=== PATIENT | female | born 1950 | race Caucasian/White ===

== ENCOUNTER 2023-11-28 15:57 | Inpatient (IN) | payer MEDICARE, MEDICAID, SELFPAY ==
[2023-11-28 16:03] VITALS: BP 143/67; PULSE 76; RESP 18; TEMP 36.9; O2SAT 98; BMI 28.2
--- NOTE | 2023-11-28 16:14 | CT_ITS ---
[address] [address] Patient Name: STEF BAZAN MRN: [id number] date: 1950 Sex: F Assigned Patient Location: ER Current Patient Location: Accession/Order Number: [id number] Exam Date: 11/28/2023 16:37 Report Date: 11/28/2023 17:20 At the request of: ROSLYN JARA Procedure: CT chest wo con EXAM: CT scan of the chest without IV contrast. CT scan of the pelvis without contrast. Dose reduction technique used: Automated exposure control and/or adjustment of the mA and/or kV according to patient size and/or use of iterative reconstruction technique. REASON FOR EXAM: pain COMPARISON: CT scan dated 02/06/2018 FINDINGS: CHEST: No pneumothorax. No pleural effusion. No acute airspace opacities. T3, T4, T5, T7, T8, T9 and T12 compression fractures, some of these are chronic but most of them are age indeterminate. There is severe height loss at the T7, T8 and T12 levels. Centrilobular emphysema throughout both lungs. Groundglass nodule in the left upper lobe measuring up to 11 mm. Additional left lower lobe groundglass nodule measuring up to 17 mm. Tiny bilateral solid pulmonary nodules. Coronary atherosclerotic calcifications. Left nephrectomy. 1.4 x 1.3 cm soft tissue density nodule in the left retroperitoneum in the region of the nephrectomy postoperative change. Old left rib fractures. Small amount of scarring and/or atelectasis in the lower lungs bilaterally. PELVIS: Acute nondisplaced right subcapital femoral neck fracture. Age indeterminate L4 and L5 compression fractures with mild height loss. No subluxations or dislocations. No pelvic hematoma or free fluid. Infrarenal abdominal aortic aneurysm measuring up to 3.7 cm. Colonic diverticulosis. Right sacral nerve stimulator. Mild degenerative changes of both hips. Lumbar spine degenerative change. Osteopenia. Remainder unremarkable. CT/CT chest wo con IMPRESSION: 1. Acute right subcapital femoral neck fracture. 2. Multiple thoracic and lumbar compression fractures that are age indeterminate. 3. Otherwise, no definite acute abnormality in the chest. 4. Emphysema. 5. Multiple indeterminate pulmonary nodules. Recommend follow-up chest CT in 3-6 months. 6. Infrarenal abdominal aortic aneurysm. Electronically authenticated by: RICHARD BALDWIN Date: 11/28/2023 17:20
--- NOTE | 2023-11-28 16:14 | CT_ITS ---
[address] [address] Patient Name: STEF BAZAN MRN: [id number] date: 1950 Sex: F Assigned Patient Location: ER Current Patient Location: Accession/Order Number: [id number] Exam Date: 11/28/2023 16:37 Report Date: 11/28/2023 17:20 At the request of: ROSLYN JARA Procedure: CT pelvis wo con EXAM: CT scan of the chest without IV contrast. CT scan of the pelvis without contrast. Dose reduction technique used: Automated exposure control and/or adjustment of the mA and/or kV according to patient size and/or use of iterative reconstruction technique. REASON FOR EXAM: pain COMPARISON: CT scan dated 02/06/2018 FINDINGS: CHEST: No pneumothorax. No pleural effusion. No acute airspace opacities. T3, T4, T5, T7, T8, T9 and T12 compression fractures, some of these are chronic but most of them are age indeterminate. There is severe height loss at the T7, T8 and T12 levels. Centrilobular emphysema throughout both lungs. Groundglass nodule in the left upper lobe measuring up to 11 mm. Additional left lower lobe groundglass nodule measuring up to 17 mm. Tiny bilateral solid pulmonary nodules. Coronary atherosclerotic calcifications. Left nephrectomy. 1.4 x 1.3 cm soft tissue density nodule in the left retroperitoneum in the region of the nephrectomy postoperative change. Old left rib fractures. Small amount of scarring and/or atelectasis in the lower lungs bilaterally. PELVIS: Acute nondisplaced right subcapital femoral neck fracture. Age indeterminate L4 and L5 compression fractures with mild height loss. No subluxations or dislocations. No pelvic hematoma or free fluid. Infrarenal abdominal aortic aneurysm measuring up to 3.7 cm. Colonic diverticulosis. Right sacral nerve stimulator. Mild degenerative changes of both hips. Lumbar spine degenerative change. Osteopenia. Remainder unremarkable. CT/CT pelvis wo con IMPRESSION: 1. Acute right subcapital femoral neck fracture. 2. Multiple thoracic and lumbar compression fractures that are age indeterminate. 3. Otherwise, no definite acute abnormality in the chest. 4. Emphysema. 5. Multiple indeterminate pulmonary nodules. Recommend follow-up chest CT in 3-6 months. 6. Infrarenal abdominal aortic aneurysm. Electronically authenticated by: RICHARD BALDWIN Date: 11/28/2023 17:20
--- NOTE | 2023-11-28 16:17 | ED.GENADUL1 ---
HPI - General Adult General Chief complaint: Extremity Injury, Lower Stated complaint: fall Time Seen by Provider: 11/28/23 16:13 Source: patient Mode of arrival: ambulance Limitations: no limitations History of Present Illness HPI narrative: Patient is a 73-year-old female who is presenting to the ER today with chief complaint of right hip pain, right pelvic pain, left upper lateral rib pain. Patient stated she is walking, lost her balance and felt slightly weak, and then lowered herself to the ground. Patient uses a walker typically, patient resides at a nursing facility. Patient was given 50 mcg of fentanyl IV prior to arrival. A pelvic binder with a sheet was placed to patient's pelvis. Patient was not hypotensive, patient was having pelvic pain so EMS applied a pelvic binder with a sheet that was wrapped around her. Patient states that her hip/pelvis on the right does feel better with the sheet wrapped around her pelvic area. Patient is stating that she is having left lateral upper rib pain after a fall as well. Patient did not hit her head, no neck pain, no blood thinners that she takes. Patient lives in assisted living, uses a walker, no other acute complaints. No headache or neck pain. Patient has chronic pain from multiple back compression fractures. Patient takes morphine and tramadol daily for pain. Patient wears 3 L nasal cannula at all times as well. All systems are negative except as noted/marked. All systems reviewed and otherwise negative. Nurses note and vital signs reviewed and patient is not hypoxic. General: The patient appears mild distress secondary to right hip pain/right pelvic pain. Patient is resting uncomfortably on cart. Patient is not toxic, lethargic, or listless Skin: Warm, dry, no pallor noted. There is no rash noted. No petechiae, purpura. Head: Normocephalic, atraumatic Eye: Normal conjunctiva, no drainage, EOMI. PERRL Ears, Nose, Mouth, and Throat: oral mucosa is moist. Nares patent. Mouth without vesicles. Cardiovascular: Regular Rate and Rhythm, no murmur, gallop, rub. Patient has moderate tenderness palpation to the left upper lateral chest wall over ribs approximately 2 through 5, no ecchymosis, no crepitus, moderate tenderness to palpation. Patient has no left anterior or left posterior chest wall pain. No right-sided anterior, lateral, or posterior chest wall pain. Respiratory: Patient is in no distress, no accessory muscle use, lungs are clear to auscultation, no wheezing, rales or rhonchi Back: Patient has chronic diffuse midline and parathoracic tenderness from previous fractures, no acute pain, no acute step-offs, no cervical, no lumbar, sacrum or coccyx midline or paracervical tenderness to palpation. Otherwise non-tender, no CVA tenderness bilaterally to percussion. No CT LS midline pain GI: no tenderness to palpation, no masses appreciated. No rebound, guarding, or rigidity noted. No distention Musculoskeletal: Patient has full range of motion of all of the extremities except to her righ lower extremity. Patient has full range of motion of her right foot, ankle, knee with no difficulty. With internal/external rotation of the right hip and subtle flexion of the right hip, patient is having moderate reproducible pain in the right hip. Patient is also having moderate reproducible tenderness palpation to the pelvic brim, moderate reproducible pain over bilateral pubic rami, no ecchymosis, no swelling, t, no motor, sensory, or focal neurological deficits Neurological: A&O x4, normal speech Psychiatric: Cooperative Related Data Home Medications Medication Instructions Recorded Confirmed acetaminophen 500 mg tablet 500 mg PO Q8H PRN pain 11/28/23 11/28/23 albuterol sulfate 2.5 mg/3 mL 2.5 mg inhalation Q6H PRN 11/28/23 11/28/23 (0.083 %) solution for nebulization shortness of breath or wheezing atenolol 25 mg tablet 25 mg PO Q24H 11/28/23 11/28/23 furosemide 20 mg tablet 20 mg PO DAILY 11/28/23 11/28/23 gabapentin 600 mg tablet 800 mg PO .morning 11/28/23 11/28/23 lorazepam 0.5 mg tablet 0.5 mg PO Q8H PRN anxiety 11/28/23 11/28/23 morphine 20 mg/5 mL (4 mg/mL) oral 5 mg PO Q4H 11/28/23 11/28/23 solution tramadol 100 mg tablet 100 mg PO Q8H PRN pain 11/28/23 11/28/23 Allergies Allergy/AdvReac Type Severity Reaction Status Date / Time clindamycin AdvReac Intermediate Verified 11/28/23 16:02 levofloxacin AdvReac Intermediate Verified 11/28/23 16:02 [facility] Medical History (Updated 11/28/23 @ 18:38 by Alin Carpenter MD) Aortic aneurysm, abdominal ?I71.40 - Abdominal aortic aneurysm, without rupture, unspecified (ICD-10) Compression fracture COPD (chronic obstructive pulmonary disease) ?J44.9 - Chronic obstructive pulmonary disease, unspecified (ICD-10) Osteopenia determined by x-ray ?M85.80 - Other specified disorders of bone density and structure, unspecified site (ICD-10) Social History Smoking status: Former smoker Exam Constitutional Vital Signs, click to edit/add: Last Vital Signs Temp 98.4 F 11/28/23 16:03 Pulse 89 11/28/23 17:39 Resp 73 H 11/28/23 17:10 BP 122/77 11/28/23 17:39 Pulse Ox 97 11/28/23 17:39 O2 Del Method Nasal Cannula 11/28/23 17:10 O2 Flow Rate 3 11/28/23 17:39 Course Vital Signs Vital signs: Vital Signs Temperature 98.4 F 11/28/23 16:03 Pulse Rate 76 11/28/23 16:03 Respiratory Rate 18 11/28/23 16:03 Blood Pressure 143/67 H 11/28/23 16:03 Pulse Oximetry 98 11/28/23 16:03 Oxygen Delivery Method Nasal Cannula 11/28/23 16:03 Oxygen Delivery Flow Rate 3 11/28/23 16:03 Temperature 98.4 F 11/28/23 16:03 Pulse Rate 89 11/28/23 17:39 Respiratory Rate 73 H 11/28/23 17:10 Blood Pressure 122/77 11/28/23 17:39 Pulse Oximetry 97 11/28/23 17:39 Oxygen Delivery Method Nasal Cannula 11/28/23 17:10 Oxygen Delivery Flow Rate 3 11/28/23 17:39 Medical Decision Making MDM Narrative Medical decision making narrative: Patient was given 50 mcg IV fentanyl prior to arrival by EMS. Patient's pain is 0/10 at this time. Secondary to patient's multiple fractures, multiple vertebral fractures, and her history, patient will have a CT of her chest and pelvis. 1650 patient was returned from radiology, patient was not hooked up to oxygen properly, patient's oxygen saturation was low in the low to mid 80s for several minutes. This was noted by Hernandez ALLEN, oxygen was adjusted, patient's oxygen quickly returned to 97% after she is on 3 L appropriately. Patient is having pain. Patient was given morphine and Zofran, patient is asking for a breathing treatment as well. Patient was given incentive spirometer as well, waiting for CT of the chest and pelvis to return. No obvious acute findings noted when I reviewed the CT scans myself, we are currently waiting for the official results are returned. Patient has a subcapital right femur fracture. Patient has no obvious signs of rib fracture or lung contusion or injury. Patient has multiple chronic thoracic vertebral fractures the patient is aware of. I spoke to Dr. Coe, stating that he will be in consultation for the patient and perform surgery tomorrow if patient is medically cleared. I also spoke to admitting physician, Dr. Barrett, and he will admit patient to medicine with surgery orthopedics in consultation. Patient also started complaining of right foot pain after she was admitted, stating that the top dorsal lateral aspect of her foot across the heads of the metatarsals of 3, 4, 5 were hurting. A foot x-ray was done because she did not have any pain initially to palpation to the right foot or ankle, and there was a small nondisplaced fracture to the head of the 5th metatarsal. I then spoke to Dr. Coe again, he stated and agree with Neal wrap, postop shoe, and no other additional recommendations at this time. Patient takes chronic pain medication. Patient is given morphine several times in the Emergency Room, along with a dose and nausea medication and IV fluids. Patient will be admitted to [facility] with Orthopedic surgery in consultation. Multiple bedside visits were made, multiple phone discussions with Dr. Coe and Dr Barrett. Patient is not on any blood thinners. Patient has been pleasant to talk to, she is chronically on 3 L of nasal cannula. Critical care time 31 minutes exclusive from separate billable procedures that were performed. The following was considered in the determination of critical care but not limited to the level of medical decision making, intensive cardiac and/or respiratory monitoring, frequent vital sign monitoring, evaluation of laboratory studies, evaluation of radiographic studies, oxygen monitoring, and constant monitoring and speaking to family at bedside Lab Data Lab results reviewed: Yes I reviewed the patient's lab results Labs: Lab Results 03/06/24 Range/Units 17:35 WBC 7.4 (4.0-11.0) 10^3/uL RBC 3.68 L (4.20-5.40) 10^6/uL Hgb 10.8 L (12.0-16.0) g/dL Hct 37.4 (36.0-48.0) % MCV 101.6 H (81.0-99.0) fL MCH 29.3 (26.7-34.0) pg MCHC 28.9 L (29.9-35.2) g/dL RDW 13.6 (11.0-15.0) % Plt Count 210 (150-450) 10^3/uL MPV 10.1 (9.5-13.5) fL Neut % (Auto) 62.9 (43.0-75.0) % Lymph % (Auto) 28.4 (20.5-60.0) % Rogers % (Auto) 6.0 (1.7-12.0) % Eos % (Auto) 1.6 (0.9-7.0) % Baso % (Auto) 0.7 (0.2-2.0) % Neut # (Auto) 4.6 (1.4-6.5) 10^3/uL Lymph # (Auto) 2.1 (1.2-3.8) 10^3/uL Rogers # (Auto) 0.4 (0.3-0.8) 10^3/uL Eos # (Auto) 0.1 (0.0-0.7) 10^3/uL Baso # (Auto) 0.1 (0.0-0.1) 10^3/uL Abs Immat Gran (auto) 0.03 (0.00-0.03) 10^3/uL Imm/Tot Granulo (auto) 0.4 (0.0-0.5) % PT 10.3 (9.0-11.6) sec INR 0.97 APTT 26.3 (22.3-36.2) sec Sodium 139 (136-145) mmol/L Potassium 4.6 (3.5-5.1) mmol/L Chloride 102 (98-107) mmol/L Carbon Dioxide 41.8 H (21.0-32.0) mmol/L Anion Gap -0.2 BUN 16.0 (7.0-18.0) mg/dL Creatinine 0.83 (0.55-1.02) mg/dL Est GFR ( Amer) >60 (>=60) Est GFR (Non-Af Amer) >60 (>=60) BUN/Creatinine Ratio 19.3 Glucose 108 H (74-106) mg/dL Calcium 9.2 (8.5-10.1) mg/dL Magnesium 2.2 (1.8-2.4) mg/dL Total Bilirubin 0.4 (0.2-1.0) mg/dL AST 15 (15-37) U/L ALT 13 L (14-59) U/L Alkaline Phosphatase 78 (46-116) U/L Troponin I High Sens <4.0 L (4.0-51.3) pg/mL NT-Pro-B Natriuret Pep 261.0 (<=900.0) pg/mL Total Protein 6.9 (6.4-8.2) g/dL Albumin 3.4 (3.4-5.0) g/dL Globulin 3.5 g/dL Albumin/Globulin Ratio 1.0 Blood Type O Positive Antibody Screen Negative Preop labs were ordered for surgery. Imaging Data CT scan - chest: Radiologist's impression: ITS Impressions Chest CT 11/28/23 16:14 IMPRESSION: 1. Acute right subcapital femoral neck fracture. 2. Multiple thoracic and lumbar compression fractures that are age indeterminate. 3. Otherwise, no definite acute abnormality in the chest. 4. Emphysema. 5. Multiple indeterminate pulmonary nodules. Recommend follow-up chest CT in 3-6 months. 6. Infrarenal abdominal aortic aneurysm. Electronically authenticated by: RICHARD BALDWIN Date: 11/28/2023 17:[address] 11/28/23 16:14 IMPRESSION: 1. Acute right subcapital femoral neck fracture. 2. Multiple thoracic and lumbar compression fractures that are age indeterminate. 3. Otherwise, no definite acute abnormality in the chest. 4. Emphysema. 5. Multiple indeterminate pulmonary nodules. Recommend follow-up chest CT in 3-6 months. 6. Infrarenal abdominal aortic aneurysm. Electronically authenticated by: RICHARD BALDWIN Date: 11/28/2023 17:20 Chest X-Ray 11/28/23 17:30 IMPRESSION: No acute pulmonary disease. Electronically authenticated by: CARMEN HARDY Date: 11/28/2023 19:00 Hip X-Ray 11/28/23 17:32 IMPRESSION: Acute subcapital fracture of the proximal right femur. Electronically authenticated by: SHAYY CHIN Date: 11/28/2023 19:10 Foot X-Ray 11/28/23 18:02 IMPRESSION: No gross acute fracture or dislocation. Electronically authenticated by: CARMEN HARDY Date: 11/28/2023 19:12 ECG Data Attestation: I personally reviewed and interpreted this ECG as follows: (EKG interpretation. Normal sinus rhythm at 90 beats a minute. Normal axis deviation. No acute ST elevation, no acute ectopy. Artifact noted. QTc of 408.) Discharge Plan Discharge Chief Complaint: Extremity Injury, Lower Clinical Impression: Fracture of fifth metatarsal bone of right foot, Left-sided chest wall pain, Fall, Closed right femoral fracture Patient Disposition: Admitted As Inpatient Time of Disposition Decision: 17:30 Condition: Fair
[2023-11-28] MEDS: ONDANSETRON PF 4 MG/2 ML VIAL IV (17:06)
[2023-11-28] MEDS: MORPHINE SULFATE 4 MG/ML VIAL IV ×2 (17:06→19:04)
[2023-11-28] MEDS: IPRATROPIUM/ALBUTEROL SULFATE 3 ML AMPUL.NEB IH ×2 (17:08→22:31)
[2023-11-28 17:10] VITALS: RESP 73; O2SAT 98
--- NOTE | 2023-11-28 17:30 | ECG_ITS ---
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
--- NOTE | 2023-11-28 17:30 | XR_ITS ---
The [place] [id number] Patient Name: STEF BAZAN MRN: [id number] date: 1950 Sex: F Assigned Patient Location: ER Current Patient Location: ED.MAIN Accession/Order Number: [id number] Exam Date: 11/28/2023 17:50 Report Date: 11/28/2023 19:00 At the request of: ROSLYN JARA Procedure: XR chest 1V EXAM: XR chest 1V TECHNIQUE: Single AP view chest HISTORY: right femur fx COMPARISON: CT scan 11/28/2023 FINDINGS: The heart and mediastinum are unremarkable. The lung ortez are clear of any acute infiltrate, effusion or mass. No acute bony abnormality. XR/XR chest 1V IMPRESSION: No acute pulmonary disease. Electronically authenticated by: CARMEN HARDY Date: 11/28/2023 19:00
--- NOTE | 2023-11-28 17:32 | XR_ITS ---
The [place] [id number] Patient Name: STEF BAZAN MRN: [id number] date: 1950 Sex: F Assigned Patient Location: ER Current Patient Location: ER Accession/Order Number: [id number] Exam Date: 11/28/2023 17:50 Report Date: 11/28/2023 19:10 At the request of: ROSLYN JARA Procedure: XR hip RT min 2V XR hip RT min 2V: HISTORY: pre op pre op COMPARISON: Pelvis CT scan from the same day.. TECHNIQUE: 2 right hip views are submitted. FINDINGS: BONES/JOINT SPACES: There is an acute subcapital fracture of the proximal right femur. The femoral head is still articulated with the acetabulum. Osseous structures elsewhere are intact. SOFT TISSUES: The soft tissues are unremarkable. XR/XR hip RT min 2V IMPRESSION: Acute subcapital fracture of the proximal right femur. Electronically authenticated by: SHAYY CHIN Date: 11/28/2023 19:10
[2023-11-28 17:39] VITALS: BP 122/77; PULSE 89; O2SAT 97
[2023-11-28 17:48] LABS: Basophils Absolute Auto 0.1 10^3/uL (0.0-0.1); Basophils Percent Auto 0.7 % (0.2-2.0); Eosinophils Absolute Auto 0.1 10^3/uL (0.0-0.7); Eosinophils Percent Auto 1.6 % (0.9-7.0); Hematocrit 37.4 % (36.0-48.0); Hemoglobin 10.8 g/dL (12.0-16.0); Immature Granulocytes Abs Auto 0.03 10^3/uL (0.00-0.03); Immature Granulocytes Pct Auto 0.4 % (0.0-0.5); Lymphocytes Absolute Auto 2.1 10^3/uL (1.2-3.8); Lymphocytes Percent Auto 28.4 % (20.5-60.0); Mean Corpuscular HGB Conc 28.9 g/dL (29.9-35.2); Mean Corpuscular Hemoglobin 29.3 pg (26.7-34.0); Mean Corpuscular Volume 101.6 fL (81.0-99.0); Mean Platelet Volume 10.1 fL (9.5-13.5); Monocytes Absolute Auto 0.4 10^3/uL (0.3-0.8); Neutrophils Absolute Auto 4.6 10^3/uL (1.4-6.5); Neutrophils Percent Auto 62.9 % (43.0-75.0); Platelet Count 210 10^3/uL (150-450); Red Blood Count 3.68 10^6/uL (4.20-5.40); Red Cell Distribution Width 13.6 % (11.0-15.0); White Blood Count 7.4 10^3/uL (4.0-11.0)
--- NOTE | 2023-11-28 18:02 | XR_ITS ---
The [address] [address] Patient Name: STEF BAZAN MRN: [id number] date: 1950 Sex: F Assigned Patient Location: ER Current Patient Location: Accession/Order Number: [id number] Exam Date: 11/28/2023 17:50 Report Date: 11/28/2023 19:12 At the request of: ROSLYN JARA Procedure: XR foot RT min 3V EXAM: XR foot RT min 3V TECHNIQUE: AP, lateral and oblique views right foot HISTORY: pain COMPARISON: None. FINDINGS: No acute fracture or dislocation. Deformity of the neck of the fifth metatarsal appears chronic. Mild hallux valgus. Soft tissues are unremarkable. Mild degenerative change of the first metatarsophalangeal joint. XR/XR foot RT min 3V IMPRESSION: No gross acute fracture or dislocation. Electronically authenticated by: CARMEN HARDY Date: 11/28/2023 19:12
[2023-11-28 18:04] LABS: Alanine Aminotransferase 13 U/L (14-59); Albumin Level 3.4 g/dL (3.4-5.0); Alkaline Phosphatase 78 U/L (46-116); Anion Gap -0.2; Aspartate Amino Transferase 15 U/L (15-37); BUN Creatinine Ratio 19.3; Bilirubin Total 0.4 mg/dL (0.2-1.0); Calcium 9.2 mg/dL (8.5-10.1); Carbon Dioxide 41.8 mmol/L (21.0-32.0); Chloride 102 mmol/L (98-107); Estimated GFR (African America >60 (>=60); Estimated GFR (Non-African Ame >60 (>=60); Globulin 3.5 g/dL; Glucose 108 mg/dL (74-106); Potassium 4.6 mmol/L (3.5-5.1); Sodium 139 mmol/L (136-145); Total Protein 6.9 g/dL (6.4-8.2); Troponin I High Sensitivity <4.0 pg/mL (4.0-51.3)
[2023-11-28 18:11] LABS: INR 0.97; Partial Thromboplastin Time 26.3 sec (22.3-36.2); Prothrombin Time 10.3 sec (9.0-11.6)
[2023-11-28 19:21] LABS: Magnesium 2.2 mg/dL (1.8-2.4)
[2023-11-28 20:08] VITALS: BMI 23.9
[2023-11-28 20:45] VITALS: BP 125/84; PULSE 90; RESP 18; TEMP 36.7; O2SAT 96
[2023-11-28] MEDS: ENOXAPARIN SODIUM 40 MG/0.4 ML SYRINGE SUBQ (21:16)
[2023-11-28] MEDS: HYDROMORPHONE HCL 0.5 MG/0.5 ML SYRINGE IV (21:17)
[2023-11-28] MEDS: LACTATED RINGER'S SOLUTION 1,000 ML 50 ML IV (21:17)
[2023-11-28] MEDS: ATENOLOL 25 MG TABLET PO (21:17)
[2023-11-28 22:31] VITALS: PULSE 100; RESP 18; O2SAT 96
--- NOTE | 2023-11-28 22:49 | RESP.RT ---
decreased to 3.5L
[2023-11-29] VITALS (44 sets, daily range): BP systolic 107–139; BP diastolic 65–86; PULSE 79–113; RESP 12–30; TEMP 36.5–37.4; O2SAT 81–99
[2023-11-29] MEDS: HYDROMORPHONE HCL 0.5 MG/0.5 ML SYRINGE IV ×3 (00:45→21:05)
[2023-11-29 05:03] LABS: Basophils Absolute Auto 0.1 10^3/uL (0.0-0.1); Basophils Percent Auto 0.6 % (0.2-2.0); Eosinophils Absolute Auto 0.1 10^3/uL (0.0-0.7); Eosinophils Percent Auto 1.6 % (0.9-7.0); Hematocrit 35.4 % (36.0-48.0); Hemoglobin 10.1 g/dL (12.0-16.0); Immature Granulocytes Abs Auto 0.03 10^3/uL (0.00-0.03); Immature Granulocytes Pct Auto 0.4 % (0.0-0.5); Lymphocytes Absolute Auto 1.8 10^3/uL (1.2-3.8); Lymphocytes Percent Auto 22.3 % (20.5-60.0); Mean Corpuscular HGB Conc 28.5 g/dL (29.9-35.2); Mean Corpuscular Hemoglobin 29.4 pg (26.7-34.0); Mean Corpuscular Volume 103.2 fL (81.0-99.0); Mean Platelet Volume 9.8 fL (9.5-13.5); Monocytes Absolute Auto 0.8 10^3/uL (0.3-0.8); Monocytes Percent Auto 10.3 % (1.7-12.0); Neutrophils Absolute Auto 5.2 10^3/uL (1.4-6.5); Neutrophils Percent Auto 64.8 % (43.0-75.0); Platelet Count 193 10^3/uL (150-450); Red Blood Count 3.43 10^6/uL (4.20-5.40); Red Cell Distribution Width 13.7 % (11.0-15.0); White Blood Count 8.1 10^3/uL (4.0-11.0)
[2023-11-29] MEDS: IPRATROPIUM/ALBUTEROL SULFATE 3 ML AMPUL.NEB IH ×4 (05:08→22:51)
[2023-11-29 05:38] LABS: Alanine Aminotransferase 10 U/L (14-59); Albumin Globulin Ratio 0.9; Alkaline Phosphatase 68 U/L (46-116); Anion Gap 5.7; Aspartate Amino Transferase 19 U/L (15-37); BUN Creatinine Ratio 20.5; Bilirubin Total 0.6 mg/dL (0.2-1.0); Calcium 9.2 mg/dL (8.5-10.1); Carbon Dioxide 36.9 mmol/L (21.0-32.0); Chloride 102 mmol/L (98-107); Estimated GFR (African America >60 (>=60); Estimated GFR (Non-African Ame >60 (>=60); Globulin 3.4 g/dL; Glucose 109 mg/dL (74-106); Potassium 4.6 mmol/L (3.5-5.1); Sodium 140 mmol/L (136-145); Total Protein 6.4 g/dL (6.4-8.2)
--- NOTE | 2023-11-29 06:47 | CA_ITS ---
Patient Name: STEF BAZAN MR#: [id number] : 1950 Exam Date: 11/29/2023 Ordering Doctor: DR Morgan Barrett . ECHOCARDIOGRAM REPORT PROCEDURE: CA ECHO DOPPLER COMPLETE INDICATIONS: Dyspnea COMPARISON: None. DESCRIPTION: COMPLETE ECHOCARDIOGRAM Real-time transthoracic echocardiography with 2D, M-mode, spectral and color flow Doppler performed. QUALITY: Technical quality was good. LEFT VENTRICLE: Normal chamber size. Normal left ventricular wall thickness. LV EF: Global left ventricular systolic function is hyperdynamic. Calculated left ventricular ejection fraction is 66%. No wall motion abnormalities. DIASTOLIC: Diastolic function is indeterminate. ATRIAL SEPTUM: Inadequately seen. LEFT ATRIUM: Mild dilatation. RIGHT ATRIUM: Mild dilatation. RIGHT VENTRICLE: Normal chamber size. Normal right ventricular systolic function. TRICUSPID VALVE: Normal mobility and thickness. No stenosis with mild regurgitation. Mild pulmonary hypertension. RVSP 44mmHg MITRAL VALVE: Normal mobility and thickness. No evidence of mitral valve stenosis. Mild mitral annular calcification. Trivial mitral regurgitation. AORTIC VALVE: Grossly normal. No visible sclerosis. Normal leaflet mobility. No evidence of aortic valve stenosis. Trivial aortic regurgitation. AORTIC ROOT: Normal diameter and appearance. PULMONIC VALVE: Grossly normal. No stenosis. No regurgitation. PERICARDIUM: No evidence of pericardial effusion. IVC: Collapses with inspirations. Normal size. CONCLUSION: 1. Global left ventricular systolic function is hyperdynamic; visually estimated ejection fraction is 65 to 70% 2. Normal right ventricular size and systolic function 3. Diastolic function is indeterminate 4. Biatrial enlargement 5. Mild tricuspid regurgitation 6. Mildly elevated right ventricular systolic pressure; RVSP 44 mmHg Adult Echocardiography Procedure Report Left Ventricle LVEDD (3.7 - 5.6 cm): 4.58 cm LVESD (2.2 - 4.0 cm): 3.43 cm LVIVS thickness (0.6 - 1.2 cm): 0.76 cm LVPW thickness (0.5 - 1.0 cm): 0.78 cm e': 0.12 m/s E - e': 5.07 LVOT Max Gradient: 4.70 mm[Hg], 4.39 mm[Hg] LVOT Area (cm2): 1.07 m/s Peak Velocity (LVOT): 1.08 m/s, 1.05 m/s Mean Velocity (LVOT): 0.66 m/s LVOT Diameter 2.10 cm Left Ventricular Ejection Fraction: 65.59 % Left Atrium LA Volume Index (2D A2C): 36.11 ml/m2 Left Atrium Systolic Dimension: 3.29 cm Mitral Valve MV E to A Ratio: 0.79 Mitral Valve A-Wave Peak Velocity: 0.79 m/s Mitral Valve E-Wave Peak Velocity: 0.62 m/s Right Ventricle RV Internal Diastolic Dimension: 3.10 cm Aorta AO Root Diam: 3.36 cm Aortic Valve AoV Area (Peak Conner): 2.44 cm2, 2.48 cm2 AoV Area (VTI): 2.87 cm2, 2.75 cm2 Peak Velocity(Antegrade Flow): 1.52 m/s Peak Gradient(Antegrade Flow): 9.21 mm[Hg] Mean Velocity(Antegrade Flow): 0.94 m/s Mean Gradient(Antegrade Flow): 4.15 mm[Hg] Velocity Time Integral: 24.98 cm Tricuspid Valve Peak Velocity (Regurgitant Flow): 3.00 m/s, 2.89 m/s, 3.19 m/s Pulmonic Valve Mean Gradient: 2.51 mm[Hg], 2.34 mm[Hg], 2.24 mm[Hg], 1.88 mm[Hg] Mean Velocity: 0.76 m/s, 0.72 m/s, 0.71 m/s, 0.63 m/s Peak Velocity: 0.97 m/s Peak Gradient: 4.25 mm[Hg], 4.25 mm[Hg], 3.50 mm[Hg], 3.22 mm[Hg] Right Atrium Right Atrium Systolic Pressure: 58.31 ml, 58.31 ml Dictated by: Zane Farley M.D. on 11/29/2023 at 11:32 Approved by: Zane Farley M.D. on 11/29/2023 at 11:38
[2023-11-29] MEDS: ATENOLOL 25 MG TABLET PO (09:24)
[2023-11-29] MEDS: GABAPENTIN 400 MG CAPSULE 800 MG PO (09:24)
[2023-11-29] MEDS: HYDROMORPHONE HCL 1 MG/ML CARTRIDGE IV (09:24)
[2023-11-29] MEDS: LORAZEPAM 0.5 MG TABLET PO (09:25)
--- NOTE | 2023-11-29 09:37 | CM.NOTE ---
Rounds made with Dr. Barrett. Dr. Barrett discussed Medical history and plan for surgery later today. Ms. Brunson verbalizes understanding.
--- NOTE | 2023-11-29 09:40 | P.HP_ITS ---
<Statement entered by Morgan Barrett MD - 11/29/23 12:38> This documentation has been reviewed and approved. Patient seen and evaluated this morning. Only complaint at the time is pain. Agree with input and findings provided by nurse practitioner notes. Cardiac echo with an excellent ejection fraction. Does have end-stage COPD but no acute exacerbation. Additional diagnoses would be: chronic anemia which may be contributing to her falls. Monitor daily likely to decrease with acute blood loss with the hip fracture. Moderate protein calorie malnutrition-diet supplements Stable AAA HPI H&P: HPI History of Present Illness Chief complaint: fall RT Fracture HIP Narrative: 11/29/23 0850 This is a 73-year-old female patient with a past medical history as outlined below including advanced COPD with chronic respiratory failure on 3 L O2 16/04, hypertension, anxiety, and chronic back pain; who presented to the ED yesterday evening after suffering a fall. The patient lives in an assisted living facility and reports that she was ambulating as usual when her knees suddenly became weak and she fell back onto her right buttock/hip. She experienced immediate pain and was unable to get up. She denies any prodromal symptoms, specifically no chest pain, increased shortness of breath, dizziness, or palpitations. EMS was called and the patient was transported to the ED for further evaluation. The patient complained of right hip/pelvis pain, left upper rib pain, and later right foot pain from this fall. She denies head strike. Workup in the ED included a hip XR that revealed an acute right subcapital femoral neck fracture. This was confirmed on CT pelvis imaging. A CT of the chest revealed multiple thoracic and lumbar compression fractures of unknown age but likely old, multiple indeterminate nodules with follow-up CT recommended in 3 to 6 months, a stable 3.7 cm AAA, and no acute disease noted. A right foot XR was interpreted by the ED physician as an acute, non-displaced fracture of the 5th metatarsal head, but the official radiology interpretation states no acute fracture and only notes deformity of the 5th metatarsal neck. An EKG and chest x-ray were unremarkable. Labs were also unremarkable. The patient was admitted as an inpatient to the hospitalist service yesterday evening for an acute hip fracture with Dr. Coe, orthopedic surgeon, on consult. At the time of my exam the patient is resting comfortably in bed. She does complain of persistent right foot pain that was improved after the compression wrap was adjusted for less compression. She denies any acute chest pain, shortness of breath, N/V/D, or any other acute complaint. She reports that her pulmonary function is at her baseline. A 2D echo was obtained this morning to complete a preoperative evaluation. Surgical repair of this fracture is planned for this evening as an add-on pending echo results. ADDENDUM 1145: Nursing has found out that the pt was on hospice services with [facility] for end stage COPD. The pt is verbalizing that she wants her hip repaired and her hospice services have been revoked for now. Anesthesiology is aware of the pt's chronic lung condition and pre-op work up an d will evaluate the patient's appropriateness for surgery at this facility. 2D echo resulted with preserved LVEF of 65-70%, normal RV size and function, indeterminate diastolic function, mildly elevated RVSP. Plan is still to have ORIF of her hip fracture later today. Opioid HPI Opioid Management Most Recent Opioid Data: Last Pain Assessment 11/29/23 10:00 Last MAR Pain Assessment 11/29/23 09:24 Last ORT Total Score 0 11/28/23 20:08 Last ORT Risk Category Low Risk 11/28/23 20:08 Review of Systems ROS Status of ROS 10 or more systems reviewed and unremark able except as noted in history and below [facility] Medical History (Updated 11/29/23 @ 12:21 by Josephine Doshi NP) Multiple pulmonary nodules determined by computed tomography of lung ?R91.8 - Other nonspecific abnormal finding of lung field (ICD-10) Hospice care ?Z51.5 - Encounter for palliative care (ICD-10) HTN (hypertension) ?I10 - Essential (primary) hypertension (ICD-10) Chronic back pain ?M54.9 - Dorsalgia, unspecified (ICD-10) ?G89.29 - Other chronic pain (ICD-10) Chronic respiratory failure ?J96.10 - Chronic respiratory failure, unspecified whether with hypoxia or hypercapnia (ICD-10) Presence of suburethral sling ?Z96.0 - Presence of urogenital implants (ICD-10) Diverticulitis ?K57.92 - Diverticulitis of intestine, part unspecified, without perforation or abscess without bleeding (ICD-10) Emphysema lung ?J43.9 - Emphysema, unspecified (ICD-10) Aortic aneurysm, abdominal ?I71.40 - Abdominal aortic aneurysm, without rupture, unspecified (ICD-10) Compression fracture COPD (chronic obstructive pulmonary disease) ?J44.9 - Chronic obstructive pulmonary disease, unspecified (ICD-10) Osteopenia determined by x-ray ?M85.80 - Other specified disorders of bone density and structure, unspecified site (ICD-10) Surgical History (Updated 11/28/23 @ 20:55 by Nadine Li RN) History of lumpectomy of left breast ?Z98.890 - Other specified postprocedural states (ICD-10) Hx of tonsillectomy ?Z90.89 - Acquired absence of other organs (ICD-10) H/O left nephrectomy ?Z90.5 - Acquired absence of kidney (ICD-10) Family History (Updated 11/28/23 @ 20:31 by Nadine Li, TIFFANY) Father Family history of cancer Other Family history of diabetes mellitus Family history of hypertension Social History (Updated 11/28/23 @ 20:32 by Nadine Li, TIFFANY) Within the past year, how often did you have a drink containing alcohol: never Score interpretation: A score less than 3 is consistent with normal alcohol consumption. Smoking status: Former smoker Non-prescribed substance use: denies use Highest level of school completed/degree received: some college, no degree Meds Home Medications and Allergies Home Medications Medication Instructions Recorded Confirmed Type acetaminophen 500 mg tablet 500 mg PO Q8H PRN pain 11/28/23 11/28/23 History albuterol sulfate 2.5 mg/3 mL 2.5 mg inhalation Q6H PRN 11/28/23 11/28/23 History (0.083 %) solution for nebulization shortness of breath or wheezing atenolol 25 mg tablet 25 mg PO Q24H 11/28/23 11/28/23 History furosemide 20 mg tablet 20 mg PO DAILY 11/28/23 11/28/23 History gabapentin 600 mg tablet 800 mg PO .morning 11/28/23 11/28/23 History ipratropium 0.5 mg-albuterol 3 mg 3 ml inhalation Q6H 11/28/23 11/28/23 History (2.5 mg base)/3 mL nebulization soln lorazepam 0.5 mg tablet 0.5 mg PO Q8H PRN anxiety 11/28/23 11/28/23 History morphine 20 mg/5 mL (4 mg/mL) oral 5 mg PO Q4H 11/28/23 11/28/23 History solution tramadol 100 mg tablet 100 mg PO Q8H PRN pain 11/28/23 11/28/23 History Allergies Allergy/AdvReac Type Severity Reaction Status Date / Time clindamycin AdvReac Intermediate Verified 11/28/23 16:02 levofloxacin AdvReac Intermediate Verified 11/28/23 16:02 Exam Constitutional Vital Signs, click to edit/add: Last Vital Signs Temp 98.0 F 11/29/23 08:00 Pulse 84 11/29/23 08:00 Resp 18 11/29/23 08:00 BP 113/65 11/29/23 08:00 Pulse Ox 93 L 11/29/23 08:00 O2 Del Method Nasal Cannula 11/29/23 08:00 O2 Flow Rate 3.5 11/29/23 08:00 Common normals: no apparent distress, oriented x3, alert and well nourished General appearance: cooperative Orientation/consciousness: Yes awake HENKY Common normals: normocephalic, head/scalp atraumatic, hearing grossly normal bilaterally, external nose normal and moist oral mucous membranes Eye Common normals: PERRL, EOMs intact bilaterally, conjunctivae normal and no scleral icterus Alignment: alignment normal Eyelid: eyelids normal Chest Common normals: inspection of chest normal Chest: symmetrical chest wall rise Respiratory Common normals: normal respiratory effort and no retractions Effort & inspection: able to speak in complete sentences, uses accessory muscles (Mild abdominal) and prolonged expiratory phase; no respiratory distress, no pursed lip breathing and not labored Auscultation: rhonchi (Expiratory throughout) and wheezes (Scattered EE) Cardio Common normals: no JVD, regular rate, regular rhythm, S1 normal heart sound, S2 normal heart sound, no gallops, no clicks, no murmurs, no rub and peripheral pulses 2+ throughout Heart sounds: other (HT mostly obliterated by LS) GI Common normals: Normal to inspection, nondistended, normoactive bowel sounds present, soft to palpation, no hepatosplenomegaly, no masses and no bruits Palpation: soft and no hepatosplenomegaly Bladder/kidney exam: bladder normal to palpation Extremity Common normals: normal capillary refill and no pedal edema General: normal exam except as noted; no cyanosis Right lower extremity: hip joint Right hip: ROM (Unable to perform d/t pain) and other (External rotation) Neuro Darryl Coma Scale: GCS not evaluated Common normals: CN's II-XII intact bilaterally, moves all extremities, no focal motor deficits and no sensory deficits noted Speech: speech normal Psych Common normals: mental status grossly normal, thought process normal, affect normal and activity/motor behavior normal Results Labs Labs: Short CBC 11/28/23 11/29/23 Range/Units 17:35 04:45 WBC 7.4 8.1 (4.0-11.0) 10^3/uL Hgb 10.8 L 10.1 L (12.0-16.0) g/dL Hct 37.4 35.4 L (36.0-48.0) % Plt Count 210 193 (150-450) 10^3/uL BMP 11/28/23 11/29/23 17:35 04:45 Sodium 139 140 Potassium 4.6 4.6 Chloride 102 102 Carbon Dioxide 41.8 H 36.9 H BUN 16.0 16.0 Creatinine 0.83 0.78 Glucose 108 H 109 H Calcium 9.2 9.2 Liver Function 11/28/23 11/29/23 Range/Units 17:35 04:45 Total Bilirubin 0.4 0.6 (0.2-1.0) mg/dL AST 15 19 (15-37) U/L ALT 13 L 10 L (14-59) U/L Alkaline Phosphatase 78 68 (46-116) U/L Albumin 3.4 3.0 L (3.4-5.0) g/dL Pulse Oximetry Attestation: I have reviewed the pertinent pulse oximetry results. ECG Interpretation: Sinus rhythm Normal ECG Compared to ECG from 09/11/2017, sinus tachycardia is no longer present Imaging R Foot XR: Attestation: I have reviewed the pertinent imaging results. Radiologist's impression: FINDINGS: No acute fracture or dislocation. Deformity of the neck of the fifth metatarsal appears chronic. Mild hallux valgus. Soft tissues are unremarkable. Mild degenerative change of the first metatarsophalangeal joint. Chest x-ray: Attestation: I have reviewed the pertinent imaging results. Radiologist's impression: FINDINGS: The heart and mediastinum are unremarkable. The lung ortez are clear of any acute infiltrate, effusion or mass. No acute bony abnormality. CT scan - chest: Attestation: I have reviewed the pertinent imaging results. Radiologist's impression: IMPRESSION: 1. Acute right subcapital femoral neck fracture. 2. Multiple thoracic and lumbar compression fractures that are age indeterminate. 3. Otherwise, no definite acute abnormality in the chest. 4. Emphysema. 5. Multiple indeterminate pulmonary nodules. Recommend follow-up chest CT in 3-6 months. 6. Infrarenal abdominal aortic aneurysm. CT scan - pelvis: Attestation: I have reviewed the pertinent imaging results. Radiologist's impression: IMPRESSION: 1. Acute right subcapital femoral neck fracture. 2. Multiple thoracic and lumbar compression fractures that are age indeterminate. 3. Otherwise, no definite acute abnormality in the chest. 4. Emphysema. 5. Multiple indeterminate pulmonary nodules. Recommend follow-up chest CT in 3-6 months. 6. Infrarenal abdominal aortic aneurysm. Hip XR: Attestation: I have reviewed the pertinent imaging results. Radiologist's impression: IMPRESSION: Acute subcapital fracture of the proximal right femur. Assessment and Plan Assessment and Plan (1) Closed right femoral fracture: Assessment and Plan: Acute * Adm inpatient * Pt requires at least a 2 midnight stay to receive medically necessary hospital care * C/S Dr Coe - we appreciate his assistance with this pt's care * Pt NPO pending surgery * Pre-op evaluation - CXR unremarkable, EKG w/ NSR, 2D Echo ordered - interpretation pending * Anesthesia consult d/t chronic respiratory failure at baseline for pre-op eval * Dilaudid IVP for pain * Zofran for nausea * PT/OT consults for post op eval and treat * CBC, CMP daily Qualifiers: Encounter type: initial encounter Femur location: neck, unspecified portion Qualified Code(s): S72.001A - Fracture of unspecified part of neck of right femur, initial encounter for closed fracture (2) Fall: Assessment and Plan: Acute * Mechanical fall from BLE weakness * Denies prodromal symptoms prior to fall * Ambulate w/ SBA at all times * PT/OT eval and treat Qualifiers: Encounter type: initial encounter Qualified Code(s): W19.XXXA - Unspecified fall, initial encounter (3) Fracture of fifth metatarsal bone of right foot: Assessment and Plan: Acute * Equivocal finding on XR * Dr Coe aware - continue compression wraps and surgical boot per his recommendation * Supportive care Qualifiers: Encounter type: initial encounter Fracture alignment: nondisplaced Fracture type: closed Qualified Code(s): S92.354A - Nondisplaced fracture of fifth metatarsal bone, right foot, initial encounter for closed fracture (4) Left-sided chest wall pain: Assessment and Plan: Acute * No acute rib fracture on CXR or CT chest (5) COPD (chronic obstructive pulmonary disease): Assessment and Plan: Chronic * Continue home scheduled duonebs, plus PRN nebs for SOB or wheezing * Pt confirms respiratory status is at her baseline * No current concern for acute exacerbation but will monitor closely (6) Chronic respiratory failure: Assessment and Plan: Chronic * Continue home O2 delivery at 3L (7) Chronic back pain: Assessment and Plan: Chronic * Hold home PO Morphine and tramadol for now while receiving IVP Dilaudid for pain (8) HTN (hypertension): Assessment and Plan: Chronic * Continue home atenolol
--- NOTE | 2023-11-29 10:51 | SWNOTE1 ---
Pt is from [facility]. She is going to have surgery tonight, hip fracture. Pt will likely need to go to SNF at discharge. Billing updated us and she is [facility] medicare/medicaid. She is a precert to go SNF. They will need PT/OT notes to start precert. Therapy not able to work with pt until after surgery.
--- NOTE | 2023-11-29 11:42 | SWNOTE1 ---
SW spoke to nurse and nurse practitioner, [facility] was here and pt was signed on to Hospice for several months. Pt has no signed off of hospice, revoked services. At this time we are just waiting to see if pt is cleared from anesthia.
--- NOTE | 2023-11-29 11:43 | RESP.RT ---
Pt is confused at this time
[2023-11-29] MEDS: LACTATED RINGER'S SOLUTION 1,000 ML 85 ML IV (13:21)
--- NOTE | 2023-11-29 14:05 | SWNOTE1 ---
Pt has been medicated due to pain. She had voiced earlier that if needs SNF then it would be [facility]. SW has sent face sheet, ED note, case mngt referral report, nursing notes, and DNR order to [facility].
--- NOTE | 2023-11-29 14:08 | SWNOTE1 ---
[facility] sent H&P to Namrata at [facility].
--- NOTE | 2023-11-29 15:08 | PC.NURSE ---
While completing rounding pt was sleeping. Upon further assessment pt was hard to arouse. With sternal rub and pt name she opened her eyes but immediately went back to sleep. Asked pt about her pain level are you in any pain all pt said was no and went right back to sleep, which is a change from this morning.Student nurse assisted in getting vitals. Updated [employer] at this time. New orders were placed.
[2023-11-29 15:25] LABS: Allen Test POSITIVE (POSITIVE); Base Excess ABG 14.5 mmol/L (-2.0-2.0); HCO3 ABG 40.8 mmol/L (22.0-26.0); Liters per Minute 3; O2 Mode NC; Oxygen Saturation ABG 98.7 %; Puncture Site LR; pH ABG 7.307 (7.350-7.450)
[2023-11-29 15:28] LABS: ABG PCO2 81.8 mmHg (35.0-45.0)
[2023-11-29] MEDS: NALOXONE HCL 0.4 MG/ML VIAL 0.400000000000000022 MG IV (15:42)
--- NOTE | 2023-11-29 16:00 | XR_ITS ---
The [address] [address] Patient Name: STEF BAZAN MRN: [id number] date: 1950 Sex: F Assigned Patient Location: ICU Current Patient Location: ICU Accession/Order Number: [id number] Exam Date: 11/29/2023 16:20 Report Date: 11/29/2023 16:52 At the request of: PRUDENCE MORALES Procedure: XR chest 1V EXAM: XR chest 1V at 1551 hours HISTORY: SOB, Hypoxia COMPARISON: 11/28/2023 TECHNIQUE: AP upright portable chest x-ray FINDINGS: The heart is not enlarged and the vasculature is not distended. No acute infiltrate, effusion or pneumothorax is identified. The osseous structures are grossly intact. Equipment artifacts are present on the left. XR/XR chest 1V IMPRESSION: No apparent acute infiltrate or evidence of cardiac decompensation. The overall appearance of the chest is essentially unchanged. Electronically authenticated by: SARINA CEVALLOS Date: 11/29/2023 16:52
[2023-11-29 16:55] LABS: Basophils Absolute Auto 0.1 10^3/uL (0.0-0.1); Basophils Percent Auto 0.8 % (0.2-2.0); Eosinophils Absolute Auto 0.2 10^3/uL (0.0-0.7); Eosinophils Percent Auto 3.2 % (0.9-7.0); Hematocrit 38.1 % (36.0-48.0); Hemoglobin 10.9 g/dL (12.0-16.0); Immature Granulocytes Abs Auto 0.02 10^3/uL (0.00-0.03); Immature Granulocytes Pct Auto 0.3 % (0.0-0.5); Lymphocytes Percent Auto 27.5 % (20.5-60.0); Mean Corpuscular HGB Conc 28.6 g/dL (29.9-35.2); Mean Corpuscular Hemoglobin 29.5 pg (26.7-34.0); Mean Platelet Volume 10.1 fL (9.5-13.5); Monocytes Absolute Auto 0.7 10^3/uL (0.3-0.8); Monocytes Percent Auto 10.4 % (1.7-12.0); Neutrophils Absolute Auto 4.1 10^3/uL (1.4-6.5); Neutrophils Percent Auto 57.8 % (43.0-75.0); Platelet Count 165 10^3/uL (150-450); Red Cell Distribution Width 13.9 % (11.0-15.0); White Blood Count 7.1 10^3/uL (4.0-11.0)
--- NOTE | 2023-11-29 16:58 | PC.NURSE ---
pt transferred from [facility] to icu for resp distress and decreased loc. pt on bipap, rt at bedside. mix placed, immediate return of beckie urine. pt more responsive, recognizes sister at bedside. this nurse updated pt on plan of care. assessment completed.
[2023-11-29 17:08] LABS: Alanine Aminotransferase 13 U/L (14-59); Albumin Globulin Ratio 0.9; Albumin Level 3.2 g/dL (3.4-5.0); Alkaline Phosphatase 71 U/L (46-116); Anion Gap 6.1; Aspartate Amino Transferase 25 U/L (15-37); BUN Creatinine Ratio 17.9; Bilirubin Total 0.9 mg/dL (0.2-1.0); Calcium 9.3 mg/dL (8.5-10.1); Chloride 99 mmol/L (98-107); Estimated GFR (African America >60 (>=60); Estimated GFR (Non-African Ame >60 (>=60); Globulin 3.5 g/dL; Glucose 85 mg/dL (74-106); Potassium 4.1 mmol/L (3.5-5.1); Sodium 142 mmol/L (136-145); Total Protein 6.7 g/dL (6.4-8.2)
[2023-11-29 17:11] LABS: Lactate/Lactic Acid 1.2 mmol/L (0.4-2.0)
[2023-11-29 17:16] LABS: Troponin I High Sensitivity <4.0 pg/mL (4.0-51.3)
--- NOTE | 2023-11-29 17:24 | P.EN_ITS ---
<Statement entered by Morgan Barrett MD - 11/29/23 18:27> This documentation has been reviewed and approved. Pt seen in ICU - more comfortable with breathing on BIPAP - will let her rest overnight on that -= re-eval in am Event Note Event Note: 1530 Nursing reported the patient has been lethargic and nearly obtunded since receiving IVP Dilaudid earlier this morning. ORIF of her hip fracture was planned for later this evening, but with her level of obtundation the surgeon is unable to obtain consent and she has no POA. We obtained an ABG to assess for CO2 narcosis. The patient is chronically hypercarbic and is mostly compensated but has mild respiratory acidosis at this time. She also appeared over o xygenated on ABG and her O2 delivery was turned down slightly per RT recommendation. We gave a dose of Narcan to assess for oversedation with opioids. The patient did wake up with Narcan administration, but became increasingly dyspneic and short of breath. Her O2 sats were dropping into the 80s and her O2 delivery was returned back to her baseline 3L. The patient had difficulty clearing her secretions and felt like she was unable to breathe. She was placed on BiPAP and transferred to the ICU for closer monitoring. While the patient was more awake she did confirm that if intubation was necessary intraoperatively she was okay with that even if it meant she had to remain intubated for a while after surgery. Surgery for today has been canceled due to her respiratory distress. We will reevaluate in the morning if she is an appropriate patient for surgery at this facility.
[2023-11-29 17:36] LABS: Bilirubin Urine NEGATIVE (NEGATIVE); Blood Urine NEGATIVE (NEGATIVE); Clarity Urine CLEAR (CLEAR); Color Urine YELLOW (YELLOW); Glucose Urine UA NEGATIVE (NEGATIVE); Ketones Urine NEGATIVE (NEGATIVE); Leukocyte Esterase Urine NEGATIVE (NEGATIVE); Nitrite Urine NEGATIVE (NEGATIVE); Protein Urine NEGATIVE (NEG/TRACE); Specific Gravity Urine 1.025 (1.005-1.025); Urobilinogen Urine 0.2 EU/dL (0.2-1.0)
[2023-11-29 17:37] LABS: Allen Test POSITIVE (POSITIVE); Base Excess ABG 14.5 mmol/L (-2.0-2.0); HCO3 ABG 39.1 mmol/L (22.0-26.0); Oxygen Saturation ABG 82.6 %; pH ABG 7.409 (7.350-7.450)
[2023-11-29 17:38] LABS: Fractionated Inspired Oxygen 25 %; O2 Mode BIPAP
[2023-11-29 17:39] LABS: ABG PCO2 61.9 mmHg (35.0-45.0); PO2 ABG 43.7 mmHg (80.0-100.0)
[2023-11-29 17:42] LABS: Puncture Site LR
[2023-11-29 17:43] LABS: Bacteria Urine TRACE #/HPF (NONE SEEN); Cast Seen? NONE SEEN #/LPF (NONE SEEN); Crystals Seen? None Seen #/HPF (None Seen); Mucus Urine NONE SEEN (NONE SEEN); RBC Urine 0-2 #/HPF (0-2); Squamous Epithelial Cell Urine FEW #/LPF (NONE/RARE); WBC Urine NONE SEEN #/HPF (NONE SEEN)
[2023-11-29] MEDS: ENOXAPARIN SODIUM 40 MG/0.4 ML SYRINGE SUBQ (21:04)
[2023-11-29] MEDS: GUAIFENESIN 600 MG TAB.ER.12H PO (21:06)
[2023-11-29] MEDS: ONDANSETRON PF 4 MG/2 ML VIAL IV (21:16)
[2023-11-30] VITALS (37 sets, daily range): BP systolic 93–136; BP diastolic 54–84; PULSE 83–116; RESP 14–24; TEMP 36.5–37.5; O2SAT 82–110
[2023-11-30] MEDS: LACTATED RINGER'S SOLUTION 1,000 ML 85 ML IV ×2 (00:11→11:56)
[2023-11-30] MEDS: HYDROMORPHONE HCL 0.5 MG/0.5 ML SYRINGE IV ×4 (00:13→15:53)
--- NOTE | 2023-11-30 00:46 | PC.NURSE ---
called this nurse into room. pt asked if I trusted the woman wearing the long cape and turban on her head, that she was listening to my conversations. unable to find the person the pt was talking about I reassured her that there was no here with that description and she said you prob think Im crazy . I reassured the pt and she knew her person, place, and situation. agreed to reposition in bed and try to sleep.
[2023-11-30] MEDS: ONDANSETRON PF 4 MG/2 ML VIAL IV (04:36)
[2023-11-30 05:00] LABS: Basophils Absolute Auto 0.1 10^3/uL (0.0-0.1); Basophils Percent Auto 0.9 % (0.2-2.0); Eosinophils Absolute Auto 0.2 10^3/uL (0.0-0.7); Eosinophils Percent Auto 2.8 % (0.9-7.0); Hematocrit 33.6 % (36.0-48.0); Hemoglobin 9.8 g/dL (12.0-16.0); Immature Granulocytes Abs Auto 0.02 10^3/uL (0.00-0.03); Immature Granulocytes Pct Auto 0.3 % (0.0-0.5); Lymphocytes Absolute Auto 1.4 10^3/uL (1.2-3.8); Lymphocytes Percent Auto 20.9 % (20.5-60.0); Mean Corpuscular HGB Conc 29.2 g/dL (29.9-35.2); Mean Corpuscular Hemoglobin 29.2 pg (26.7-34.0); Mean Platelet Volume 10.3 fL (9.5-13.5); Monocytes Absolute Auto 0.6 10^3/uL (0.3-0.8); Monocytes Percent Auto 8.4 % (1.7-12.0); Neutrophils Absolute Auto 4.5 10^3/uL (1.4-6.5); Neutrophils Percent Auto 66.7 % (43.0-75.0); Platelet Count 164 10^3/uL (150-450); Red Blood Count 3.36 10^6/uL (4.20-5.40); Red Cell Distribution Width 13.6 % (11.0-15.0); White Blood Count 6.8 10^3/uL (4.0-11.0)
[2023-11-30] MEDS: IPRATROPIUM/ALBUTEROL SULFATE 3 ML AMPUL.NEB IH ×5 (05:02→22:12)
[2023-11-30 05:14] LABS: Allen Test POSITIVE (POSITIVE); Base Excess ABG 14.3 mmol/L (-2.0-2.0); HCO3 ABG 39.3 mmol/L (22.0-26.0); Oxygen Saturation ABG 94.3 %; PO2 ABG 66.2 mmHg (80.0-100.0); pH ABG 7.385 (7.350-7.450)
[2023-11-30 05:15] LABS: ABG PCO2 65.7 mmHg (35.0-45.0); Liters per Minute 4; O2 Mode NASAL CANNULA; Puncture Site LR
--- NOTE | 2023-11-30 05:20 | PC.NURSE ---
called out and requested pain med. alert and oriented to person place and situation. spoke of her relationship with family and friends. remains on 4L NC and is comfortable after repositioning her onto her left side.
[2023-11-30 05:24] LABS: Alanine Aminotransferase 8 U/L (14-59); Albumin Globulin Ratio 0.8; Albumin Level 2.5 g/dL (3.4-5.0); Alkaline Phosphatase 58 U/L (46-116); Anion Gap 4.9; Aspartate Amino Transferase 21 U/L (15-37); BUN Creatinine Ratio 16.7; Bilirubin Total 0.9 mg/dL (0.2-1.0); Calcium 8.8 mg/dL (8.5-10.1); Carbon Dioxide 36.2 mmol/L (21.0-32.0); Chloride 103 mmol/L (98-107); Estimated GFR (African America >60 (>=60); Estimated GFR (Non-African Ame >60 (>=60); Globulin 3.1 g/dL; Glucose 94 mg/dL (74-106); Potassium 4.1 mmol/L (3.5-5.1); Sodium 140 mmol/L (136-145); Total Protein 5.6 g/dL (6.4-8.2)
--- NOTE | 2023-11-30 07:55 | P.PLCN_ITS ---
History of Present Illness History of Present Illness Consult date: 11/29/23 Requesting physician: Morgan Barrett Reason for consult: other (Hypercapnic respiratory failure) Chief complaint: fall RT Fracture HIP Narrative: 73yo female presents to [facility] with a fall. Found to have an acute right subcapital femoral neck fracture. She was admitted for surgical evaluation for repair of the fracture. She has a significant history of end-stage COPD. She followed with Dr. Benitez @ [facility], but has not seen him in some time. She is enrolled in [facility] d/t her COPD. She revoked Hospice in order to proceed with surgery. Yesterday (11/29/2023), the patient became confused. ABG drawn @ 15:19 noted pH 7.307 and pCO2 81.8. She was placed on BiPAP with improvement in ABGs. Today (11/30/2023) @ 05:00, pH was 7.385 and pCO2 65.7. She does not recall any history of being told she is a CO2-retainer; has never been on a BiPAP. She is on chronic O2 @ baseline 3L/min. Due to the hypercapnia, surgery was cancelled. The patient initially stated that she does not want intubated, so surgery was on further hold. I had a lengthy discussion with her regarding the risks of pulmonary complications regarding surgery, including perioperative respiratory failure which could include BiPAP bridge or even intubation. I spoke with anesthesia this AM; they said their preferred approach would be for spinal anesthesia, but there remains the risk that general may be necessary. Regardless of anesthesia, there is always the potential for respiratory failure which could necessitate intubation and possible need for ventilator support after recovery. As the patient's acid-base status appears compensated for her, I stated that she is optimized from that standpoint for surgery. However, she would need to accept the risks for potential post-op intubation and ventilator support. She stated that she would only agree to it if she were extubated, if still intubated, at the 24-hour cheri. I replied that this demand is not acceptable for me - if in my medical opinion, she required an additional length on the ventilator, I would be obligated to manage her so, and if she is adamant dictating she will only agree with a 24-hour window, then I will not clear her for surgery from a pulmonary standpoint. She replied that I may want her to be on the ventilator longer so that I get paid more. I answered that is not the case...our goal is to keep her off the ventilator in the first place, but if she requires it, to have her on for the least amount of time before safely extubating her. I said there always remains a risk of long-term ventilator support, that I am not God and cannot guarantee the future, but as of this time, I feel that she has a higher chance of being liberated from the vent (once again if necessary) in an acceptable period of time. She voiced she accepted this, voiced understanding that she would remain on the ventilator for as long as I felt she required, and in the unfortunate circumstance that her respiratory status was unweanable, that we would discuss with her POA for terminal extubation. Review of Systems ROS Status of ROS 10 or more systems reviewed and unremark able except as noted in history and below (Right lower extremity pain. Daily morning cough. Dry mouth. ) [facility] Medical History Hypercapnic respiratory failure, chronic ?J96.12 - Chronic respiratory failure with hypercapnia (ICD-10) Anemia ?D64.9 - Anemia, unspecified (ICD-10) Multiple pulmonary nodules determined by computed tomography of lung ?R91.8 - Other nonspecific abnormal finding of lung field (ICD-10) HTN (hypertension) ?I10 - Essential (primary) hypertension (ICD-10) Chronic back pain ?M54.9 - Dorsalgia, unspecified (ICD-10) ?G89.29 - Other chronic pain (ICD-10) Chronic respiratory failure ?J96.10 - Chronic respiratory failure, unspecified whether with hypoxia or hypercapnia (ICD-10) Presence of suburethral sling ?Z96.0 - Presence of urogenital implants (ICD-10) Diverticulitis ?K57.92 - Diverticulitis of intestine, part unspecified, without perforation or abscess without bleeding (ICD-10) Emphysema lung ?J43.9 - Emphysema, unspecified (ICD-10) Aortic aneurysm, abdominal ?I71.40 - Abdominal aortic aneurysm, without rupture, unspecified (ICD-10) Compression fracture COPD (chronic obstructive pulmonary disease) ?J44.9 - Chronic obstructive pulmonary disease, unspecified (ICD-10) Osteopenia determined by x-ray ?M85.80 - Other specified disorders of bone density and structure, unspecified site (ICD-10) Surgical History History of lumpectomy of left breast ?Z98.890 - Other specified postprocedural states (ICD-10) Hx of tonsillectomy ?Z90.89 - Acquired absence of other organs (ICD-10) H/O left nephrectomy ?Z90.5 - Acquired absence of kidney (ICD-10) Family History Father Family history of cancer Other Family history of diabetes mellitus Family history of hypertension Social History Within the past year, how often did you have a drink containing alcohol: never Score interpretation: A score less than 3 is consistent with normal alcohol consumption. Smoking status: Former smoker Non-prescribed substance use: denies use Highest level of school completed/degree received: some college, no degree Meds Home Medications and Allergies Home Medications Medication Instructions Recorded Confirmed Type acetaminophen 500 mg tablet 500 mg PO Q8H PRN pain 11/28/23 11/28/23 History albuterol sulfate 2.5 mg/3 mL 2.5 mg inhalation Q6H PRN 11/28/23 11/28/23 Histor y (0.083 %) solution for nebulization shortness of breath or wheezing atenolol 25 mg tablet 25 mg PO Q24H 11/28/23 11/28/23 History furosemide 20 mg tablet 20 mg PO DAILY 11/28/23 11/28/23 History gabapentin 600 mg tablet 800 mg PO .morning 11/28/23 11/28/23 History ipratropium 0.5 mg-albuterol 3 mg 3 ml inhalation Q6H 11/28/23 11/28/23 History (2.5 mg base)/3 mL nebulization soln lorazepam 0.5 mg tablet 0.5 mg PO Q8H PRN anxiety 11/28/23 11/28/23 History morphine 20 mg/5 mL (4 mg/mL) oral 5 mg PO Q4H 11/28/23 11/28/23 History solution tramadol 100 mg tablet 100 mg PO Q8H PRN pain 11/28/23 11/28/23 History Allergies Allergy/AdvReac Type Severity Reaction Status Date / Time clindamycin AdvReac Intermediate Verified 11/28/23 16:02 levofloxacin AdvReac Intermediate Verified 11/28/23 16:02 Exam Constitutional Vital Signs, click to edit/add: Last Vital Signs Temp 97.7 F 11/30/23 04:13 Pulse 114 H 11/30/23 06:00 Resp 18 11/30/23 05:02 BP 129/74 11/30/23 04:13 Pulse Ox 95 11/30/23 06:00 O2 Del Method Nasal Cannula 11/30/23 04:13 O2 Flow Rate 4 11/30/23 04:13 FiO2 50 11/29/23 20:00 Common normals: no apparent distress Exam limitations: no altered mental status General appearance: cooperative Orientation/consciousness: Yes awake HENMT Other: Mallampati III. Mucous membranes are dry. No candidiasis. Chest Common normals: inspection of chest normal Respiratory Other: Normal respiratory effort. Scattered rhonchi. No wheezes. Cardio Other: RRR. Occasional ectopy on telemetry. GI Common normals: Normal to inspection, nondistended, normoactive bowel sounds present Bladder/kidney exam: catheter in place Catheter type (Female): urethral Extremity Other: RLE internal rotation, right foot in boot Neuro Sensorium/orientation: awake, alert, oriented to person, oriented to place and oriented to time Speech: speech normal Psych Common normals: mental status grossly normal Attitude: calm and engaged Speech: normal speech Thought process: normal thought process Thought content: normal thought content Results Laboratory Findings ABG, PT/INR, D-dimer: ABG ABG pH 7.385 (7.350-7.450) 11/30/23 05:00 ABG pCO2 65.7 mmHg (35.0-45.0) H* 11/30/23 05:00 ABG pO2 66.2 mmHg (80.0-100.0) L 11/30/23 05:00 ABG O2 Saturation 94.3 % 11/30/23 05:00 PT/INR, D-dimer PT 10.3 sec (9.0-11.6) 11/28/23 17:35 INR 0.97 11/28/23 17:35 Abnormal lab findings: Abnormal Labs 11/28/23 11/29/23 11/29/23 17:35 04:45 15:19 RBC 3.68 L 3.43 L Hgb 10.8 L 10.1 L Hct 35.4 L MCV 101.6 H 103.2 H MCHC 28.9 L 28.5 L ABG pH 7.307 L ABG pCO2 81.8 H* ABG pO2 105.0 H ABG HCO3 40.8 H ABG Base Excess 14.5 H Carbon Dioxide 41.8 H 36.9 H Glucose 108 H 109 H ALT 13 L 10 L Troponin I High Sens <4.0 L Total Protein Albumin 3.0 L Ur Squamous Epith Cells Urine Bacteria 11/29/23 11/29/23 11/29/23 16:45 17:28 17:30 RBC 3.70 L Hgb 10.9 L Hct MCV 103.0 H MCHC 28.6 L ABG pH ABG pCO2 61.9 H* ABG pO2 43.7 L* ABG HCO3 39.1 H ABG Base Excess 14.5 H Carbon Dioxide 41.0 H Glucose ALT 13 L Troponin I High Sens <4.0 L Total Protein Albumin 3.2 L Ur Squamous Epith Cells Few A Urine Bacteria Trace A 11/30/23 11/30/23 04:02 05:00 RBC 3.36 L Hgb 9.8 L Hct 33.6 L MCV 100.0 H MCHC 29.2 L ABG pH ABG pCO2 65.7 H* ABG pO2 66.2 L ABG HCO3 39.3 H ABG Base Excess 14.3 H Carbon Dioxide 36.2 H Glucose ALT 8 L Troponin I High Sens Total Protein 5.6 L Albumin 2.5 L Ur Squamous Epith Cells Urine Bacteria Diagnostic Findings Chest x-ray: report reviewed CT scan - chest: report reviewed Assessment and Plan Assessment and Plan (1) Acute on chronic respiratory failure with hypercapnia: Assessment and Plan: Secondary to COPD/emphysema. Patient has a baseline chronic hypercapnia based on BMP HCO3 >40. ABG, after BiPAP support, compensated at pH 7.385 & pCO2 65.7. Exact etiology for acute component unclear, but suspect aggravated by medications (e.g. benzodiazepines + opiates). Patient is currently coherent, non-obtunded, not lethargic, and appears to have lucid thoughts. Avoid, if possible, over-sedating medications and limiting pain medications to the lowest doses as possible to control her symptoms. Continue with BiPAP support during this hospitalization. Outpatient, she may benefit from BiPAP or NIV, but if she returns to Hospice, this would not be indicated. (2) Centrilobular emphysema: Assessment and Plan: Emphysematous changes noted on CT. End-stage COPD, O2-dependent. Was following with Dr. Benitez @ [facility], but has not seen in a long time. Enrolled in Hospice for end-stage COPD. Current goal is for pulmonary toilet to get her through surgery. Continue with bronchodilators. Add IPPV. (3) Chronic respiratory failure with hypoxia: Assessment and Plan: Secondary to COPD/emphysema. Baseline O2 is 3L/min continuous - this may be too much for her. Recommend goal SpO2 88-92% to avoid hyperoxic-induced hypercapnia. (4) Ground glass opacity present on imaging of lung: Assessment and Plan: Chest CT 11/28/2023 identified GGO @ 17mm in LLL and 11mm in NABILA. Given history of tobacco abuse, she remains at a high risk for malignancy. [address] F/U is highly recommended; however, if she resumes Hospice care, then continued F/U would be moot. (5) H/O left nephrectomy: Assessment and Plan: For having no left kidney, her renal function at this time is good, with GFR >60. Regardless, this, along with her age, can decrease elimination of medications and can increase risk of potential side effects, including benzodiazepines, opiates, and anesthesia. (6) Other secondary pulmonary hypertension: Assessment and Plan: RVSP on echocardiogram 11/29/2023 shows mild increase @ 44mmHg. Suspect group 3 (COPD/hypoxic). Mild, no additional treatment indicated at this time other than treating the underlying conditions. (7) Closed fracture of neck of right femur: Assessment and Plan: Acute right subcapital femoral neck fracture s/p fall. See HPI. Patient voiced agreement to the risks of perioperative respiratory failure with surgery, including BiPAP support and intubation with ventilator if necessary. She also voiced agreement to allow no set time for post-operative ventilator support. I feel her respiratory status is compensated at this time and is acceptable to proceed with surgery. Recommend limited anesthesia if possible, such as spinal, but if general is required, then it must be done. I will be available for post- op pulmonary/ICU management over the weekend if needed. Qualifiers: Encounter type: initial encounter Qualified Code(s): S72.001A - Fracture of unspecified part of neck of right femur, initial encounter for valente sed fracture (8) Fracture of fifth metatarsal bone of right foot: Qualifiers: Encounter type: initial encounter Fracture alignment: nondisplaced Fracture type: closed Qualified Code(s): S92.354A - Nondisplaced fracture of fifth metatarsal bone, right foot, initial encounter for closed fracture (9) History of tobacco abuse:
--- NOTE | 2023-11-30 08:01 | P.PN_ITS ---
Progress Note: Subjective Subjective Interval history: Patient looking much improved today. Awake and alert and talkative. Exam Constitutional Vital Signs, click to edit/add: Last Vital Signs Temp 97.7 F 11/30/23 04:13 Pulse 94 H 11/30/23 07:54 Resp 17 11/30/23 07:54 BP 129/74 11/30/23 04:13 Pulse Ox 93 L 11/30/23 07:54 O2 Del Method Nasal Cannula 11/30/23 07:54 O2 Flow Rate 4 11/30/23 07:54 FiO2 50 11/29/23 20:00 Common normals: no apparent distress Exam limitations: no altered mental status Chest Common normals: inspection of chest normal and palpation of chest normal Respiratory Common normals: normal respiratory effort, no retractions and no use of accessory muscles Auscultation: rhonchi, wheezes and diminished lung sounds GI Common normals: Normal to inspection, nondistended, normoactive bowel sounds present Progress Note: Objective Labs Labs: Short CBC 11/29/23 11/30/23 Range/Units 16:45 04:02 WBC 7.1 6.8 (4.0-11.0) 10^3/uL Hgb 10.9 L 9.8 L (12.0-16.0) g/dL Hct 38.1 33.6 L (36.0-48.0) % Plt Count 165 164 (150-450) 10^3/uL BMP 11/29/23 11/30/23 16:45 04:02 Sodium 142 140 Potassium 4.1 4.1 Chloride 99 103 Carbon Dioxide 41.0 H 36.2 H BUN 15.0 13.0 Creatinine 0.84 0.78 Glucose 85 94 Calcium 9.3 8.8 Liver Function 11/29/23 11/30/23 Range/Units 16:45 04:02 Total Bilirubin 0.9 0.9 (0.2-1.0) mg/dL AST 25 21 (15-37) U/L ALT 13 L 8 L (14-59) U/L Alkaline Phosphatase 71 58 (46-116) U/L Albumin 3.2 L 2.5 L (3.4-5.0) g/dL Urine 11/29/23 Range/Units 17:28 Urine Color Yellow (YELLOW) Urine Clarity Clear (CLEAR) Urine pH 6.0 (5.0-9.0) Ur Specific [place] 1.025 (1.005-1.025) Urine Protein Negative (NEG/TRACE) mg/dL Urine Glucose (UA) Negative (NEGATIVE) mg/dL Progress Note: A&P Assessment and Plan (1) Closed right femoral fracture: Assessment and Plan: Case has been discussed with pulmonology and anesthesia, everybody is in agreement for proceeding with surgery later today. Orthopedics notified Qualifiers: Encounter type: initial encounter Femur location: neck, unspecified portion Qualified Code(s): S72.001A - Fracture of unspecified part of neck of right femur, initial encounter for closed fracture (2) Fall: Qualifiers: Encounter type: initial encounter Qualified Code(s): W19.XXXA - Unspecified fall, initial encounter (3) Fracture of fifth metatarsal bone of right foot: Qualifiers: Encounter type: initial encounter Fracture alignment: nondisplaced Fracture type: closed Qualified Code(s): S92.354A - Nondisplaced fracture of fifth metatarsal bone, right foot, initial encounter for closed fracture (4) Left-sided chest wall pain: (5) COPD (chronic obstructive pulmonary disease): Assessment and Plan: Acute COPD exacerbation with severe episode yesterday leading to acute hypoxic respiratory failure requiring BiPAP ventilation overnight. That was able to be weaned off and is down to 3 to 4 L this morning. Need to keep O2 saturations in the 88 to 92% range, try IPV treatments today. (6) Chronic respiratory failure: Assessment and Plan: See above (7) Chronic back pain: (8) HTN (hypertension): Assessment and Plan: Monitor daily continue with medications Plan Iron deficiency anemia as well as anemia of acute blood loss secondary to hip fracture-monitor daily Inpatient status, surgical treatment later today. Rehab after that. Urinary Catheter Management Urinary Catheter Management Urethral: Cath placed during this visit: yes Urethral indwelling: Yes Reason for continuing: surgical procedure Insertion date: 11/29/23 Insertion time: 16:30
--- NOTE | 2023-11-30 09:25 | CM.NOTE ---
Rounds made with Dr. Barrett. Dr. Chaparro, Cold Type Composing Machine Operator, consulted. Awaiting further plan of care for surgical intervention once all consults obtained and discussed.
[2023-11-30] MEDS: GABAPENTIN 400 MG CAPSULE 800 MG PO (09:28)
[2023-11-30] MEDS: GUAIFENESIN 600 MG TAB.ER.12H PO ×2 (09:29→21:16)
[2023-11-30] MEDS: ATENOLOL 25 MG TABLET PO (09:29)
--- NOTE | 2023-11-30 09:30 | SWNOTE1 ---
SW sent updated physician note, pulmonary note, labs, vitals, and nursing notes to [facility]. Pt will have surgery today.
--- NOTE | 2023-11-30 09:34 | XR_ITS ---
The [address] [address] Patient Name: STEF BAZAN MRN: [id number] date: 1950 Sex: F Assigned Patient Location: ICU Current Patient Location: ICU Accession/Order Number: [id number] Exam Date: 11/30/2023 09:50 Report Date: 11/30/2023 12:00 At the request of: WYATT DOOLEY Procedure: XR hip RT min 2V EXAM: XR hip RT min 2V HISTORY: hip fracture. Right hip with shoot through COMPARISON: Right hip x-ray, CT pelvis 11/28/2023. TECHNIQUE: Supine AP, shoot through lateral x-ray right hip. FINDINGS: Minimal nondisplaced slightly impacted subcapital fracture right hip again noted. Alignment and position unchanged. Anatomic alignment on the shoot through lateral. Normal mineralization without focal bone lesion. Normal joint space. No trochanteric or subtrochanteric fracture. No pelvic ring fracture. Stimulator device in the pelvis. Nonspecific gas pattern without distention. XR/XR hip RT min 2V IMPRESSION: No change in alignment or position of nondisplaced subcapital fracture right hip. Electronically authenticated by: FRANKY MUÑOZ Date: 11/30/2023 12:00
--- NOTE | 2023-11-30 10:31 | SWNOTE1 ---
SW spoke with pt in regards to discharge plans. Pt is alert and oriented x3. Pt spoke with SW about her hip fracture and her plan after surgery. SW explained to her that she will likely need rehab. SW confirmed if she needs this would she like to go to [facility]? Pt voiced yes, but she stated she is going to sign back on to hospice as soon as she is extubated. SW asked pt what her goal was after surgery. Pt stated to . Pt stated this world is not good and her health is not good. She state she wants to go back to [facility] with Hospoce. SW explained to pt to go back to Assisted Living, she would have to meet certain requirements in regards to her mobility and there is a chance she may not be mobile enough right after surgery to return to [place]. SW explained she could go to residential care with hospice, pt did not want that. SW then explained she could go to [facility] for a short rehab stay to become more mobile and then return to [place]. Pt voiced she thinks she will be doing well enough after surgery to return to [place]. MAXIMUS again explained that we will have to see how she does with therapy, and determine from there. MAXIMUS confirmed with pt that she is agreeable for SW to send information to [facility] as a back up plan for rehab. She was in agreement. Pt is going to surgery at 5:30. MAXIMUS also asked pt about POA paperwork? She voiced her friend, Nicole, is her POA. SW checked chart and HCPOA is on chart. MAXIMUS has sent updates to Namrata at [facility]. MAXIMUS to let Namrata at [facility] know what pt's goals are and see what the requirements are for [place].
--- NOTE | 2023-11-30 11:20 | SWNOTE1 ---
MAXIMUS spoke with Namrata at [facility]. She spoke with Constance at [facility]. She voiced that pt will not be able to return to Assisted Living unless she is at or around her previous level of function. She also voiced there are no BAKER APPRENTICE's and no nurses a few nights of the week. She stated pt will likely need pain meds and no nurse there to administer. Namrata stated Constance or someone from [facility] will call or stop over and explain these things to pt. Namrata stated that they will still have her apartment for her once she is done with rehab. Per medicaid they have to hold it for 90 days.
[2023-11-30] MEDS: SODIUM CHLORIDE 0.9% INHALATION 3 ML NEB 6 ML IH ×2 (11:27→15:37)
--- NOTE | 2023-11-30 15:52 | RESP.RT ---
decreased to 2 LPM
--- NOTE | 2023-11-30 17:38 | PC.NURSE ---
To OR per bed.
--- NOTE | 2023-11-30 17:49 | P.ORCN_ITS ---
History of Present Illness HPI Consult date: 11/30/23 Consult reason: fracture Chief complaint: fall RT Fracture HIP Narrative: Patient is a 73-year-old with advanced COPD who presented to the hospital November 27 after losing her balance falling onto her right hip with acute onset of pain. She was seen in the emergency room where x-rays revealed a femoral neck fracture on the right as well as 1/5 metatarsal neck fracture. Patient has been admitted for operative treatment of her injury. Since admitted she had acute exacerbation of her COPD but has improved today. Review of Systems ROS Status of ROS 10 or more systems reviewed and unremark able except as noted in history and below [facility] Medical History Hypercapnic respiratory failure, chronic ?J96.12 - Chronic respiratory failure with hypercapnia (ICD-10) Anemia ?D64.9 - Anemia, unspecified (ICD-10) Multiple pulmonary nodules determined by computed tomography of lung ?R91.8 - Other nonspecific abnormal finding of lung field (ICD-10) HTN (hypertension) ?I10 - Essential (primary) hypertension (ICD-10) Chronic back pain ?M54.9 - Dorsalgia, unspecified (ICD-10) ?G89.29 - Other chronic pain (ICD-10) Chronic respiratory failure ?J96.10 - Chronic respiratory failure, unspecified whether with hypoxia or hypercapnia (ICD-10) Presence of suburethral sling ?Z96.0 - Presence of urogenital implants (ICD-10) Diverticulitis ?K57.92 - Diverticulitis of intestine, part unspecified, without perforation or abscess without bleeding (ICD-10) Emphysema lung ?J43.9 - Emphysema, unspecified (ICD-10) Aortic aneurysm, abdominal ?I71.40 - Abdominal aortic aneurysm, without rupture, unspecified (ICD-10) Compression fracture COPD (chronic obstructive pulmonary disease) ?J44.9 - Chronic obstructive pulmonary disease, unspecified (ICD-10) Osteopenia determined by x-ray ?M85.80 - Other specified disorders of bone density and structure, unspecified site (ICD-10) Surgical History History of lumpectomy of left breast ?Z98.890 - Other specified postprocedural states (ICD-10) Hx of tonsillectomy ?Z90.89 - Acquired absence of other organs (ICD-10) H/O left nephrectomy ?Z90.5 - Acquired absence of kidney (ICD-10) Family History Father Family history of cancer Other Family history of diabetes mellitus Family history of hypertension Social History Within the past year, how often did you have a drink containing alcohol: never Score interpretation: A score less than 3 is consistent with normal alcohol consumption. Smoking status: Former smoker Non-prescribed substance use: denies use Highest level of school completed/degree received: some college, no degree Meds Home Medications and Allergies Home Medications Medication Instructions Recorded Confirmed Type acetaminophen 500 mg tablet 500 mg PO Q8H PRN pain 11/28/23 11/28/23 History albuterol sulfate 2.5 mg/3 mL 2.5 mg inhalation Q6H PRN 11/28/23 11/28/23 History (0.083 %) solution for nebulization shortness of breath or wheezing atenolol 25 mg tablet 25 mg PO Q24H 11/28/23 11/28/23 History furosemide 20 mg tablet 20 mg PO DAILY 11/28/23 11/28/23 History gabapentin 600 mg tablet 800 mg PO .morning 11/28/23 11/28/23 History ipratropium 0.5 mg-albuterol 3 mg 3 ml inhalation Q6H 11/28/23 11/28/23 History (2.5 mg base)/3 mL nebulization soln lorazepam 0.5 mg tablet 0.5 mg PO Q8H PRN anxiety 11/28/23 11/28/23 History morphine 20 mg/5 mL (4 mg/mL) oral 5 mg PO Q4H 11/28/23 11/28/23 History solution tramadol 100 mg tablet 100 mg PO Q8H PRN pain 11/28/23 11/28/23 History Allergies Allergy/AdvReac Type Severity Reaction Status Date / Time clindamycin AdvReac Intermediate Verified 11/28/23 16:02 levofloxacin AdvReac Intermediate Verified 11/28/23 16:02 Exam Narrative Exam Narrative: On exam she is in no obvious distress. Right hip has pain with range of motion. Skin is intact. Tenderness along the fifth metatarsal neck of the right foot. Grossly neurovascularly intact. No bilateral upper extremity pain with range of motion and no left lower extremity pain with range of motion. Constitutional Vital Signs, click to edit/add: Last Vital Signs Temp 98.9 F 11/30/23 15:37 Pulse 94 H 11/30/23 16:00 Resp 18 11/30/23 16:00 BP 128/72 11/30/23 15:37 Pulse Ox 92 L 11/30/23 17:15 O2 Del Method Nasal Cannula 11/30/23 17:15 O2 Flow Rate 2 11/30/23 17:15 FiO2 50 11/29/23 20:00 Results Labs Labs: Abnormal lab results 11/30/23 11/30/23 Range/Units 04:02 05:00 RBC 3.36 L (4.20-5.40) 10^6/uL Hgb 9.8 L (12.0-16.0) g/dL Hct 33.6 L (36.0-48.0) % MCV 100.0 H (81.0-99.0) fL MCHC 29.2 L (29.9-35.2) g/dL ABG pCO2 65.7 H* (35.0-45.0) mmHg ABG pO2 66.2 L (80.0-100.0) mmHg ABG HCO3 39.3 H (22.0-26.0) mmol/L ABG Base Excess 14.3 H (-2.0-2.0) mmol/L Carbon Dioxide 36.2 H (21.0-32.0) mmol/L ALT 8 L (14-59) U/L Total Protein 5.6 L (6.4-8.2) g/dL Albumin 2.5 L (3.4-5.0) g/dL H & H 11/28/23 11/29/23 11/29/23 Range/Units 17:35 04:45 16:45 Hgb 10.8 L 10.1 L 10.9 L (12.0-16.0) g/dL Hct 37.4 35.4 L 38.1 (36.0-48.0) % 11/30/23 Range/Units 04:02 Hgb 9.8 L (12.0-16.0) g/dL Hct 33.6 L (36.0-48.0) % Coagulation 11/28/23 Range/Units 17:35 INR 0.97 All other labs normal. Diagnostic results Hip x-ray: image reviewed (X-rays of her right hip are reviewed and show slightly impacted in valgus femoral neck fracture.) Ankle/Foot x-ray: image reviewed (X-rays of her right foot were reviewed and these show a nondisplaced fifth metatarsal neck fracture) Assessment and Plan Assessment and Plan (1) Closed right femoral fracture: Assessment and Plan: For her right femoral neck fracture I have recommended a right hip ORIF. I discussed risks associated with the surgery including but not limited to risk of persistent postoperative pain, need for future surgery particular given her significantly osteoporotic bone and the possibility of implant failure, worsening respiratory status and loss of life. We have gone through additional risks associated with this injury and procedure and she has elected to proceed. For her right foot fracture we will treat her in the postoperative shoe and n onweightbearing. Qualifiers: Encounter type: initial encounter Femur location: neck, unspecified portion Qualified Code(s): S72.001A - Fracture of unspecified part of neck of right femur, initial encounter for closed fracture (2) Fall: Qualifiers: Encounter type: initial encounter Qualified Code(s): W19.XXXA - Unspecified fall, initial encounter (3) Fracture of fifth metatarsal bone of right foot: Qualifiers: Encounter type: initial encounter Fracture alignment: nondisplaced Fracture type: closed Qualified Code(s): S92.354A - Nondisplaced fracture of fifth metatarsal bone, right foot, initial encounter for closed fracture (4) Left-sided chest wall pain: (5) COPD (chronic obstructive pulmonary disease): (6) Chronic respiratory failure: (7) Chronic back pain: (8) HTN (hypertension):
--- NOTE | 2023-11-30 17:57 | PM.ORPRC ---
Procedure Note Date of procedure: 11/30/23 Pre-op diagnosis: Right femoral neck fracture Post-op diagnosis: same as pre-op Procedure: After informed consent was obtained the patient was brought to the operating room where spinal anesthetic was administered. Patient was placed on the fracture table and the right hip was prepped and draped in the usual sterile fashion. A 5 cm incision was made just distal to the greater trochanter in line with the femur hemostasis achieved with Bovie. Fascia was incised in line with the incision. Vastus lateralis was elevated off the femur. The guide was placed and the guidepin for the Synthes FNS was placed in the appropriate position of the femoral head. This was measured overreamed and then a FNS with a 2 hole plate was placed and impacted into position. The 2 locking screws were placed in the plate in the standard fashion and then the antirotation locking screw was placed through the femoral head. Final x-rays in multiple planes revealed a reduced hip fracture with appropriate implant placement and lengths. Wound was irrigated. Fascia was closed with a suture tape. Skin was closed in standard fashion. Sterile dressing was placed. Patient was brought to the recovery room in stable condition. There were no intraoperative or immediate postoperative complications. Anesthesia: spinal Surgeon: Cooper Coe Estimated blood loss (mL): 25 Pathology: none sent Condition: stable Disposition: PACU
--- NOTE | 2023-11-30 19:15 | FL_ITS ---
[facility] [place] [id number] Patient Name: STEF BAZAN MRN: [id number] date: 1950 Sex: F Assigned Patient Location: ICU Current Patient Location: [place] Accession/Order Number: [id number] Exam Date: 11/30/2023 17:45 Report Date: 12/04/2023 08:12 At the request of: SUSHIL BERG Procedure: FL fluoroscopy <1hr NON-READ EXAM: FL fluoroscopy <1hr NON-READ HISTORY: TECHNIQUE: FINDINGS: Please see Operative Report. Electronically authenticated by: RADIOLOGIST NO Date: 12/04/2023 08:12
--- NOTE | 2023-11-30 19:24 | PM.ORPRC ---
Procedure Note Date of procedure: 11/30/23 Pre-op diagnosis: Right femoral fracture Post-op diagnosis: same as pre-op Procedure: Operation performed: Right hip ORIF Procedure: After informed consent was obtained the patient was brought to the operating room where a spinal anesthetic was administered. Patient was placed on the fracture table. X-rays in the AP and lateral planes revealed a reduced femoral neck fracture. The right hip was prepped and draped in usual sterile fashion. A 5 cm incision was made in line with the incision for lateral approach. Fascia was incised in line with the incision. VMO was incised and then released off of the lateral femur. The guide for the Synthes FNS was placed and advanced in the appropriate position and confirmed on AP and lateral fluoroscopy views. This was measured overreamed and then a 2 hole 80 mm FNS was placed. The distal 2 locking screws were placed in the standard fashion followed by the 85 mm antirotation screw. Final x-rays in AP and lateral planes revealed a reduced hip fracture with appropriate implant placement and lengths. The fascia was closed with #2 FiberWire suture. Skin was closed in standard fashion in layers. Sterile dressing was placed. Patient was brought to the recovery room in stable condition. There were no intraoperative or immediate postoperative complications. Surgeon: Cooper Coe Estimated blood loss (mL): 50 Pathology: none sent Condition: stable Disposition: PACU
--- NOTE | 2023-11-30 19:34 | PC.NURSE ---
Spinal level is at waist level at this time.
[2023-11-30] MEDS: ENOXAPARIN SODIUM 40 MG/0.4 ML SYRINGE SUBQ (21:16)
[2023-11-30] MEDS: ACETAMINOPHEN 500 MG TABLET 1000 MG PO (21:37)
[2023-12-01] VITALS (15 sets, daily range): BP systolic 103–148; BP diastolic 54–76; PULSE 94–118; RESP 18–24; TEMP 36.7–37.5; O2SAT 88–96
[2023-12-01] MEDS: LACTATED RINGER'S SOLUTION 1,000 ML 85 ML IV (00:13)
[2023-12-01] MEDS: CEFAZOLIN SODIUM/DEXTROSE,ISO 2 GM/50 ML PIGGYBACK IV ×3 (00:44→17:29)
[2023-12-01] MEDS: IPRATROPIUM/ALBUTEROL SULFATE 3 ML AMPUL.NEB IH ×6 (02:53→23:22)
[2023-12-01 05:04] LABS: PCO2 VBG 53.3 mmHg (40.0-52.0); pH VBG 7.446 (7.330-7.430)
[2023-12-01 05:12] LABS: Basophils Percent Auto 0.6 % (0.2-2.0); Eosinophils Absolute Auto 0.3 10^3/uL (0.0-0.7); Eosinophils Percent Auto 4.8 % (0.9-7.0); Hematocrit 29.8 % (36.0-48.0); Hemoglobin 8.9 g/dL (12.0-16.0); Immature Granulocytes Abs Auto 0.02 10^3/uL (0.00-0.03); Immature Granulocytes Pct Auto 0.4 % (0.0-0.5); Lymphocytes Absolute Auto 0.6 10^3/uL (1.2-3.8); Lymphocytes Percent Auto 10.7 % (20.5-60.0); Mean Corpuscular HGB Conc 29.9 g/dL (29.9-35.2); Mean Corpuscular Hemoglobin 29.4 pg (26.7-34.0); Mean Corpuscular Volume 98.3 fL (81.0-99.0); Mean Platelet Volume 10.1 fL (9.5-13.5); Monocytes Absolute Auto 0.4 10^3/uL (0.3-0.8); Monocytes Percent Auto 7.8 % (1.7-12.0); Neutrophils Percent Auto 75.7 % (43.0-75.0); Platelet Count 136 10^3/uL (150-450); Red Blood Count 3.03 10^6/uL (4.20-5.40); Red Cell Distribution Width 13.8 % (11.0-15.0); White Blood Count 5.3 10^3/uL (4.0-11.0)
[2023-12-01 05:32] LABS: Alanine Aminotransferase 9 U/L (14-59); Albumin Globulin Ratio 0.8; Albumin Level 2.3 g/dL (3.4-5.0); Alkaline Phosphatase 47 U/L (46-116); Aspartate Amino Transferase 22 U/L (15-37); BUN Creatinine Ratio 12.7; Bilirubin Total 0.5 mg/dL (0.2-1.0); Calcium 8.6 mg/dL (8.5-10.1); Carbon Dioxide 35.7 mmol/L (21.0-32.0); Chloride 103 mmol/L (98-107); Estimated GFR (African America >60 (>=60); Estimated GFR (Non-African Ame >60 (>=60); Glucose 107 mg/dL (74-106); Potassium 3.7 mmol/L (3.5-5.1); Sodium 141 mmol/L (136-145); Total Protein 5.3 g/dL (6.4-8.2)
--- NOTE | 2023-12-01 06:40 | RESP.RT ---
Patient refused IPV
[2023-12-01] MEDS: OXYCODONE HCL 5 MG TABLET PO ×2 (09:08→15:36)
[2023-12-01] MEDS: GUAIFENESIN 600 MG TAB.ER.12H PO ×2 (09:08→20:18)
[2023-12-01] MEDS: ATENOLOL 25 MG TABLET PO (09:09)
[2023-12-01] MEDS: GABAPENTIN 300 MG CAPSULE 600 MG PO (09:10)
[2023-12-01] MEDS: 0.9 % SODIUM CHLORIDE 250 ML 10 ML IV (09:29)
--- NOTE | 2023-12-01 10:47 | RESP.RT ---
decreased to 2 LPM
[2023-12-01] MEDS: HYDROMORPHONE HCL 0.5 MG/0.5 ML SYRINGE IV ×2 (11:40→20:18)
--- NOTE | 2023-12-01 12:20 | PM.IMPN1 ---
Progress Note: A&P Assessment and Plan (1) Closed right femoral fracture: Assessment and Plan: s/p ORIF. PT/OT eval. Pain is poorly controlled. Added PO oxycodone. Qualifiers: Encounter type: initial encounter Femur location: neck, unspecified portion Qualified Code(s): S72.001A - Fracture of unspecified part of neck of right femur, initial encounter for closed fracture (2) Fall: Assessment and Plan: Resulted in right femoral fx, s/p right ORIF Qualifiers: Encounter type: initial encounter Qualified Code(s): W19.XXXA - Unspecified fall, initial encounter (3) Fracture of fifth metatarsal bone of right foot: Assessment and Plan: Conservactive care. Qualifiers: Encounter type: initial encounter Fracture alignment: nondisplaced Fracture type: closed Qualified Code(s): S92.354A - Nondisplaced fracture of fifth metatarsal bone, right foot, initial encounter for closed fracture (4) Acute on chronic respiratory failure with hypercapnia: Assessment and Plan: Required BIPAP treatment. Improved now. At baseline (5) Left-sided chest wall pain: Assessment and Plan: Resolved (6) COPD (chronic obstructive pulmonary disease): Assessment and Plan: End stage COPD, on 3 L, at baseline currently Qualifiers: COPD type: unspecified COPD Qualified Code(s): J44.9 - Chronic obstructive pulmonary disease, unspecified (7) Chronic respiratory failure: Assessment and Plan: At baseline, on chronic home O2. Qualifiers: Respiratory failure complication: hypoxia Qualified Code(s): J96.11 - Chronic respiratory failure with hypoxia (8) Chronic back pain: Assessment and Plan: PT/OT. C/w oxycodone and IV dilaudid for pain Qualifiers: Back pain laterality: unspecified Back pain location: low back pain Sciatica presence: unspecified whether sciatica present Qualified Code(s): M54.50 - Low back pain, unspecified; G89.29 - Other chronic pain (9) HTN (hypertension): Assessment and Plan: C/w home meds Qualifiers: Hypertension type: primary hypertension Qualified Code(s): I10 - Essential (primary) hypertension Internal Medicine - PN: Subj Subjective Interval history: Patient seen and examined today. No overnight events. He reports poorly controlled pain postoperatively. Exam Constitutional Vital Signs, click to edit/add: Last Vital Signs Temp 99.5 F 12/01/23 09:27 Pulse 105 H 12/01/23 10:46 Resp 18 12/01/23 09:27 BP 131/72 12/01/23 09:27 Pulse Ox 96 12/01/23 10:46 O2 Del Method Nasal Cannula 12/01/23 10:46 O2 Flow Rate 3 12/01/23 10:46 FiO2 50 11/29/23 20:00 Common normals: no apparent distress, average body habitus and oriented x3 HENMT Common normals: normocephalic and head/scalp atraumatic Respiratory Common normals: normal respiratory effort, no use of accessory muscles and clear to auscultation bilaterally Cardio Common normals: no JVD, regular rate, regular rhythm, S1 normal heart sound and S2 normal heart sound Neuro Common normals: oriented x3, CN's II-XII intact bilaterally, moves all extremities and no focal motor deficits Internal Medicine - PN: Obj Da Labs Labs: Laboratory Results - last 24 hr 12/01/23 04:44 WBC 5.3 RBC 3.03 L Hgb 8.9 L Hct 29.8 L MCV 98.3 MCH 29.4 MCHC 29.9 RDW 13.8 Plt Count 136 L MPV 10.1 Neut % (Auto) 75.7 H Lymph % (Auto) 10.7 L [place] % (Auto) 7.8 Eos % (Auto) 4.8 Baso % (Auto) 0.6 Neut # (Auto) 4.0 Lymph # (Auto) 0.6 L [place] # (Auto) 0.4 Eos # (Auto) 0.3 Baso # (Auto) 0.0 Abs Immat Gran (auto) 0.02 Imm/Tot Granulo (auto) 0.4 VBG pH 7.446 H VBG pCO2 53.3 H Sodium 141 Potassium 3.7 Chloride 103 Carbon Dioxide 35.7 H Anion Gap 6.0 BUN 9.0 Creatinine 0.71 Est GFR ( Amer) >60 Est GFR (Non-Af Amer) >60 BUN/Creatinine Ratio 12.7 Glucose 107 H Calcium 8.6 Total Bilirubin 0.5 AST 22 ALT 9 L Alkaline Phosphatase 47 Total Protein 5.3 L Albumin 2.3 L Globulin 3.0 Albumin/Globulin Ratio 0.8 Urinary Catheter Management Urinary Catheter Management Urethral: Cath placed during this visit: yes Urethral indwelling: Yes Reason for continuing: not indwelling catheter Insertion date: 11/29/23 Insertion time: 16:30
--- NOTE | 2023-12-01 12:32 | PM.ORPN ---
Progress Note: A&P Assessment and Plan (1) Closed right femoral fracture: Assessment and Plan: POD#1 from right hip ORIF Hgb stable DVT prophylaxis TTWB RLE Qualifiers: Encounter type: initial encounter Femur location: neck, unspecified portion Qualified Code(s): S72.001A - Fracture of unspecified part of neck of right femur, initial encounter for closed fracture (2) Fall: Qualifiers: Encounter type: initial encounter Qualified Code(s): W19.XXXA - Unspecified fall, initial encounter (3) Fracture of fifth metatarsal bone of right foot: Qualifiers: Encounter type: initial encounter Fracture alignment: nondisplaced Fracture type: closed Qualified Code(s): S92.354A - Nondisplaced fracture of fifth metatarsal bone, right foot, initial encounter for closed fracture (4) Acute on chronic respiratory failure with hypercapnia: (5) Left-sided chest wall pain: (6) COPD (chronic obstructive pulmonary disease): Qualifiers: COPD type: unspecified COPD Qualified Code(s): J44.9 - Chronic obstructive pulmonary disease, unspecified (7) Chronic respiratory failure: Qualifiers: Respiratory failure complication: hypoxia Qualified Code(s): J96.11 - Chronic respiratory failure with hypoxia (8) Chronic back pain: Qualifiers: Back pain location: low back pain Back pain laterality: unspecified Sciatica presence: unspecified whether sciatica present Qualified Code(s): M54.50 - Low back pain, unspecified; G89.29 - Other chronic pain (9) HTN (hypertension): Qualifiers: Hypertension type: primary hypertension Qualified Code(s): I10 - Essential (primary) hypertension Subjective Subjective Interval history: Complains of right hip pain Exam Narrative Exam Narrative: RLE:Dressing C/D/I D.NV stable Constitutional Vital Signs, click to edit/add: Last Vital Signs Temp 99.5 F 12/01/23 09:27 Pulse 105 H 12/01/23 10:46 Resp 18 12/01/23 09:27 BP 131/72 12/01/23 09:27 Pulse Ox 96 12/01/23 10:46 O2 Del Method Nasal Cannula 12/01/23 10:46 O2 Flow Rate 3 12/01/23 10:46 FiO2 50 11/29/23 20:00 Urinary Catheter Management Urinary Catheter Management Urethral: Cath placed during this visit: yes Urethral indwelling: Yes Reason for continuing: surgical procedure Insertion date: 11/29/23 Insertion time: 16:30
[2023-12-02] VITALS (14 sets, daily range): BP systolic 98–124; BP diastolic 64–76; PULSE 81–117; RESP 16–22; TEMP 37.1–37.3; O2SAT 90–95
[2023-12-02] MEDS: IPRATROPIUM/ALBUTEROL SULFATE 3 ML AMPUL.NEB IH ×6 (03:39→23:20)
[2023-12-02] MEDS: BENZONATATE 100 MG CAPSULE 200 MG PO (04:14)
[2023-12-02] MEDS: HYDROMORPHONE HCL 0.5 MG/0.5 ML SYRINGE IV (04:14)
[2023-12-02 05:12] LABS: PCO2 VBG 29.4 mmHg (40.0-52.0); pH VBG 7.651 (7.330-7.430)
[2023-12-02 05:20] LABS: Basophils Percent Auto 0.7 % (0.2-2.0); Eosinophils Absolute Auto 0.3 10^3/uL (0.0-0.7); Eosinophils Percent Auto 5.3 % (0.9-7.0); Hematocrit 29.4 % (36.0-48.0); Hemoglobin 8.8 g/dL (12.0-16.0); Immature Granulocytes Abs Auto 0.02 10^3/uL (0.00-0.03); Immature Granulocytes Pct Auto 0.3 % (0.0-0.5); Lymphocytes Absolute Auto 0.8 10^3/uL (1.2-3.8); Lymphocytes Percent Auto 13.2 % (20.5-60.0); Mean Corpuscular HGB Conc 29.9 g/dL (29.9-35.2); Mean Corpuscular Hemoglobin 28.9 pg (26.7-34.0); Mean Corpuscular Volume 96.4 fL (81.0-99.0); Mean Platelet Volume 10.9 fL (9.5-13.5); Monocytes Absolute Auto 0.5 10^3/uL (0.3-0.8); Monocytes Percent Auto 8.9 % (1.7-12.0); Neutrophils Absolute Auto 4.3 10^3/uL (1.4-6.5); Neutrophils Percent Auto 71.6 % (43.0-75.0); Platelet Count 112 10^3/uL (150-450); Red Blood Count 3.05 10^6/uL (4.20-5.40); Red Cell Distribution Width 13.9 % (11.0-15.0); White Blood Count 6.1 10^3/uL (4.0-11.0)
[2023-12-02 05:34] LABS: Alanine Aminotransferase <6 U/L (14-59); Albumin Globulin Ratio 0.7; Albumin Level 2.1 g/dL (3.4-5.0); Alkaline Phosphatase 41 U/L (46-116); Aspartate Amino Transferase 18 U/L (15-37); BUN Creatinine Ratio 12.5; Bilirubin Total 0.5 mg/dL (0.2-1.0); Calcium 8.3 mg/dL (8.5-10.1); Carbon Dioxide 30.4 mmol/L (21.0-32.0); Chloride 102 mmol/L (98-107); Estimated GFR (African America >60 (>=60); Estimated GFR (Non-African Ame >60 (>=60); Globulin 3.2 g/dL; Glucose 107 mg/dL (74-106); Potassium 3.4 mmol/L (3.5-5.1); Sodium 138 mmol/L (136-145); Total Protein 5.3 g/dL (6.4-8.2)
[2023-12-02] MEDS: ATENOLOL 25 MG TABLET PO (09:07)
[2023-12-02] MEDS: OXYCODONE HCL 5 MG TABLET PO ×3 (09:07→19:45)
[2023-12-02] MEDS: GUAIFENESIN 600 MG TAB.ER.12H PO ×2 (09:07→20:29)
[2023-12-02] MEDS: GABAPENTIN 300 MG CAPSULE 600 MG PO (09:07)
--- NOTE | 2023-12-02 10:26 | P.IMPN_ITS ---
Progress Note: A&P Assessment and Plan (1) Closed right femoral fracture: Assessment and Plan: s/p ORIF. PT/OT eval. Pain is poorly controlled. Increase oxycodone to q4 prn. Qualifiers: Encounter type: initial encounter Femur location: neck, unspecified portion Qualified Code(s): S72.001A - Fracture of unspecified part of neck of right femur, initial encounter for closed fracture (2) Fall: Assessment and Plan: Resulted in right femoral fx, s/p right ORIF Qualifiers: Encounter type: initial encounter Qualified Code(s): W19.XXXA - Unspecified fall, initial encounter (3) Fracture of fifth metatarsal bone of right foot: Assessment and Plan: Conservactive care. Qualifiers: Encounter type: initial encounter Fracture alignment: nondisplaced Fracture type: closed Qualified Code(s): S92.354A - Nondisplaced fracture of fifth metatarsal bone, right foot, initial encounter for closed fracture (4) Acute on chronic respiratory failure with hypercapnia: Assessment and Plan: Required BIPAP treatment. Improved now. At baseline (5) Left-sided chest wall pain: Assessment and Plan: Added lidocaine patch. No rib fx on XR on admission (6) COPD (chronic obstructive pulmonary disease): Assessment and Plan: End stage COPD, on 3 L, at baseline currently Qualifiers: COPD type: unspecified COPD Qualified Code(s): J44.9 - Chronic obstructive pulmonary disease, unspecified (7) Chronic respiratory failure: Assessment and Plan: At baseline, on chronic home O2. Qualifiers: Respiratory failure complication: hypoxia Qualified Code(s): J96.11 - Chronic respiratory failure with hypoxia (8) Chronic back pain: Assessment and Plan: PT/OT. C/w oxycodone and IV dilaudid for pain Qualifiers: Back pain location: low back pain Back pain laterality: unspecified Sciatica presence: unspecified whether sciatica present Qualified Code(s): M54.50 - Low back pain, unspecified; G89.29 - Other chronic pain (9) HTN (hypertension): Assessment and Plan: C/w home meds Qualifiers: Hypertension type: primary hypertension Qualified Code(s): I10 - Essential (primary) hypertension Plan Patient will need rehab placement after hip surgery. She was in assisted living facility. She has not ambulated since surgery due to pain. Pain regimen adjusted - added lidocaine, increased frequency of oxycodone to q4 Internal Medicine - PN: Subj Subjective Interval history: Patient seen and examined today. No overnight events. Patient reports her pain is poorly controlled. She reports her left chest wall hurts more than anything Exam Constitutional Vital Signs, click to edit/add: Last Vital Signs Temp 99.1 F 12/02/23 07:54 Pulse 99 H 12/02/23 07:54 Resp 18 12/02/23 07:54 BP 124/75 12/02/23 07:54 Pulse Ox 94 L 12/02/23 07:54 O2 Del Method Nasal Cannula 12/02/23 07:54 O2 Flow Rate 2 12/02/23 07:54 FiO2 50 11/29/23 20:00 Common normals: no apparent distress, average body habitus and oriented x3 Respiratory Common normals: normal respiratory effort, no use of accessory muscles and clear to auscultation bilaterally Cardio Common normals: no JVD, regular rate, regular rhythm, S1 normal heart sound and S2 normal heart sound Neuro Common normals: oriented x3, CN's II-XII intact bilaterally, moves all extremities and no focal motor deficits Internal Medicine - PN: Obj Da Labs Labs: Laboratory Results - last 24 hr 12/02/23 05:05 WBC 6.1 RBC 3.05 L Hgb 8.8 L Hct 29.4 L MCV 96.4 MCH 28.9 MCHC 29.9 RDW 13.9 Plt Count 112 L MPV 10.9 Neut % (Auto) 71.6 Lymph % (Auto) 13.2 L [place] % (Auto) 8.9 Eos % (Auto) 5.3 Baso % (Auto) 0.7 Neut # (Auto) 4.3 Lymph # (Auto) 0.8 L [place] # (Auto) 0.5 Eos # (Auto) 0.3 Baso # (Auto) 0.0 Abs Immat Gran (auto) 0.02 Imm/Tot Granulo (auto) 0.3 VBG pH 7.651 H VBG pCO2 29.4 L Sodium 138 Potassium 3.4 L Chloride 102 Carbon Dioxide 30.4 Anion Gap 9.0 BUN 8.0 Creatinine 0.64 Est GFR ( Amer) >60 Est GFR (Non-Af Amer) >60 BUN/Creatinine Ratio 12.5 Glucose 107 H Calcium 8.3 L Total Bilirubin 0.5 AST 18 ALT <6 L Alkaline Phosphatase 41 L Total Protein 5.3 L Albumin 2.1 L Globulin 3.2 Albumin/Globulin Ratio 0.7 Urinary Catheter Management Urinary Catheter Management Urethral: Cath placed during this visit: yes Urethral indwelling: Yes Reason for continuing: other continuation reason Insertion date: 11/29/23 Insertion time: 16:30
[2023-12-02] MEDS: LIDOCAINE 5% PATCH 1 PATCH TOPICAL (11:21)
[2023-12-03] VITALS (13 sets, daily range): BP systolic 103–143; BP diastolic 49–113; PULSE 74–119; RESP 16–20; TEMP 36.4–36.9; O2SAT 87–98
[2023-12-03] MEDS: OXYCODONE HCL 5 MG TABLET PO ×3 (00:08→15:53)
[2023-12-03] MEDS: IPRATROPIUM/ALBUTEROL SULFATE 3 ML AMPUL.NEB IH ×4 (03:53→15:31)
--- NOTE | 2023-12-03 08:42 | PT.DAILY ---
Physical Therapy Daily Note PT Daily Note/Assess Start: 12/03/23 08:36 Freq: Status: Active Protocol: Document 12/03/23 08:20 BELLA (Rec: 12/03/23 08:42 ESCARLOS MANUEL [id number]) Physical Therapy Daily Note/Assessment Time In/Time Out Time In 08:17 Time Out 08:35 Subjective Subjective Pain is high, doesn't rate, having a hard time getting comfortable. Agrees to PT Therapeutic Exercise Treatment Therapeutic Exercise Treatment Supine AP, and heel-slides. Patient reports feels good to move legs prior to getting up. Denies increased in pain with exercise. Therapeutic Activity Time Therapeutic Activity Minutes (minutes) 15 Therapeutic Activity Units 1 Therapeutic Activity Treatment Bed Mobility Ability Minimum Assist Chair Transfer Ability Minimum Assist Therapeutic Activity Comments Supine to sit min assist x1, patient able to get LEs off bed, then requires assistance at trunk with coming up. Uses good log rolling technique to assist with pain control. SPO2 93 percent. Sit to stand at RW with min assist x2 and TTWB of R LE. Pivots to chair with min assist x2 and TTWB and use of RW . Patient able to maintain TTWB 80 percent of time, 2 insistence with initial standing and right before sitting required verbal cue for WB status but able to correct. Total Physical Therapy Time Total Therapy Minutes 15 Total Physical Therapy Units 1 Summary Daily Note Summary Improved ability with bed mobility and transfers. SOB with RX but SPO2 at 93 percent on 3 LO2. Will require skilled rehab at [place] to improve strength and enforce transfers and gait with WB status. Patient works hard with RX today.
[2023-12-03] MEDS: GUAIFENESIN 600 MG TAB.ER.12H PO (09:29)
[2023-12-03] MEDS: LIDOCAINE 5% PATCH 1 PATCH TOPICAL (09:29)
[2023-12-03] MEDS: ATENOLOL 25 MG TABLET PO (09:29)
[2023-12-03] MEDS: GABAPENTIN 300 MG CAPSULE 600 MG PO (09:29)
--- NOTE | 2023-12-03 09:29 | SWNOTE1 ---
[facility] sent updates to Shannan at [facility] for precert to be started.
--- NOTE | 2023-12-03 10:54 | CM.NOTE ---
Rounds made with Dr. Kwan, pt will go skilled to [facility] when medically stable for discharge. Pt having increased pain to L ribs, x-ray ordered.
--- NOTE | 2023-12-03 11:42 | SWNOTE1 ---
MAXIMUS spoke to pt and she has voiced she wants hospice here and she wants to pass away. She voiced she is done with the pain and if she has one more fall she could be paralyzed. SW did explain to her that she is not able to return to [facility] with hospice at this time as she is not functioning like she was. She voiced understanding and voiced she is alright going to [facility] with hospice. Pt voiced again she wants hospice. SW to speak with doctor and [facility]. SW sent doctor a message. MAXIMUS spoke to nurse practitioner as well. MAXIMUS called [facility] and they will be able to accommodate, but would like Constance from [facility] to come speak with pt. MAXIMUS advised pt that Constance from [facility] would like to speak with her. Pt is in agreement.
--- NOTE | 2023-12-03 12:23 | P.DS_ITS ---
<Statement entered by Shaikh Aquiles MD - 12/03/23 16:33> This documentation has been reviewed and approved. Seen and examined. Agree with clinical documentation and decision making. Case discussed with Josephine Patient was complaining of poorly controlled leftsided chest wall pain. No evidence of rib fx, likely has soft tissue inj. No events overnight Participated in PT/OT today Exam Sitting on recliner, complaining of chest wall pain Breathing fast, exp wheezing. No resp distress. Normal HR, no murmur Assessment/plan Femur fracture Chronic resp failure with hypoxia End stage COPD Left chest wall pain S/p ORIF. Patient discharged today with hospice as per request. Follow up with PCP and orthopedic DS: Providers Provider Date of admission: 11/28/23 19:56 Primary care physician: EMILY CARBONE Consults: 11/28/23 18:52 Consult to Orthopedic Surgery Routine Consulting Provider: Cooper Coe Reason For Exam: Reason for consultation: hip and foot fx Has provider been notified: Yes 11/28/23 18:55 Occupational Therapy Eval and Treat Routine Reason for consultation: Only if needed for Rehab Has provider been notified: No Physical Therapy Eval and Treat Routine Reason for consultation: Eval and Treat Has provider been notified: No 11/29/23 10:00 Consult to Anesthesiology Routine Consulting Provider: Juanpablo Dukes II Reason for consultation: Pre-op evaluation Has provider been notified: No 11/29/23 16:06 Consult to Pharmacy Routine Consulting Provider: Judi Gómez Reason for consultation: hydromorphone doses for Brunson? Has provider been notified: No 11/29/23 16:45 Consult to Pulmonology Routine Consulting Provider: John Chaparro Reason for consultation: acute hypoxic resp failure Has provider been notified: No 11/30/23 19:34 Physical Therapy Eval and Treat Routine Reason for consultation: right hip and foot fracture. TTWB RLE Has provider been notified: No 12/01/23 12:29 Occupational Therapy Eval and Treat Routine Reason for consultation: s/p right ORIF Physical Therapy Eval and Treat Routine Reason for consultation: s/p right ORIF Discharging clinician: Josephine Doshi DS: Diagnosis Discharge Diagnosis (1) Closed right femoral fracture: Qualifiers: Encounter type: initial encounter Femur location: neck, unspecified portion Qualified Code(s): S72.001A - Fracture of unspecified part of neck of right femur, initial encounter for closed fracture (2) Fall: Qualifiers: Encounter type: initial encounter Qualified Code(s): W19.XXXA - Unspecified fall, initial encounter (3) Fracture of fifth metatarsal bone of right foot: Qualifiers: Encounter type: initial encounter Fracture alignment: nondisplaced Fracture type: closed Qualified Code(s): S92.354A - Nondisplaced fracture of fifth metatarsal bone, right foot, initial encounter for closed fracture (4) Acute on chronic respiratory failure with hypercapnia: (5) Left-sided chest wall pain: (6) COPD (chronic obstructive pulmonary disease): Qualifiers: COPD type: unspecified COPD Qualified Code(s): J44.9 - Chronic obstructive pulmonary disease, unspecified (7) Chronic respiratory failure: Qualifiers: Respiratory failure complication: hypoxia Qualified Code(s): J96.11 - Chronic respiratory failure with hypoxia (8) Chronic back pain: Qualifiers: Back pain laterality: unspecified Back pain location: low back pain Sciatica presence: unspecified whether sciatica present Qualified Code(s): M54.50 - Low back pain, unspecified; G89.29 - Other chronic pain (9) HTN (hypertension): Qualifiers: Hypertension type: primary hypertension Qualified Code(s): I10 - Essential (primary) hypertension DS: Summary Hospital Course Hospital Course: The patient was admitted after a fall with an acute right subcapital femoral neck fracture. She was seen in consult by Dr. Coe, orthopedic surgeon, and ORIF was planned. Unfortunately the patient experienced an episode of respir atory distress, was found to be hypercapnic, and she was transferred to the ICU on BiPAP. Her respiratory acidosis resolved on BiPAP and she was cleared by pulmonology for surgery. She had an ORIF of the right hip per Dr. Coe on 11/30/2023, please see the orthopedic operative note. The patient's postoperative course was unremarkable and she remained stable on her home O2 delivery of 3 L. The patient complained of left rib pain throughout her stay. X-ray and CT imaging did not reveal any acute fractures, but she likely has some contusion there from her fall. She was initiated on lidocaine patch with some improvement in her symptoms. The patient was on hospice care for end-stage COPD prior to her admission and she has decided to return to hospice after discharge. Her hospice was revoked to allow for surgery during this admission. She will be discharged to a local SNF on hospice services. Time Spent with Patient Time attestation: Total time spent providing and/or coordinating discharge services: Time spent: greater than 30 minutes Specific discharge activities: Physical exam, discussion of discharge plan, questions answered. Exam Constitutional Vital Signs, click to edit/add: Last Vital Signs Temp 98.4 F 12/03/23 08:00 Pulse 74 12/03/23 11:43 Resp 16 12/03/23 11:43 BP 108/49 12/03/23 08:00 Pulse Ox 98 12/03/23 11:51 O2 Del Method Nasal Cannula 12/03/23 11:43 O2 Flow Rate 2 12/03/23 11:43 FiO2 50 11/29/23 20:00 Common normals: no apparent distress, oriented x3 and alert General appearance: cooperative Orientation/consciousness: Yes awake HENMT Common normals: normocephalic and head/scalp atraumatic Eye Common normals: PERRL, EOMs intact bilaterally, conjunctivae normal and no scleral icterus Neck & C-Spine Common normals: no JVD Chest Breast/axilla palpation: other (Tender L chest wall axillary line) Respiratory Common normals: normal respiratory effort and no use of accessory muscles Effort & inspection: able to speak in complete sentences and symmetric chest movement Auscultation: rhonchi upper bilaterally (partially clears with cough) and diminished lung sounds bilateral in the lower lung ortez Cardio Common normals: no JVD, regular rate, regular rhythm, S1 normal heart sound, S2 normal heart sound, no murmurs and peripheral pulses 2+ throughout GI Common normals: Normal to inspection, nondistended, normoactive bowel sounds present, soft to palpation and non-tender Bladder/kidney exam: bladder normal to palpation Extremity Common normals: normal to inspection, full ROM, normal capillary refill and no pedal edema General: no cyanosis Right lower extremity: hip joint Right hip: palpation (tender) Neuro Common normals: moves all extremities, no focal motor deficits and no sensory deficits noted Speech: speech normal Psych Common normals: mental status grossly normal and activity/motor behavior normal DS: Data Imaging Chest x-ray: Radiologist's impression: 11/28/23 FINDINGS: The heart and mediastinum are unremarkable. The lung ortez are clear of any acute infiltrate, effusion or mass. No acute bony abnormality. 11/29/23 IMPRESSION: No apparent acute infiltrate or evidence of cardiac decompensation. The overall appearance of the chest is essentially unchanged. Hip X-ray: Radiologist's impression: 11/28/23 IMPRESSION: Acute subcapital fracture of the proximal right femur. 11/30/23 IMPRESSION: No change in alignment or position of nondisplaced subcapital fracture right hip. CT scan - pelvis: Radiologist's impression: IMPRESSION: 1. Acute right subcapital femoral neck fracture. 2. Multiple thoracic and lumbar compression fractures that are age indeterminate. 3. Otherwise, no definite acute abnormality in the chest. 4. Emphysema. 5. Multiple indeterminate pulmonary nodules. Recommend follow-up chest CT in 3-6 months. 6. Infrarenal abdominal aortic aneurysm. CT scan - chest: Radiologist's impression: IMPRESSION: 1. Acute right subcapital femoral neck fracture. 2. Multiple thoracic and lumbar compression fractures that are age indeterminate. 3. Otherwise, no definite acute abnormality in the chest. 4. Emphysema. 5. Multiple indeterminate pulmonary nodules. Recommend follow-up chest CT in 3-6 months. 6. Infrarenal abdominal aortic aneurysm. R Foot XR: Radiologist's impression: FINDINGS: No acute fracture or dislocation. Deformity of the neck of the fifth metatarsal appears chronic. Mild hallux valgus. Soft tissues are unremarkable. Mild degenerative change of the first metatarsophalangeal joint. 2D Echo: Radiologist's impression: CONCLUSION: 1. Global left ventricular systolic function is hyperdynamic; visually estimated ejection fraction is 65 to 70% 2. Normal right ventricular size and systolic function 3. Diastolic function is indeterminate 4. Biatrial enlargement 5. Mild tricuspid regurgitation 6. Mildly elevated right ventricular systolic pressure; RVSP 44 mmHg Discharge Plan Discharge Disposition: Hospice - Home Condition: Fair Discharge Medications: New acetaminophen 500 mg Tablet 1,000 mg PO Q6H PRN (Reason: Pain Scale 4-6) Qty: 60 0RF guaifenesin [Mucus Relief ER] 600 mg Tablet Extended Release 12hr 600 mg PO Q12H Qty: 60 0RF lidocaine 5 % Adhesive Patch,Medicated 1 patch topical DAILY Qty: 15 0RF Rx Instructions: Left chest wall oxycodone 5 mg Tablet 5 mg PO Q4H PRN (Reason: pain (scale score 7-10)) Qty: 20 0RF Continued albuterol sulfate 2.5 mg /3 mL (0.083 %) solution for nebulization 2.5 mg inhalation Q6H PRN (Reason: shortness of breath or wheezing) atenolol 25 mg tablet 25 mg PO Q24H gabapentin 600 mg tablet 800 mg PO .morning lorazepam 0.5 mg tablet 0.5 mg PO Q8H PRN (Reason: anxiety) ipratropium-albuterol 0.5 mg-3 mg(2.5 mg base)/3 mL solution for nebulization 3 ml inhalation Q6H Held morphine 20 mg/5 mL (4 mg/mL) solution 5 mg PO Q4H Hold Instructions: Until hospice care is resumed tramadol 100 mg tablet 100 mg PO Q8H PRN (Reason: pain) Hold Instructions: Until no longer taking post op hydrocodone Discontinued acetaminophen 500 mg tablet 500 mg PO Q8H PRN (Reason: pain) furosemide 20 mg tablet 20 mg PO DAILY Activity Restrictions/Additional Instructions: - Recommend follow up CT chest in 3-6 months - Multiple indeterminate pulmonary nodules - Obtain Daily weights x 2 weeks - consider resuming lasix 20mg daily if gains more than 3#/day or 5#/week 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
--- NOTE | 2023-12-03 13:24 | SWNOTE1 ---
SW called over and left voicemail for CAROLE Abreu, making sure they have a bed available at [facility]. Pt is voicing even after speaking to Vangie Clemens, she would like to go to [facility] skilled nursing with [facility].
--- NOTE | 2023-12-03 14:38 | SWNOTE1 ---
Final decision from patient is to go to [facility] group home with [facility]. SW has spoke to [facility] and sent them information, they will be out to see pt this evening at [facility] to have her sign on. SW has spoke to [facility] and they will have a bed ready for pt and she stated the sooner the better. MAXIMUS faxed over dc orders to [facility] and sent dc orders to [facility] as well. MAXIMUS set up [facility] for 3:30pm. [facility], [facility], nursing, and pt aware of dc time.
--- NOTE | 2023-12-14 09:53 | SWNOTE1 ---
MAXIMUS received message from Namrata at [facility]. Pt has voiced she left a silver cross necklace in X-ray when she was here around November 30. SW called diagnostic imaging and they were not aware of any jewelry. They voiced if there was anything it would have been turned in to security. MAXIMUS called Security. They did check, but they do not have anything. MAXIMUS provided security with pt's name and phone number for [facility] in case it does show up. MAXIMUS notified Namrata at [facility].
== END 2023-12-03 16:21 | DRG 480 ==
LOC: ER 18:38 → MS 20:00 → ICU 11-29 16:33 → MS 11-30 20:03
PROVIDERS: Nurse Practitioner; Nurse Practitioner Acute Care; Orthopaedic Surgery; Admitting Provider Family Medicine; Emergency Provider Emergency Medicine; PCP Family Medicine; Visit Provider Internal Medicine
PROC: 0QS634Z Reposition Right Upper Femur with Internal Fixation Device, Percutaneous Approach (ICD-10-PCS; principal; 2023-11-30 17:30)
DX: S72.011A Unspecified intracapsular fracture of right femur, initial encounter for closed fracture (principal); J96.21 Acute and chronic respiratory failure with hypoxia; J96.22 Acute and chronic respiratory failure with hypercapnia; E44.0 Moderate protein-calorie malnutrition; J44.1 Chronic obstructive pulmonary disease with (acute) exacerbation; D62 Acute posthemorrhagic anemia; M48.54XA Collapsed vertebra, not elsewhere classified, thoracic region, initial encounter for fracture; S20.219A Contusion of unspecified front wall of thorax, initial encounter; S92.354A Nondisplaced fracture of fifth metatarsal bone, right foot, initial encounter for closed fracture; Z66 Do not resuscitate; W19.XXXA Unspecified fall, initial encounter; Y92.099 Unspecified place in other non-institutional residence as the place of occurrence of the external cause; I10 Essential (primary) hypertension; J43.2 Centrilobular emphysema; I27.20 Pulmonary hypertension, unspecified; R91.8 Other nonspecific abnormal finding of lung field; I71.40 Abdominal aortic aneurysm, without rupture, unspecified; F41.9 Anxiety disorder, unspecified; G89.29 Other chronic pain; M54.50 Low back pain, unspecified; Z99.81 Dependence on supplemental oxygen; Z79.899 Other long term (current) drug therapy; Z87.891 Personal history of nicotine dependence; Z90.5 Acquired absence of kidney; Z68.23 Body mass index [BMI] 23.0-23.9, adult; Z79.891 Long term (current) use of opiate analgesic; Z88.1 Allergy status to other antibiotic agents; Z83.3 Family history of diabetes mellitus; Z82.49 Family history of ischemic heart disease and other diseases of the circulatory system
CPT/HCPCS: 36415; 36600; 51702; 51798; 71045; 71250; 72192; 73502; 73630; 76000; 80053; 81001; 82800; 82805; 83605; 83735; 83880; 84484; 85025; 85610; 85730; 86850; 86900; 86901; 87086; 93005; 93306; 94640; 94660; 94667; 94668; 94761; 96365; 96366; 96372; 96375; 96376; 97161; 97165; 97530; 99285; C1713; J1170

== ENCOUNTER 2023-12-24 07:41 | Outpatient (OUT) | payer MEDICARE, MEDICAID, SELFPAY ==
--- NOTE | 2023-12-24 | XR_ITS ---
The [address] [address] Patient Name: STEF BAZAN MRN: [id number] date: 1950 Sex: F Assigned Patient Location: Current Patient Location: Accession/Order Number: [id number] Exam Date: 12/24/2023 07:41 Report Date: 12/24/2023 14:04 At the request of: WYATT DOOLEY Procedure: XR hip RT 2V w/ pelvis PROCEDURE: XR hip RT 2V w/ pelvis HISTORY: RIGHT HIP AND PELVIS PAIN COMPARISON: XR hip right 11/30/2023 FINDINGS: BONES:Interval repair of right femoral neck fracture via a compression screw. Stable right sacral neurostimulator electrode. SOFT TISSUES:No visible soft tissue swelling. EFFUSION:None visible. OTHER: Negative. XR/XR hip RT 2V w/ pelvis IMPRESSION: 1. Right femoral neck repair since 11/30/2023 study. 2. No acute abnormality. Electronically authenticated by: WYATT VÁZQUEZ Date: 12/24/2023 14:04
--- OUTSIDE RECORDS SUMMARY | 2023-12-24 07:44 | XMS_ITS | CCD ---
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 Name Role Phone Unavailable Unavailable Unavailable PHYSICIAN, DEFAULT Unavailable Unavailable PHYSICIAN, DEFAULT Unavailable Unavailable SYSTEM, PROVIDER NOT IN Unavailable Unavaila ble SYSTEM, PROVIDER NOT IN Unavailable Unavaila ble Nan Estevez Primary Care Physician Unavailable Primary Care Provider UnavailBettie Ochoa Primary Care Provider [phone] PROVIDER, UNKNOWN Attending Unavailable PROVIDER, UNKNOWN Admitting Unavailable PROVIDER, UNKNOWN Attending Unavailable PROVIDER, UNKNOWN Admitting Unavailable DR ARPIT SHARPE Primary Care Unavailable SHANTA GARCIA Attending Unavailable JOSE SHANTA Admitting Unavailable VICENTE REDDY Primary Care Physician RICK DELANEY Primary Care Physician Danni Cha Attending Unavailable RICK DELANEY Primary Care Unavailable RICK DELANEY Attending Unavailable RICK DELANEY Referring Unavailable RICK DELANEY Admitting Unavailable RICK DELANEY Attending Unavailable RICK DELANEY Admitting Unavailable ALAHMAD, Alaa Attending Unavailable RICK DELANEY Primary Care Unavailable Giovana Woody Admitting Unavailable RICK DELANEY Primary Care Unavailable Jostin Ardon Attending Unavailable RICK DELANEY Primary Care Unavailable DO Nica Barnes Attending Unavailable Benitez, Basem GCamron Admitting Unavailable Benitez, Basem G. Attending Unavailable RICK DELANEY Primary Care Unavailable NONE, XXXX Referring Unavailable Benitez, Basem G. Admitting Unavailable Benitez, Basem G. Attending Unavailable Catina Benitez Referring Unavailable Smith Boo Attending Unavailable Smith Boo Admitting Unavailable Agustin (Clinic)Vicente Primary Care Unavailabl e Allergies Allergy Classification Reported Allergen(s) Allergy Type Date of Onset Reaction(s) Facility (16 sources) Clindamycin; Translations: [clindamycin] Drug Allergy Eruption of skin (disorder) [facility] (16 sources) levoFLOXacin; Translations: [levofloxacin] Drug Allergy Dyspnea (finding) [facility] (4 sources) EPINEPHrine Drug Allergy 7 Intolerance [facility] Work Phone: (1 source) levoFLOXacin Drug Allergy [facility] Repository (1 source) levoFLOXacin Drug Allergy 0 [facility] Repository (1 source) epoxy resin Drug allergy (disorder) 0 [facility] Repository Medications Current Medications Medication Drug Class(es) Dates Sig (Normalized) Sig (Original) acetaminophen 500 mg oral tablet (4 sources) Start: 05-01-2022 End: 05-11-2022 take 2 tablets by mouth every eight hours as needed for pain acetaminophen 500 mg Tab 1,000 mg = 2 tab(s), Oral, q8hr, PRN pain, X 10 day(s), # 60 tab(s), Refills(s) 0, Pharmacy: [facility], 169, cm, 05/01/22 13:51:00 EDT, Height/Length Dosing, 69.8, kg, 05/01/22 13:51:00 EDT, Weight Dosing Start Date: 05/01/22 Stop Date: 05/11/22 Status: Ordered acetaminophen 325 mg / HYDROcodone bitartrate 5 mg oral tablet (1 source) Opioid Agonist Start: 07-26-2023 End: 07-28-2023 take 1 tablet by mouth every six hours for pain Monette 325 mg-5 mg oral tablet 1 tab(s), Oral, q6hr for pain for 2 day(s), 5 tab(s), Refill(s) 0, [facility], 169, cm, 07/25/23 21:52:00 EDT, Height/Length Dosing, 71.1, kg, 07/25/23 21:52:00 EDT, Weight Dosing Start Date: 07/26/23 Stop Date: 07/28/23 Status: Ordered acetaminophen 325 mg / oxyCODONE hydrochloride 5 mg oral tablet (7 sources) Opioid Agonist Start: 01-23-2022 Percocet 325 mg-5 mg Tab 1 tab(s), Oral, q4hr Pain, 12 tab(s), Refill(s) 0 Start Date: 01/23/22 Status: Ordered albuterol 0.83 mg/ml inhalation solution (15 sources) beta2-Adrenergic Agonist Start: 08-17-2017 take 2.5 mg by inhalation every six hours albuterol 0.083% Inh Veronica 3 mL 2.5 mg, 3 mL, NEB, q6hr, Refill(s) 0 Start Date: 08/17/17 Status: Ordered Start: 08-17-2017 take 2.5 mg by inhal ation every six hours albuterol 0.083% Inh Veronica 3 mL 2.5 mg, 3 mL, NEB, q6hr, Refill(s) 0 Start Date: 08/17/17 Status: Ordered Albuterol (Eqv-ProAir HFA) 90 mcg/inh inhalation aerosol (3 sources) Start: 12-13-2022 End: 06-11-2023 take 2 puff(s) by inhalation every six hours Albuterol (Eqv-ProAir HFA) 90 mcg/inh inhalation aerosol 2 puff(s), Inhalation, q6hr Shortness of breath or wheezing for 30 day(s), 1 EA, Refill(s) 5, [facility], 169, cm, 12/13/22 11:38:00 EDT, Height/Length Dosing, 72.2, kg, 12/13/22 11:38:00 EDT, Weight Dosing Start Date: 12/13/22 Stop Date: 06/11/23 Status: Ordered albuterol 0.833 mg/ml / ipratropium bromide 0.167 mg/ml inhalation solution (7 sources) Anticholinergi c, beta2-Adrenerg ic Agonist Start: 07-06-2023 take 3 mL by inhalation four times daily albuterol-ipratropi um Inh Veronica 3 mL UD 3 mL, Inhalation, QID, 60 EA, Refill(s) 0, [facility], 169, cm, 07/06/23 13:16:00 EDT, Height/Length Dosing, 71.1, kg, 07/06/23 13:16:00 EDT, Weight Dosing Start Date: 07/06/23 Status: Ordered Start: 12-13-2022 End: 06-11-2023 take 3 mL by inhalation four times daily albuterol-ipratropium Inh Veronica 3 mL UD 3 mL, Inhalation, QID for 30 day(s), 360 mL, Refill(s) 5, [facility], 169, cm, 12/13/22 11:38:00 EDT, Height/Length Dosing, 72.2, kg, 12/13/22 11:38:00 EDT, Weight Dosing Start Date: 12/13/22 Stop Date: 06/11/23 Status: Ordered Start: 06-05-2022 End: 12-02-2022 take 3 mL by inhalation four times daily DuoNeb 2.5 mg-0.5 mg/3 mL Soln-Inh 3 mL, Inhalation, QID for 30 day(s), 360 mL, Refill(s) 5, [facility], 169, cm, 06/05/22 14:02:00 EDT, Height/Length Dosing, 74.1, kg, 06/05/22 14:02:00 EDT, Weight Dosing Start Date: 06/05/22 Stop Date: 12/02/22 Status: Ordered amoxicillin 875 mg / clavulanate 125 mg oral tablet (1 source) Penicillin-class Antibacterial Start: 07-06-2023 End: 07-11-2023 take 1 tablet by mouth every twelve hours Augmentin 875 mg oral tablet = 1 tab(s), Oral, q12hr, X 5 day(s), # 10 tab(s), Refills(s) 0, Pharmacy: [facility], 169, cm, 07/06/23 13:16:00 EDT, Height/Length Dosing, 71.1, kg, 07/06/23 13:16:00 EDT, Weight Dosing Start Date: 07/06/23 Stop Date: 07/11/23 Status: Ordered azithromycin 250 mg oral tablet (6 sources) Macrolide Antimicrobial Start: 07-26-2023 azithromycin 250 mg Tab 250 mg, Oral, As Directed, # 6 tab(s), Refills(s) 0, Pharmacy: [facility], 169, cm, 07/25/23 21:52:00 EDT, Height/Length Dosing, 71.1, kg, 07/25/23 21:52:00 EDT, Weight Dosing Start Date: 07/26/23 Status: Ordered Start: 01-24-2022 End: 01-25-2022 take 2 tablets by mouth once daily azithromycin 250 mg Tab 500 mg = 2 tab(s), Oral, Daily, X 1 day(s), # 2 tab(s), Refills(s) 0, Pharmacy: [facility], 170, cm, 01/19/22 21:36:00 EDT, Height/Length Dosing, 76.4, kg, 01/20/22 7:49:00 EDT, Weight Dosing Start Date: 01/24/22 Stop Date: 01/25/22 Status: Ordered Start: 12-14-2006 ZITHROMAX 250 MG TAB .daily 0 12/14/2006 Active Comment on above: .daily azithromycin 250 mg Tab 5-day Dose Pack (Z-Xavi) (1 source) Start: End: azithromycin 250 mg Tab 5-day Dose Pack (Z-Xavi) = 1 packet(s), Oral, As Directed, as directed on package labeling, X 5 day(s), # 6 tab(s), Refills(s) 0, Pharmacy: [facility], 170, cm, 01/19/22 11:24:00 EDT, Height/Length Dosing, 150, kg, 01/19/22 11:24:00 EDT, Weight Dosing Start Date: 01/19/22 Stop Date: 01/24/22 Status: Ordered brompheniramine maleate 0.4 mg/ml / dextromethorphan hydrobromide 2 mg/ml / pseudoephedrine hydrochloride 6 mg/ml oral solution (2 sources) alpha-Adrenergic Agonist, Uncompetitive R-xukpos-Q-aspartate Receptor Antagonist, Sigma-1 Agonist Start: 023 take 5 mL by mouth four times daily Bromfed DM oral syrup 5 mL, Oral, QID for cold symptoms, 200 mL, Refill(s) 0, [facility], 169, cm, 07/06/23 13:16:00 EDT, Height/Length Dosing, 71.1, kg, 07/06/23 13:16:00 EDT, Weight Dosing Start Date: 07/06/23 Status: Ordered cephalexin 500 mg oral capsule (3 sources) Cephalosporin Antibacterial Start: End: take 1 capsule by mouth every twelve hours cephalexin 500 mg Cap 500 mg = 1 cap(s), Oral, q12hr, X 10 day(s), # 20 cap(s), Refills(s) 0, Pharmacy: [facility], 170, cm, 10/26/22 17:53:00 EST, Height/Length Dosing, 70, kg, 10/26/22 17:53:00 EST, Weight Dosing Start Date: 10/26/22 Stop Date: 11/05/22 Status: Ordered Start: 05-01-2022 End: 05-08-2022 take 1 capsule by mouth every eight hours Keflex 500 mg Cap 500 mg = 1 cap(s), Oral, q8hr, X 7 day(s), # 21 cap(s), Refills(s) 0, Pharmacy: [facility], 169, cm, 05/01/22 13:51:00 EDT, Height/Length Dosing, 69.8, kg, 05/01/22 13:51:00 EDT, Weight Dosing Start Date: 05/01/22 Stop Date: 05/08/22 Status: Ordered doxycycline hyclate 100 mg oral capsule (2 sources) Tetracycline-class Drug Start: 07-06-2023 End: 07-11-2023 take 1 capsule by mouth every twelve hours doxycycline hyclate 100 mg Cap 100 mg = 1 cap(s), Oral, q12hr, X 5 day(s), # 10 cap(s), Refills(s) 0, Pharmacy: [facility], 169, cm, 07/06/23 13:16:00 EDT, Height/Length Dosing, 71.1, kg, 07/06/23 13:16:00 EDT, Weight Dosing Start Date: 07/06/23 Stop Date: 07/11/23 Status: Ordered Start: 11-30-2021 take 1 capsule by [facility] twice daily doxycycline hyclate 100 mg Cap 100 mg = 1 cap(s), Oral, BID, # 20 cap(s), Refills(s) 0, Pharmacy: [facility], 170, cm, 11/30/21 9:13:00 EST, Height/Length Dosing, 150, kg, 11/30/21 9:13:00 EST, Weight Dosing Start Date: 11/30/21 Status: Ordered fluconazole 150 mg oral tablet (9 sources) Azole Antifungal Start: 11-06-2022 take 1 tablet by mouth once Diflucan 150 mg Tab 150 mg = 1 tab(s), Oral, Once, # 1 tab(s), Refills(s) 0, Pharmacy: [facility], 170, cm, 10/26/22 17:53:00 EST, Height/Length Dosing, 70, kg, 10/26/22 17:53:00 EST, Weight Dosing Start Date: 11/06/22 Status: Ordered Start: 05-01-2022 take 1 tablet by mouth once Di flucan 150 mg Tab 150 mg = 1 tab(s), Oral, Once, # 1 tab(s), Refills(s) 0, Pharmacy: [facility], 169, cm, 05/01/22 13:51:00 EDT, Height/Length Dosing, 69.8, kg, 05/01/22 13:51:00 EDT, Weight Dosing Start Date: 05/01/22 Status: Ordered fluticasone (1 source) Corticosteroid Start: 09-03-2020 Flonase Daily, Refill(s) 0 Start Date: 09/03/20 Status: Ordered fluticasone / salmeterol (13 sources) Corticosteroid, beta2-Adrenergic Agonist Start: 01-23-2022 take 1 puff(s) by inhalation twice daily Advair 500 mcg-50 mcg Powder 1 puff(s), Inhalation, BID, 60 blister(s), Refill(s) 0, [facility], 170, cm, 01/19/22 21:36:00 EDT, Height/Length Dosing, 76.4, kg, 01/20/22 7:49:00 EDT, Weight Dosing Start Date: 01/23/22 Status: Ordered gabapentin 800 mg oral tablet (20 sources) Anti-epileptic Agent Start: 05-11-2022 take 1 tablet by mouth once daily gabapentin 800 mg Tab 800 mg = 1 tab(s), Oral, Daily, # 270 tab(s), Refills(s) 0, Pharmacy: [facility], 169, cm, 05/08/22 14:54:00 EDT, Height/Length Dosing, 68.7, kg, 05/08/22 14:54:00 EDT, Weight Dosing Start Date: 05/11/22 Status: Ordered Start: 05-11-2022 take 1 tablet by tessie three times daily gabapentin 800 mg Tab 800 mg = 1 tab(s), Oral, TID, # 270 tab(s), Refills(s) 0, Pharmacy: [facility], 169, cm, 05/08/22 14:54:00 EDT, Height/Length Dosing, 68.7, kg, 05/08/22 14:54:00 EDT, Weight Dosing Start Date: 05/11/22 Status: Ordered Start: 07-21-2021 take 2 capsules by m out three times daily gabapentin 300 mg Cap 600 mg = 2 cap(s), Oral, TID, Refills(s) 0 Start Date: 07/21/21 Status: Ordered Start: 07-21-2021 gabapentin 300 mg Cap See Instructions, Refills(s) 0 Start Date: 07/21/21 Status: Ordered 12 hr guaiFENesin 600 mg extended release oral tablet (2 sources) Start: 08-10-2023 take 2 tablets by mouth twice daily guaiFENesin 600 mg ER Tab 1,200 mg = 2 tab(s), Oral, BID, # 20 tab(s), Refills(s) 0 Start Date: 08/10/23 Status: Ordered Start: 07-06-2023 End: 07-13-2023 take 1 tablet by mouth every twelve hours Mucinex 600 mg Tab-ER 600 mg = 1 tab(s), Oral, q12hr, X 7 day(s), # 14 tab(s), Refills(s) 0, Pharmacy: [facility], 169, cm, 07/06/23 13:16:00 EDT, Height/Length Dosing, 71.1, kg, 07/06/23 13:16:00 EDT, Weight Dosing Start Date: 07/06/23 Stop Date: 07/13/23 Status: Ordered 200 actuat ipratropium bromide 0.017 mg/actuat metered dose inhaler (13 sources) Anticholinergic Start: 01-20-2022 take 2 puff(s) by inhalation four times daily Atrovent HFA 17 mcg/inh inhalation aerosol = 2 puff(s), Inhalation, QID, # 12.9 gram, Refills(s) 0 Start Date: 01/20/22 Status: Ordered 120 actuat mometasone furoate 0.2 mg/actuat metered dose inhaler (3 sources) Corticosteroid Start: 12-13-2022 End: 06-11-2023 take 2 puff(s) by inhalation twice daily Asmanex HFA 200 mcg/inh inhalation aerosol = 2 puff(s), Inhalation, BID, X 30 day(s), # 1 EA, Refills(s) 5, Pharmacy: [facility], 169, cm, 12/13/22 11:38:00 EDT, Height/Length Dosing, 72.2, kg, 12/13/22 11:38:00 EDT, Weight Dosing Start Date: 12/13/22 Stop Date: 06/11/23 Status: Ordered nystatin 482902 unt/ml oral suspension (4 sources) Polyene Antifungal Start: 05-01-2022 End: 05-11-2022 take [id number] [IU] by mouth four times daily nystatin 100,000 units/mL oral suspension 500,000 unit(s) = 5 mL, Oral, QID, retain in mouth as long as possible before swallowing, X 10 day(s), # 200 mL, Refills(s) 0, Pharmacy: [facility], 169, cm, 05/01/22 13:51:00 EDT, Height/Length Dosing, 69.8, kg, 05/01/22 13:51:00 EDT, Donna. Start Date: 05/01/22 Stop Date: 05/11/22 Status: Ordered 60 actuat olodaterol 0.0025 mg/actuat / tiotropium 0.0025 mg/actuat inhalation spray (1 source) Anticholinergic, beta2-Adrenergic Agonist Start: 06-05-2022 End: 12-02-2022 Stiolto Respimat 2.5 mcg-2.5 mcg inhalation aerosol = 2 puff(s), Inhalation, q24hr, X 30 day(s), # 4 gram, Refills(s) 5, Pharmacy: [facility], 169, cm, 06/05/22 14:02:00 EDT, Height/Length Dosing, 74.1, kg, 06/05/22 14:02:00 EDT, Weight Dosing Start Date: 06/05/22 Stop Date: 12/02/22 Status: Ordered phenazopyridine hydrochloride 200 mg oral tablet (2 sources) Start: 05-01-2022 End: 05-04-2022 take 1 tablet by mouth three times daily as needed Pyridium 200 mg Tab 200 mg = 1 tab(s), Oral, TID, PRN urinary symptoms, X 3 day(s), # 9 tab(s), Refills(s) 0, Pharmacy: [facility], 169, cm, 05/01/22 13:51:00 EDT, Height/Length Dosing, 69.8, kg, 05/01/22 13:51:00 EDT, Weight Dosing Start Date: 05/01/22 Stop Date: 05/04/22 Status: Ordered predniSONE 50 mg oral tablet (4 sources) Start: 07-26-2023 End: 07-31-2023 take 1 tablet by mouth once daily predniSONE 50 mg Tab 50 mg = 1 tab(s), Oral, Daily, X 5 day(s), # 5 tab(s), Refills(s) 0, Pharmacy: [facility], 169, cm, 07/25/23 21:52:00 EDT, Height/Length Dosing, 71.1, kg, 07/25/23 21:52:00 EDT, Weight Dosing Start Date: 07/26/23 Stop Date: 07/31/23 Status: Ordered Start: 07-06-2023 End: 07-11-2023 take 3 tablets by mouth once daily predniSONE 20 mg Tab 60 mg = 3 tab(s), Oral, Daily, X 5 day(s), # 15 tab(s), Refills(s) 0, Pharmacy: [facility], 169, cm, 07/06/23 13:16:00 EDT, Height/Length Dosing, 71.1, kg, 07/06/23 13:16:00 EDT, Weight Dosing Start Date: 07/06/23 Stop Date: 07/11/23 Status: Ordered Start: 01-23-2022 End: 01-31-2022 take 1 tablet by mouth once daily, then take 4 tablets by mouth once daily predniSONE 10 mg Tab 10 mg, Oral, As Directed, 4 QDx2 days; 3 QDx2 d; 2 QDx2 d; 1 QDx2 dys; d/c, X 8 day(s), # 20 tab(s), Refills(s) 0, Pharmacy: [facility], 170, cm, 01/19/22 21:36:00 EDT, Height/Length Dosing, 76.4, kg, 01/20/22 7:49:00 EDT, Weight Dosing Start Date: 01/23/22 Stop Date: 01/31/22 Status: Ordered Start: 01-19-2022 End: 01-26-2022 take 3 tablets by mouth once daily predniSONE 20 mg Tab 60 mg = 3 tab(s), Oral, Daily, X 7 day(s), # 21 tab(s), Refills(s) 0, Pharmacy: [facility], 170, cm, 01/19/22 11:24:00 EDT, Height/Length Dosing, 150, kg, 01/19/22 11:24:00 EDT, Weight Dosing Start Date: 01/19/22 Stop Date: 01/26/22 Status: Ordered pregabalin 50 mg oral capsule (6 sources) Start: 04-13-2022 End: 07-12-2022 take 1 capsule by mouth three times daily pregabalin 50 mg Cap 50 mg = 1 cap(s), Oral, TID, X 90 day(s), # 270 cap(s), Refills(s) 0, Pharmacy: [facility], 170.2, cm, 04/13/22 10:29:00 EDT, Height/Length Dosing, 76.4, kg, 01/20/22 7:49:00 EDT, Weight Dosing Start Date: 04/13/22 Stop Date: 07/12/22 Status: Ordered Spiriva Respimat 60 ACT 2.5 mcg/inh inhalation aerosol (1 source) Start: 01-20-2022 take 2 puff(s) by inhalation once daily, then take 2 puff(s) by inhalation once daily Spiriva Respimat 60 ACT 2.5 mcg/inh inhalation aerosol = 2 puff(s), Inhalation, Daily, INHALE 2 PUFFS BY MOUTH ONCE DAILY Start Date: 01/20/22 Status: Ordered 60 actuat tiotropium 0.0025 mg/actuat inhalation spray (15 sources) Anticholinergic Start: 01-20-2022 End: 06-11-2023 take 2 puff(s) by inhalation once daily, then take 2 puff(s) by inhalation once daily Spiriva Respimat 60 ACT 2.5 mcg/inh inhalation aerosol = 2 puff(s), Inhalation, Daily, INHALE 2 PUFFS BY MOUTH ONCE DAILY Start Date: 01/20/22 Status: Ordered traMADol hydrochloride 50 mg oral tablet (7 sources) Opioid Agonist Start: 08-10-2023 take 2 tablets by mouth every eight hours as needed for pain traMADOL 50 mg Tab 100 mg = 2 tab(s), Oral, q8hr, PRN for pain, # 20 tab(s), Refills(s) 0 Start Date: 08/10/23 Status: Ordered Start: 08-17-2017 take [address] [facility] three times daily as needed for pain tramadol 50 mg oral tablet 100 mg = 2 tab(s), Oral, TID, PRN for pain, # 60 tab(s), Refills(s) 0 Start Date: 08/17/17 Status: Ordered Start: 10-23-2006 TRAMADOL 50 MG TAB as necessary 0 10/23/2006 Active Comment on above: as necessary Completed/Discontinued Medications Medication Drug Class(es) Dates Sig (Normalized) Sig (Original) albuterol HFA 90 mcg/inh MDI (1 source) Start: 09-03-2020 End: 10-03-2020 take 2 puff(s) by inhalation every four hours albuterol HFA 90 mcg/inh MDI 2 puff(s), Inhalation, q4hr Shortness of breath or wheezing, 1 EA, Refill(s) 0, qid and prn sob/wheezing, [facility], 168, cm, 09/03/20 11:57:00 EST, Height/Length Dosing, 68.5, kg, 09/03/20 11:57:00 EST, Weight Dosing Start Date: 09/03/20 Stop Date: 10/03/20 Status: Ordered atenolol 25 mg oral tablet (16 sources) beta-Adrenergic Barbara Start: 01-22-2022 End: 01-22-2022 atenolol 25 mg Tab 12.5 mg = 0.5 tab(s), Tab, Oral, Start date 01/22/22 9:00:00 EDT, 01/20/22 8:29:00 EDT Start Date: 01/22/22 Stop Date: 01/22/22 Status: Completed Start: 08-17-2017 take 1 tablet by tessie once daily atenolol 25 mg Tab 25 mg = 1 tab(s), Oral, Daily, Refills(s) 0 Start Date: 08/17/17 Status: Ordered Start: 08-17-2017 take 0.5 tablet by [facility] once daily atenolol 25 mg Tab 0.5 tablet, Oral, Daily, Refills(s) 0 Start Date: 08/17/17 Status: Ordered mirtazapine 15 mg oral tablet (4 sources) Start: 10-23-2006 MIRTAZAPINE 15 MG TAB one at 0 10/23/2006 Active Comment on above: one at NEBULIZER & COMPRESSOR FOR NEB (4 sources) Start: 12-14-2006 NEBULIZER & COMPRESSOR FOR NEB with albuterol and ? other meds 0 12/14/2006 Active Comment on above: with albuterol and ? other meds risperiDONE 1 mg oral tablet (4 sources) Atypical Antipsychotic Start: 10-23-2006 RISPERI DONE 1 MG TAB one at 0 10/23/2006 Active Comment on above: one at Problems Active Problems Problem Classification Problem Date Documented Date Episodic/Chronic Acute bronchitis (1 source) Acute bronchitis; Translations: [Acute bronchitis, unspecified] Onset: 07-26-2023 Episodic Chronic obstructive pulmonary disease and bronchiectasis (20 sources) Acute exacerbation of chronic obstructive airways disease; Translations: [Chronic obstructive pulmonary disease with (acute) exacerbation] Onset: 01-19-2022 Chronic Essential hypertension (16 sources) Essential hypertension; Translations: [Essential (primary) hypertension] Onset: 01-21-2022 Chronic Genitourinary symptoms and ill-defined conditions (4 sources) Incontinence; Translations: [Mixed incontinence] Onset: 10-23-2006 10-23-2006 Chronic Genitourinary symptoms and ill-defined conditions (2 sources) Dysuria; Translations: [Dysuria] Onset: 05-01-2022 Episodic Mycoses (1 source) Candidiasis of mouth; Translations: [Candidal stomatitis] Onset: 05-01-2022 Episodic Other hematologic conditions (1 source) Abnormal finding on evaluation procedure; Translations: [Other specified abnormalities of plasma proteins] Onset: 07-06-2023 Episodic Other lower respiratory disease (16 sources) Dyspnea; Translations: [Shortness of breath] 07-21-2021 Episodic Other lower respiratory disease (1 source) History of chronic obstructive airway disease; Translations: [Personal history of other diseases of the respiratory system] Episodic Other lower respiratory disease (1 source) Hypoxemia; Translations: [Hypoxemia] Onset: 07-06-2023 Episodic Other nervous system disorders (2 sources) Chronic pain; Translations: [Other chronic pain] Onset: 01-21-2022 Chronic Other nutritional; endocrine; and metabolic disorders (15 sources) Overweight in adulthood with body mass index of 25 or more but less than 30 07-21-2021 Episodic Pneumonia (except that caused by tuberculosis or sexually transmitted disease) (1 source) Pneumonia; Translations: [Pneumonia, unspecified organism] Onset: 07-06-2023 Episodic Residual codes; unclassified (1 source) Patient encounter status; Translations: [Other specified health status] Onset: 01-21-2022 Episodic Residual codes; unclassified (1 source) Disorientated; Translations: [Disorientation, unspecified] Onset: 01-21-2022 Episodic Residual codes; unclassified (14 sources) Chronic back pain 01-21-2022 Episodic Respiratory failure; insufficiency; arrest (adult) (2 sources) Chronic hypoxemic respiratory failure; Translations: [Chronic respiratory failure with hypoxia] Onset: 01-21-2022 Chronic Screening and history of mental health and substance abuse codes (3 sources) H/O: anxiety state; Translations: [Personal history of other mental and behavioral disorders] Onset: 05-08-2022 Episodic Spondylosis; intervertebral disc disorders; other back problems (3 sources) Backache; Translations: [Dorsalgia, unspecified] Onset: 01-21-2022 Episodic Substance-related disorders (16 sources) Smoker; Translations: [Nicotine dependence] Onset: 05-01-2022 08-17-2017 Chronic Comment on above: Added secondary to d ocumentation in Social History. Superficial injury; contusion (1 source) Contusion of right knee; Translations: [Contusion of right knee, initial encounter] Onset: 08-07-2023 Episodic Unclassified (15 sources) Clinical finding absent 07-21-2021 Unclassified (13 sources) Long-term current use of opiate analgesic drug Onset: 04-13-2022 04-13-2022 Comment on above: Added secondary to c urrent Opioid Treatment Agreement Unclassified (1 source) S22.000A - Wedge compression fracture of unspecified thoracic vertebra, initial encounter for closed fracture; Translations: [S22.000A - Wedge compression fracture of unspecified thoracic vertebra, initial encounter for closed fracture] Onset: 05-12-2020 Urinary tract infections (2 sources) Urinary tract infectious disease; Translations: [Urinary tract infection, site not specified] Onset: 05-01-2022 Episodic Past or Other Problems Problem Classification Problem Date Documented Da te Episodic/Chronic Other fractures (1 source) Wedge compression fracture of unspecified lumbar vertebra, initial encounter for closed fracture; Translations: [S32.000A - Wedge compression fracture of unspecified lumbar vertebra, initial encounter for closed fracture] Onset: 05-12-2020 Episodic Results Test Name Value Interpretation Reference Range Facility Discharge Documentationon Discharge Documentation [id number]#1.00TIFF [facility] Discharge Instructionson Discharge Instructions [id number]#1.00TIFF [facility] Discharge Instructions [id number]#1.00TIFF [facility] Transfer Documentson 023 Transfer Documents [id number]#1.00TIFF [facility] Transfer Documents [id number] 328#1.00TIFF [facility] Vaccinationson 08-12-2023 Vaccinations [id number]#1.00TIFF [facility] Interdisciplinary Note - Amaury singon 08-11-2023 Interdisciplinary Note - Nursing Nicole Alexander security project manager for patient called looking for where patient discharged too. She is not listed on patients chart as someone information can be released to. Called Nicole back at [phone] to inform her of this and she is understanding. Normal [facility] Discharge Note-Nursingon Discharge Note-Nursing STEF BAZAN :1950 Visit Date:08/06/2023 Inpatient Discharge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 personality profile. MAXIMUS was able to send this back to [facility] who accepts the dog. Nicole stated that she will transport Diane to the [facility] for the patient per the patient's request. Nicole stated that she will change the patient's locks, so that moving forward anyone that needs in the apartment will come to her to retrieve any items needed. SW will remain available as needed. Normal [facility] Message from Medicareon 07-25 Message from Medicare [id number]#[id number] Normal [facility] Monitor Recordon 08-08-2023 Monitor Record [id number]#1.00TIFF [facility] Progress Note-Physicianon Progress Note-Physician Basic Informatio n 72-year-old female with known COPD, who wears 3 L of oxygen chronically at home, presented with bilateral knee pain after a fall. She reports a 2-day history of respiratory symptoms. Has been having increasing cough and shortness of breath at home. Today while getting up out of her recliner she felt her left knee go out from underneath her and she went down onto the floor. Fell onto her hands and knees. Came into the ER for evaluation for continues bilateral knee pain (R>L) after the fall. Work-up in the ER revealed negative knee x-rays. Chest x-ray is negative for any acute process. She was found to have acute exacerbation of her COPD. Was given bronchodilator therapy as well as oral prednisone and Zithromax in the ER. They did get her up to ambulate her, and she was able to ambulate, but continued to desat into the upper 80s despite being on her normal 3 L of oxygen. Therefore she was admitted primarily for her breathing issues IMP 1. COPD exacerbation (J44.1: Chronic obstructive pulmonary disease with (acute) exacerbation) Seen and examined Clinically still not feeling well Still has SOB and wheezing On NC at 4 liter per min Saturation is 91% Increase breathing treatment to every 4 hours Continue with Solu-Medrol every 8 hours Magnesium 2 g IV one-time Mucinex 600 twice daily Covid PCR Respiratory panel 2. Contusion of knee, right (S80.01XA: Contusion of right knee, initial encounter) XRay negative PT/OT 3. Chronic hypoxic respiratory failure (J96.11: Chronic respiratory failure with hypoxia) Wears 3LPM chronically of O2 at home, currently at baseline with rest. Desats with minimal ambulation 4. Hypertension (I10: Essential (primary) hypertension) Normotensive Home meds: Atenolol 5. Chronic back pain (M54.9: Dorsalgia, unspecified) Home meds: Gabapentin Subjective Not feeling well Still has SOB and wheezing Still has cough No fever Review of Systems Constitutional: no fever, no chills, no sweats, no weakness Respiratory: mild shortness of breath, mild cough, no orthopnea, moderate wheezing Cardiovascular: no chest pain, no palpitations, no edema Additional ROS info: Except as noted in the above Review of Systems and in the History of Present Illness all other systems have been reviewed and are negative or noncontributory. Objective Vitals & Measurements T: 36.5 ?C(Axillary) TMIN: 36.5 ?C(Axillary) TMAX: 36.8 ?C(Oral) HR: 97(Monitored) RR: 18 BP: 120/68 SpO2: 91% WT: 68 kg Intake & Output This visit (24 hour periods starting at 07:00 EST) 08/08/23 * 08/07/23 08/06/23 Total Summary Intake mL 1 895 2 Output mL -- -- -- Fluid Balance 1 895 2 Intake (5) Oral Intake mL -- 890 -- furosemide mL -- 2 -- ketorolac mL -- -- 1 methylPREDNISolone mL 1 3 -- morphine mL -- -- 1 Total 1 895 2 Output (0) Counts (1) Urine Count -- 4 -- * This column has not completed the indicated time period. Physical Exam General: alert, moderate distress Skin: warm, dry Head: no trauma, normocephalic Neck: Trachea midline, no adenopathy, no tenderness Eye: normal conjunctiva, sclera clear ENMT: TM's clear, oral mucosa moist, no pharyngeal erythema or exudate Cardiovascular: regular rate and rhythm, normal peripheral perfusion Respiratory: Lungs expiratory wheezes, respirations non labored Chest wall: no deformity. Gastrointestinal: soft, non distended, no tenderness, no guarding. Back: No tenderness, Normal ROM, Normal alignment. Extremities: no deformity, no trauma Neurological: oriented x 4, LOC appropriate for age, CN II-XII intact, motor strength equal & normal bilaterally, sensation equal & normal bilaterally, speech normal Psychiatric: cooperative, affect appropriate for age, normal judgement, normal psychiatric thoughts. Lab Results No qualifying data available. Problem List/Past Medical History Ongoing Chronic back pain COPD exacerbation Hypertension Long-term current use of opiate analgesic drug Overweight with body mass index (BMI) of 25 to 25.9 in adult Patient had no falls in past year Shortness of breath Smoker Historical No qualifying data Medications Inpatient acetaminophen 325 mg Tab, 650 mg= 2 tab(s), Oral, q4hr, PRN albuterol 0.083% Inh Veronica 3 mL, 2.5 mg= 3 mL, Inhalation, q2hr, PRN atenolol 25 mg Tab, 25 mg= 1 tab(s), Oral, Daily azithromycin 250 mg Tab, 500 mg= 2 tab(s), Oral, Daily DuoNeb 2.5 mg-0.5 mg/3 mL Soln-Inh, 3 mL, Inhalation, QID enoxaparin 40 mg/0.4 mL SC Veronica, 40 mg= 0.4 mL, SubCutaneous, Daily gabapentin 800 mg Tab, 800 mg= 1 tab(s), Oral, Daily influenza virus vaccine, inactivated HIGH-DOSE preservative-free intramuscular suspension FT Rule H, 0.7 mL, IntraMuscular, Once, PRN methylPREDNISolone 40 mg preservative-free injection (SOLU-MEDROL), 40 mg= 1 mL, IV Push, q8hrFT Mucinex 600 mg Tab-ER, 1200 mg= 2 tab(s), Oral, B (more content not included)... Normal [facility] Comment on above: Result Comment: Elec tronically Signed By: CAMILA COY, Alexandr\.br\Date and Time Signed: 08/08/23 10:47 EST Respiratory Panel by PCRon 10-08-2022 Adenovirus DNA FATEMEH+non-probe Ql (Nph) Not detected Normal [facility] Comment on above: Result Comment: Test ing was performed using nucleic acid amplification including Influenza A, Influenza A H1, Influenza A H3, Influenza B, RSV A, RSV B, Adenovirus, Human Metapneumovirus, Parainfluenza 1,2,3, and 4, Rhinovirus, Bordetella parapertussis/bronchiseptica, Bordetella holmesii, and Bordetella pertussis. Performed By: #### 1 [id number] ####[facility] [address] [facility] [place] [address] B. parapertussis DNA FATEMEH+probe Ql (Upper resp) Not detected Normal Not Detected [facility] Comment on above: Performed By: #### 1 [id number] ####[facility] [address] [facility] [place] [address] B. pertussis DNA FATEMEH+probe Ql (Upper resp) Not detected Normal Not Detected [facility] Comment on above: Performed By: #### 1 [id number] ####[facility] [address] [facility] [place] [address] FLUAV H1 RNA FATEMEH+non-probe Ql (Nph) Not detected Normal [facility] Comment on above: Performed By: #### 1 [id number] ####[facility] [address] [facility] [place] [address] FLUAV H3 RNA FATEMEH+non-probe Ql (Nph) Not detected Normal [facility] Comment on above: Performed By: #### 1 [id number] ####[facility] [address] [facility] [place] [place] [address] FLUAV RNA FATEMEH+non-probe Ql (Nph) Not detected Normal [facility] Comment on above: Performed By: #### 1 [id number] ####[facility] [address] [facility] [place] [place] [address] FLUBV RNA FATEMEH+non-probe Ql (Nph) Not detected Normal [facility] Comment on above: Performed By: #### 1 [id number] ####[place] [address] [facility] [place] [address] Human Metapneumovirus Not detected Normal [facility] Comment on above: Result Comment: This test result should be correlated with clinical presentations and medical history by a healthcare provider to determine its clinical significance. Performed By: #### 1 [id number] ####[address] [address] Parainfluenza virus 1 RNA FATEMEH+non-probe Ql (Nph) Not detected Normal [facility] Comment on above: Performed By: #### 1 [id number] ####[address] [address] Parainfluenza virus 2 RNA FATEMEH+non-probe Ql (Nph) Not detected Normal [facility] Comment on above: Performed By: #### 1 [id number] ####[address] [place] [address] Parainfluenza virus 3 RNA FATEMEH+non-probe Ql (Nph) Not detected Normal [facility] Comment on above: Performed By: #### 1 [id number] ####[address] [address] Parainfluenza virus 4 RNA FATEMEH+non-probe Ql (Nph) Not detected Normal [facility] Comment on above: Performed By: #### 1 [id number] ####[address] [place] [address] Resp Panel Intrl QC Pass Normal [facility] Comment on above: Performed By: #### 1 [id number] ####[address] [address] Rhinovirus+Enterovirus RNA FATEMEH+non-probe Ql (Nph) Not detected Normal [facility] Comment on above: Performed By: #### 1 [id number] ####[facility] [address] [place] [address] RSV RNA FATEMEH+non-probe Ql (Nph) Not detected Normal [facility] Comment on above: Performed By: #### 1 [id number] ####[address] [place] [address] Auto Diffon 08-07-2023 Basophils/100 WBC (Bld) 1.0 % Normal 0.0-2.0 [facility] Comment on above: Order Comment: Order Added by Discern Expert. Performed By: #### 2 334669, 14933573, 9599421, 6155354, 6388066, 60136303, 6756298, 8279172, 5364245 ####[address] [address] Basophils/Leukocytes Auto (Bld) [Pure # fraction] 0.1 E9/L Normal 0.0-0.2 [facility] Comment on above: Order Comment: Order Added by Discern Expert. Performed By: #### 2 385979, 59054638, 5745744, 1198960, 2610840, 24250525, 1099041, 6186445, 7397044 ####[address] [place] [address] Eosinophils/100 WBC (Bld) 2.1 % Normal 0.0-8.0 [facility] Comment on above: Order Comment: Order Added by Discern Expert. Performed By: #### 2 128214, 46878831, 8339950, 3596611, 1540069, 47935234, 2787175, 4474142, 4207194 ####[address] [place] [address] Eosinophils/Leukocytes Auto (Bld) [Pure # fraction] 0.2 E9/L Normal 0.0-0.5 [facility] Comment on above: Order Comment: Order Added by Discern Expert. Performed By: #### 2 024775, 35571266, 6174685, 3646072, 5376564, 69911332, 9231235, 2601962, 6443551 ####[address] [place] [address] Lymphocytes/100 WBC (Bld) 16.4 % Normal 14.0-50.0 [facility] Comment on above: Order Comment: Order Added by Discern Expert. Performed By: #### 2 034323, 75865934, 3141133, 7146188, 7104475, 99863517, 4322687, 2426639, 7993339 ####[address] [place] [address] Lymphocytes/Leukocytes Auto (Bld) [Pure # fraction] 1.4 E9/L Normal 1.0-4.0 [facility] Comment on above: Order Comment: Order Added by Discern Expert. Performed By: #### 2 007811, 31026217, 1162521, 0778406, 0238326, 92354363, 1753832, 6847690, 7030404 ####[address] [place] [address] Monocytes/100 WBC (Bld) 9.8 % Normal 4.0-14.0 [facility] Comment on above: Order Comment: Order Added by Discern Expert. Performed By: #### 2 381073, 38753292, 1305098, 9601256, 2379480, 37307292, 4547203, 5143453, 2705167 ####[address] [place] [address] Monocytes/Leukocytes Auto (Bld) [Pure # fraction] 0.8 E9/L Normal 0.2-1.0 [facility] Comment on above: Order Comment: Order Added by Discern Expert. Performed By: #### 2 780639, 76973215, 0475207, 8417074, 3850500, 00375675, 6415335, 1890126, 5610050 ####[address] [place] [address] Neutrophils/100 WBC (Bld) 70.7 % Normal 36.0-75.0 [facility] Comment on above: Order Comment: Order Added by Discern Expert. Performed By: #### 2 703379, 70749263, 4765937, 4391632, 5131567, 23598215, 3287327, 3906242, 2397482 ####[facility] [address] [place] [address] Neutrophils/Leukocytes Auto (Bld) [Pure # fraction] 5.8 E9/L Normal 2.0-7.5 [facility] Comment on above: Order Comment: Order Added by Discern Expert. Performed By: #### 2 440980, 18527986, 2314594, 0325956, 2797347, 57373171, 4085335, 9196744, 5108557 ####[facility] [address] [place] [address] BMPon 08-07-2023 Creatinine [Mass/Vol] 0.8 mg/dL Normal 0.5-1.3 [facility] Comment on above: Performed By: #### 2 514090, 63881054, 0192480, 1009058, 0315963, 10632711, 1420430, 3411783, 6741775 ####[facility] [address] [place] [address] Urea nitrogen [Mass/Vol] 17 mg/dL Normal 5-21 [facility] Comment on above: Performed By: #### 2 928950, 74127718, 3470275, 5724650, 7803777, 15183262, 4141462, 3273257, 7229530 ####[facility] [address] [place] [address] Urea nitrogen/Creatinine [Mass ratio] 21 No Units High 10-20 [facility] Comment on above: Performed By: #### 2 701852, 05330188, 1821845, 4881120, 4018075, 18326053, 6996074, 6684410, 8846282 ####[facility] [address] [place] [address] Anion gap [Moles/Vol] 10 mmol/L Normal 6-16 [facility] Comment on above: Performed By: #### 2 695731, 85302249, 2412253, 6692656, 2639980, 86917315, 6639094, 2190817, 2244825 ####[facility] [address] [place] [address] Calcium [Mass/Vol] 9.1 mg/dL Normal 8.9-11.1 [facility] Comment on above: Performed By: #### 2 545963, 81728076, 9101360, 7892504, 1844055, 30618375, 7071605, 2884877, 2738099 ####[facility] [address] [place] [address] Chloride [Moles/Vol] 93 mmol/L Low 101-111 [facility] Comment on above: Performed By: #### 2 576803, 51383742, 1702763, 8967963, 6026254, 51544397, 2261397, 9715217, 1935567 ####[facility] [address] [place] [address] CO2 [Moles/Vol] 40 mmol/L High 21-31 [facility] Comment on above: Performed By: #### 2 191199, 67886782, 3298205, 8290730, 8448636, 93966817, 5159162, 9004758, 9302839 ####[facility] [address] [place] [address] Glucose [Mass/Vol] 117 mg/dL Normal 55-199 [facility] Comment on above: Result Comment: If t his glucose result represents a fasting glucose, interpretation should refer to the following reference range: 55-99 mg/dL Performed By: #### 2 557419, 40087853, 2697408, 7930855, 1027193, 69854474, 5946206, 1795393, 1783101 ####[facility] [address] [place] [address] Potassium [Moles/Vol] 5.0 mmol/L Normal 3.5-5.3 [facility] Comment on above: Performed By: #### 2 075483, 73233482, 9415417, 6896300, 7427545, 47455485, 1823454, 9421697, 0702390 ####[facility] [address] [place] [address] Sodium [Moles/Vol] 138 mmol/L Normal 135-145 [facility] Comment on above: Performed By: #### 2 628617, 70327511, 9114314, 9323084, 1168806, 23983684, 7572495, 1024150, 8357878 ####[facility] [address] [place] [address] CBC w/ Auto Diffon Erythrocyte distribution width (RBC) [Ratio] 13.9 % Normal 10.9-14.2 [facility] Comment on above: Performed By: #### 2 781577, 94185734, 0225213, 4099017, 2627688, 29225876, 1182986, 9269246, 9418626 ####[facility] [address] [place] [address] Hematocrit (Bld) [Volume fraction] 33.7 % Low 34.0-46.0 [facility] Comment on above: Performed By: #### 2 163102, 44812153, 9069906, 3350779, 1112027, 55404621, 5697033, 6824608, 3145191 ####[facility] [address] [place] [address] Hemoglobin (Bld) [Mass/Vol] 10.8 g/dL Low 12.0-16.0 [facility] Comment on above: Performed By: #### 2 685797, 03605237, 2495676, 2801952, 7848948, 18287073, 7373959, 4436999, 4377408 ####[facility] [address] [place] [address] MCH (RBC) [Entitic mass] 29.8 pg Normal 27.0-34.0 [facility] Comment on above: Performed By: #### 2 416671, 14759920, 0999203, 5747350, 4374252, 71052406, 0097769, 7774825, 3452176 ####[facility] [address] [place] [address] MCHC (RBC) [Mass/Vol] 31.9 g/dL Normal 31.4-36.0 [facility] Comment on above: Performed By: #### 2 781139, 21485668, 3639612, 2694094, 6088289, 67318504, 5037193, 2661701, 9015309 ####[address] [address] MCV (RBC) [Entitic vol] 93.2 fL Normal 80.0-100.0 [facility] Comment on above: Performed By: #### 2 722771, 84395314, 5895199, 4892030, 0052736, 11900357, 2723093, 1953711, 3070851 ####[facility] [address] [place] [address] Platelet mean volume (Bld) [Entitic vol] 7.0 fL Normal 6.4-10.8 [facility] Comment on above: Performed By: #### 2 502367, 45778450, 0595379, 1790383, 9569618, 73011786, 3550754, 0632196, 4179369 ####[facility] [address] [place] [address] Platelets (Bld) [#/Vol] 301.0 E9/L Normal 150.0-500.0 [facility] Comment on above: Performed By: #### 2 143665, 40143829, 6935333, 9806645, 3016897, 27803352, 9410174, 1261186, 4008984 ####[address] [address] RBC (Bld) [#/Vol] 3.6 E12/L Low 4.3-5.9 [facility] Comment on above: Performed By: #### 2 605481, 36342987, 3451541, 4118840, 2070286, 23509800, 4839605, 4408512, 0304163 ####[facility] [address] [place] [address] WBC corrected for nucl RBC Auto (Bld) [#/Vol] 8.2 E9/L Normal 4.0-11.0 [facility] Comment on above: Performed By: #### 2 759426, 94253657, 9752527, 3055276, 2104898, 42366426, 9590794, 0892774, 8406692 ####[facility] [address] [place] [address] Consent for Treatmenton 07-25 Consent for Treatment [id number] Normal [facility] ED Clinical Summaryon 2022 ED Clinical Summary [address] [address] ED Clinical Summary Person Information Name: STEF BAZAN [facility] Age: 72 Years : 1950 Sex: Female Language: Uzbek PCP: RICK DELANEY CNP Marital Status: Visit Id: Visit Reason: Knee pain-swelling; Fall; FALL Speciality: Acuity: 2 Enc Type: Observation Med Service: Emergency Arrival: 08/06/2023 23:11:15 Discharge: LOS: 000 05:40 Checkin: 08/06/2023 23:11:15 Checkout: 08/07/2023 04:51:18 Dispo Type: Admitted as IP to this [facility] EVENTS: Event Name Event Status Request Date/Time Start Date/Time Complete Date/Time Arrive Complete 08/06/2023 23:11:15 08/06/2023 23:11:15 08/06/2023 23:11:15 Document Home Meds Request 08/06/2023 23:11:15 Triage Complete 08/06/2023 23:11:15 08/06/2023 23:18:24 08/06/2023 23:18:24 Dr Exam Complete 08/06/2023 23:12:35 08/06/2023 23:12:35 08/06/2023 23:12:35 Registration Complete 08/06/2023 23:12:35 08/06/2023 23:12:55 08/06/2023 23:32:16 Bed Assign Complete 08/06/2023 23:12:55 08/06/2023 23:12:55 08/06/2023 23:12:55 RN Exam Complete 08/06/2023 23:12:55 08/06/2023 23:31:22 08/06/2023 23:31:22 EKG Complete 08/06/2023 23:15:40 08/06/2023 23:53:59 Pending Labs Complete 08/06/2023 23:15:40 08/06/2023 23:56:01 Lab Complete 08/06/2023 23:15:40 08/06/2023 23:56:01 RT Cancel 08/06/2023 23:15:40 08/07/2023 03:12:17 Patient Care Complete 08/06/2023 23:15:40 08/07/2023 03:12:17 X-Ray Complete 08/06/2023 23:15:40 08/06/2023 23:16:24 08/06/2023 23:37:09 Meds Admin Complete 08/06/2023 23:15:40 08/06/2023 23:33:11 RT Tx/ABG Complete 08/06/2023 23:15:41 08/06/2023 23:44:59 08/06/2023 23:44:59 RT Tx/ABG Complete 08/06/2023 23:15:41 08/06/2023 23:44:45 08/06/2023 23:44:45 RT Tx/ABG Complete 08/06/2023 23:15:41 08/06/2023 23:44:41 08/06/2023 23:44:41 RT Tx/ABG Complete 08/06/2023 23:15:41 08/06/2023 23:44:53 08/06/2023 23:44:53 Pending Labs Complete 08/06/2023 23:27:27 08/06/2023 23:27:27 08/06/2023 23:49:43 Lab Complete 08/06/2023 23:27:27 08/06/2023 23:27:27 08/06/2023 23:49:43 Fall Risk Request 08/06/2023 23:31:23 Reg Complete Request 08/06/2023 23:32:16 Reg Bed Request Complete 08/06/2023 23:32:16 08/06/2023 23:32:16 08/06/2023 23:32:16 Pending Labs Complete 08/06/2023 23:34:46 08/06/2023 23:34:46 08/06/2023 23:34:53 Lab Complete 08/06/2023 23:34:46 08/06/2023 23:34:46 08/06/2023 23:34:53 Wet Read Request 08/06/2023 23:37:09 Trauma II Request 08/06/2023 23:37:26 Pending Labs Complete 08/07/2023 00:00:51 08/07/2023 00:37:52 Lab Complete 08/07/2023 00:00:51 08/07/2023 00:37:52 Swab Complete 08/07/2023 00:00:51 08/07/2023 00:37:52 Meds Admin Complete 08/07/2023 00:00:51 08/07/2023 00:14:03 Meds Admin Complete 08/07/2023 00:01:33 08/07/2023 00:14:03 Pending Labs Complete 08/07/2023 00:09:21 08/07/2023 00:09:21 08/07/2023 00:09:21 Trauma II Request 08/07/2023 00:22:27 Meds Admin Request 08/07/2023 00:34:58 Meds Admin Complete 08/07/2023 01:02:58 08/07/2023 01:46:09 Bed Request Request 08/07/2023 03:09:23 Reg Bed Request Complete 08/07/2023 03:09:23 08/07/2023 03:11:01 08/07/2023 03:11:01 Admit Request 08/07/2023 03:09:23 Patient Care Request 08/07/2023 03:11:02 Patient Care Request 08/07/2023 03:11:02 Patient Care Request 08/07/2023 03:11:03 Patient Care Request 08/07/2023 03:11:03 Patient Care Request 08/07/2023 03:15:57 Meds Admin Request 08/07/2023 03:15:57 RT Request 08/07/2023 03:15:57 RT Tx/ABG Request 08/07/2023 03:15:58 RT Tx/ABG Request 08/07/2023 03:15:58 RT Tx/ABG Request 08/07/2023 03:15:58 RT Tx/ABG Request 08/07/2023 03:15:58 ADDRESS: [address] [place] [id number] PHYS DOC NOTES: MEDICAL INFORMATION: Prescriptions Given: Medications to Continue with No Changes Other Medications albuterol (albuterol 0.083% Inh Veronica 3 mL) 3 Milliliter Nebulized inhalation (aerosol) every 6 hours. albuterol-ipratropi um (albuterol-ipratrop ium Inh Veronica 3 mL UD) 3 Milliliter Inhalation 4 times a day. Refills: 0. atenolol (atenolol 25 mg Tab) 0.5 tablet By Mouth every day. azithromycin (azithromycin 250 mg Tab) 250 Milligram By Mouth As Directed. Refills: 0. brompheniramine/dex tromethorphan/PSE (Bromfed DM oral syrup) 5 Milliliter By Mouth 4 times a day as needed for cold symptoms. Refills: 0. fluconazole (Diflucan 150 mg Tab) 1 Tablets By Mouth Once. Refills: 0. fluticasone-salmete rol (Advair 500 mcg-50 mcg Powder) 1 Puffs Inhalation 2 times a day. Refills: 0. gabapentin (gabapentin 300 mg Cap) 2 Capsules By Mouth 3 times a day. gabapentin (gabapentin 800 mg Tab) 1 Tablets By Mouth 3 times a day. Refills: 0. ipratropium (Atrovent HFA 17 mcg/inh inhalation aerosol) 2 Puffs Inhalation 4 times a day. tiotropium (Spiriva Respimat 60 ACT 2.5 mcg/inh inhalation aerosol) 2 Puffs Inhalation every day. INHALE 2 PUFFS BY MOUTH ONCE DAILY. (more content not included)... Normal [facility] ED Note-Physicianon 08-07-20 ED Note-Physician Basic Information Time Seen: Hunter Reis DOCamron 08/06/2023 23:12 History of Present Illness HPI: Patient is a 72-year-old female with past medical history of COPD, hypertension, chronic low back pain who presents the ED via EMS for fall and bilateral knee pain. Patient states that this evening at approximately 1730 she had been walking at home when she felt like her left knee started to give out on her and she fell to her hands and knees. She did not hit her head or lose consciousness. She is not on blood thinners. She states that she has severe pain in her right knee and some increased pain in the left knee since the fall. She was able to get up to a seated position. She states that for the past few days she has had increased cough and shortness of breath and feels like she might have bronchitis. She denies any fever or chills. She denies any nausea vomiting or diarrhea. ROS: Pertinent review of systems conducted and is negative except as noted above. Physical exam: General: nontoxic appearing and in no distress HEENT: Mucous membranes moist, No campos sign, hemotympanum, or raccoon eyes. Neuro: awake and alert. GCS is 15. CN II - XII grossly intact, motor and sensation to the four extremities are grossly intact Neck: supple, trachea midline. No midline tenderness of the cervical spine. Card: Heart regular rate and rhythm no murmur Resp: Lung sounds diminished in all lung ortez with expiratory wheezing. No flail chest or crepitus. Abd: Soft and nondistended. No tenderness with no rebound or guarding. Spine: No midline tenderness of the thoracic or lumbar spine. No palpable bony deformity. Pelvis: Stable to palpation. Ext: No gross deformity of the extremities. Trace effusion of the right knee compared to the left. She has diffuse tenderness of the right patella and proximal tibia on the right. Reduced range of motion of the right knee secondary to pain. No tenderness of the ankle or foot. Medical Decision Making MEDICAL DECISION MAKING Number and Complexity of Problems Differential Diagnosis: [] [facility] Data External documents reviewed: N/A My EKG interpretation: Noted in chart if applicable My CT interpretation: N/A My X-ray interpretation: Noted in chart if applicable My Ultrasound interpretation: N/A Decision rules/scores evaluated: N/A Discussed with: N/A Treatment and Disposition ED Course: Patient is nontoxic-appearing and in no distress. She did not hit her head or lose consciousness. Her only pain is in her bilateral knees with the right being much worse than the left. We will obtain lab work as well as chest x-ray as she does sound very diminished with a history of COPD and reports having worsening cough and shortness of breath over the last few days. This x-ray shows no acute pneumonia. X-rays of the knees are negative for acute fracture or dislocation. Patient remains tachycardic so she was given some IV fluid hydration. We will also give her a dose of prednisone and azithromycin for her COPD exacerbation. We are able to get the patient up and she did ambulate some in the ED however when she was walking her pulse ox dropped below 88%. I believe the patient would benefit from admission for further treatment of her COPD exacerbation. Case discussed the hospitalist on-call who agreed admit patient for further medical management. Shared decision making: As above Code status: N/A Assessment/Plan Contusion of knee, right (S80.01XA: Contusion of right knee, initial encounter) COPD exacerbation (J44.1: Chronic obstructive pulmonary disease with (acute) exacerbation) Orders: albuterol, 2.5 mg, 3 mL, Soln-Inh, NEB, Once, Stop date 08/06/23 23:15:00 EST, STAT, Start date 08/06/23 23:15:00 EST albuterol-ipratropi um, 3 mL, Soln-Inh, NEB, Once, Stop date 08/06/23 23:15:00 EST, STAT, Start date 08/06/23 23:15:00 EST azithromycin, 500 mg = 2 tab(s), Tab, Oral, Once, Stop date 08/07/23 0:00:00 EST, STAT, Start date 08/07/23 0:00:00 EST, 08/07/23 0:00:00 EST ketorolac, 15 mg = 1 mL, Injection, IV Push, Once, Stop date 08/07/23 0:01:00 EST, STAT, Start date 08/07/23 0:01:00 EST, 08/07/23 0:01:00 EST lidocaine topical, 1 patch(es), Patch, TransDermal, Once, Stop date 08/07/23 1:02:00 EST, STAT, Start date 08/07/23 1:02:00 EST morphine, 2 mg = 1 mL, Injection, IV Push, Once, Stop date 08/06/23 23:15:00 EST, STAT, Start date 08/06/23 23:15:00 EST, 08/06/23 23:15:00 EST predniSONE, 40 mg = 2 tab(s), Tab, Oral, Once, Stop date 08/07/23 0:00:00 EST, STAT, Start date 08/07/23 0:00:00 EST, 08/07/23 0:00:00 EST Sodium Chloride 0.9% intravenous solution 1,000 mL, 1,000 mL, IV, bolus, STAT, Start date 08/07/23 0:34:00 EST, Total volume (mL): 1,000, Bolus Dose: 1,000 mL, 69.8 kg, 1.82, m2 Automated Diff Basic Metabolic Panel CBC w/ Auto Diff ECG 12 Lead Adult ED Cardiac Monitoring eGFR Extra SST Tube Hepatic Function Panel Influenza A&B Ag Lactic Acid Lipase Level Oxygen Therapy PT & PTT Pulse Oxime (more content not included)... Normal [facility] Comment on above: Result Comment: Elec tronically Signed By: Hunter Reis DO\.br\Date and Time Signed: 08/07/23 03:09 EST ED Patient Education Noteon 08-07-2023 ED Patient Education Note Normal [facility] ED Patient Summaryon 023 ED Patient Summary [place] [id number] Patient Discharge Instructions Person Information Name: STEF BAZAN Age: 72 Years Arrival Date: 08/06/2023 23:11:15 Discharge Diagnosis: 1:COPD exacerbation; 2:Contusion of knee, right; 3:Chronic hypoxic respiratory failure; 4:Hypertension; 5:Chronic back pain; Other chronic pain Primary Care Physician: RICK DELANEY CNP Provider Information Primary Provider: Hunter Reis DO [employer] Agent:None The exam and treatment you received in the Emergency Department were for an urgent problem and are not intended as complete care. It is important that you follow up with a doctor, nurse practitioner, or physician?s orthodontic assistant for ongoing care. If your symptoms become worse or you do not improve as expected and you are unable to reach your usual health care provider, you should return to the Emergency Department. We are available 24 hours a day. STEF BAZAN has been given the following list of patient education materials, prescriptions and follow-up instructions: Follow-up Instructions: In the event that this physician does not participate in your insurance network, please consult with your insurance company to find a nearby participating provider. Patient Education Materials: A MESSAGE TO ALL PATIENTS REGARDING OPIOIDS PRESCRIPTION OPIOIDS: WHAT YOU NEED TO KNOW Prescription opioids can be used to help relieve bzgbfbrb-qx-fhizbg pain and are often prescribed following a surgery or injury, or for certain health conditions. These medications can be an important part of the treatment but also come with serious risks. It is important to work with your healthcare provider to make sure you are getting the safest, most effective care. WHAT ARE THE RISKS AND SIDE EFFECTS OF OPIOID USE? Prescription opioids carry serious risks of addiction and overdose, especially with prolonged use. An opioid overdose, often marked by slowed breathing, can cause sudden . The use of prescription opioids can have a number of side effects as well, even when taken as directed: ? Tolerance?meaning you might need to take more of the medication for the same pain relief ? Physical dependence?meaning you have symptoms of withdrawal when a medication is stopped ? Increased sensitivity to pain ? Constipation ? Nausea, vomiting, and dry mouth ? Sleepiness and dizziness ? Confusion ? Depression ? Low levels of testosterone that can result in lower sex drive, energy, and strength ? Itching and sweating RISKS ARE GREATER WITH: ? History of drug misuse, substance use disorder, or overdose ? Mental health conditions (such as depression or anxiety) ? Sleep apnea ? Older age (65 years and older) ? Avoid alcohol while taking prescription opioids. Also, unless specifically advised by your health care provider, medications to avoid include: ? Benzodiazepines (such as Xanax or Valium) ? Muscle relaxants (such as Soma or Flexeril) ? Hypnotics (such as Ambien or Lunesta) ? Other prescription opioids KNOW YOUR OPTIONS Talk to your health care provider about ways to manage your pain that don?t involve prescription opioids. Some of these options may actually work better and have fewer risks and side effects. Options may include: ? Pain relievers such as acetaminophen, ibuprofen, and naproxen ? Some medication that are also used for depression or seizures ? Physical therapy and exercise ? Cognitive behavioral therapy, a psychological, goal-directed approach, in which patients learn how to modify physical, behavioral, and emotional triggers of pain and stress. IF YOU ARE PRESCRIBED OPIOIDS FOR PAIN: ? Never take opioids in greater amounts or more often than prescribed. ? Follow up with your primary health care provider. o Work together to create a plan on how to manage your pain. o Talk about ways to help manage your pain that don?t involve prescription opioids. o Talk about any and all concerns and side effects. ? Help prevent misuse and abuse o Never sell or share prescription opioids. o Never use another person?s prescription opioids. ? Store prescription opioids in a secure place and out of reach of others (this may include visitors, children, friends, and family). ? Safely dispose of unused prescription opioids: Find your community drug take-back program or your pharmacy mail-back program, or flush them down the toilet, following guidance from the Food and Drug Administration (www.fda.gov/Drugs/ ResourcesForYou). ? Visit www.cdc.gov/drugove rdose to learn about the risks of opioids abuse and overdose. ? If you believe you may be struggling with addiction, tell your health customer care professional and ask for guidance or call [employer]A?S National Helpline at 3-209-235-QIMT. c Source: [place] Department of Health and Human Services/C (more content not included)... [facility] ED Traumaon 08-07-2023 ED Trauma [id number] 10#1.00TIFF [facility] Hep Func Panelon 08-07-2023 Albumin [Mass/Vol] 3.4 g/dL Normal 3.3-5.0 [facility] Comment on above: Performed By: #### 2 150668, [id number], 6152903, 1841816, 2975264, 41727990, 6069829, 8845590, 4880580 ####[facility] [address] [place] [address] Albumin/Globulin (S) [Mass conc ratio] 1.1 Normal 1.1-2.2 [facility] Comment on above: Performed By: #### 2 641483, 68069368, 0059940, 7888276, 9175679, 99513257, 8049664, 8102563, 4533504 ####[place] [address] [place] [address] ALP [Catalytic activity/Vol] 94 Int._Unit/L Normal 21-98 [facility] Comment on above: Performed By: #### 2 873724, 41205568, 7138013, 2908419, 9017169, 69354196, 9008642, 1241493, 7895863 ####[facility] [address] [place] [address] ALT No additional P-5'-P [Catalytic activity/Vol] 14 Int._Unit/L Normal 6-46 [facility] Comment on above: Performed By: #### 2 408631, 07572802, 4307671, 5494917, 0108407, 81881447, 9738164, 0628694, 9631309 ####[place] [address] [place] [address] AST [Catalytic activity/Vol] 15 Int._Unit/L Normal 5-43 [facility] Comment on above: Performed By: #### 2 124929, 42985845, 5873466, 1166359, 6201318, 84034604, 4533683, 5589568, 1958105 ####[facility] [address] [place] [address] Bilirubin [Mass/Vol] 0.7 mg/dL Normal 0.0-1.1 [facility] Comment on above: Performed By: #### 2 706568, 25208911, 9346693, 1211466, 9646286, 59792760, 2417991, 2608471, 4165441 ####[facility] [address] [place] [address] Bilirubin.direct [Mass/Vol] 0.1 mg/dL Normal 0.1-0.4 [facility] Comment on above: Performed By: #### 2 053867, 19408593, 2674679, 1726650, 4119757, 93098987, 1724033, 5010674, 5175387 ####[facility] [address] [place] [address] Bilirubin.indirect [Mass or moles/Vol] 0.6 mg/dL Normal 0.1-0.9 [facility] Comment on above: Performed By: #### 2 760292, 25902589, 7393790, 5988821, 4451373, 93086079, 4825158, 9601909, 9417042 ####[facility] [address] [place] [address] Globulin (S) [Mass/Vol] 3.2 g/dL Normal 1.4-4.0 [facility] Comment on above: Performed By: #### 2 149435, 78836363, 1053041, 0391842, 2768492, 59574751, 9614619, 2036402, 8422121 ####[facility] [address] [place] [address] Protein [Mass/Vol] 6.6 g/dL Normal 6.0-7.8 [facility] Comment on above: Performed By: #### 2 759131, 73273869, 3756946, 8539271, 3544337, 96426175, 5739444, 9330559, 6179975 ####[facility] [address] [place] [address] Influenza A&B Agon 3 Influenzae A Ag Negative Normal Negative [facility] Comment on above: Performed By: #### 2 724571, 5293721, 73372285, 6982755, 0407813, 17267500 #### [facility] [address] [place] [address] Influenzae B Ag Negative Normal Negative [facility] Comment on above: Result Comment: Test sensitivity and specificity vary for age group, specimen type, antigen types, and prevalence of disease. Test results must be evaluated in conjunction with other clinical data available to the physician. Individuals who received nasally administered Influenza A vaccine may have positive test results up to 3 days after vaccination. Performed By: #### 2 754541, 7345401, 65413004, 5063437, 7692118, 74501529 #### [facility] [address] [place] [address] Inpatient Clinical Summaryon 08-07-2023 Inpatient Clinical Summary [address] [id number] Clinical Summary Person Information: Name: STEF BAZAN Age: 72 Years : 1950 Sex: Female PCP: RICK DELANEY CNP Marital Status: Race: White Ethnicity: Non- or Language: Uzbek Visit Id: Visit Reason: Knee pain-swelling; Fall; FALL Speciality: Acuity: Enc Type: Observation Med Service: Medical Arrival: 08/06/2023 23:11:15 Discharge: Dispo Type: Admitted as IP to this Hosp Address: [address] [place] [id number] Provider Notes: Diagnosis: 1:COPD exacerbation; 2:Contusion of knee, right; 3:Chronic hypoxic respiratory failure; 4:Hypertension; 5:Chronic back pain; Other chronic pain Problems Active Long-term current use of opiate analgesic drug (04/13/2022) Chronic back pain Hypertension Shortness of breath Patient had no falls in past year Overweight with body mass index (BMI) of 25 to 25.9 in adult COPD exacerbation Smoker Smoking Status: Former Smoker Functional Status: Sensory Deficits: History of Falls: Mobility Assistance Prior to Admission: ADLs: Current Level of Assistance for Self-Care/Mobility: Cognitive Status: Oriented x 3 Allergies clindamycin (Rash) levoFLOXacin (SOB - Shortness of breath) Measurements: Height: 170.18 cm Weight: 62.6 kg Blood Pressure: 135 mmHg / 79 mmHg BMI: 21.62 kg/m2 Procedures No Procedures Documented Immunizations No Immunizations Documented This Visit Final Med List: albuterol (albuterol 0.083% Inh Veronica 3 mL) 3 Milliliter Nebulized inhalation (aerosol) every 6 hours. albuterol-ipratropi um (albuterol-ipratrop ium Inh Veronica 3 mL UD) 3 Milliliter Inhalation 4 times a day. Refills: 0. atenolol (atenolol 25 mg Tab) 1 Tablets By Mouth every day. azithromycin (azithromycin 250 mg Tab) 250 Milligram By Mouth As Directed. Refills: 0. brompheniramine/dex tromethorphan/PSE (Bromfed DM oral syrup) 5 Milliliter By Mouth 4 times a day as needed for cold symptoms. Refills: 0. fluconazole (Diflucan 150 mg Tab) 1 Tablets By Mouth Once. Refills: 0. fluticasone-salmete rol (Advair 500 mcg-50 mcg Powder) 1 Puffs Inhalation 2 times a day. Refills: 0. gabapentin (gabapentin 300 mg Cap) 2 Capsules By Mouth 3 times a day. gabapentin (gabapentin 800 mg Tab) 1 Tablets By Mouth every day. Refills: 0. ipratropium (Atrovent HFA 17 mcg/inh inhalation aerosol) 2 Puffs Inhalation 4 times a day. tiotropium (Spiriva Respimat 60 ACT 2.5 mcg/inh inhalation aerosol) 2 Puffs Inhalation every day. INHALE 2 PUFFS BY MOUTH ONCE DAILY. tramadol (traMADOL 50 mg Tab) 2 Tablets By Mouth every 8 hours as needed for pain. Care Team Members: Attending Physician: Giovana Woody MD Consulting Physician: Referring Physician: Follow up: Patient Education Information: Normal [facility] Inpatient Patient Summaryon 08-07-2023 Inpatient Patient Summary [place] [id number] Patient Discharge Instructions PERSON INFORMATION Name: STEF BAZAN Date of : 1950 Current Date: 08/07/2023 10:22:55 PHYSICIANS Admitting Physician: Giovana Woody MD Primary Care Physician: RICK DELANEY CNP PCP Comment: Discharge Diagnosis: 1:COPD exacerbation; 2:Contusion of knee, right; 3:Chronic hypoxic respiratory failure; 4:Hypertension; 5:Chronic back pain; Other chronic pain Condition at Discharge: STEF BAZAN has been given the following list of follow-up instructions, prescriptions, and patient education materials: PATIENT FOLLOW-UP INFORMATION Diet: Discharge Activity: Discharge Restrictions: Wound Care Instructions: Remove Your Dressing In Days Call Your Doctor For: IF UNABLE TO CONTACT YOUR PHYSICIAN AND YOU FEEL IT IS AN EMERGENCY, GO TO THE NEAREST EMERGENCY ROOM OR CALL 911 Home Treatment: Devices/Equipment: Walker Special Services: Additional Instructions: Primary Care Physician to provide the following pending test results: Follow up: In the event that this physician does not participate in your insurance network, please consult with your insurance company to find a nearby participating provider. Comment: I STEF BAZAN, have received the attached patient education materials/instructi ons and have verbalized understanding: Patient Signature Date Clinican/Nurse Signature Date HERE ARE THE MEDICATION CHANGES THAT OCCURRED DURING YOUR HOSPITAL STAY Medications to Continue with No Changes Other Medications albuterol (albuterol 0.083% Inh Veronica 3 mL) 3 Milliliter Nebulized inhalation (aerosol) every 6 hours. Last Dose: Next Dose: albuterol-ipratropi um (albuterol-ipratrop ium Inh Veronica 3 mL UD) 3 Milliliter Inhalation 4 times a day. Refills: 0. Last Dose: Next Dose: atenolol (atenolol 25 mg Tab) 1 Tablets By Mouth every day. Last Dose: Next Dose: azithromycin (azithromycin 250 mg Tab) 250 Milligram By Mouth As Directed. Refills: 0. Last Dose: Next Dose: brompheniramine/dex tromethorphan/PSE (Bromfed DM oral syrup) 5 Milliliter By Mouth 4 times a day as needed for cold symptoms. Refills: 0. Last Dose: Next Dose: fluconazole (Diflucan 150 mg Tab) 1 Tablets By Mouth Once. Refills: 0. Last Dose: Next Dose: fluticasone-salmete rol (Advair 500 mcg-50 mcg Powder) 1 Puffs Inhalation 2 times a day. Refills: 0. Last Dose: Next Dose: gabapentin (gabapentin 300 mg Cap) 2 Capsules By Mouth 3 times a day., take 2 tablets 3 times daily Last Dose: Next Dose: gabapentin (gabapentin 800 mg Tab) 1 Tablets By Mouth every day. Refills: 0. Last Dose: Next Dose: ipratropium (Atrovent HFA 17 mcg/inh inhalation aerosol) 2 Puffs Inhalation 4 times a day. Last Dose: Next Dose: tiotropium (Spiriva Respimat 60 ACT 2.5 mcg/inh inhalation aerosol) 2 Puffs Inhalation every day. INHALE 2 PUFFS BY MOUTH ONCE DAILY. Last Dose: Next Dose: tramadol (traMADOL 50 mg Tab) 2 Tablets By Mouth every 8 hours as needed for pain. Last Dose: Next Dose: Comment: MEDICATION LIST PROVIDED FOR YOU IS A LIST OF YOUR CURRENT MEDICATIONS. PLEASE CARRY THIS WITH YOU AT ALL TIMES. albuterol (albuterol 0.083% Inh Veronica 3 mL) 3 Milliliter Nebulized inhalation (aerosol) every 6 hours. albuterol-ipratropi um (albuterol-ipratrop ium Inh Veronica 3 mL UD) 3 Milliliter Inhalation 4 times a day. Refills: 0. atenolol (atenolol 25 mg Tab) 1 Tablets By Mouth every day. azithromycin (azithromycin 250 mg Tab) 250 Milligram By Mouth As Directed. Refills: 0. brompheniramine/dex tromethorphan/PSE (Bromfed DM oral syrup) 5 Milliliter By Mouth 4 times a day as needed for cold symptoms. Refills: 0. fluconazole (Diflucan 150 mg Tab) 1 Tablets By Mouth Once. Refills: 0. fluticasone-salmete rol (Advair 500 mcg-50 mcg Powder) 1 Puffs Inhalation 2 times a day. Refills: 0. gabapentin (gabapentin 300 mg Cap) 2 Capsules By Mouth 3 times a day. gabapentin (gabapentin 800 mg Tab) 1 Tablets By Mouth every day. Refills: 0. ipratropium (Atrovent HFA 17 mcg/inh inhalation aerosol) 2 Puffs Inhalation 4 times a day. tiotropium (Spiriva Respimat 60 ACT 2.5 mcg/inh inhalation aerosol) 2 Puffs Inhalation every day. INHALE 2 PUFFS BY MOUTH ONCE DAILY. tramadol (traMADOL 50 mg Tab) 2 Tablets By Mo (more content not included)... Normal [facility] Interdisciplinary Note - PTo n 08-07-2023 Interdisciplinary Note - PT Initial PT eval completed. 6 Clicks AM-PAC . Pt ambulated safely with rollator managing O2 tubing. SPO2 remained stable on 4L O2. No continued PT needs as pt close to baseline functional status. Pt does not have enough assist at home for home management and bathing. Pt's sister has been providing some assistance but sister feels it is too much on her now. Pt open to LTC but would like to DC home first. Rec HH aide. Normal [facility] Lactic Acidon 08-07-2023 Lactate [Mass/Vol] 0.7 mmol/L Normal 0.5-2.2 [facility] Comment on above: Performed By: #### 2 804120, [id number], 8772066, 5508259, 9917057, 75993548, 6192112, 9368387, 8413926 ####[facility] [address] [place] [address] Lipase Levelon 08-07-2023 Lipase [Catalytic activity/Vol] 31 U/L Normal 13-58 [facility] Comment on above: Performed By: #### 2 412590, 90413625, 9720616, 5574040, 4214124, 00317530, 5330346, 2725261, 0469206 ####[facility] [address] [place] [address] MICRO OTHER TESTSOrdered By: Ruben Greenberg on 08-07-2023 Influenzae A Ag Negative (08/07/23 12:14 AM) Normal Negative [facility] Influenzae B Ag Negative 1 (08/07/23 12:14 AM) Normal Negative [facility] Comment on above: Interpretive Data: T est sensitivity and specificity vary for age group, specimen type, antigen types, and prevalence of disease. Test results must be evaluated in conjunction with other clinical data available to the physician. Individuals who received nasally administered Influenza A vaccine may have positive test results up to 3 days after vaccination. Rapid COV Int NEG Ctl Pass (08/07/23 12:14 AM) Normal [facility]ero Rapid COV Int POS Ctl Pass (08/07/23 12:14 AM) Normal [facility] SARS-CoV+SARS-CoV-2 (COVID-19) Ag IA.rapid Ql (Resp) Not Detected 10 (08/07/23 12:14 AM) Normal Not Detected [facility] Comment on above: Interpretive Data: T he [employer] Veritor System for Rapid Detection of SARS-CoV-2 is a chromatographic digital immunoassay intended for the direct and qualitative detection of SARS-CoV-2 nucleocapsid antigens in nasal swabs from individuals who are suspected of COVID-19 by their healthcare provider within the first five days of the onset of symptoms. Negative results should be treated as presumptive, do not rule out SARS-CoV-2 infection and should not be used as the sole basis for treatment or patient management decisions, including infection control decisions. Negative results should be considered in the context of a patient s recent exposures, history and the presence of clinical signs and symptoms consistent with COVID-19, and confirmed with a molecular assay, if necessary, for patient management. For in vitro diagnostic use. In the [place], only for use under an Emergency Use Authorization. In the [place], this test has not been FDA cleared or approved; this test has been authorized by FDA under an EUA for use by authorized laboratories; use by laboratories certified under the CLIA, 42 U.S.C. 263a, that meet requirements to perform moderate, high, or waived complexity tests and at the Point of Care (POC), i.e., in patient care settings operating under a CLIA Certificate of Waiver, Certificate of Compliance, or Certificate of Accreditation. This test has been authorized only for the detection of proteins from SARS-CoV-2, not for any other viruses or pathogens; and, in the [place], this test is only authorized for the duration of the declaration that circumstances exist justifying the authorization of emergency use of in vitro diagnostics for detection and/or diagnosis of the virus that causes COVID-19 under Section 564(b)(1) of the Act, 21 U.S.C. 360bbb-3(b)(1), unless the authorization is terminated or revoked sooner. Message from Medicareon 07-25 Message from Medicare [id number] Normal [facility] Monitor Recordon 08-07-2023 Monitor Record [id number] Normal [facility] PT & PTTon 08-07-2023 aPTT Coag (PPP) [Time] 29.4 second(s) Normal 25.1-36.5 [facility] Comment on above: Result Comment: Para meter 15 days - 4 weeks 1 - 5 months 6 - 11 months 1 - 5 years 6 - 10 years 11 - 17 years PTT Mean: 35.4 (27.6-45.6) Mean: 33.5 (24.8-40.7) Mean: 32.4 (25.1-40.7) Mean: 31.6 (24.0-39.2) Mean: 31.6 (26.9-38.7) Mean: 31.0 (24.6-38.4) Pediatric Reference ranges were obtained from a study by Jaison Mojica et al. prepared from 1437 samples obtained at 7 different centers using the same coagulation reagent and instrumentation as [facility]. Currently there are no coagulation studies available worldwide for children to 14 days, and no normal ranges. Heparin therapeutic range (represented by Anti-Factor Xa activity of 0.2 - 0.4 U/mL) corresponds to PTT of 56.6 - 109.0 sec. Performed By: #### 2 601507, [id number], 5897741, 0254118, 6244145, 38508676, 5455003, 0249707, 4322902 ####[facility] [address] [place] [address] INR Coag (PPP) [Relative time] 1.0 {INR} Invalid Interpretation Code [facility] Comment on above: Result Comment: INR results are specifically intended to assess patients stabilized on long-term Anticoagulation therapy suggested INR?s ?Less Intensive Anticoagulation? 2.0 ? 3.0 Conventional Range 3.0 ? 4.5 Performed By: #### 2 995746, 23606733, 9489398, 1068871, 9038157, 41053298, 8924071, 0310393, 3726370 ####[facility] [address] [place] [address] PT Coag (PPP) [Time] 11.2 second(s) Normal 9.4-12.5 [facility] Comment on above: Result Comment: 15 d ays - 4 weeks 1 - 5 months 6 -11 months 1-5 years 6-10 years 11 -17 years Mean: 11.2 (9.5-12.6) Mean: 11.0 (9.7-12.8) Mean: 11.0 (9.8-13.0) Mean: 11.3 (9.9-13.4) Mean: 11.7 (10.0-14.6) Mean: 11.8 (10.0 - 14.1) Pediatric Reference ranges were obtained from a study by Jaison Mojica et al. prepared from 1437 samples obtained at 7 different centers using the same coagulation reagent and instrumentation as [facility]. Currently there are no coagulation studies available worldwide for children to 14 days, and no normal ranges. Performed By: #### 2 097586, 25213008, 8172197, 8450258, 1618754, 49981066, 9349129, 0484444, 5335781 ####[facility] [address] [place] [address] Pre-Arrival Noteon 3 Pre-Arrival Note Pre-Arrival Summary Name: , Current Date: 08/06/2023 23:13:09 EST Gender: Female Date of : Age: 73 Pre-Arrival Type: EMS ETA: 08/06/2023 23:34:00 EST Primary Care Physician: Presenting Problem: fall Pre-Arrival User: Juan Luis Causey RN Referring Source: Location: 01 Completion Date/Time: 08/06/2023 23:04:00 [facility] Emergency Department Pre-Hospital Report Form ___ Vital Signs: 184/92, hr 123 Pre-Hospital Report: Treatment in Route: Response to Treatment: Misc. Issues: Normal [facility] Rapid COVID Antigen ([facility])on 08-07-2023 Rapid COV Int NEG Ctl Pass Normal [facility] Comment on above: Performed By: #### 2 389726, 4465961, 16543259, 2192755, 0581859, 29627771 #### [facility] [address] [place] [address] Rapid COV Int POS Ctl Pass Normal [facility] Comment on above: Performed By: #### 2 634941, 0807123, 40782260, 1662665, 4002205, 89728756 #### [facility] [address] [place] [address] SARS-CoV+SARS-CoV-2 (COVID-19) Ag IA.rapid Ql (Resp) Not detected Normal Not Detected [facility] Comment on above: Result Comment: The [employer]? System for Rapid Detection of SARS-CoV-2 is a chromatographic digital immunoassay intended for the direct and qualitative detection of SARS-CoV-2 nucleocapsid antigens in nasal swabs from individuals who are suspected of COVID-19 by their healthcare provider within the first five days of the onset of symptoms. Negative results should be treated as presumptive, do not rule out SARS-CoV-2 infection and should not be used as the sole basis for treatment or patient management decisions, including infection control decisions. Negative results should be considered in the context of a patient?s recent exposures, history and the presence of clinical signs and symptoms consistent with COVID-19, and confirmed with a molecular assay, if necessary, for patient management. For in vitro diagnostic use. In the [facility], only for use under an Emergency Use Authorization. In the [place], this test has not been FDA cleared or approved; this test has been authorized by FDA under an EUA for use by authorized laboratories; use by laboratories certified under the CLIA, 42 U.S.C. ?263a, that meet requirements to perform moderate, high, or waived complexity tests and at the Point of Care (POC), i.e., in patient care settings operating under a CLIA Certificate of Waiver, Certificate of Compliance, or Certificate of Accreditation. This test has been authorized only for the detection of proteins from SARS-CoV-2, not for any other viruses or pathogens; and, in the [place], this test is only authorized for the duration of the declaration that circumstances exist justifying the authorization of emergency use of in vitro diagnostics for detection and/or diagnosis of the virus that causes COVID-19 under Section 564(b)(1) of the Act, 21 U.S.C. ? 360bbb-3(b)(1), unless the authorization is terminated or revoked sooner. Performed By: #### 2 805680, 2820988, 60974445, 1777774, 6871340, 00028531 #### [facility] [address] [place] [address] Troponinon 08-07-2023 Troponin I.cardiac [Mass/Vol] 11.00 pg/mL Normal 10.10-27.10 [facility] Comment on above: Result Comment: The 95% CI (Confidence Interval) PPV (Positive Predictive Value) for myocardial infarction in females is 38 pg/mL, in males 51 pg/mL. The results should be used in conjunction with clinical conditions of myocardial infarction. (Access High Sensitivity Troponin I Instructions For Use, Tong Lolita, April 2018) Performed By: #### 2 534862, [id number], 3747352, 7596633, 0516329, 40360422, 7654378, 3215502, 0751504 ####[facility] [address] [place] [address] XR Chest Single Viewon 08-07 XR Chest Single View Exam Date/Time: 08/06/2023 23:37 EST Reason for Exam: Trauma;Other (please specify) Report IMPRESSION: NO EVIDENCE OF ACTIVE CARDIOPULMONARY DISEASE, BY PORTABLE CHEST RADIOGRAPHY. EXAM: XR Chest Single View DATE: 08/06/2023 11:16 PM CLINICAL HISTORY: Trauma. COMPARISON: Portable chest 07/25/2023 and chest CTA 07/26/2023. TECHNIQUE: A portable upright AP radiograph of the chest was obtained. FINDINGS: There is no significant pulmonary infiltrate, cardiomegaly, vascular congestion, sizable pleural effusion, pneumothorax, or displaced fractures identified. Mild probable scarring and/or atelectasis and calcified granulomas of the right lung base are again noted. Ordering Provider: Hunter Reis FINAL REPORT Dictated: 08/07/2023 5:34 am Elmo Mcdaniel MD Signed (Electronic Signature): 08/07/2023 5:34 am Signed by: Elmo Mcdaniel MD Transcribed by: MAURO Technologist: ZEE Technical Comments Radiation Dose: Ka,r in mGy = na DAP = na Normal [facility] XR Knee Complete 4+ Views Le fton 08-07-2023 XR Knee Complete 4+ Views Left Exam Date/Time: 08/06/2023 23:37 EST Reason for Exam: Pain, Traumatic Report IMPRESSION: NO DISPLACED FRACTURE OR SIGNIFICANT POSTTRAUMATIC COMPLICATION IDENTIFIED. EXAM: XR Knee Complete 4+ Views Left DATE: 08/06/2023 11:16 PM CLINICAL HISTORY: Pain, Traumatic. COMPARISON: None available. TECHNIQUE: AP, lateral, internal and external oblique radiographs of the left knee were obtained. FINDINGS: There is no fracture, significant joint effusion, degenerative changes, dislocation, radiodense foreign bodies, or other posttraumatic complication identified. Ordering Provider: Hunter Reis FINAL REPORT Dictated: 08/07/2023 5:35 am Elmo Mcdaniel MD Signed (Electronic Signature): 08/07/2023 5:35 am Signed by: Elmo Mcdaniel MD Transcribed by: MAURO Technologist: ZEE Technical Comments Radiation Dose: Ka,r in mGy = na DAP = na Normal [facility] XR Knee Complete 4+ Views Ri eunice 08-07-2023 XR Knee Complete 4+ Views Right Exam Date/Time: 08/06/2023 23:37 EST Reason for Exam: Pain, Traumatic Report IMPRESSION: NO DISPLACED FRACTURE OR SIGNIFICANT POSTTRAUMATIC COMPLICATION IDENTIFIED. EXAM: XR Knee Complete 4+ Views Right DATE: 08/06/2023 11:16 PM CLINICAL HISTORY: Pain, Traumatic. COMPARISON: None available. TECHNIQUE: AP, lateral, internal and external oblique radiographs of the right knee were obtained. FINDINGS: There is no fracture, significant joint effusion, degenerative changes, dislocation, worrisome bone destruction, radiodense foreign bodies, or other posttraumatic complication identified elsewhere. Ordering Provider: Hunter Reis FINAL REPORT Dictated: 08/07/2023 5:36 am Elmo Mcdaniel MD Signed (Electronic Signature): 08/07/2023 5:36 am Signed by: Elmo Mcdaniel MD Transcribed by: MAURO Technologist: ZEE Technical Comments Radiation Dose: Ka,r in mGy = na DAP = na Normal [facility] eGFRon 08-07-2023 GFR/1.73 sq M.predicted among non-blacks MDRD (S/P/Bld) [Vol rate/Area] 78 mL/min/1.73 m2 Normal >=59 [facility] Comment on above: Order Comment: Order added by Discern Expert. 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 Kidney failure is indicated at less than 15 mL/min/1.73m2. Performed By: #### 2 [id number], 97836757, 5043710, 9880011, 8888250, 47503935, 5394936, 8667309, 9690549 ####[facility] [address] [place] [address] CHEMISTRYOrdered By: SYSTEM SYSTEM on 08-06-2023 Albumin [Mass/Vol] 3.4 g/dL Normal 3.3 - 5.0 gm/dL [facility] Remisol Albumin/Globulin [Mass ratio] 1.1 {ratio} Normal 1.1 - 2.2 [facility] ALP [Catalytic activity/Vol] 94 [iU]/d Normal 21 - 98 Int._Unit/L [facility] ALT No additional P-5'-P [Catalytic activity/Vol] 14 [iU]/d Normal 6 - 46 Int._Unit/L [facility] Anion gap [Moles/Vol] 10 mmol/L Normal 6 - 16 mEq/L [facility] AST [Catalytic activity/Vol] 15 [iU]/d Normal 5 - 43 Int._Unit/L [facility] Bilirubin [Mass/Vol] 0.7 mg/dL Normal 0.0 - 1 .1 mg/dL [facility] Bilirubin.direct [Mass/Vol] 0.1 mg/dL Normal 0.1 - 0.4 mg/dL [facility] Bilirubin.indirect [Mass or moles/Vol] 0.6 mg/dL Normal 0.1 - 0.9 mg/dL [facility] Calcium [Mass/Vol] 9.1 mg/dL Normal 8.9 - 11. 1 mg/dL [facility] Chloride [Moles/Vol] 93 mmol/L Low 101 - 1 11 mmol/L [facility] CO2 [Moles/Vol] 40 mmol/L High 21 - 31 mmol/L [facility] Creatinine [Mass/Vol] 0.8 mg/dL Normal 0.5 - 1.3 mg/dL [facility] GFR/1.73 sq M.predicted among non-blacks MDRD (S/P/Bld) [Vol rate/Area] 78 mL/min/1.73 m2 Normal >=59mL/min/1 .73 m2 [facility] Chem S Comment on above: Interpretive Data: C hronic kidney disease could be indicated at eGFR's of less than 60 mL/min/1.73m2. Kidney failure is indicated at less than 15 mL/min/1.73m2. Globulin (S) [Mass/Vol] 3.2 g/dL Normal 1.4 - 4.0 gm/dL [facility] Glucose [Mass/Vol] 117 mg/dL Normal 55 - 199 mg/dL [facility] Comment on above: Interpretive Data: I f this glucose result represents a fasting glucose, interpretation should refer to the following reference range: 55-99 mg/dL Lactate [Mass/Vol] 0.7 mmol/L Normal 0.5 - 2.2 mmol/L [facility] Lipase [Catalytic activity/Vol] 31 U/L Normal 13 - 58 unit/L [facility] Potassium [Moles/Vol] 5.0 mmol/L Normal 3.5 - 5.3 mmol/L [facility] Protein [Mass/Vol] 6.6 g/dL Normal 6.0 - 7.8 gm/dL [facility] Sodium [Moles/Vol] 138 mmol/L Normal 135 - 145 mmol/L [facility] Troponin I.cardiac [Mass/Vol] 11.00 pg/mL Normal 10.10 - 27.10 pg/mL [facility] Comment on above: Interpretive Data: T he 95% CI (Confidence Interval) PPV (Positive Predictive Value) for myocardial infarction in females is 38 pg/mL, in males 51 pg/mL. The results should be used in conjunction with clinical conditions of myocardial infarction. (Access High Sensitivity Troponin I Instructions For Use, Tong Reji, April 2018) Urea nitrogen [Mass/Vol] 17 mg/dL Normal 5 - 21 mg/dL [facility] Remisol Urea nitrogen/Creatinine [Mass ratio] 21 mg/mg High 10 - 20 [facility] Remisol COAGULATIONOrdered By: Ruben Greenberg on 08-06-2023 aPTT Coag (PPP) [Time] 29.4 s Normal 25.1 - 36.5 second(s) [facility] Auto Coag Comment on above: Interpretive Data: aLn partida 15 days - 4 weeks 1 - 5 months 6 - 11 months 1 - 5 years 6 - 10 years 11 - 17 years PTT Mean: 35.4 (27.6-45.6) Mean: 33.5 (24.8-40.7) Mean: 32.4 (25.1-40.7) Mean: 31.6 (24.0-39.2) Mean: 31.6 (26.9-38.7) Mean: 31.0 (24.6-38.4) Pediatric Reference ranges were obtained from a study by Jaison Mojica et al. prepared from 1437 samples obtained at 7 different centers using the same coagulation reagent and instrumentation as [facility]. Currently there are no coagulation studies available worldwide for children to 14 days, and no normal ranges. Heparin therapeutic range (represented by Anti-Factor Xa activity of 0.2 - 0.4 U/mL) corresponds to PTT of 56.6 - 109.0 sec. INR Coag (PPP) [Relative time] 1.0 {INR} Invalid Interpretation Code [facility] Auto Coag Comment on above: Interpretive Data: I NR results are specifically intended to assess patients stabilized on long-term Anticoagulation therapy suggested INR s Less Intensive Anticoagulation 2.0 3.0 Conventional Range 3.0 4.5 PT Coag (PPP) [Time] 11.2 s Normal 9.4 - 1 2.5 second(s) [facility] Auto Coag Comment on above: Interpretive Data: 1 5 days - 4 weeks 1 - 5 months 6 -11 months 1-5 years 6-10 years 11 -17 years Mean: 11.2 (9.5-12.6) Mean: 11.0 (9.7-12.8) Mean: 11.0 (9.8-13.0) Mean: 11.3 (9.9-13.4) Mean: 11.7 (10.0-14.6) Mean: 11.8 (10.0 - 14.1) Pediatric Reference ranges were obtained from a study by Jaison Mojica et al. prepared from 1437 samples obtained at 7 different centers using the same coagulation reagent and instrumentation as [facility]. Currently there are no coagulation studies available worldwide for children to 14 days, and no normal ranges. HEMATOLOGYOrdered By: SYSTEM SYSTEM on 08-06-2023 Basophils/100 WBC (Bld) 1.0 % Normal 0.0 - 2.0 % [facility] HemeAutoSS Basophils/Leukocytes Auto (Bld) [Pure # fraction] 0.1 E9/L Normal 0.0 - 0.2 E9/L [facility] HemeAutoSS Eosinophils/100 WBC (Bld) 2.1 % Normal 0.0 - 8.0 % [facility] HemeAutoSS Eosinophils/Leukocytes Auto (Bld) [Pure # fraction] 0.2 E9/L Normal 0.0 - 0.5 E9/L [facility] HemeAutoSS Lymphocytes/100 WBC (Bld) 16.4 % Normal 14.0 - 50.0 % [facility] HemeAutoSS Lymphocytes/Leukocytes Auto (Bld) [Pure # fraction] 1.4 E9/L Normal 1.0 - 4.0 E9/L [facility] HemeAutoSS Monocytes/100 WBC (Bld) 9.8 % Normal 4.0 - 14.0 % [facility] HemeAutoSS Monocytes/Leukocytes Auto (Bld) [Pure # fraction] 0.8 E9/L Normal 0.2 - 1.0 E9/L [facility] HemeAutoSS Neutrophils/100 WBC (Bld) 70.7 % Normal 36.0 - 75.0 % [facility] HemeAutoSS Neutrophils/Leukocytes Auto (Bld) [Pure # fraction] 5.8 E9/L Normal 2.0 - 7.5 E9/L [facility] HemeAutoSS HEMATOLOGYOrdered By: Ruben Greenberg on 08-06-2023 Erythrocyte distribution width (RBC) [Ratio] 13.9 % Normal 10.9 - 14.2 % [facility] HemeAutoSS Hematocrit (Bld) [Volume fraction] 33.7 % Low 34.0 - 46.0 % [facility] HemeAutoSS Hemoglobin (Bld) [Mass/Vol] 10.8 g/dL Low 12.0 - 16.0 gm/dL [facility] HemeAutoSS MCH (RBC) [Entitic mass] 29.8 pg Normal 27.0 - 34.0 pg [facility] HemeAutoSS MCHC (RBC) [Mass/Vol] 31.9 g/dL Normal 31.4 - 36.0 gm/dL [facility] HemeAutoSS MCV (RBC) [Entitic vol] 93.2 fL Normal 80.0 - 100.0 fL [facility] HemeAutoSS Platelet mean volume (Bld) [Entitic vol] 7.0 fL Normal 6.4 - 10.8 fL [facility] HemeAutoSS Platelets (Bld) [#/Vol] 301.0 E9/L Normal 150. 0 - 500.0 E9/L [facility] HemeAutoSS RBC (Bld) [#/Vol] 3.6 E12/L Low 4.3 - 5.9 E12/L [facility] HemeAutoSS WBC corrected for nucl RBC Auto (Bld) [#/Vol] 8.2 E9/L Normal 4.0 - 11.0 E9/L [facility] HemeAutoSS Auto Diffon 07-26-2023 Basophils/100 WBC (Bld) 1.2 % Normal 0.0-2.0 [facility] Comment on above: Order Comment: Order Added by Discern Expert. Performed By: #### 2 282331, 3512222, 02585080, 3908862, 2941548, 62644392 #### [facility] [address] [place] [address] Basophils/Leukocytes Auto (Bld) [Pure # fraction] 0.1 E9/L Normal 0.0-0.2 [facility] Comment on above: Order Comment: Order Added by Discern Expert. Performed By: #### 2 436999, 0312898, 75119070, 6183078, 1982409, 63279571 #### [facility] [address] [place] [address] Eosinophils/100 WBC (Bld) 2.6 % Normal 0.0-8.0 [facility] Comment on above: Order Comment: Order Added by Discern Expert. Performed By: #### 2 730181, 3781425, 15335829, 6765117, 5467909, 92549474 #### [facility] [address] [place] [address] Eosinophils/Leukocytes Auto (Bld) [Pure # fraction] 0.2 E9/L Normal 0.0-0.5 [facility] Comment on above: Order Comment: Order Added by Discern Expert. Performed By: #### 2 722370, 9484249, 74359372, 4858766, 9540837, 00451697 #### [facility] [address] [place] [address] Lymphocytes/100 WBC (Bld) 28.6 % Normal 14.0-50.0 [facility] Comment on above: Order Comment: Order Added by Discern Expert. Performed By: #### 2 495052, 6586581, 09743787, 3289931, 5408684, 71911757 #### [facility] [address] [place] [address] Lymphocytes/Leukocytes Auto (Bld) [Pure # fraction] 1.8 E9/L Normal 1.0-4.0 [facility] Comment on above: Order Comment: Order Added by Discern Expert. Performed By: #### 2 393554, 3418040, 75020832, 3232330, 2381621, 36938675 #### [facility] [address] [place] [address] Monocytes/100 WBC (Bld) 9.6 % Normal 4.0-14.0 [facility] Comment on above: Order Comment: Order Added by Discern Expert. Performed By: #### 2 474240, 1178055, 16705831, 8134332, 2242095, 06891033 #### [facility] [address] [place] [address] Monocytes/Leukocytes Auto (Bld) [Pure # fraction] 0.6 E9/L Normal 0.2-1.0 [facility] Comment on above: Order Comment: Order Added by Discern Expert. Performed By: #### 2 283861, 1996767, 55496898, 2892348, 3475854, 94703483 #### [facility] [address] [place] [address] Neutrophils/100 WBC (Bld) 58.0 % Normal 36.0-75.0 [facility] Comment on above: Order Comment: Order Added by Discern Expert. Performed By: #### 2 126913, 5321066, 07941632, 9297858, 0165326, 33222844 #### [facility] [address] [place] [address] Neutrophils/Leukocytes Auto (Bld) [Pure # fraction] 3.7 E9/L Normal 2.0-7.5 [facility] Comment on above: Order Comment: Order Added by Discern Expert. Performed By: #### 2 353672, 2798933, 61572347, 1749258, 6747517, 79134380 #### [facility] [address] [place] [address] CBC w/ Auto Diffon 3 Erythrocyte distribution width (RBC) [Ratio] 14.1 % Normal 10.9-14.2 [facility] Comment on above: Performed By: #### 2 927393, 2486442, 75335699, 7160850, 2332264, 75743760 #### [facility] [address] [place] [address] Hematocrit (Bld) [Volume fraction] 34.8 % Normal 34.0-46.0 [facility] Comment on above: Performed By: #### 2 417414, 8301287, 99197092, 1411266, 0914192, 82721974 #### [facility] [address] [place] [address] Hemoglobin (Bld) [Mass/Vol] 11.2 g/dL Low 12.0-16.0 [facility] Comment on above: Performed By: #### 2 975901, 3708198, 39598677, 9169806, 5875552, 87046812 #### [facility] [address] [place] [address] MCH (RBC) [Entitic mass] 29.4 pg Normal 27.0-34.0 [facility] Comment on above: Performed By: #### 2 948233, 4608445, 89809531, 2212537, 3279487, 93566737 #### [facility] [address] [place] [address] MCHC (RBC) [Mass/Vol] 32.2 g/dL Normal 31.4-36.0 [facility] Comment on above: Performed By: #### 2 064577, 0014067, 51794095, 0965756, 5594053, 64323420 #### [facility] [address] [place] [address] MCV (RBC) [Entitic vol] 91.3 fL Normal 80.0-100.0 [facility] Comment on above: Performed By: #### 2 214131, 9407944, 58825276, 8003653, 4573820, 17903616 #### [facility] [address] [place] [address] Platelet mean volume (Bld) [Entitic vol] 7.4 fL Normal 6.4-10.8 [facility] Comment on above: Performed By: #### 2 007812, 0466106, 55209228, 1173383, 3674839, 21811303 #### [facility] [address] [place] [address] Platelets (Bld) [#/Vol] 235.0 E9/L Normal 150.0-500.0 [facility] Comment on above: Performed By: #### 2 134666, 0654150, 35658300, 9566639, 4227859, 93476613 #### [facility] [address] [place] [address] RBC (Bld) [#/Vol] 3.8 E12/L Low 4.3-5.9 [facility] Comment on above: Performed By: #### 2 309191, 2669258, 26707318, 8403853, 3381989, 61070558 #### [facility] [address] [place] [address] WBC corrected for nucl RBC Auto (Bld) [#/Vol] 6.3 E9/L Normal 4.0-11.0 [facility] Comment on above: Performed By: #### 2 587161, 1446871, 66524297, 1706941, 0354402, 66993439 #### [facility] [address] [place] [address] CMPon 07-26-2023 Albumin [Mass/Vol] 3.2 g/dL Low 3.3-5.0 [facility] Comment on above: Performed By: #### 2 424438, 1423366, 71152884, 9325234, 1528075, 14278051 #### [facility] [address] [place] [address] Albumin/Globulin (S) [Mass conc ratio] 1.0 Low 1.1-2.2 [facility] Comment on above: Performed By: #### 2 302352, 9957158, 68419264, 7088021, 3930131, 78018034 #### [facility] [address] [place] [address] ALP [Catalytic activity/Vol] 91 Int._Unit/L Normal 21-98 [facility] Comment on above: Performed By: #### 2 451548, 8702898, 73962754, 9929733, 0832189, 35845772 #### [facility] [address] [place] [address] ALT No additional P-5'-P [Catalytic activity/Vol] 10 Int._Unit/L Normal 6-46 [facility] Comment on above: Performed By: #### 2 429853, 6416314, 29478684, 8249829, 0941224, [id number] #### [facility] [address] [place] [address] AST [Catalytic activity/Vol] 16 Int._Unit/L Normal 5-43 [facility] Comment on above: Performed By: #### 2 [id number], [id number], [id number], 6742704, 4018394, [id number] #### [facility] [address] [place] [address] Bilirubin [Mass/Vol] 0.3 mg/dL Normal 0.0-1.1 [facility] Comment on above: Performed By: #### 2 710244, 9944021, [id number], 2364217, 1318009, [id number] #### [facility] [address] [place] [address] Creatinine [Mass/Vol] 1.0 mg/dL Normal 0.5-1.3 [facility] Comment on above: Performed By: #### 2 754888, 3287504, 07452945, 2109358, 6089833, [id number] #### [facility] [address] [place] [address] Globulin (S) [Mass/Vol] 3.1 g/dL Normal 1.4-4.0 [facility] Comment on above: Performed By: #### 2 781062, 3980761, 35716141, 0319348, 2011893, 22503490 #### [facility] [address] [place] [address] Protein [Mass/Vol] 6.3 g/dL Normal 6.0-7.8 [facility] Comment on above: Performed By: #### 2 167366, 9449361, 03651147, 1447017, 5111564, 51121421 #### [facility] [address] [place] [address] Urea nitrogen [Mass/Vol] 18 mg/dL Normal 5-21 [facility] Comment on above: Performed By: #### 2 186271, 0518920, 66769678, 1174794, 2494429, 99260181 #### [facility] [address] [place] [address] Urea nitrogen/Creatinine [Mass ratio] 18 No Units Normal 10-20 [facility] Comment on above: Performed By: #### 2 803215, 0299131, 50110650, 7544652, 8981434, 17963177 #### [facility] [address] [place] [address] Anion gap [Moles/Vol] 9 mmol/L Normal 6-16 [facility] Comment on above: Performed By: #### 2 774510, 5736852, 02175692, 2181118, 1053949, 80079022 #### [facility] [address] [place] [address] Calcium [Mass/Vol] 9.0 mg/dL Normal 8.9-11.1 [facility] Comment on above: Performed By: #### 2 009948, 8243949, 07556286, 6456263, 0035536, 58544837 #### [facility] [address] [place] [address] Chloride [Moles/Vol] 101 mmol/L Normal 101-111 [facility] Comment on above: Performed By: #### 2 113884, 9494401, 20031401, 8892973, 2719791, 69870296 #### [facility] [address] [place] [address] CO2 [Moles/Vol] 36 mmol/L High 21-31 [facility] Comment on above: Performed By: #### 2 189191, 3628407, 29959985, 6059944, 2133777, 93589138 #### [facility] [address] [place] [address] Glucose [Mass/Vol] 113 mg/dL Normal 55-199 [facility] Comment on above: Result Comment: If t his glucose result represents a fasting glucose, interpretation should refer to the following reference range: 55-99 mg/dL Performed By: #### 2 634063, 3987441, 84363438, 7651288, 5557286, 94230685 #### [facility] [address] [place] [address] Potassium [Moles/Vol] 4.0 mmol/L Normal 3.5-5.3 [facility] Comment on above: Performed By: #### 2 347994, 4595125, 52589165, 9237780, 0736173, 60273258 #### [facility] [address] [place] [address] Sodium [Moles/Vol] 142 mmol/L Normal 135-145 [facility] Comment on above: Performed By: #### 2 960122, 1606422, 70799421, 1437654, 3189953, 39324609 #### [facility] [address] [place] [address] CT Spine Lumbar w/o Contrast on 07-26-2023 CT Spine Lumbar w/o Contrast Exam Date/Time: 07/25/2023 23:37 EDT Reason for Exam: Compression fracture, lumbar;Other (please specify) Report IMPRESSION: MILD COMPRESSION DEFORMITY OF THE L4 VERTEBRAL BODY POSTERIORLY, THIS HAS DEVELOPED SINCE THE PRIOR CT SCAN. THE OTHER DESCRIBED FINDINGS APPEAR UNCHANGED FROM THE PRIOR EXAM. CLINICAL HISTORY: Compression fracture, lumbar. Back pain. COMPARISON: 05/31/2023. COMMENT: Unenhanced images were obtained. There is patient motion, with degradation of image quality. The bones are osteopenic. There is mild levoscoliosis of the lumbar spine. There is mild anterior wedge deformity of the T1 vertebral body. There is severe biconcave compression deformity of the T12 vertebral body. There is 0.5 cm retropulsion of the posterior superior T12 vertebral body into the spinal canal. The L1 and L2 vertebral bodies are maintained in height. There is moderately compression deformity of the L3 vertebral body, with increased concavity of the superior endplate. There is mild compression deformity of the L4 vertebral body posteriorly, with increased concavity of the superior endplate, and this has developed since the prior CT scan. There is 0.1 cm of retropulsion of the posterior superior L4 L4 vertebral body into the spinal canal. There is moderate anterior compression deformity of the L5 vertebral body, with increased concavity of the superior endplate. The sacral vertebra appear maintained. Except for the described compression deformity at the L4 vertebral body, the other compression deformities are old. No subluxation is noted. There are hypertrophic arthritic changes of facet joints at T1-T2, L2-L3, L3-L4, L4-L5, and L5-S1. There is relatively moderate focal spinal canal stenosis at T11-T12, due to the posterior retropulsion of T12 and hypertrophic facet arthritic changes. There is mild neural foraminal encroachment at this level. The T12-L1 and L1-L2-L3 vertebral discs are unremarkable. There is minimal disc bulging at L2-L3. This in conjunction with hypertrophic facet arthritic changes result in mild to moderate focal spinal canal stenosis. Report There is disc bulging at L3-L4. This in conjunction with hypertrophic facet arthritic changes result in moderate focal spinal canal stenosis. There is disc bulging at L4-L5. This in conjunction with hypertrophic facet arthritic changes result in severe focal spinal canal stenosis. There is bilateral neural foraminal stenosis at this level. There is narrowing at the L5-S1 interspace posteriorly and the degenerative vacuum phenomenon is present within this interspace. A combination of posterior disc protrusion, posterior marginal hypertrophic spurring of vertebral bodies and hypertrophic facet arthritic changes result in severe focal spinal canal stenosis and bilateral neural foraminal stenosis. There are extensive arterial calcifications. There is aneurysmal dilatation of the distal abdominal aorta, with AP diameter of 3.3 cm and transverse diameter of 3.5 cm. The aneurysm ends at the aortic bifurcation and is unchanged from the prior exam. All CT scans at this facility use dose modulation, iterative reconstruction, and/or weight based dosing when appropriate to reduce radiation dose to as low as reasonably achievable. Ordering Provider: Nica Barnes FINAL REPORT Dictated: 07/26/2023 10:36 am Orlin Magana M.D. Signed (Electronic Signature): 07/26/2023 10:36 am Signed by: Orlin Magana M.D. Transcribed by: MAURO Technologist: ZEE Barber [facility] CTA Cheston 07-26-2023 CTA Chest Exam Date/Time: 07/26/2023 00:26 EDT Reason for Exam: Pulmonary embolism (PE) suspected, high prob;Other (please specify) Report IMPRESSION: NO CT EVIDENCE OF PULMONARY EMBOLISM. CHRONIC FINDINGS. NO ACUTE CHEST ABNORMALITY IS EVIDENT. CLINICAL HISTORY: Pulmonary embolism (PE) suspected, high prob. Pain. COMPARISON: 01/17/2023. COMMENT: Axial images were obtained after the rapid injection of IV contrast with narrow collimation and reconstructed at a narrow interval. Coronal and sagittal reconstructions were performed. On the PACS, images were reviewed in cine display and using MIP postprocessing. There is patient motion with blurring of chest structures and degradation of image quality. The pulmonary arteries are contrast opacified and no intraluminal filling defects are noted. There are scattered calcifications of the thoracic aorta and great vessels arising off the aortic arch. There is tortuosity of the thoracic aorta. The thoracic aorta is within normal limits in diameter, without evidence of aneurysm or dissection. The heart is normal in size. There are coronary artery calcifications. No pericardial effusion is noted. There is no mediastinal nor hilar lymphadenopathy. There are right hilar and right lung calcified granulomas. There are areas of hyperlucency in both lungs, consistent with centrilobular emphysema. There is a 4 mm noncalcified nodule in the posterolateral periphery of the left lower lobe, that is stable in appearance when compared to the prior exam. There is some bronchial wall thickening, suggesting bronchitis. No bronchiectasis is evident. There are streaky densities in posterior medial basilar aspects of both lower lobes and in the basilar lingula, with atelectasis suspected. No consolidated airspace opacification, no pneumothorax, nor pleural effusion is evident. There are metallic surgical clips in the upper left retroperitoneum, and the patient has had prior left nephrectomy. There is granulomatous calcification in the spleen. The bones are osteopenic. There is increased thoracic kyphosis. There are anterior compression deformities of T3, T4, T5, T6, T7, T8, T9, and T12 vertebral bodies, most severe at T7, T8, and T12. These compression deformities are old and appear unchanged from the 05/31/[address] exam. No acute/recent thoracic spine fracture is noted. With the patient motion, there is blurring of margins, limiting assessment for subtle or nondisplaced fracture, but no displaced rib fracture is evident. All CT scans at this facility use dose modulation, iterative reconstruction, and/or weight based dosing when appropriate to reduce radiation dose to as low as reasonably achievable. Report Low dose cancer screening should be considered if not already enrolled in such a program. This patient was discussed with Dr. Rm of the Emergency Department at 11:15 AM on 07/26/2023, regarding the L4 vertebral body finding on the CT lumbar study. Ordering Provider: Nica Barnes FINAL REPORT Dictated: 07/26/2023 11:24 am Orlin Magana M.D. Signed (Electronic Signature): 07/26/2023 11:24 am Signed by: Orlin Magana M.D. Transcribed by: MAURO Technologist: ZEE Technical Comments GFR (mL/min/1/73m2) 60 Contrast: Isovue 370 Contrast amount in ml's: 76 Normal [facility] Discharge Instructionson Discharge Instructions [id number] Normal [facility] ED Clinical Summaryon 2022 ED Clinical Summary [place] [id number] ED Clinical Summary Person Information Name: STEF BAZAN [place] Age: 72 Years : 1950 Sex: Female Language: Uzbek PCP: RICK DELANEY CNP Marital Status: Visit Id: Visit Reason: Back pain; Medical problem - minor; GEN ILLNESS Speciality: Acuity: 3 Enc Type: Emergency Med Service: Emergency Arrival: 07/25/2023 21:42:32 Discharge: 07/26/2023 02:44:37 LOS: 000 05:02 Checkin: 07/25/2023 21:42:32 Checkout: 07/26/2023 02:44:37 Dispo Type: Home (Routine DC) EVENTS: Event Name Event Status Request Date/Time Start Date/Time Complete Date/Time Arrive Complete 07/25/2023 21:42:32 07/25/2023 21:42:32 07/25/2023 21:42:32 Document Home Meds Request 07/25/2023 21:42:32 Triage Complete 07/25/2023 21:42:32 07/25/2023 21:52:35 07/25/2023 21:52:35 Bed Assign Complete 07/25/2023 21:43:20 07/25/2023 21:43:20 07/25/2023 21:43:20 Dr Exam Complete 07/25/2023 21:43:20 07/25/2023 21:44:45 07/25/2023 21:44:45 RN Exam Complete 07/25/2023 21:43:20 07/25/2023 21:54:46 07/25/2023 21:54:46 Registration Complete 07/25/2023 21:44:45 07/25/2023 22:00:49 07/25/2023 22:00:49 Reg Complete Request 07/25/2023 22:00:49 Reg Bed Request Complete 07/25/2023 22:00:49 07/25/2023 22:00:49 07/25/2023 22:00:49 EKG Complete 07/25/2023 22:24:57 07/25/2023 22:31:39 Meds Admin Complete 07/25/2023 22:24:57 07/25/2023 22:41:06 Pending Labs Request 07/25/2023 22:24:57 Lab Request 07/25/2023 22:24:57 Urine Collect Request 07/25/2023 22:24:57 X-Ray Complete 07/25/2023 22:24:57 07/25/2023 22:35:15 07/25/2023 23:46:41 RT Request 07/25/2023 22:24:57 CT Complete 07/25/2023 22:24:57 07/25/2023 23:19:13 07/25/2023 23:37:56 Meds Admin Complete 07/25/2023 22:27:36 07/25/2023 22:45:44 Pending Labs Complete 07/25/2023 22:27:36 07/25/2023 23:32:12 Lab Complete 07/25/2023 22:27:36 07/25/2023 23:32:12 RT Tx/ABG Complete 07/25/2023 22:27:36 07/25/2023 22:53:47 07/25/2023 22:53:47 RT Tx/ABG Complete 07/25/2023 22:27:37 07/25/2023 22:54:01 07/25/2023 22:54:01 Pending Labs Complete 07/25/2023 22:51:09 07/25/2023 22:51:09 07/25/2023 23:12:11 Lab Complete 07/25/2023 22:51:09 07/25/2023 22:51:09 07/25/2023 23:12:11 Pending Labs Complete 07/25/2023 22:53:51 07/25/2023 22:53:51 07/25/2023 22:53:51 Pending Labs Complete 07/25/2023 22:58:26 07/25/2023 22:58:26 07/25/2023 22:58:33 Lab Complete 07/25/2023 22:58:26 07/25/2023 22:58:26 07/25/2023 22:58:33 Wet Read Request 07/25/2023 23:46:41 CT Complete 07/26/2023 00:04:07 07/26/2023 00:06:29 07/26/2023 00:26:16 Meds Admin Complete 07/26/2023 01:33:54 07/26/2023 01:41:28 Discharge Complete 07/26/2023 01:36:36 07/26/2023 02:44:43 07/26/2023 02:44:43 Meds Admin Complete 07/26/2023 02:11:44 07/26/2023 02:30:46 Transfer Complete 07/26/2023 02:44:43 07/26/2023 02:44:43 07/26/2023 02:44:43 ADDRESS: [address] [place] [address] [address] [place] [id number] PHYS DOC NOTES: MEDICAL INFORMATION: Prescriptions Given: New Medications [facility], [address] [facility] [place], [place] [id number], [phone] acetaminophen-hydro codone (Monette 325 mg-5 mg oral tablet) 1 Tablets By Mouth every 6 hours as needed for pain for 2 Days. Refills: 0. azithromycin (azithromycin 250 mg Tab) 250 Milligram By Mouth As Directed. Refills: 0. predniSONE (predniSONE 50 mg Tab) 1 Tablets By Mouth every day for 5 Days. Refills: 0. Medications to Continue with No Changes Other Medications albuterol (albuterol 0.083% Inh Veronica 3 mL) 3 Milliliter Nebulized inhalation (aerosol) every 6 hours. albuterol-ipratropi um (albuterol-ipratrop ium Inh Veronica 3 mL UD) 3 Milliliter Inhalation 4 times a day. Refills: 0. atenolol (atenolol 25 mg Tab) 0.5 tablet By Mouth every day. brompheniramine/dex tromethorphan/PSE (Bromfed DM oral syrup) 5 Milliliter By Mouth 4 times a day as needed for cold symptoms. Refills: 0. fluconazole (Diflucan 150 mg Tab) 1 Tablets By Mouth Once. Refills: 0. fluticasone-salmete rol (Advair 500 mcg-50 mcg Powder) 1 Puffs Inhalation 2 times a day. Refills: 0. gabapentin (gabapentin 300 mg Cap) 2 Capsules By Mouth 3 times a day. gabapentin (gabapentin 800 mg Tab) 1 Tablets By Mouth 3 times a day. Refills: 0. ipratropium (Atrovent HFA 17 mcg/inh inhalation aerosol) 2 Puffs Inhalation 4 times a day. tiotropium (Spiriva Respimat 60 ACT 2.5 mcg/inh inhalation aerosol) 2 Puffs Inhalation every day. INHALE 2 PUFFS BY MOUTH ONCE DAILY. PATIENT EDUCATION INFORMATION: Instructions: Chronic Back Pain, Rrcj-[id number]-Lgnt; Acute Bronchitis, Adult, Aasj-os-Finn Follow up: With: Address: [place] [address] Business (1) In 3 days 07/29/2023 Comments: Take the antibiotics as prescribed till you have completed the course. You can use the pain medication every 6 hours as needed for pain. Take the steroids once daily until you have completed the course. Please foll (more content not included)... Normal [facility] ED Note-Physicianon 07-26-20 23 ED Note-Physician Basic Information Time Seen: Nica Barnes DO 07/25/2023 21:44 Chief Complaint Pt states hasn't felt well in awhile. States ran out of meds recently and can't get a refill on tramadols. Having back pain. Also feels like she has pneumonia again- was recently on abx, but is out. Denies cough, SOB. Wears 3L AAT History of Present Illness Patient is a 72-year-old female with past medical history of COPD on baseline 3 L of oxygen, chronic back pain on tramadol over is out of her pain medications and cannot get a refill presenting to the ED for evaluation of shortness of breath, cough. Patient states she was diagnosed with pneumonia on July 06, she states she signed out AMA however was prescribed antibiotics which she completed without any improvement of her symptoms. Patient states over the last 3 weeks she has had increasing back pain. Denies any falls or trauma, bowel or bladder incontinence. Denies any fevers, chills, dizziness or lightheadedness. Review of Systems A 10 point review of systems is negative except as noted above. Medical and Surgical History: Reviewed and noted Social history: Lives at home Tobacco: Denies Physical Exam Vitals & Measurements T: 37.1 ?C(Oral) HR: 98(Monitored) RR: 16 BP: 129/97 SpO2: 100% HT: 169 cm WT: 71.1 kg BMI: 24.89 General: Well developed, non toxic appearing, no acute distress HEENT: Head atraumatic, Mucosa moist, hearing grossly normal Neck: No JVD, tracheal deviation Cardiac: Regular rate, rhythm, no murmurs, or gallops, 2+ radial pulses Respiratory: Rhonchi noted on auscultation bilaterally normal respiratory effort Abdomen: Soft non tender, no rebound or guarding, no peritoneal signs : Midline spinal tenderness in the L4 to L thigh region Extremities: No edema noted in the LE B/L, no tenderness to palpation Neurologic: Alert and oriented, speech clear Skin: No rashes or lesions Psych: Appropriate mood and behavior Medical Decision Making MEDICAL DECISION MAKING Number and Complexity of Problems Differential Diagnosis: [] [facility] Data External documents reviewed: [] My EKG interpretation: [] My CT interpretation: [] My X-ray interpretation: [] My Ultrasound interpretation: [] Decision rules/scores evaluated: [] Discussed with: [] Treatment and Disposition ED Course: Is a 72-year-old female presenting to the ED for evaluation of shortness of breath, cough, back pain. Patient is nontoxic and on arrival, no acute distress. Does have diffuse rhonchi noted on auscultation bilaterally. Laboratory evaluation is obtained, chest x-ray is ordered. Due to patient's increasing back pain outside her previous CT of the lumbar spine is obtained. Patient is given morphine in the ED for pain in addition to a DuoNeb and IV fluids. Patient's laboratory evaluations unremarkable, chest x-ray without focal infiltrates, improvement of the pneumonia. Due to patient's persistent symptoms CTA of the chest is obtained in addition to CT of the lumbar spine. CT of the chest shows evidence of bronchitis but no evidence of pneumonia, PE, there are chronic appearing compression fractures. CT of the lumbar spine shows chronic appearing compression fractures which is unchanged from previous CAT scan of May. On reevaluation patient is feeling improved. She is discharged home with short course of pain medication in addition to azithromycin and steroids. She is to follow-up with her primary care doctor for further evaluation management. She is to return to the ED for any new or worsening symptoms. Shared decision making: [] Code status: [] Assessment/Plan Acute bronchitis (J20.9: Acute bronchitis, unspecified) Acute low back pain (M54.50: Low back pain, unspecified) Orders: albuterol-ipratropi um, 3 mL, Soln-Inh, Inhalation, Once, Stop date 07/25/23 22:27:00 EDT, STAT, Start date 07/25/23 22:27:00 EDT azithromycin, 250 mg, Oral, As Directed, # 6 tab(s), Refills(s) 0, Pharmacy: [facility], 169, cm, 07/25/23 21:52:00 EDT, Height/Length Dosing, 71.1, kg, 07/25/23 21:52:00 EDT, Weight Dosing morphine, 2 mg = 1 mL, Injection, IV Push, Once, Stop date 07/25/23 22:24:00 EDT, STAT, Start date 07/25/23 22:24:00 EDT, 07/25/23 22:24:00 EDT predniSONE, 60 mg = 3 tab(s), Tab, Oral, Once, Stop date 07/26/23 1:33:00 EDT, STAT, Start date 07/26/23 1:33:00 EDT, 07/26/23 1:33:00 EDT predniSONE, 50 mg = 1 tab(s), Oral, Daily, X 5 day(s), # 5 tab(s), Refills(s) 0, Pharmacy: [facility], 169, cm, 07/25/23 21:52:00 EDT, Height/Length Dosing, 71.1, kg, 07/25/23 21:52:00 EDT, Weight Dosing Sodium Chloride 0.9% intravenous solution, 1,000 mL, Soln-IV, IV, Once, Stop date 07/25/23 22:24:00 EDT, STAT, Start date 07/25/23 22:24:00 EDT, Infuse over 61, minute(s) Automated Diff Blood Culture Charcoal Blood Culture Charcoal CBC w/ Auto Diff Comprehensive Metabolic Panel Continuous Pulse Oximetry CT Spine Lumbar w/o Contrast CTA Chest ECG 12 Lead A (more content not included)... Normal [facility] Comment on above: Result Comment: Elec tronically Signed By: Nica Barnes DO\.br\Date and Time Signed: 07/26/23 01:55 EDT ED Patient Education Noteon 07-26-2023 ED Patient Education Note Orthopedics Chronic Back Pain When back pain lasts longer than 3 months, it is called chronic back pain. Pain may get worse at certain times (flare-ups). There are things you can do at home to manage your pain. Follow these instructions at home: Pay attention to any changes in your symptoms. Take these actions to help with your pain: Managing pain and stiffness ? If told, put ice on the painful area. Your doctor may tell you to use ice for 24?48 hours after the flare-up starts. To do this: ? Put ice in a plastic bag. ? Place a towel between your skin and the bag. ? Leave the ice on for 20 minutes, 2?3 times a day. ? If told, put heat on the painful area. Do this as often as told by your doctor. Use the heat source that your doctor recommends, such as a moist heat pack or a heating pad. ? Place a towel between your skin and the heat source. ? Leave the heat on for 20?30 minutes. ? Take off the heat if your skin turns bright red. This is especially important if you are unable to feel pain, heat, or cold. You may have a greater risk of getting burned. ? Soak in a warm bath. This can help relieve pain. Activity ? Avoid bending and other activities that make pain worse. ? When standing: ? Keep your upper back and neck straight. ? Keep your shoulders pulled back. ? Avoid slouching. ? When sitting: ? Keep your back straight. ? Relax your shoulders. Do not round your shoulders or pull them backward. ? Do not sit or compliance intern one place for long periods of time. ? Take short rest breaks during the day. Lying down or standing is usually better than sitting. Resting can help relieve pain. ? When sitting or lying down for a long time, do some mild activity or stretching. This will help to prevent stiffness and pain. ? Get regular exercise. Ask your doctor what activities are safe for you. ? Do not lift anything that is heavier than 10 lb (4.5 kg) or the limit that you are told, until your doctor says that it is safe. ? To prevent injury when you lift things: ? Bend your knees. ? Keep the weight close to your body. ? Avoid twisting. ? Sleep on a firm mattress. Try lying on your side with your knees slightly bent. If you lie on your back, put a pillow under your knees. Medicines ? Treatment may include medicines for pain and swelling taken by mouth or put on the skin, prescription pain medicine, or muscle relaxants. ? Take pmeh-ohr-pbqffsz and prescription medicines only as told by your doctor. ? Ask your doctor if the medicine prescribed to you: ? Requires you to avoid driving or using machinery. ? Can cause trouble pooping (constipation). You may need to take these actions to prevent or treat trouble pooping: ? Drink enough fluid to keep your pee (urine) pale yellow. ? Take dsos-yck-oczqzpw or prescription medicines. ? Eat foods that are high in fiber. These include beans, whole grains, and fresh fruits and vegetables. ? Limit foods that are high in fat and sugars. These include fried or sweet foods. General instructions ? Do not use any products that contain nicotine or tobacco, such as cigarettes, e-cigarettes, and chewing tobacco. If you need help quitting, ask your doctor. ? Keep all follow-up visits as told by your doctor. This is important. Contact a doctor if: ? Your pain does not get better with rest or medicine. ? Your pain gets worse, or you have new pain. ? You have a high fever. ? You lose weight very quickly. ? You have trouble doing your normal activities. Get help right away if: ? One or both of your legs or feet feel weak. ? One or both of your legs or feet lose feeling (have numbness). ? You have trouble controlling when you poop (have a bowel movement) or pee (urinate). ? You have bad back pain and: ? You feel like you may vomit (nauseous), or you vomit. ? You have pain in your belly (abdomen). ? You have shortness of breath. ? You faint. Summary ? When back pain lasts longer than 3 months, it is called chronic back pain. ? Pain may get worse at certain times (flare-ups). ? Use ice and heat as told by your doctor. Your doctor may tell you to use ice after flare-ups. This information is not intended to replace advice given to you by your health care provider. Make sure you discuss any questions you have with your health care provider. Document Revised: 10/20/2020 Document Reviewed: 10/20/2020 [employer] Patient Education ? 2022 [employer]. Pulmonary Medicine Acute Bronchitis, Adult Acute bronchitis is when air tubes in the lungs (bronchi) suddenly get swollen. The condition can make it hard for you to breathe. In adults, acute bronchitis usually goes away within 2 weeks. A cough caused by bronchitis may last up to 3 weeks. Smoking, allergies, and asthma can make the condition worse. What are the causes? ? Germs th (more content not included)... Normal [facility] ED Patient Summaryon 023 ED Patient Summary [address] [address] Patient Discharge Instructions Person Information Name: STEF BAZAN Age: 72 Years Arrival Date: 07/25/2023 21:42:32 Discharge Diagnosis: Acute bronchitis; Acute low back pain Primary Care Physician: RICK DELANEY CNP Provider Information Primary Provider: Nica Barnes DO [employer] Le[employer] Agent:None The exam and treatment you received in the Emergency Department were for an urgent problem and are not intended as complete care. It is important that you follow up with a doctor, nurse practitioner, or physician?s orthodontic assistant for ongoing care. If your symptoms become worse or you do not improve as expected and you are unable to reach your usual health care provider, you should return to the Emergency Department. We are available 24 hours a day. STEF BAZAN has been given the following list of patient education materials, prescriptions and follow-up instructions: Follow-up Instructions: With: Address: When: RICK DELANEY [address] [place] [address] [place] [address] Business (1) In 3 days 07/29/2023 Comments: Take the antibiotics as prescribed till you have completed the course. You can use the pain medication every 6 hours as needed for pain. Take the steroids once daily until you have completed the course. Please follow-up with your primary care doctor next 2 to 3 days. Please return to the ED for any new or worsening symptoms. In the event that this physician does not participate in your insurance network, please consult with your insurance company to find a nearby participating provider. Patient Education Materials: Chronic Back Pain, Uzdk-vh-Aovw; Acute Bronchitis, Adult, Qbyg-ym-Pdhy A MESSAGE TO ALL PATIENTS REGARDING OPIOIDS PRESCRIPTION OPIOIDS: WHAT YOU NEED TO KNOW Prescription opioids can be used to help relieve qrrzjora-mx-xuyosv pain and are often prescribed following a surgery or injury, or for certain health conditions. These medications can be an important part of the treatment but also come with serious risks. It is important to work with your healthcare provider to make sure you are getting the safest, most effective care. WHAT ARE THE RISKS AND SIDE EFFECTS OF OPIOID USE? Prescription opioids carry serious risks of addiction and overdose, especially with prolonged use. An opioid overdose, often marked by slowed breathing, can cause sudden . The use of prescription opioids can have a number of side effects as well, even when taken as directed: ? Tolerance?meaning you might need to take more of the medication for the same pain relief ? Physical dependence?meaning you have symptoms of withdrawal when a medication is stopped ? Increased sensitivity to pain ? Constipation ? Nausea, vomiting, and dry mouth ? Sleepiness and dizziness ? Confusion ? Depression ? Low levels of testosterone that can result in lower sex drive, energy, and strength ? Itching and sweating RISKS ARE GREATER WITH: ? History of drug misuse, substance use disorder, or overdose ? Mental health conditions (such as depression or anxiety) ? Sleep apnea ? Older age (65 years and older) ? Avoid alcohol while taking prescription opioids. Also, unless specifically advised by your health care provider, medications to avoid include: ? Benzodiazepines (such as Xanax or Valium) ? Muscle relaxants (such as Soma or Flexeril) ? Hypnotics (such as Ambien or Lunesta) ? Other prescription opioids KNOW YOUR OPTIONS Talk to your health care provider about ways to manage your pain that don?t involve prescription opioids. Some of these options may actually work better and have fewer risks and side effects. Options may include: ? Pain relievers such as acetaminophen, ibuprofen, and naproxen ? Some medication that are also used for depression or seizures ? Physical therapy and exercise ? Cognitive behavioral therapy, a psychological, goal-directed approach, in which patients learn how to modify physical, behavioral, and emotional triggers of pain and stress. IF YOU ARE PRESCRIBED OPIOIDS FOR PAIN: ? Never take opioids in greater amounts or more often than prescribed. ? Follow up with your primary health care provider. o Work together to create a plan on how to manage your pain. o Talk about ways to help manage your pain that don?t involve prescription opioids. o Talk about any and all concerns and side effects. ? Help prevent misuse and abuse o Never sell or share prescription opioids. o Never use another person?s prescription opioids. ? Store prescription opioids in a secure place and out of reach of others (this may include visitors, children, friends, and family). ? Safely dispose of unused prescription opioids: Find your community drug take-back program or your pharmacy mail-back program, o (more content not included)... Normal [facility] Lactic Acidon 07-26-2023 Lactate [Mass/Vol] 0.9 mmol/L Normal 0.5-2.2 [facility] Comment on above: Performed By: #### 2 [id number], [id number], [id number], [id number], [id number] #### [facility] [address] [place] [address] Monitor Recordon 07-26-2023 Monitor Record [id number] Normal [facility] Monitor Record [id number]#[id number] Normal [facility] Outside Recordson 07-26-2023 Outside Records [id number] Normal [facility] PT & PTTon 07-26-2023 aPTT Coag (PPP) [Time] 33.9 second(s) Normal 25.1-36.5 [facility] Comment on above: Result Comment: Para meter 15 days - 4 weeks 1 - 5 months 6 - 11 months 1 - 5 years 6 - 10 years 11 - 17 years PTT Mean: 35.4 (27.6-45.6) Mean: 33.5 (24.8-40.7) Mean: 32.4 (25.1-40.7) Mean: 31.6 (24.0-39.2) Mean: 31.6 (26.9-38.7) Mean: 31.0 (24.6-38.4) Pediatric Reference ranges were obtained from a study by carlene Woodruff al. prepared from 1437 samples obtained at 7 different centers using the same coagulation reagent and instrumentation as [facility]. Currently there are no coagulation studies available worldwide for children to 14 days, and no normal ranges. Heparin therapeutic range (represented by Anti-Factor Xa activity of 0.2 - 0.4 U/mL) corresponds to PTT of 56.6 - 109.0 sec. Performed By: #### 2 [id number], [id number], [id number], [id number], [id number], [id number] #### [facility] [address] [place] [address] INR Coag (PPP) [Relative time] 1.0 {INR} Invalid Interpretation Code [facility] Comment on above: Result Comment: INR results are specifically intended to assess patients stabilized on long-term Anticoagulation therapy suggested INR?s ?Less Intensive Anticoagulation? 2.0 ? 3.0 Conventional Range 3.0 ? 4.5 Performed By: #### 2 [id number], [id number], [id number], [id number] #### [facility] [address] [place] [address] PT Coag (PPP) [Time] 11.3 second(s) Normal 9.4-12.5 [facility] Comment on above: Result Comment: 15 d ays - 4 weeks 1 - 5 months 6 -11 months 1-5 years 6-10 years 11 -17 years Mean: 11.2 (9.5-12.6) Mean: 11.0 (9.7-12.8) Mean: 11.0 (9.8-13.0) Mean: 11.3 (9.9-13.4) Mean: 11.7 (10.0-14.6) Mean: 11.8 (10.0 - 14.1) Pediatric Reference ranges were obtained from a study by carlene Woodruff al. prepared from 1437 samples obtained at 7 different centers using the same coagulation reagent and instrumentation as [facility]. Currently there are no coagulation studies available worldwide for children to 14 days, and no normal ranges. Performed By: #### 2 [id number], [id number], [id number], [id number], [id number], [id number] #### [facility] [address] [place] [address] RAD - Preliminary Cat Scan R eporton 07-26-2023 RAD - Preliminary Cat Scan Report [id number]#[id number] Normal [facility] Rapid COVID Antigen ([facility])on 07-26-2023 Rapid COV Int NEG Ctl Pass Normal Fis [facility] Comment on above: Performed By: #### 2 [id number] #### [facility] [address] [place] [address] Rapid COV Int POS Ctl Pass Normal Fis [facility] Comment on above: Performed By: #### 2 [id number] #### [facility] [address] [place] [address] SARS-CoV+SARS-CoV-2 (COVID-19) Ag IA.rapid Ql (Resp) Not detected Normal Not Detected [facility] Comment on above: Result Comment: The Revizeritor? System for Rapid Detection of SARS-CoV-2 is a chromatographic digital immunoassay intended for the direct and qualitative detection of SARS-CoV-2 nucleocapsid antigens in nasal swabs from individuals who are suspected of COVID-19 by their healthcare provider within the first five days of the onset of symptoms. Negative results should be treated as presumptive, do not rule out SARS-CoV-2 infection and should not be used as the sole basis for treatment or patient management decisions, including infection control decisions. Negative results should be considered in the context of a patient?s recent exposures, history and the presence of clinical signs and symptoms consistent with COVID-19, and confirmed with a molecular assay, if necessary, for patient management. For in vitro diagnostic use. In the [place], only for use under an Emergency Use Authorization. In the [place], this test has not been FDA cleared or approved; this test has been authorized by FDA under an EUA for use by authorized laboratories; use by laboratories certified under the CLIA, 42 U.S.C. ?263a, that meet requirements to perform moderate, high, or waived complexity tests and at the Point of Care (POC), i.e., in patient care settings operating under a CLIA Certificate of Waiver, Certificate of Compliance, or Certificate of Accreditation. This test has been authorized only for the detection of proteins from SARS-CoV-2, not for any other viruses or pathogens; and, in the [place], this test is only authorized for the duration of the declaration that circumstances exist justifying the authorization of emergency use of in vitro diagnostics for detection and/or diagnosis of the virus that causes COVID-19 under Section 564(b)(1) of the Act, 21 U.S.C. ? 360bbb-3(b)(1), unless the authorization is terminated or revoked sooner. Performed By: #### 2 [id number] #### [facility] [address] [place] [address] Troponinon 07-26-2023 Troponin I.cardiac [Mass/Vol] 5.10 pg/mL Low 10.10-27.10 [facility] Comment on above: Result Comment: The 95% CI (Confidence Interval) PPV (Positive Predictive Value) for myocardial infarction in females is 38 pg/mL, in males 51 pg/mL. The results should be used in conjunction with clinical conditions of myocardial infarction. (Access High Sensitivity Troponin I Instructions For Use, [employer], April 2018) Performed By: #### 2 [id number], [id number], [id number], [id number], [id number], [id number] #### [facility] [address] [place] [address] XR Chest Single Viewon 07-26 XR Chest Single View Exam Date/Time: 07/25/2023 23:46 EDT Reason for Exam: Shortness of breath (SOB) Report IMPRESSION: NO EVIDENCE OF ACUTE CHEST DISEASE. CLINICAL HISTORY: Shortness of breath (SOB). COMPARISON: 07/06/2023. COMMENT: AP portable. The heart is normal in size. There is mild tortuosity of the thoracic aorta. The mediastinum is unremarkable. The lungs appear inflated. There are right hilar and right lung calcified granulomas. No infiltration nor pleural effusion is evident. The left basilar opacity noted on the prior study appears to have resolved.. Ordering Provider: Nica Barnes FINAL REPORT Dictated: 07/26/2023 8:09 am Orlin Magana M.D. Signed (Electronic Signature): 07/26/2023 8:09 am Signed by: Orlin Magana M.D. Transcribed by: MAURO Technologist: ANA Technical Comments Radiation Dose: Ka,r in mGy = n/a DAP = n/a Normal [facility] eGFRon 07-26-2023 GFR/1.73 sq M.predicted among non-blacks MDRD (S/P/Bld) [Vol rate/Area] 60 mL/min/1.73 m2 Normal >=59 [facility] Comment on above: Order Comment: Order added by Discern Expert. 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 Kidney failure is indicated at less than 15 mL/min/1.73m2. Performed By: #### 2 [id number], [id number], [id number], [id number], [id number] #### [facility] [address] [place] [address] CHEMISTRYOrdered By: SYSTEM SYSTEM on 07-25-2023 Albumin [Mass/Vol] 3.2 g/dL Low 3.3 - 5.0 gm/dL [facility] Remisol Albumin/Globulin [Mass ratio] 1.0 {ratio} Low 1.1 - 2.2 [facility] Remisol ALP [Catalytic activity/Vol] 91 [iU]/d Normal 21 - 98 Int._Unit/L [facility] Remisol ALT No additional P-5'-P [Catalytic activity/Vol] 10 [iU]/d Normal 6 - 46 Int._Unit/L [facility] Remisol Anion gap [Moles/Vol] 9 mmol/L Normal 6 - 16 mEq/L [facility] Remisol AST [Catalytic activity/Vol] 16 [iU]/d Normal 5 - 43 Int._Unit/L [facility] Remisol Bilirubin [Mass/Vol] 0.3 mg/dL Normal 0.0 - 1 .1 mg/dL [facility] Remisol Calcium [Mass/Vol] 9.0 mg/dL Normal 8.9 - 11. 1 mg/dL [facility] Remisol Chloride [Moles/Vol] 101 mmol/L Normal 101 - 1 11 mmol/L [facility] Remisol CO2 [Moles/Vol] 36 mmol/L High 21 - 31 mmol/L [facility] Remisol Creatinine [Mass/Vol] 1.0 mg/dL Normal 0.5 - 1.3 mg/dL [facility] Remisol GFR/1.73 sq M.predicted among non-blacks MDRD (S/P/Bld) [Vol rate/Area] 60 mL/min/1.73 m2 Normal >=59mL/min/1 .73 m2 [facility] Comment on above: Interpretive Data: C hronic kidney disease could be indicated at eGFR's of less than 60 mL/min/1.73m2. Kidney failure is indicated at less than 15 mL/min/1.73m2. Globulin (S) [Mass/Vol] 3.1 g/dL Normal 1.4 - 4.0 gm/dL [facility] Remisol Glucose [Mass/Vol] 113 mg/dL Normal 55 - 199 mg/dL [facility] Remisol Comment on above: Interpretive Data: I f this glucose result represents a fasting glucose, interpretation should refer to the following reference range: 55-99 mg/dL Lactate [Mass/Vol] 0.9 mmol/L Normal 0.5 - 2.2 mmol/L [facility] Remisol Potassium [Moles/Vol] 4.0 mmol/L Normal 3.5 - 5.3 mmol/L [facility] Remisol Protein [Mass/Vol] 6.3 g/dL Normal 6.0 - 7.8 gm/dL [facility] Remisol Sodium [Moles/Vol] 142 mmol/L Normal 135 - 145 mmol/L [facility] Remisol Troponin I.cardiac [Mass/Vol] 5.10 pg/mL Low 10.10 - 27.10 pg/mL [facility] Remisol Comment on above: Interpretive Data: T he 95% CI (Confidence Interval) PPV (Positive Predictive Value) for myocardial infarction in females is 38 pg/mL, in males 51 pg/mL. The results should be used in conjunction with clinical conditions of myocardial infarction. (Access High Sensitivity Troponin I Instructions For Use, Tong Lolita, April 2018) Urea nitrogen [Mass/Vol] 18 mg/dL Normal 5 - 21 mg/dL [facility] Remisol Urea nitrogen/Creatinine [Mass ratio] 18 mg/mg Normal 10 - 20 [facility] Remisol COAGULATIONOrdered By: Xenia Nicholas on 07-25-2023 aPTT Coag (PPP) [Time] 33.9 s Normal 25.1 - 36.5 second(s) [facility] Auto Coag Comment on above: Interpretive Data: P yamilexer 15 days - 4 weeks 1 - 5 months 6 - 11 months 1 - 5 years 6 - 10 years 11 - 17 years PTT Mean: 35.4 (27.6-45.6) Mean: 33.5 (24.8-40.7) Mean: 32.4 (25.1-40.7) Mean: 31.6 (24.0-39.2) Mean: 31.6 (26.9-38.7) Mean: 31.0 (24.6-38.4) Pediatric Reference ranges were obtained from a study by Jaison Mojica et al. prepared from 1437 samples obtained at 7 different centers using the same coagulation reagent and instrumentation as [facility]. Currently there are no coagulation studies available worldwide for children to 14 days, and no normal ranges. Heparin therapeutic range (represented by Anti-Factor Xa activity of 0.2 - 0.4 U/mL) corresponds to PTT of 56.6 - 109.0 sec. INR Coag (PPP) [Relative time] 1.0 {INR} Invalid Interpretation Code [facility] Auto Coag Comment on above: Interpretive Data: I NR results are specifically intended to assess patients stabilized on long-term Anticoagulation therapy suggested INR s Less Intensive Anticoagulation 2.0 3.0 Conventional Range 3.0 4.5 PT Coag (PPP) [Time] 11.3 s Normal 9.4 - 1 2.5 second(s) [facility] Auto Coag Comment on above: Interpretive Data: 1 5 days - 4 weeks 1 - 5 months 6 -11 months 1-5 years 6-10 years 11 -17 years Mean: 11.2 (9.5-12.6) Mean: 11.0 (9.7-12.8) Mean: 11.0 (9.8-13.0) Mean: 11.3 (9.9-13.4) Mean: 11.7 (10.0-14.6) Mean: 11.8 (10.0 - 14.1) Pediatric Reference ranges were obtained from a study by Jaison Mojica et al. prepared from 1437 samples obtained at 7 different centers using the same coagulation reagent and instrumentation as [facility]. Currently there are no coagulation studies available worldwide for children to 14 days, and no normal ranges. Consent for Treatmenton Consent for Treatment [id number] Normal [facility] HEMATOLOGYOrdered By: SYSTEM SYSTEM on 07-25-2023 Basophils/100 WBC (Bld) 1.2 % Normal 0.0 - 2.0 % [facility] HemeAutoSS Basophils/Leukocytes Auto (Bld) [Pure # fraction] 0.1 E9/L Normal 0.0 - 0.2 E9/L [facility] HemeAutoSS Eosinophils/100 WBC (Bld) 2.6 % Normal 0.0 - 8.0 % [facility] HemeAutoSS Eosinophils/Leukocytes Auto (Bld) [Pure # fraction] 0.2 E9/L Normal 0.0 - 0.5 E9/L [facility] HemeAutoSS Lymphocytes/100 WBC (Bld) 28.6 % Normal 14.0 - 50.0 % [facility] HemeAutoSS Lymphocytes/Leukocytes Auto (Bld) [Pure # fraction] 1.8 E9/L Normal 1.0 - 4.0 E9/L [facility] HemeAutoSS Monocytes/100 WBC (Bld) 9.6 % Normal 4.0 - 14.0 % [facility] HemeAutoSS Monocytes/Leukocytes Auto (Bld) [Pure # fraction] 0.6 E9/L Normal 0.2 - 1.0 E9/L [facility] HemeAutoSS Neutrophils/100 WBC (Bld) 58.0 % Normal 36.0 - 75.0 % [facility] HemeAutoSS Neutrophils/Leukocytes Auto (Bld) [Pure # fraction] 3.7 E9/L Normal 2.0 - 7.5 E9/L [facility] HemeAutoSS HEMATOLOGYOrdered By: Xenia Nicholas on 07-25-2023 Erythrocyte distribution width (RBC) [Ratio] 14.1 % Normal 10.9 - 14.2 % [facility] HemeAutoSS Hematocrit (Bld) [Volume fraction] 34.8 % Normal 34.0 - 46.0 % [facility] HemeAutoSS Hemoglobin (Bld) [Mass/Vol] 11.2 g/dL Low 12.0 - 16.0 gm/dL [facility] HemeAutoSS MCH (RBC) [Entitic mass] 29.4 pg Normal 27.0 - 34.0 pg [facility] HemeAutoSS MCHC (RBC) [Mass/Vol] 32.2 g/dL Normal 31.4 - 36.0 gm/dL [facility] HemeAutoSS MCV (RBC) [Entitic vol] 91.3 fL Normal 80.0 - 100.0 fL [facility] HemeAutoSS Platelet mean volume (Bld) [Entitic vol] 7.4 fL Normal 6.4 - 10.8 fL [facility] HemeAutoSS Platelets (Bld) [#/Vol] 235.0 E9/L Normal 150. 0 - 500.0 E9/L [facility] HemeAutoSS RBC (Bld) [#/Vol] 3.8 E12/L Low 4.3 - 5.9 E12/L [facility] HemeAutoSS WBC corrected for nucl RBC Auto (Bld) [#/Vol] 6.3 E9/L Normal 4.0 - 11.0 E9/L [facility] HemeAutoSS MICRO OTHER TESTSOrdered By: Xenia Nicholas on 07-25-2023 Rapid COV Int NEG Ctl Pass (07/25/23 11:10 PM) Normal [facility] Man Sero Rapid COV Int POS Ctl Pass (07/25/23 11:10 PM) Normal [facility] Sero SARS-CoV+SARS-CoV-2 (COVID-19) Ag IA.rapid Ql (Resp) Not Detected 7 (07/25/23 11:10 PM) Normal Not Detected [facility] Sero Comment on above: Interpretive Data: Perfecto jolley RazorGator Veritor System for Rapid Detection of SARS-CoV-2 is a chromatographic digital immunoassay intended for the direct and qualitative detection of SARS-CoV-2 nucleocapsid antigens in nasal swabs from individuals who are suspected of COVID-19 by their healthcare provider within the first five days of the onset of symptoms. Negative results should be treated as presumptive, do not rule out SARS-CoV-2 infection and should not be used as the sole basis for treatment or patient management decisions, including infection control decisions. Negative results should be considered in the context of a patient s recent exposures, history and the presence of clinical signs and symptoms consistent with COVID-19, and confirmed with a molecular assay, if necessary, for patient management. For in vitro diagnostic use. In the [place], only for use under an Emergency Use Authorization. In the [place], this test has not been FDA cleared or approved; this test has been authorized by FDA under an EUA for use by authorized laboratories; use by laboratories certified under the CLIA, 42 U.S.C. 263a, that meet requirements to perform moderate, high, or waived complexity tests and at the Point of Care (POC), i.e., in patient care settings operating under a CLIA Certificate of Waiver, Certificate of Compliance, or Certificate of Accreditation. This test has been authorized only for the detection of proteins from SARS-CoV-2, not for any other viruses or pathogens; and, in the [place], this test is only authorized for the duration of the declaration that circumstances exist justifying the authorization of emergency use of in vitro diagnostics for detection and/or diagnosis of the virus that causes COVID-19 under Section 564(b)(1) of the Act, 21 U.S.C. 360bbb-3(b)(1), unless the authorization is terminated or revoked sooner. Pre-Arrival Noteon 3 Pre-Arrival Note Pre-Arrival Summary Name: , [facility] Current Date: 07/25/2023 21:43:28 EDT Gender: Female Date of : Age: 73 Pre-Arrival Type: EMS ETA: 07/25/2023 22:06:00 EDT Primary Care Physician: Presenting Problem: gen illness Pre-Arrival User: Frannie Fernandez RN Referring Source: Location: Completion Date/Time: 07/25/2023 21:37:00 [facility] Emergency Department Pre-Hospital Report Form ___ Vital Signs: 120/63 113 18 94% Pre-Hospital Report: gen illness, back pain x weeks. Recently had pneumonia, was on abx. Treatment in Route: Response to Treatment: Misc. Issues: Normal [facility] ED Note-Physicianon -14-20 23 ED Note-Physician Basic Information Time Seen: Raza JONES, Vishal Marcell 07/06/2023 13:12 Chief Complaint SOB today, hx of COPD, EMS called and administered. History of Present Illness 72-year-old female presents ED with complaints of shortness of breath, cough over the last week. Patient with a history of COPD. Patient states her current symptoms feel similar to previous COPD exacerbations. Patient reports increasingly frequent use of her nebulizer treatments over the last week. Patient is also complaining of a cough which has been productive of clear sputum. Patient has felt short of breath, like the nebulizer treatments are not helping. Patient is on a baseline of 3 L of O2 at home. Patient is denying any chest pain. Patient denies any fevers or chills. Patient does report that her home health aide who she sees 3 times a week recently contacted her stated that she has been diagnosed with COVID-19 earlier in the week. Patient is also complaining of low back pain on presentation to ED, patient does report that she has a history of known compression fractures of the lumbar spine. Patient reports that she is on every 8 hour tramadol 100 mg for this, has not taken this today. Review of Systems Full 10 system ROS performed. Pt denies symptoms except as noted above in the HPI. Physical Exam Vitals & Measurements T: 36.7 ?C(Oral) HR: 119(Peripheral) RR: 28 BP: 138/119 SpO2: 92% HT: 169 cm WT: 71.1 kg BMI: 24.89 VITALS: I have reviewed the triage vital signs. GENERAL: Frail older female, in NAD NEURO: Alert and oriented. Moves all extremities. Face is symmetric and expressive. EYES: PERRL. No scleral icterus or conjunctival injection. No discharge. HENT: Normocephalic, atraumatic. Hearing is grossly intact. Nares grossly patent and without discharge. Mucous membranes moist. NECK: No JVD. Patient moves neck without restriction. CARDIO: Tachycardic. Normal rate. No murmur, rub, or gallop. Pulses equal bilaterally in the upper and lower extremity. No lower extremity edema. PULM: Tachypneic, diffuse Rales. No conversational dyspnea. No splinting, stridor, or accessory muscle use. GI/: Abdomen is soft and non-tender. Normoactive bowel sounds. EXTREMITIES: Symmetric muscle bulk. No joint swelling. No clubbing, cyanosis, or deformity. SKIN: Warm and dry. Normal turgor. No rash or lesions appreciated. PSYCH: Mood, affect, and interaction is appropriate to the setting. Medical Decision Making MEDICAL DECISION MAKING Number and Complexity of Problems Differential Diagnosis: [] MDM Data External documents reviewed: [] My EKG interpretation: [] My CT interpretation: [] My X-ray interpretation: [] My Ultrasound interpretation: [] Decision rules/scores evaluated: [] Discussed with: [] Treatment and Disposition ED Course: Patient with a history of COPD presents ED complaining of a likely COPD exacerbation, cough, shortness of breath. Patient is oxygenating well on her baseline O2 on presentation to ED. Patient is tachypneic with diffuse rales on my exam. Ordered breathing treatment, ABGs, labs, steroid. Patient states she is having chronic back pain at this time 2, I did look up patient meds to confirm her every 8 hour tramadol, did give patient a dose of this as well. Plan to reassess after steroids, breathing treatment, work-up. Patient stated that she was feeling much better after being given breathing treatment and steroids. Patient remained tachycardic, was hypoxic on ABG, oxygen sats did improve after being given the breathing treatment and steroid. Patient was able to ambulate with her walker without significant worsening of her saturations, though she did states she was out of breath. Initial troponin was negative however the 3-hour troponin did show some elevation. Patient does have evidence of pneumonia on chest x-ray. Due to the fact that patient was hypoxemic on her initial ABG, remained tachycardic, had elevated troponin, patient had evidence of pneumonia on chest x-ray, I did recommend admission. Patient was adamant that she wanted to return home. I discussed that I did not believe this was appropriate, patient assisted on leaving AMA. I did prescribe patient steroid as well as medications for COPD exacerbation, refilled her DuoNeb prescription as requested. The patient wishes to sign out AGAINST MEDICAL ADVICE. The nursing staff and physicians begged and pleaded with the patient to stay for further investigations and evaluation. The patient understands and appreciates the admission diagnosis and its prognosis and the likelihood of risks and benefits of leaving the hospital. The patient signed documentation that they would like to leave at their own insistence and against the advice of the physicians. The patient was advised of the possible dangers to their life and health from this departure, and the patient assumes the risks and consequences involved and releases the staff and the Medical Center from any liability in conn (more content not included)... Normal [facility] Comment on above: Result Comment: Elec tronically Signed By: Vishal Person PA-C\.br\Date and Time Signed: 07/06/23 17:13 EDT\.br\Electronically Co-Signed By: Jostin Ardon DO\.br\Date and Time Co-Signed: 07/07/23 07:44 EDT Auto Diffon 07-06-2023 Basophils/100 WBC (Bld) 0.9 % Normal 0.0-2.0 [facility] Comment on above: Order Comment: Order added by Discern Expert. Performed By: #### 2 319252, 6689125, 13568571, 6966316, 9799543, 96593319 #### [facility] [address] [place] [address] Basophils/Leukocytes Auto (Bld) [Pure # fraction] 0.1 E9/L Normal 0.0-0.2 [facility] Comment on above: Order Comment: Order added by Discern Expert. Performed By: #### 2 873581, 8615534, 84484910, 5530713, 2810729, 93436624 #### [facility] [address] [place] [address] Eosinophils/100 WBC (Bld) 5.0 % Normal 0.0-8.0 [facility] Comment on above: Order Comment: Order added by Discern Expert. Performed By: #### 2 495098, 7382553, 57474110, 2775407, 8511580, 65102147 #### [facility] [address] [place] [address] Eosinophils/Leukocytes Auto (Bld) [Pure # fraction] 0.4 E9/L Normal 0.0-0.5 [facility] Comment on above: Order Comment: Order added by Discern Expert. Performed By: #### 2 225744, 9362640, 66301699, 6333298, 0438375, 13047782 #### [facility] [address] [place] [address] Lymphocytes/100 WBC (Bld) 24.0 % Normal 14.0-50.0 [facility] Comment on above: Order Comment: Order added by Discern Expert. Performed By: #### 2 127022, 6727580, 25087924, 5032245, 9310053, 19291557 #### [facility] [address] [place] [address] Lymphocytes/Leukocytes Auto (Bld) [Pure # fraction] 1.8 E9/L Normal 1.0-4.0 [facility] Comment on above: Order Comment: Order added by Discern Expert. Performed By: #### 2 954913, 2599303, 90867417, 0233221, 9377586, 93412927 #### [facility] [address] [place] [address] Monocytes/100 WBC (Bld) 4.5 % Normal 4.0-14.0 [facility] Comment on above: Order Comment: Order added by Discern Expert. Performed By: #### 2 122460, 8863263, 67083399, 9638057, 6437346, 63863819 #### [facility] [address] [place] [address] Monocytes/Leukocytes Auto (Bld) [Pure # fraction] 0.3 E9/L Normal 0.2-1.0 [facility] Comment on above: Order Comment: Order added by Discern Expert. Performed By: #### 2 096850, 2329210, 08308710, 2913633, 7811079, 23370014 #### [facility] [address] [place] [address] Neutrophils/100 WBC (Bld) 65.6 % Normal 36.0-75.0 [facility] Comment on above: Order Comment: Order added by Discern Expert. Performed By: #### 2 130359, 2113476, 91163478, 4072045, 0396929, 50662616 #### [facility] [address] [place] [address] Neutrophils/Leukocytes Auto (Bld) [Pure # fraction] 5.0 E9/L Normal 2.0-7.5 [facility] Comment on above: Order Comment: Order added by Discern Expert. Performed By: #### 2 952241, 6782047, 18843634, 5873315, 2520885, 97249426 #### [facility] [address] [place] [address] BMPon 07-06-2023 Creatinine [Mass/Vol] 0.8 mg/dL Normal 0.5-1.3 [facility] Comment on above: Performed By: #### 2 419177, 6910284, 37822025, 8623640, 9205693, 56732581 #### [facility] [address] [place] [address] Urea nitrogen [Mass/Vol] 16 mg/dL Normal 5-21 [facility] Comment on above: Performed By: #### 2 010995, 4330985, 51186067, 6430176, 4749956, 47281406 #### [facility] [address] [place] [address] Urea nitrogen/Creatinine [Mass ratio] 20 No Units Normal 10-20 [facility] Comment on above: Performed By: #### 2 618433, 8328925, 13683609, 6019277, 4874950, 40838205 #### [facility] [address] [place] [address] Anion gap [Moles/Vol] 7 mmol/L Normal 6-16 [facility] Comment on above: Performed By: #### 2 819587, 5690321, 22435933, 8787519, 2050539, 81846666 #### [facility] [address] [place] [address] Calcium [Mass/Vol] 9.2 mg/dL Normal 8.9-11.1 [facility] Comment on above: Performed By: #### 2 884020, 9584168, 33893303, 1819754, 9480981, 91722614 #### [facility] [address] [place] [address] Chloride [Moles/Vol] 105 mmol/L Normal 101-111 [facility] Comment on above: Performed By: #### 2 999361, 6074083, 97116915, 2071965, 5633475, 05286435 #### [facility] [address] [place] [address] CO2 [Moles/Vol] 35 mmol/L High 21-31 [facility] Comment on above: Performed By: #### 2 729571, 0876078, 02707298, 6496120, 5335252, 87769302 #### [facility] [address] [place] [address] Glucose [Mass/Vol] 118 mg/dL Normal 55-199 [facility] Comment on above: Result Comment: If t his glucose result represents a fasting glucose, interpretation should refer to the following reference range: 55-99 mg/dL Performed By: #### 2 087367, 6520142, 65531474, 2003612, 2568675, 74499704 #### [facility] [address] [place] [address] Potassium [Moles/Vol] 3.5 mmol/L Normal 3.5-5.3 [facility] Comment on above: Performed By: #### 2 196341, 1684834, 07033443, 0156992, 9258172, 30039146 #### [facility] [address] [place] [address] Sodium [Moles/Vol] 143 mmol/L Normal 135-145 [facility] Comment on above: Performed By: #### 2 939654, 5057084, 51084766, 8648379, 9971541, 72782761 #### [facility] [address] [place] [address] BNPon 07-06-2023 Natriuretic peptide B (Bld) [Mass/Vol] 73 pg/mL Normal 5-80 [facility] Comment on above: Performed By: #### 2 531586, 1912511, 11950266, 7001591, 3600280, 60595002 #### [facility] [address] [place] [address] Blood Gas Art, with Lytes, G nain, [place] 07-06-2023 a/A Ratio Art 42.10 % Normal >=0.80 [facility] Comment on above: Performed By: #### 4 [id number] #### [facility] [address] [place] [address] AaDO2 Art 92.2 mmHg High 5.0-15.0 [facility] Comment on above: Performed By: #### 4 [id number] #### [facility] [address] [place] [address] Allens Test Positive Normal [facility] Comment on above: Performed By: #### 4 [id number] #### [facility] [address] [place] [address] Base Excess Arterial 7.5 mmol/L Normal >=2.8 [facility] Comment on above: Performed By: #### 4 10072641 #### [facility] [address] [place] [address] cCa2+ Art 4.85 mg/dL Normal 4.40-5.30 [facility] Comment on above: Performed By: #### 4 91083484 #### [facility] [address] [place] [address] cCl- Art 101.0 mmol/L Normal 101.0-111.0 [facility] Comment on above: Performed By: #### 4 77172775 #### [facility] [address] [place] [address] cGlu Art 117 mg/dL High 55-99 [facility] Comment on above: Performed By: #### 4 08891598 #### [facility] [address] [place] [address] cK+ Art 3.5 mmol/L Normal 3.5-5.3 [facility] Comment on above: Performed By: #### 4 16169780 #### [facility] [address] [place] [address] cLac Art .7 mmol/L Normal .5-2.2 [facility] Comment on above: Performed By: #### 4 15605431 #### [facility] [address] [place] [address] pediatric rn+ Art 141.0 mmol/L Normal 135.0-145.0 [facility] Comment on above: Performed By: #### 4 [id number] #### [facility] [address] [place] [address] Drawn by TSB Invalid Interpretation Code [facility] Comment on above: Performed By: #### 4 [id number] #### [facility] [address] [place] [address] FCOHb Art 1.1 % Low 1.5-4.9 [facility] Comment on above: Result Comment: Refe rence range Nonsmoker <1.5% Smoker <5.0% Heavy Smoker <9.0% Performed By: #### 4 [id number] #### [facility] [address] [place] [address] FIO2 BG 32 Invalid Interpretation Code [facility] Comment on above: Performed By: #### 4 [id number] #### [facility] [address] [place] [address] Flow 3 Invalid Interpretation Code [facility] Comment on above: Performed By: #### 4 61272655 #### [facility] [address] [place] [address] FMetHb Art 0.4 % Normal 0.0-1.9 [facility] Comment on above: Performed By: #### 4 39112308 #### [facility] [address] [place] [address] FO2Hb Art 94.1 % Normal 92.0-100.0 [facility] Comment on above: Performed By: #### 4 24022676 #### [facility] [address] [place] [address] HCO3 (Bld) [Moles/Vol] 31.2 mmol/L High 22.0-26.0 [facility] Comment on above: Performed By: #### 4 08605916 #### [facility] [address] [place] [address] Hemoglobin (Bld) [Mass/Vol] 11.1 g/dL Low 12.0-16.0 [facility] Comment on above: Performed By: #### 4 [id number] #### [facility] [address] [place] [address] Oxygen saturation in Blood 95.6 % Normal 95.0-100.0 [facility] Comment on above: Performed By: #### 4 [id number] #### [facility] [address] [place] [address] P CO2 Arterial 55.8 mmHg High 35.0-45.0 [facility] Comment on above: Performed By: #### 4 [id number] #### [facility] [address] [place] [address] P O2 Arterial 67.2 mmHg Low 80.0-100.0 [facility] Comment on above: Performed By: #### 4 55363698 #### [facility] [address] [place] [address] pH Arterial 7.391 Normal 7.350-7.450 [facility] Comment on above: Performed By: #### 4 57118150 #### [facility] [address] [place] [address] Sample Site R Brachial Normal [facility] Comment on above: Performed By: #### 4 [id number] #### [facility] [address] [place] [address] Sample Type Arterial Draw Normal [facility] Comment on above: Performed By: #### 4 [id number] #### [facility] [address] [place], [place] [address] CBC w/ Auto Diffon Erythrocyte distribution width (RBC) [Ratio] 14.2 % Normal 10.9-14.2 [facility] Comment on above: Performed By: #### 2 332868, 5351734, 31403245, 8824879, 6589676, 35356667 #### [facility] [address] [place] [address] Hematocrit (Bld) [Volume fraction] 34.2 % Normal 34.0-46.0 [facility] Comment on above: Performed By: #### 2 494086, 3632785, 98131245, 1946802, 6169523, 25603793 #### [facility] [address] [place], [place] [address] Hemoglobin (Bld) [Mass/Vol] 11.0 g/dL Low 12.0-16.0 [facility] Comment on above: Performed By: #### 2 339776, 1439969, 53525109, 3888865, 7827369, 72944206 #### [facility] [address] [place] [address] MCH (RBC) [Entitic mass] 29.3 pg Normal 27.0-34.0 [facility] Comment on above: Performed By: #### 2 320428, 8070675, 28225174, 1595674, 7388293, 78590826 #### [facility] [address] [place] [address] MCHC (RBC) [Mass/Vol] 32.2 g/dL Normal 31.4-36.0 [facility] Comment on above: Performed By: #### 2 684435, 6400845, 81620622, 6259743, 6319871, 50735481 #### [facility] [address] [place] [address] MCV (RBC) [Entitic vol] 91.1 fL Normal 80.0-100.0 [facility] Comment on above: Performed By: #### 2 497443, 2519093, 22927054, 8378288, 8504553, 07672757 #### [facility] [address] [place] [id number] Platelet mean volume (Bld) [Entitic vol] 7.5 fL Normal 6.4-10.8 [facility] Comment on above: Performed By: #### 2 339106, 4501912, 45058677, 6636925, 5992295, 66059575 #### [facility] [address] [place], [place] [address] Platelets (Bld) [#/Vol] 190.0 E9/L Normal 150.0-500.0 [facility] Comment on above: Performed By: #### 2 870107, 8408731, 97419497, 0250897, 6059399, 06882941 #### [facility] [address] [place] [address] RBC (Bld) [#/Vol] 3.8 E12/L Low 4.3-5.9 [facility] Comment on above: Performed By: #### 2 202774, 7125134, 98686361, 9000077, 6096672, 47784946 #### [facility] [address] [place], [place] [address] WBC corrected for nucl RBC Auto (Bld) [#/Vol] 7.6 E9/L Normal 4.0-11.0 [facility] Comment on above: Performed By: #### 2 452315, 9604457, 56290537, 4994481, 2609451, 68572941 #### [facility] [address] [place], [place] [address] CHEMISTRYOrdered By: SYSTEM SYSTEM on 07-06-2023 Troponin I.cardiac [Mass/Vol] 27.30 pg/mL High 10.10 - 27.10 pg/mL [facility] Comment on above: Interpretive Data: T he 95% CI (Confidence Interval) PPV (Positive Predictive Value) for myocardial infarction in females is 38 pg/mL, in males 51 pg/mL. The results should be used in conjunction with clinical conditions of myocardial infarction. (Access High Sensitivity Troponin I Instructions For Use, Tong Lolita, April 2018) Anion gap [Moles/Vol] 7 mmol/L Normal 6 - 16 mEq/L [facility] Calcium [Mass/Vol] 9.2 mg/dL Normal 8.9 - 11. 1 mg/dL [facility] Chloride [Moles/Vol] 105 mmol/L Normal 101 - 1 11 mmol/L [facility] CO2 [Moles/Vol] 35 mmol/L High 21 - 31 mmol/L [facility] Creatinine [Mass/Vol] 0.8 mg/dL Normal 0.5 - 1.3 mg/dL [facility] GFR/1.73 sq M.predicted among non-blacks MDRD (S/P/Bld) [Vol rate/Area] 78 mL/min/1.73 m2 Normal >=59mL/min/1 .73 m2 [facility] Chem S Comment on above: Interpretive Data: C hronic kidney disease could be indicated at eGFR's of less than 60 mL/min/1.73m2. Kidney failure is indicated at less than 15 mL/min/1.73m2. Glucose [Mass/Vol] 118 mg/dL Normal 55 - 199 mg/dL [facility] Comment on above: Interpretive Data: I f this glucose result represents a fasting glucose, interpretation should refer to the following reference range: 55-99 mg/dL Potassium [Moles/Vol] 3.5 mmol/L Normal 3.5 - 5.3 mmol/L [facility] Sodium [Moles/Vol] 143 mmol/L Normal 135 - 145 mmol/L [facility] Troponin I.cardiac [Mass/Vol] 6.40 pg/mL Low 10.10 - 27.10 pg/mL [facility] Comment on above: Interpretive Data: T he 95% CI (Confidence Interval) PPV (Positive Predictive Value) for myocardial infarction in females is 38 pg/mL, in males 51 pg/mL. The results should be used in conjunction with clinical conditions of myocardial infarction. (Access High Sensitivity Troponin I Instructions For Use, Tong Reji, April 2018) Urea nitrogen [Mass/Vol] 16 mg/dL Normal 5 - 21 mg/dL [facility] Remisol Urea nitrogen/Creatinine [Mass ratio] 20 mg/mg Normal 10 - 20 [facility]isol CHEMISTRYOrdered By: Ana Hathaway on 07-06-2023 Natriuretic peptide B (Bld) [Mass/Vol] 73 pg/mL Normal 5 - 80 pg/mL [facility] HemeManSS COAGULATIONOrdered By: Claudia Dupont on 07-06-2023 aPTT Coag (PPP) [Time] 29.9 s Normal 25.1 - 36.5 second(s) [facility] Auto Coag Comment on above: Interpretive Data: Lan partida 15 days - 4 weeks 1 - 5 months 6 - 11 months 1 - 5 years 6 - 10 years 11 - 17 years PTT Mean: 35.4 (27.6-45.6) Mean: 33.5 (24.8-40.7) Mean: 32.4 (25.1-40.7) Mean: 31.6 (24.0-39.2) Mean: 31.6 (26.9-38.7) Mean: 31.0 (24.6-38.4) Pediatric Reference ranges were obtained from a study by Jaison Mojica et al. prepared from 1437 samples obtained at 7 different centers using the same coagulation reagent and instrumentation as [facility]. Currently there are no coagulation studies available worldwide for children to 14 days, and no normal ranges. Heparin therapeutic range (represented by Anti-Factor Xa activity of 0.2 - 0.4 U/mL) corresponds to PTT of 56.6 - 109.0 sec. INR Coag (PPP) [Relative time] 1.0 {INR} Invalid Interpretation Code [facility] Auto Coag Comment on above: Interpretive Data: I NR results are specifically intended to assess patients stabilized on long-term Anticoagulation therapy suggested INR s Less Intensive Anticoagulation 2.0 3.0 Conventional Range 3.0 4.5 PT Coag (PPP) [Time] 11.1 s Normal 9.4 - 1 2.5 second(s) [facility] Auto Coag Comment on above: Interpretive Data: 1 5 days - 4 weeks 1 - 5 months 6 -11 months 1 5 years 6 10 years 11 -17 years Mean: 11.2 (9.5 12.6) Mean: 11.0 (9.7 12.8) Mean: 11.0 (9.8 13.0) Mean: 11.3 (9.9 13.4) Mean: 11.7 (10.0 14.6) Mean: 11.8 (10.0 - 14.1) Pediatric Reference ranges were obtained from a study by Jaison Mojica et al. prepared from 1437 samples obtained at 7 different centers using the same coagulation reagent and instrumentation as [facility]. Currently there are no coagulation studies available worldwide for children to 14 days, and no normal ranges. Consent To Leave AMAon 07-06 Consent To Leave AMA [id number] 193#1.00TIFF Normal [facility] Consent for Treatmenton 06-24 Consent for Treatment [id number]#1.00TIFF Normal [facility] Discharge Instructionson Discharge Instructions [id number]#1.00TIFF Normal [facility] ED Clinical Summaryon 2022 ED Clinical Summary [address] [address] ED Clinical Summary Person Information Name: STEF BAZAN [facility] Age: 72 Years : 1950 Sex: Female Language: Uzbek PCP: RICK DELANEY CNP Marital Status: Visit Id: Visit Reason: Cough; Sinus Pain/Congestion; Shortness of breath; SOB Speciality: Acuity: 2 Enc Type: Emergency Med Service: Emergency Arrival: 07/06/2023 13:07:53 Discharge: 07/06/2023 17:32:51 LOS: 000 04:25 Checkin: 07/06/2023 13:07:53 Checkout: 07/06/2023 17:32:51 Dispo Type: Home (Routine DC) EVENTS: Event Name Event Status Request Date/Time Start Date/Time Complete Date/Time Arrive Complete 07/06/2023 13:07:53 07/06/2023 13:07:53 07/06/2023 13:07:53 Document Home Meds Request 07/06/2023 13:07:53 Triage Complete 07/06/2023 13:07:53 07/06/2023 13:16:37 07/06/2023 13:16:37 Bed Assign Complete 07/06/2023 13:11:00 07/06/2023 13:11:00 07/06/2023 13:11:00 Dr Exam Complete 07/06/2023 13:11:00 07/06/2023 13:12:47 07/06/2023 13:12:47 RN Exam Complete 07/06/2023 13:11:00 07/06/2023 13:19:44 07/06/2023 13:19:44 Registration Complete 07/06/2023 13:12:47 07/06/2023 14:11:05 07/06/2023 14:11:05 Dr Exam Complete 07/06/2023 13:13:14 07/06/2023 13:13:14 07/06/2023 13:13:14 EKG Complete 07/06/2023 13:14:05 07/06/2023 13:20:09 Pending Labs Request 07/06/2023 13:31:06 RT Tx/ABG Request 07/06/2023 13:31:06 Lab Request 07/06/2023 13:31:06 Urine Collect Request 07/06/2023 13:31:06 Meds Admin Complete 07/06/2023 13:31:06 07/06/2023 14:29:11 Patient Care Request 07/06/2023 13:31:06 X-Ray Complete 07/06/2023 13:31:06 07/06/2023 13:45:30 07/06/2023 13:51:39 RT Request 07/06/2023 13:31:06 RT Tx/ABG Request 07/06/2023 13:31:07 RT Tx/ABG Request 07/06/2023 13:31:07 Meds Admin Complete 07/06/2023 13:32:51 07/06/2023 13:50:56 Pending Labs Complete 07/06/2023 13:45:57 07/06/2023 13:45:57 07/06/2023 14:01:33 Lab Complete 07/06/2023 13:45:57 07/06/2023 13:45:57 07/06/2023 14:01:33 Pending Labs Complete 07/06/2023 13:51:32 07/06/2023 13:51:32 07/06/2023 13:51:40 Lab Complete 07/06/2023 13:51:32 07/06/2023 13:51:32 07/06/2023 13:51:40 Wet Read Complete 07/06/2023 13:51:39 07/06/2023 13:53:19 07/06/2023 13:53:19 Pending Labs Complete 07/06/2023 13:51:52 07/06/2023 13:51:52 07/06/2023 13:51:52 Reg Complete Request 07/06/2023 14:11:05 Reg Bed Request Complete 07/06/2023 14:11:05 07/06/2023 14:11:05 07/06/2023 14:11:05 Pending Labs Complete 07/06/2023 15:08:33 07/06/2023 16:07:20 Lab Complete 07/06/2023 15:08:33 07/06/2023 16:07:20 Swab Complete 07/06/2023 15:08:33 07/06/2023 16:07:20 Discharge Complete 07/06/2023 17:01:01 07/06/2023 17:32:59 07/06/2023 17:32:59 Transfer Complete 07/06/2023 17:32:59 07/06/2023 17:32:59 07/06/2023 17:32:59 ADDRESS: [address] [place] [address] [address] [place] [id number] PHYS DOC NOTES: MEDICAL INFORMATION: Prescriptions Given: New Medications [facility] 1986, [address] [place], [place] [id number], [phone] albuterol-ipratropi um (albuterol-ipratrop ium Inh Veronica 3 mL UD) 3 Milliliter Inhalation 4 times a day. Refills: 0. amoxicillin-clavula elizabeth (Augmentin 875 mg oral tablet) 1 Tablets By Mouth every 12 hours for 5 Days. Refills: 0. brompheniramine/dex tromethorphan/PSE (Bromfed DM oral syrup) 5 Milliliter By Mouth 4 times a day as needed for cold symptoms. Refills: 0. doxycycline (doxycycline hyclate 100 mg Cap) 1 Capsules By Mouth every 12 hours for 5 Days. Refills: 0. guaifenesin (Mucinex 600 mg Tab-ER) 1 Tablets By Mouth every 12 hours for 7 Days. Refills: 0. predniSONE (predniSONE 20 mg Tab) 3 Tablets By Mouth every day for 5 Days. Refills: 0. Medications to Continue with No Changes Other Medications albuterol (albuterol 0.083% Inh Veronica 3 mL) 3 Milliliter Nebulized inhalation (aerosol) every 6 hours. atenolol (atenolol 25 mg Tab) 0.5 tablet By Mouth every day. fluconazole (Diflucan 150 mg Tab) 1 Tablets By Mouth Once. Refills: 0. fluticasone-salmete rol (Advair 500 mcg-50 mcg Powder) 1 Puffs Inhalation 2 times a day. Refills: 0. gabapentin (gabapentin 300 mg Cap) 2 Capsules By Mouth 3 times a day. gabapentin (gabapentin 800 mg Tab) 1 Tablets By Mouth 3 times a day. Refills: 0. ipratropium (Atrovent HFA 17 mcg/inh inhalation aerosol) 2 Puffs Inhalation 4 times a day. tiotropium (Spiriva Respimat 60 ACT 2.5 mcg/inh inhalation aerosol) 2 Puffs Inhalation every day. INHALE 2 PUFFS BY MOUTH ONCE DAILY. PATIENT EDUCATION INFORMATION: Instructions: Chronic Obstructive Pulmonary Disease; Community-Acquired Pneumonia, Adult; Troponin Test Follow up: With: Address: When: [place] [address] [facility] Online (1CodeRyte In 3 days 07/09/2023 Comments: Call the office of your primary care doctor to arrange for follow-up within the above-stated timeframe. Brad (more content not included)... Normal [facility] ED Patient Education Noteon 07-06-2023 ED Patient Education Note Infectious Disease Community-Acquired Pneumonia, Adult Pneumonia is a lung infection that causes inflammation and the buildup of mucus and fluids in the lungs. This may cause coughing and difficulty breathing. Community-acquired pneumonia is pneumonia that develops in people who are not, and have not recently been, in a hospital or other health care facility. Usually, pneumonia develops as a result of an illness that is caused by a virus, such as the common cold and the flu (influenza). It can also be caused by bacteria or fungi. While the common cold and influenza can pass from person to person (are contagious), pneumonia itself is not considered contagious. What are the causes? This condition may be caused by: ? Viruses. ? Bacteria. ? Fungi, such as molds or mushrooms. What increases the risk? The following factors may make you more likely to develop this condition: ? Having certain medical conditions, such as: ? A long-term (chronic) disease, which may include chronic obstructive pulmonary disease (COPD), asthma, heart failure, cystic fibrosis, diabetes, kidney disease, sickle cell disease, and human immunodeficiency virus (HIV). ? A condition that increases the risk of breathing in (aspirating) mucus and other fluids from your mouth and nose. ? A weakened body defense system (immune system). ? Having had your spleen removed (splenectomy). The spleen is the organ that helps fight germs and infections. ? Not cleaning your teeth and gums well (poor dental hygiene). ? Using tobacco products. ? Traveling to places where germs that cause pneumonia are present. ? Being near certain animals, or animal habitats, that have germs that cause pneumonia. ? Being older than 65 years of age. What are the signs or symptoms? Symptoms of this condition include: ? A dry cough or a wet (productive) cough. ? A fever. ? Sweating or chills. ? Chest pain, especially when breathing deeply or coughing. ? Fast breathing, difficulty breathing, or shortness of breath. ? Tiredness (fatigue). ? Muscle aches. How is this diagnosed? This condition may be diagnosed based on your medical history or a physical exam. You may also have tests, including: ? Chest X-rays. ? Tests of the level of oxygen and other gases in your blood. ? Tests of: ? Your blood. ? Mucus from your lungs (sputum). ? Fluid around your lungs (pleural fluid). ? Your urine. If your pneumonia is severe, other tests may be done to learn more about the cause. How is this treated? Treatment for this condition depends on many factors, such as the cause of your pneumonia, your medicines, and other medical conditions that you have. For most adults, pneumonia may be treated at home. In some cases, treatment must happen in a hospital and may include: ? Medicines that are given by mouth (orally) or through an IV, including: ? Antibiotic medicines, if bacteria caused the pneumonia. ? Medicines that kill viruses (antiviral medicines), if a virus caused the pneumonia. ? Oxygen therapy. Severe pneumonia, although rare, may require the following treatments: ? Mechanical ventilation.This procedure uses a machine to help you breathe if you cannot breathe well on your own or maintain a safe level of blood oxygen. ? Thoracentesis. This procedure removes any buildup of pleural fluid to help with breathing. Follow these instructions at home: Medicines ? Take tvsz-ege-semlkzc and prescription medicines only as told by your health care provider. ? Take cough medicine only if you have trouble sleeping. Cough medicine can prevent your body from removing mucus from your lungs. ? If you were prescribed an antibiotic medicine, take it as told by your health care provider. Do not stop taking the antibiotic even if you start to feel better. Lifestyle ? Do not drink alcohol. ? Do not use any products that contain nicotine or tobacco, such as cigarettes, e-cigarettes, and chewing tobacco. If you need help quitting, ask your health care provider. ? Eat a healthy diet. This includes plenty of vegetables, fruits, whole grains, low-fat dairy products, and lean protein. General instructions ? Rest a lot and get at least 8 hours of sleep each night. ? Sleep in a partly upright position at night. Place a few pillows under your head or sleep in a reclining chair. ? Return to your normal activities as told by your health care provider. Ask your health care provider what activities are safe for you. ? Drink enough fluid to keep your urine pale yellow. This helps to thin the mucus in your lungs. ? If your throat is sore, gargle with a salt?water mixture 3?4 times a day or as needed. To make a salt?water mixture, completely dissolve ??1 tsp (3?6 g) of salt in 1 cup (237 mL) of warm water. ? Keep all (more content not included)... Normal [facility] ED Patient Summaryon 023 ED Patient Summary [address] [address] Patient Discharge Instructions Person Information Name: STEF BAZAN Age: 72 Years Arrival Date: 07/06/2023 13:07:53 Discharge Diagnosis: COPD exacerbation; Community acquired pneumonia; Elevated troponin; Hypoxemia Primary Care Physician: RICK DELANEY CNP Provider Information Primary Provider: Jostin Ardon DO [employer] Agent:Vishal Person PA-C The exam and treatment you received in the Emergency Department were for an urgent problem and are not intended as complete care. It is important that you follow up with a doctor, nurse practitioner, or physician?s orthodontic assistant for ongoing care. If your symptoms become worse or you do not improve as expected and you are unable to reach your usual health care provider, you should return to the Emergency Department. We are available 24 hours a day. STEF BAZAN has been given the following list of patient education materials, prescriptions and follow-up instructions: Follow-up Instructions: With: Address: When: RICK DELANEY [address] [place] [address] [place] [address] Business (1) In 3 days 07/09/2023 Comments: Call the office of your primary care doctor to arrange for follow-up within the above-stated timeframe. Follow-up with your primary care doctor about this ED visit. You should review your labs, imaging, and diagnoses from this ED visit with your primary care physician. If you were prescribed medications you should discuss possible side-effects and drug interactions with your pharmacist. Call 911 or go to the nearest Emergency Department if you develop any new or worsening symptoms. In the event that this physician does not participate in your insurance network, please consult with your insurance company to find a nearby participating provider. Patient Education Materials: Chronic Obstructive Pulmonary Disease; Community-Acquired Pneumonia, Adult; Troponin Test A MESSAGE TO ALL PATIENTS REGARDING OPIOIDS PRESCRIPTION OPIOIDS: WHAT YOU NEED TO KNOW Prescription opioids can be used to help relieve uafqjuah-fi-yjsjxm pain and are often prescribed following a surgery or injury, or for certain health conditions. These medications can be an important part of the treatment but also come with serious risks. It is important to work with your healthcare provider to make sure you are getting the safest, most effective care. WHAT ARE THE RISKS AND SIDE EFFECTS OF OPIOID USE? Prescription opioids carry serious risks of addiction and overdose, especially with prolonged use. An opioid overdose, often marked by slowed breathing, can cause sudden . The use of prescription opioids can have a number of side effects as well, even when taken as directed: ? Tolerance?meaning you might need to take more of the medication for the same pain relief ? Physical dependence?meaning you have symptoms of withdrawal when a medication is stopped ? Increased sensitivity to pain ? Constipation ? Nausea, vomiting, and dry mouth ? Sleepiness and dizziness ? Confusion ? Depression ? Low levels of testosterone that can result in lower sex drive, energy, and strength ? Itching and sweating RISKS ARE GREATER WITH: ? History of drug misuse, substance use disorder, or overdose ? Mental health conditions (such as depression or anxiety) ? Sleep apnea ? Older age (65 years and older) ? Avoid alcohol while taking prescription opioids. Also, unless specifically advised by your health care provider, medications to avoid include: ? Benzodiazepines (such as Xanax or Valium) ? Muscle relaxants (such as Soma or Flexeril) ? Hypnotics (such as Ambien or Lunesta) ? Other prescription opioids KNOW YOUR OPTIONS Talk to your health care provider about ways to manage your pain that don?t involve prescription opioids. Some of these options may actually work better and have fewer risks and side effects. Options may include: ? Pain relievers such as acetaminophen, ibuprofen, and naproxen ? Some medication that are also used for depression or seizures ? Physical therapy and exercise ? Cognitive behavioral therapy, a psychological, goal-directed approach, in which patients learn how to modify physical, behavioral, and emotional triggers of pain and stress. IF YOU ARE PRESCRIBED OPIOIDS FOR PAIN: ? Never take opioids in greater amounts or more often than prescribed. ? Follow up with your primary health care provider. o Work together to create a plan on how to manage your pain. o Talk about ways to help manage your pain that don?t involve prescription opioids. o Talk about any and all concerns and side effects. ? Help prevent misuse and abuse o Never sell or share prescription opioids. o Never use another person?s prescription opioids. ? Store prescription opioid (more content not included)... Normal [facility] FT Blood GasesOrdered By: Bassem Duque on 07-06-2023 a/A Ratio Art 42.10 % Normal >=0.80% [facility] Resp A uto SS AaDO2 Art 92.2 mm[Hg] High 5.0 - 15.0 mmHg [facility] Resp Auto SS Allens Test Positive (07/06/23 2:17 PM) Normal [facility] Resp Auto SS Base Excess Arterial 7.5 mmol/L Normal >=2.8mmol/L [facility] C Resp Auto SS cCa2+ Art 4.85 mg/dL Normal 4.40 - 5.30 mg/dL [facility] Resp Auto SS cCl- Art 101.0 mmol/L Normal 101.0 - 111.0 mmol/L [facility] Resp Auto SS cGlu Art 117 mg/dL High 55 - 99 mg/dL [facility] Resp Auto SS cK+ Art 3.5 mmol/L Normal 3.5 - 5.3 mmol/L [facility] Resp Auto SS cLac Art 0.7 mmol/L Normal 0.5 - 2.2 mmol/L [facility] Resp Auto SS pediatric rn+ Art 141.0 mmol/L Normal 135.0 - 145.0 mmol/L [facility] Resp Auto SS Drawn by TSB Invalid Interpretation Code [facility] Resp Auto SS FCOHb Art 1.1 % Low 1.5 - 4.9 % [facility] Resp Aut o SS Comment on above: Interpretive Data: R eference range Nonsmoker <1.5% Smoker <5.0% Heavy Smoker <9.0% FMetHb Art 0.4 % Normal 0.0 - 1.9 % [facility] Resp Aut o SS FO2Hb Art 94.1 % Normal 92.0 - 100.0 % [facility] Resp Auto SS HCO3 (Bld) [Moles/Vol] 31.2 mmol/L High 22.0 - 26.0 mmol/L [facility] Resp Auto SS Hemoglobin (Bld) [Mass/Vol] 11.1 g/dL Low 12.0 - 16.0 gm/dL [facility] Resp Auto SS P CO2 Arterial 55.8 mm[Hg] High 35.0 - 45.0 mmHg [facility] Resp Auto SS P O2 Arterial 67.2 mm[Hg] Low 80.0 - 100.0 mmHg [facility] Resp Auto SS pH (Bld) 7.391 [pH] Normal 7.350 - 7.450 [facility] Resp Auto SS Sample Site R Brachial (07/06/23 2:17 PM) Normal [facility] Resp Auto SS Sample Type Arterial Draw (07/06/23 2:17 PM) Normal [facility] Resp Auto SS Sodium [Moles/Vol] 32 mmol/L Invalid Interpretation Code [facility] Resp Auto SS Sodium [Moles/Vol] 3 mmol/L Invalid Interpretation Code [facility] Resp Auto SS HEMATOLOGYOrdered By: SYSTEM SYSTEM on 07-06-2023 Basophils/100 WBC (Bld) 0.9 % Normal 0.0 - 2.0 % [facility] HemeAutoSS Basophils/Leukocytes Auto (Bld) [Pure # fraction] 0.1 E9/L Normal 0.0 - 0.2 E9/L [facility] HemeAutoSS Eosinophils/100 WBC (Bld) 5.0 % Normal 0.0 - 8.0 % [facility] HemeAutoSS Eosinophils/Leukocytes Auto (Bld) [Pure # fraction] 0.4 E9/L Normal 0.0 - 0.5 E9/L [facility] HemeAutoSS Lymphocytes/100 WBC (Bld) 24.0 % Normal 14.0 - 50.0 % [facility] HemeAutoSS Lymphocytes/Leukocytes Auto (Bld) [Pure # fraction] 1.8 E9/L Normal 1.0 - 4.0 E9/L [facility] HemeAutoSS Monocytes/100 WBC (Bld) 4.5 % Normal 4.0 - 14.0 % [facility] HemeAutoSS Monocytes/Leukocytes Auto (Bld) [Pure # fraction] 0.3 E9/L Normal 0.2 - 1.0 E9/L [facility] HemeAutoSS Neutrophils/100 WBC (Bld) 65.6 % Normal 36.0 - 75.0 % [facility] HemeAutoSS Neutrophils/Leukocytes Auto (Bld) [Pure # fraction] 5.0 E9/L Normal 2.0 - 7.5 E9/L [facility] HemeAutoSS HEMATOLOGYOrdered By: Ana Hathaway on 07-06-2023 Erythrocyte distribution width (RBC) [Ratio] 14.2 % Normal 10.9 - 14.2 % [facility] HemeAutoSS Hematocrit (Bld) [Volume fraction] 34.2 % Normal 34.0 - 46.0 % [facility] HemeAutoSS Hemoglobin (Bld) [Mass/Vol] 11.0 g/dL Low 12.0 - 16.0 gm/dL [facility] HemeAutoSS MCH (RBC) [Entitic mass] 29.3 pg Normal 27.0 - 34.0 pg [facility] HemeAutoSS MCHC (RBC) [Mass/Vol] 32.2 g/dL Normal 31.4 - 36.0 gm/dL [facility] HemeAutoSS MCV (RBC) [Entitic vol] 91.1 fL Normal 80.0 - 100.0 fL [facility] HemeAutoSS Platelet mean volume (Bld) [Entitic vol] 7.5 fL Normal 6.4 - 10.8 fL [facility] HemeAutoSS Platelets (Bld) [#/Vol] 190.0 E9/L Normal 150. 0 - 500.0 E9/L [facility] HemeAutoSS RBC (Bld) [#/Vol] 3.8 E12/L Low 4.3 - 5.9 E12/L [facility] HemeAutoSS WBC corrected for nucl RBC Auto (Bld) [#/Vol] 7.6 E9/L Normal 4.0 - 11.0 E9/L [facility] HemeAutoSS Influenza A&B Agon Influenzae A Ag Negative Normal Negative [facility] Comment on above: Performed By: #### 2 [id number] #### [facility] [address] [place] [address] Influenzae B Ag Negative Normal Negative [facility] Comment on above: Result Comment: Test sensitivity and specificity vary for age group, specimen type, antigen types, and prevalence of disease. Test results must be evaluated in conjunction with other clinical data available to the physician. Individuals who received nasally administered Influenza A vaccine may have positive test results up to 3 days after vaccination. Performed By: #### 2 [id number] #### [facility] [address] [place] [address] MICRO OTHER TESTSOrdered By: Dominga Dupont on 07-06-2023 Influenzae A Ag Negative (07/06/23 3:31 PM) Normal Negative [facility] Influenzae B Ag Negative 1 (07/06/23 3:31 PM) Normal Negative [facility] Comment on above: Interpretive Data: T est sensitivity and specificity vary for age group, specimen type, antigen types, and prevalence of disease. Test results must be evaluated in conjunction with other clinical data available to the physician. Individuals who received nasally administered Influenza A vaccine may have positive test results up to 3 days after vaccination. Rapid COV Int NEG Ctl Pass (07/06/23 3:31 PM) Normal [facility] Rapid COV Int POS Ctl Pass (07/06/23 3:31 PM) Normal [facility] SARS-CoV+SARS-CoV-2 (COVID-19) Ag IA.rapid Ql (Resp) Not Detected 10 (07/06/23 3:31 PM) Normal Not Detected [facility] Comment on above: Interpretive Data: T he RazorGator Veritor System for Rapid Detection of SARS-CoV-2 is a chromatographic digital immunoassay intended for the direct and qualitative detection of SARS-CoV-2 nucleocapsid antigens in nasal swabs from individuals who are suspected of COVID-19 by their healthcare provider within the first five days of the onset of symptoms. Negative results should be treated as presumptive, do not rule out SARS-CoV-2 infection and should not be used as the sole basis for treatment or patient management decisions, including infection control decisions. Negative results should be considered in the context of a patient s recent exposures, history and the presence of clinical signs and symptoms consistent with COVID-19, and confirmed with a molecular assay, if necessary, for patient management. For in vitro diagnostic use. In the [place], only for use under an Emergency Use Authorization. In the [place], this test has not been FDA cleared or approved; this test has been authorized by FDA under an EUA for use by authorized laboratories; use by laboratories certified under the CLIA, 42 U.S.C. 263a, that meet requirements to perform moderate, high, or waived complexity tests and at the Point of Care (POC), i.e., in patient care settings operating under a CLIA Certificate of Waiver, Certificate of Compliance, or Certificate of Accreditation. This test has been authorized only for the detection of proteins from SARS-CoV-2, not for any other viruses or pathogens; and, in the [place], this test is only authorized for the duration of the declaration that circumstances exist justifying the authorization of emergency use of in vitro diagnostics for detection and/or diagnosis of the virus that causes COVID-19 under Section 564(b)(1) of the Act, 21 U.S.C. 360bbb-3(b)(1), unless the authorization is terminated or revoked sooner. PT & PTTon 07-06-2023 aPTT Coag (PPP) [Time] 29.9 second(s) Normal 25.1-36.5 [facility] Comment on above: Result Comment: Para meter 15 days - 4 weeks 1 - 5 months 6 - 11 months 1 - 5 years 6 - 10 years 11 - 17 years PTT Mean: 35.4 (27.6-45.6) Mean: 33.5 (24.8-40.7) Mean: 32.4 (25.1-40.7) Mean: 31.6 (24.0-39.2) Mean: 31.6 (26.9-38.7) Mean: 31.0 (24.6-38.4) Pediatric Reference ranges were obtained from a study by Jaison Mojica et al. prepared from 1437 samples obtained at 7 different centers using the same coagulation reagent and instrumentation as [facility]. Currently there are no coagulation studies available worldwide for children to 14 days, and no normal ranges. Heparin therapeutic range (represented by Anti-Factor Xa activity of 0.2 - 0.4 U/mL) corresponds to PTT of 56.6 - 109.0 sec. Performed By: #### 2 [id number], [id number], [id number] #### [facility] [address] [place] [address] INR Coag (PPP) [Relative time] 1.0 {INR} Invalid Interpretation Code [facility] Comment on above: Result Comment: INR results are specifically intended to assess patients stabilized on long-term Anticoagulation therapy suggested INR?s ?Less Intensive Anticoagulation? 2.0 ? 3.0 Conventional Range 3.0 ? 4.5 Performed By: #### 2 [id number] #### [facility] [address] [place] [address] PT Coag (PPP) [Time] 11.1 second(s) Normal 9.4-12.5 [facility] Comment on above: Result Comment: 15 d ays - 4 weeks 1 - 5 months 6 -11 months 1 ? 5 years 6 ? 10 years 11 -17 years Mean: 11.2 (9.5 ? 12.6) Mean: 11.0 (9.7 ? 12.8) Mean: 11.0 (9.8 ? 13.0) Mean: 11.3 (9.9 ? 13.4) Mean: 11.7 (10.0 ? 14.6) Mean: 11.8 (10.0 - 14.1) Pediatric Reference ranges were obtained from a study by carlene Woodruff al. prepared from 1437 samples obtained at 7 different centers using the same coagulation reagent and instrumentation as [facility]. Currently there are no coagulation studies available worldwide for children to 14 days, and no normal ranges. Performed By: #### 2 [id number], [id number], [id number] #### [facility] [address] [place] [address] Pre-Arrival Noteon 3 Pre-Arrival Note Pre-Arrival Summary Name: , Current Date: 07/06/2023 13:11:12 EDT Gender: Female Date of : Age: 73 Pre-Arrival Type: EMS ETA: 07/06/2023 13:31:00 EDT Primary Care Physician: Presenting Problem: SOB Pre-Arrival User: Jun Andrade RN Referring Source: Location: Completion Date/Time: 07/06/2023 13:02:00 [facility] Emergency Department Pre-Hospital Report Form ___ Vital Signs: Pre-Hospital Report: Treatment in Route: Response to Treatment: Misc. Issues:SOB, COPD Normal [facility] Rapid COVID Antigen ([facility])on 07-06-2023 Rapid COV Int NEG Ctl Pass Normal Fis [facility] Comment on above: Performed By: #### 2 [id number] #### [facility] [address] [place] [address] Rapid COV Int POS Ctl Pass Normal [facility] Comment on above: Performed By: #### 2 [id number] #### [facility] [address] [place] [address] SARS-CoV+SARS-CoV-2 (COVID-19) Ag IA.rapid Ql (Resp) Not detected Normal Not Detected [facility] Comment on above: Result Comment: The Revizeritor? System for Rapid Detection of SARS-CoV-2 is a chromatographic digital immunoassay intended for the direct and qualitative detection of SARS-CoV-2 nucleocapsid antigens in nasal swabs from individuals who are suspected of COVID-19 by their healthcare provider within the first five days of the onset of symptoms. Negative results should be treated as presumptive, do not rule out SARS-CoV-2 infection and should not be used as the sole basis for treatment or patient management decisions, including infection control decisions. Negative results should be considered in the context of a patient?s recent exposures, history and the presence of clinical signs and symptoms consistent with COVID-19, and confirmed with a molecular assay, if necessary, for patient management. For in vitro diagnostic use. In the [place], only for use under an Emergency Use Authorization. In the [place], this test has not been FDA cleared or approved; this test has been authorized by FDA under an EUA for use by authorized laboratories; use by laboratories certified under the CLIA, 42 U.S.C. ?263a, that meet requirements to perform moderate, high, or waived complexity tests and at the Point of Care (POC), i.e., in patient care settings operating under a CLIA Certificate of Waiver, Certificate of Compliance, or Certificate of Accreditation. This test has been authorized only for the detection of proteins from SARS-CoV-2, not for any other viruses or pathogens; and, in the [place], this test is only authorized for the duration of the declaration that circumstances exist justifying the authorization of emergency use of in vitro diagnostics for detection and/or diagnosis of the virus that causes COVID-19 under Section 564(b)(1) of the Act, 21 U.S.C. ? 360bbb-3(b)(1), unless the authorization is terminated or revoked sooner. Performed By: #### 2 [id number], [id number], [id number], [id number], [id number] #### [facility] [address] [place] [address] Troponin 0 Hr.on 07-06-2023 Troponin I.cardiac [Mass/Vol] 6.40 pg/mL Low 10.10-27.10 [facility] Comment on above: Result Comment: The 95% CI (Confidence Interval) PPV (Positive Predictive Value) for myocardial infarction in females is 38 pg/mL, in males 51 pg/mL. The results should be used in conjunction with clinical conditions of myocardial infarction. (Access High Sensitivity Troponin I Instructions For Use, [employer], April 2018) Performed By: #### 2 663138, 3555309, 10982672, 0089466, 3543775, [id number] #### [facility] [address] [place] [address] Troponin 3 Hr.on 07-06-2023 Troponin I.cardiac [Mass/Vol] 27.30 pg/mL High 10.10-27.10 [facility] Comment on above: Result Comment: The 95% CI (Confidence Interval) PPV (Positive Predictive Value) for myocardial infarction in females is 38 pg/mL, in males 51 pg/mL. The results should be used in conjunction with clinical conditions of myocardial infarction. (Access High Sensitivity Troponin I Instructions For Use, [employer], April 2018) Performed By: #### 2 921704, 4353503, 18408039, 1762254, 9356321, 18959634 #### [facility] [address] [place] [address] XR Chest Single Viewon 07-06 XR Chest Single View Exam Date/Time: 07/06/2023 13:51 EDT Reason for Exam: Cough Report IMPRESSION: LEFT BASILAR INFILTRATION SUSPECTED. CLINICAL HISTORY: Cough. Shortness of breath. COMPARISON: 05/21/2022. COMMENT: AP portable. The heart is normal in size. There is mild ectasia of the ascending thoracic aorta and there are some thoracic aortic calcifications. The mediastinum is unremarkable. There are right hilar and right lung calcified granulomas. The lungs are hyperinflated and there are areas of hyperlucency in the lungs, findings consistent with COPD. There are hazy patchy increased densities at the left lung base, with an area of infiltration suspected. No pleural effusion is evident. Ordering Provider: Vishal Person FINAL REPORT Dictated: 07/06/2023 3:05 pm Orlin Magana M.D. Signed (Electronic Signature): 07/06/2023 3:05 pm Signed by: Orlin Magana M.D. Transcribed by: MAURO Technologist: VANESSA Technical Comments Radiation Dose: Ka,r in mGy = na DAP = na Normal [facility] eGFRon 07-06-2023 GFR/1.73 sq M.predicted among non-blacks MDRD (S/P/Bld) [Vol rate/Area] 78 mL/min/1.73 m2 Normal >=59 [facility] Comment on above: Order Comment: Order added by Discern Expert. 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 Kidney failure is indicated at less than 15 mL/min/1.73m2. Performed By: #### 2 289472, 4434969, 90236714, 4467989, 6438426, 06041548 #### [facility] [address] [place] [address] CT Spine Lumbar w/o Contrast on 06-01-2023 CT Spine Lumbar w/o Contrast Exam Date/Time: 05/31/2023 16:03 EDT Reason for Exam: M51.35, M54.16, R32, R15.9 Report IMPRESSION: No evidence for acute compression fracture within the lumbar spine. Other findings as discussed. EXAMINATION: CT Spine Lumbar w/o Contrast HISTORY: History of compression fractures, worsening back pain. TECHNIQUE: Spiral, high resolution axial images were obtained from the thoracolumbar junction to the sacrum with sagittal and coronal planar reconstructions. All CT scans at this facility use dose modulation, iterative reconstruction, and/or weight based dosing when appropriate to reduce radiation dose to as low as reasonably achievable. COMPARISON: CT 04/24/2022 RESULT: Counting reference: Lumbosacral junction. For the purposes of this report, L5-S1 is considered the last well-formed disc space. Alignment essentially anatomic and unchanged. Underlying decreased bone mineral density. Chronic appearing moderate deformity of superior endplate of L3, unchanged. Chronic appearing mild wedge deformity involving L5, with interval decreased sclerosis compared to prior study. Vertebral body height appears maintained at L1, L2, and L4. No destructive osseous lesions. Multilevel degenerative changes, grossly unchanged from prior. Refer to concurrent CT of the thoracic spine for thoracic spine findings. Interval improved appearance of the prior bilateral sacral insufficiency fractures, appear interval healed. Degenerative changes of the SI joints. Diffuse calcification of the aorta with 3.5 x 3.0 cm infrarenal abdominal aortic aneurysm, grossly unchanged from prior. Partially imaged annular device extending into the right presacral tissues. Left nephrectomy. Ordering Provider: , FINAL REPORT Dictated: 06/01/2023 3:59 pm Mark Chris MD Signed (Electronic Signature): 06/01/2023 3:59 pm Signed by: Mark Chris MD Transcribed by: MAURO Technologist: FEDE Cheney [facility] CT Spine Thoracic w/o Contra patrician 06-01-2023 CT Spine Thoracic w/o Contrast Exam Date/Time: 05/31/2023 16:03 EDT Reason for Exam: M51.35, M54.16, R32, R15.9 Report IMPRESSION: Multiple chronic appearing compression fractures thoracic spine with possible subacute fracture involving T6, new from the prior study. EXAMINATION: CT Spine Thoracic w/o Contrast HISTORY: History of compression fractures. Worsening back pain. TECHNIQUE: CT of the thoracic spine without IV contrast. Spiral, high resolution axial images were obtained from the cervicothoracic junction to thoracolumbar junction with sagittal and coronal planar reconstructions. All CT scans at this facility use dose modulation, iterative reconstruction, and/or weight based dosing when appropriate to reduce radiation dose to as low as reasonably achievable. COMPARISON: CT 04/24/2022, 01/17/2023 RESULT: Counting reference: Craniocervical junction. Again there is mild to moderate thoracic kyphosis with mild dextroscoliosis. There are multiple compression fractures throughout the thoracic spine, which appear to be chronic. For example severe compression fractures of T7, T8 and T12 with small amount of bony retropulsion along the posterior superior endplate of T12 and the posterior inferior endplate of T9. Mild wedge deformity of the superior endplate of T9. Mild to moderate compression fracture of T5, unchanged. There is a new mild to moderate compression fracture involving T6 with associated sclerosis, possibly subacute without associated significant bony retropulsion. Underlying decreased bone mineral density. Multilevel degenerative changes similar to prior. No distinct high-grade bony canal or foraminal narrowing within limitations of the study. Epididymis changes of the visualized lungs without distinct focal consolidation. Granulomatous calcifications right lung and right hilar region. Retained secretions within the central airways. Splenic granulomas. Aortic calcifications with mild tortuosity. Report Ordering Provider: , FINAL REPORT Dictated: 06/01/2023 3:54 pm Mark Chris MD Signed (Electronic Signature): 06/01/2023 3:54 pm Signed by: Mark Chris MD Transcribed by: MAURO Technologist: [facility] Consent for Treatmenton Consent for Treatment [id number] C9#1.00CD:127 [facility] Physician Orderon 05-25-2023 Physician Order [id number] 35#1.00CD:127 [facility] Insurance Correspondenceon 0 05-22-2023 Insurance Correspondence [id number] 97#1.00CD:127 [facility] Insurance Correspondence [id number] 142#1.00CD:127 Normal [facility] Insurance Correspondenceon 0 05-09-2023 Insurance Correspondence [id number]#1.00CD:127 Normal [facility] Auto Diffon 05-02-2023 Basophils/100 WBC (Bld) 1.2 % Normal 0.0-2.0 [facility] Comment on above: Order Comment: Order Added by Discern Expert. Performed By: #### 2 588665, 5078707, 97067947, 3032270, 3037733, 57603957 #### [facility] [address] [place] [address] Basophils/Leukocytes Auto (Bld) [Pure # fraction] 0.1 E9/L Normal 0.0-0.2 [facility] Comment on above: Order Comment: Order Added by Discern Expert. Performed By: #### 2 578895, 1263916, 27739596, 4879511, 2056323, 40081006 #### [facility] [address] [place] [address] Eosinophils/100 WBC (Bld) 6.5 % Normal 0.0-8.0 [facility] Comment on above: Order Comment: Order Added by Discern Expert. Performed By: #### 2 943265, 6951300, 32790251, 2991963, 8766050, 68683269 #### [facility] [address] [place] [address] Eosinophils/Leukocytes Auto (Bld) [Pure # fraction] 0.4 E9/L Normal 0.0-0.5 [facility] Comment on above: Order Comment: Order Added by Discern Expert. Performed By: #### 2 514636, 1219934, 00923446, 8010786, 0944300, 54044264 #### [facility] [address] [place] [address] Lymphocytes/100 WBC (Bld) 34.6 % Normal 14.0-50.0 [facility] Comment on above: Order Comment: Order Added by Discern Expert. Performed By: #### 2 489921, 1023279, 55755463, 8943744, 1499674, 37198967 #### [facility] [address] [place] [address] Lymphocytes/Leukocytes Auto (Bld) [Pure # fraction] 1.9 E9/L Normal 1.0-4.0 [facility] Comment on above: Order Comment: Order Added by Discern Expert. Performed By: #### 2 918424, 5567359, 55927017, 7801918, 2842615, 36668653 #### [facility] [address] [place] [address] Monocytes/100 WBC (Bld) 7.1 % Normal 4.0-14.0 [facility] Comment on above: Order Comment: Order Added by Discern Expert. Performed By: #### 2 273118, 7487531, 43494811, 5753540, 1892987, 44892129 #### [facility] [address] [place] [address] Monocytes/Leukocytes Auto (Bld) [Pure # fraction] 0.4 E9/L Normal 0.2-1.0 [facility] Comment on above: Order Comment: Order Added by Discern Expert. Performed By: #### 2 012311, 5262818, 53566568, 6756302, 3176436, 61917026 #### [facility] [address] [place] [address] Neutrophils/100 WBC (Bld) 50.6 % Normal 36.0-75.0 [facility] Comment on above: Order Comment: Order Added by Discern Expert. Performed By: #### 2 474421, 1437110, 25010710, 7792492, 2861344, 74500488 #### [facility] [address] [place] [address] Neutrophils/Leukocytes Auto (Bld) [Pure # fraction] 2.7 E9/L Normal 2.0-7.5 [facility] Comment on above: Order Comment: Order Added by Discern Expert. Performed By: #### 2 311740, 9024359, 36085983, 5075624, 0260761, 74245132 #### [facility] [address] [place] [address] CBC w/ Auto Diffon 3 Erythrocyte distribution width (RBC) [Ratio] 13.9 % Normal 10.9-14.2 [facility] Comment on above: Performed By: #### 2 091819, 2477401, 90333169, 3128393, 9550097, 64828506 #### [facility] [address] [place] [address] Hematocrit (Bld) [Volume fraction] 34.8 % Normal 34.0-46.0 [facility] Comment on above: Performed By: #### 2 490934, 9876683, 99727749, 9523422, 4358648, 62215715 #### [facility] [address] [place] [address] Hemoglobin (Bld) [Mass/Vol] 11.3 g/dL Low 12.0-16.0 [facility] Comment on above: Performed By: #### 2 212814, 8681476, 00335952, 0986949, 8987612, 23789848 #### [facility] [address] [place] [address] MCH (RBC) [Entitic mass] 29.7 pg Normal 27.0-34.0 [facility] Comment on above: Performed By: #### 2 748945, 8351154, 10091855, 2359973, 5224214, 28118715 #### [facility] [address] [place] [address] MCHC (RBC) [Mass/Vol] 32.5 g/dL Normal 31.4-36.0 [facility] Comment on above: Performed By: #### 2 664977, 5925842, 55641327, 5782051, 7487011, 00614691 #### [facility] [address] [place] [address] MCV (RBC) [Entitic vol] 91.2 fL Normal 80.0-100.0 [facility] Comment on above: Performed By: #### 2 467974, 0937283, 18482345, 1040111, 8561826, 87756001 #### [facility] [address] [place] [address] Platelet mean volume (Bld) [Entitic vol] 8.2 fL Normal 6.4-10.8 [facility] Comment on above: Performed By: #### 2 859026, 0521294, 41364925, 6219307, 0964369, 77866254 #### [facility] [address] [place] [address] Platelets (Bld) [#/Vol] 197.0 E9/L Normal 150.0-500.0 [facility] Comment on above: Performed By: #### 2 895477, 0920739, 45392745, 8183778, 1638268, 38712929 #### [facility] [address] [place] [address] RBC (Bld) [#/Vol] 3.8 E12/L Low 4.3-5.9 [facility] Comment on above: Performed By: #### 2 875449, 5885477, 11117377, 3821982, 1768859, 14476690 #### [facility] [address] [place] [address] WBC corrected for nucl RBC Auto (Bld) [#/Vol] 5.4 E9/L Normal 4.0-11.0 [facility] Comment on above: Performed By: #### 2 799639, 8437062, 55535510, 3679039, 5376595, 98153420 #### [facility] [address] [place] [address] CMPon 05-02-2023 Albumin [Mass/Vol] 3.8 g/dL Normal 3.3-5.0 [facility] Comment on above: Performed By: #### 2 414285, 7642759, 41911237, 1611335, 6368007, 12274526 #### [facility] [address] [place] [address] Albumin/Globulin (S) [Mass conc ratio] 1.4 Normal 1.1-2.2 [facility] Comment on above: Performed By: #### 2 658182, 4397344, 33393343, 0158356, 3920922, 40181625 #### [facility] [address] [place] [address] ALP [Catalytic activity/Vol] 67 Int._Unit/L Normal 21-98 [facility] Comment on above: Performed By: #### 2 161377, 8930930, 90946312, 7515642, 9362313, 37069648 #### [facility] [address] [place] [address] ALT No additional P-5'-P [Catalytic activity/Vol] 9 Int._Unit/L Normal 6-46 [facility] Comment on above: Performed By: #### 2 122172, 1968264, 72889317, 1573356, 9539366, 48246241 #### [facility] [address] [place] [address] Anion gap [Moles/Vol] 11 mmol/L Normal 6-16 [facility] Comment on above: Performed By: #### 2 699417, 8396975, 60708026, 8543625, 9020278, 36976368 #### [facility] [address] [place] [address] AST [Catalytic activity/Vol] 14 Int._Unit/L Normal 5-43 [facility] Comment on above: Performed By: #### 2 862177, 4703125, 25063565, 3314703, 6840842, 86801441 #### [facility] [address] [place] [address] Bilirubin [Mass/Vol] 0.5 mg/dL Normal 0.0-1.1 [facility] Comment on above: Performed By: #### 2 124217, 6188570, 21463964, 9126901, 3397684, 57588637 #### [facility] [address] [place] [address] Calcium [Mass/Vol] 9.4 mg/dL Normal 8.9-11.1 [facility] Comment on above: Performed By: #### 2 718849, 7024401, 71205003, 7129730, 3665959, 45410512 #### [facility] [address] [place] [address] Chloride [Moles/Vol] 98 mmol/L Low 101-111 [facility] Comment on above: Performed By: #### 2 759776, 1551549, 01044391, 1751665, 1507015, 02931680 #### [facility] [address] [place] [address] CO2 [Moles/Vol] 34 mmol/L High 21-31 [facility] Comment on above: Performed By: #### 2 710711, 1098208, 80446994, 0968480, 8757180, 14871968 #### [facility] [address] [place] [address] Creatinine [Mass/Vol] 0.8 mg/dL Normal 0.5-1.3 [facility] Comment on above: Performed By: #### 2 488027, 4015314, 04617705, 7345341, 4093138, 38397233 #### [facility] [address] [place] [address] Globulin (S) [Mass/Vol] 2.8 g/dL Normal 1.4-4.0 [facility] Comment on above: Performed By: #### 2 557545, 3663094, 38936478, 8936712, 5722931, 96758281 #### [facility] [address] [place] [address] Glucose [Mass/Vol] 83 mg/dL Normal 55-199 [facility] Comment on above: Result Comment: If t his glucose result represents a fasting glucose, interpretation should refer to the following reference range: 55-99 mg/dL Performed By: #### 2 098559, 5860999, 23134872, 5460393, 2362015, 79280983 #### [facility] [address] [place] [address] Potassium [Moles/Vol] 4.5 mmol/L Normal 3.5-5.3 [facility] Comment on above: Performed By: #### 2 837447, 8573529, 02821706, 9818527, 0897999, 81359483 #### [facility] [address] [place] [address] Protein [Mass/Vol] 6.6 g/dL Normal 6.0-7.8 [facility] Comment on above: Performed By: #### 2 721153, 8148213, 75760121, 3963295, 3902665, 99986162 #### [facility] [address] [place] [address] Sodium [Moles/Vol] 138 mmol/L Normal 135-145 [facility] Comment on above: Performed By: #### 2 647374, 4815342, 77830870, 7919667, 7840132, 13620843 #### [facility] [address] [place] [address] Urea nitrogen [Mass/Vol] 16 mg/dL Normal 5-21 [facility] Comment on above: Performed By: #### 2 900900, 2166005, 36126995, 5337951, 3024988, 25166477 #### [facility] [address] [place] [address] Urea nitrogen/Creatinine [Mass ratio] 20 No Units Normal 10-20 [facility] Comment on above: Performed By: #### 2 620657, 3923442, 84544885, 7791582, 9172108, 99212914 #### [facility] [address] [place] [address] Lipid Panelon 05-02-2023 Cholesterol [Mass/Vol] 144 mg/dL Normal 120-200 [facility] Comment on above: Performed By: #### 2 251877, 7307168, 77774815, 0704612, 3849638, 46732714 #### [facility] [address] [place] [address] Cholesterol in HDL [Mass/Vol] 35 mg/dL Invalid Interpretation Code [facility] Comment on above: Result Comment: HDL > or equal to 60 mg/dL: Low cardiovascular risk HDL < 40 mg/dL : High cardiovascular risk Performed By: #### 2 660991, 0123772, 16601623, 5581181, 9637060, 93747251 #### [facility] [address] [place] [address] Cholesterol in LDL [Mass/Vol] 95 mg/dL Normal <=129 [facility] Comment on above: Performed By: #### 2 518727, 3894106, 05915117, 1645659, 9065812, 43810236 #### [facility] [address] [place] [address] Cholesterol in VLDL [Mass/Vol] 13 mg/dL Normal 7-40 [facility] Comment on above: Performed By: #### 2 455747, 1452436, 26550617, 6419528, 3267582, 37731648 #### [facility] [address] [place] [address] Triglyceride [Mass/Vol] 65 mg/dL Normal <=149 [facility] Comment on above: Performed By: #### 2 428767, 1192415, 15405087, 4034477, 9536912, 11038406 #### [facility] [address] [place] [address] Physician Orderon 05-02-2023 Physician Order [id number]#[id number]:127 Normal [facility] T4 & TSHon 05-02-2023 T4 [Mass/Vol] 10.4 microgram/dL High 4.6-9.1 [facility] Comment on above: Performed By: #### 2 542740, 6738460, 47028934, 6083751, 4208658, 86157084 #### [facility] [address] [place] [address] TSH Qn 3.14 m[IU]/L Normal 0.34-5.60 [facility] Comment on above: Performed By: #### 2 877467, 7113597, 53776405, 1777161, 2022973, 99866596 #### [facility] [address] [place] [address] eGFRon 05-02-2023 GFR/1.73 sq M.predicted among non-blacks MDRD (S/P/Bld) [Vol rate/Area] 78 mL/min/1.73 m2 Normal >=59 [facility] Comment on above: Order Comment: Order added by Discern Expert. 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 Kidney failure is indicated at less than 15 mL/min/1.73m2. Performed By: #### 2 943565, 3413156, 17732666, 0458816, 2648119, 96824701 #### [facility] [address] [place] [address] Coding Summary.on 01-20-2023 Coding Summary. CD:[id number] bWw+PGhlYWQ+PN7EZOV wT39jqABcuI3cT7QAYJ lOSywgQVBQTElOSyIgb kKdYF1bjGItPQOf IC8+SK4cNQLfAxvubJI kx1J1bPB4U19lko5jNC kllRB8GYKyYpNczkzpb 9geeNn7DUgnEaebHpDb MWRkxV79ICO4kJ92In3 3wEZebUWof3trgPg2Tq PrNOLfGPH5cMnuORzug 6GtTHTmS82wiTPiu1P4 IGNvbGxhcHNlOyBlbXB 2tO9iNOqaamsdu4xnok utBhy5ct35rKUxi7P0o UN3W7FiwvW9NXSqrVNu PhassEGQpH9vgiisr3w muoukAoHyONKdGRn0ON i8HHYkwMthMlZiOC84H GK0ZLGtjjSjF1JfDZOt yZjsVfG4u9F7Dl1MC9X ZJecwZ8RPKIEHRZsvzW Q+CT23be35H8OdBppzP je1BMWjMHA3vSN8tF3f JLXdWYvdm7M4aAN6N4A vvyKddf0ds0vwZSBiCV jcN18raLLjd0G2TTHbd BL0YJGwhGhfGiGhuB19 Oyc+ULDbqOron6ZiUzb em1kxr2kupZy4GoavHG AiosEunZneJLT6y5HwV t7vJBIdpYQ2gTX4qV0q CtRzWnN7MFauE881ExS bsGUkTrusD42lJ5CkwO A+VYUtVzp8RNYcuQeqB M3jN3PiRSEmnrkyoVNx bQstKW6bVAFresniUTS etI4cVSLiT2y8RaEbWm E0COouY1MmDHRpvpgvM z93hE8aMsAmXbF9VQpg U8GwfrJ7AQUqbHXdVWm oQCQ2U01tz2G3UCIqSA RlJZY0lXD7lM2dcSfmg jogbGVmdDsgdmVydGlj XBbwSRpjH931YHFlcKv nPkNvZGluZyBEYXRlOi AgMDQvMjkvMjAyMzwvd GQ+LNAdNPB2sDniQLLw rCPfSQceYd9owKmauDk wNU0hCXQkyzqxDRNssP 2xRLWumHCifNqbZR0oA VImdwltx460OhKqULX1 EBBnhRExD9XudB8jNbJ hSGNfVKRaD5WgmNDuOE rvZ465XVdsAmM9EXRcm jHjU2TeMHZccCeuMaO5 y9T2Qs8Hf6IsbvahA3G dqNIqAsMnMockJRj7I4 RkPjwvdHI+XI16TNXfY L49WOt2UUR5wWkiHHkq JZIsK7NnhG8rKoPaBZS kZGRkOyc+PHRhYmxlIH dpZHRoPScxMDAlJyBzd OdsKG4bRl7iMUYyAVLu jGsamBIxAxPxs3wmEEY kORkuOY0tyLtvB8XvlZ Y2JWIav7g0Ns30W20wP 3JvdXA+LUDwdQA9mEV7 jD3zOyQyWlT4MZvgM68 6MiPefNXaMgafq5euf3 xgyGt2BgI2JALrcgEzc BblCJI3l0IwLg28D84h IHdpZHRoPSIxNSUiIHZ zoNxtcs7wtL7pQa7+PG XocVZ5iFE9xJ2iInGxG jQ2DZkpY910DxTtpMCc Gbbxx7lmd6ohmOf7TjV yZSTfzzKzhDfyRLK7a9 RcFx57H1FinShaa3TbA hf4uq93wVRuz0E9vSK7 V1FbNZCysnyhbMVaoWh sRQ2rTTMhktluSRXmoG 9sCSVwY5i2YeFyRjV5T PywB8XsdjD5ERXvaQWd VXTctGAYlL1yrnpyi3f enkqaJeGzFSNuCKj8FY p4FIWglJbvEoTuBSA0J mN5HLU2vVBrqD4oiXcp rnfemB1sTuy+AQR2yTC duCZJPU1wKxlpfVD+PH OvPXM3vMlmSWsqXMGze C5iCHEwP5q8PsWfHqJ2 QXswJ6QlvfH4HZIooTA bEAUdkGMMdT2pqdqjv9 ocoxesElMfXDQtDXw3G Tp8GOIdeTfgSsFfMTM1 OcU6VUD4iFSopK0mdTh ovjwmqC5pLek+QmlydG fyCJK2HCt8R9DgNfe1B DFbiUqrVL5oiORhCCwq Xt3uwGjklLceTG5pCQG ngnuqe461HhPnc5duDB QdiFBuXRuiDSQ9P73pq 3W0PVTjJNKcHMZ8vMJ0 kA9vyYtbkycxkWLyvCo gdmVydGljYWwtYWxpZ2 41HFGklQllDtZzMAm1H 9VuYjy7KOTnjArlQH9u jZVzPSwkOk0xaKsjjHm aJX3yZEFunmbsn314Yx Ftc8iuXACggPGpMOvrX OQ6B12ty3A5FLPsKUZl SLG1lRE2rH2iaDlyvbp gbGVmdDsgdmVydGljYW jeFHveI108PWFlzNwqG bCskJi1K1IcPvb7WHKc kXoxZZ1rxCReARqyMd3 zzRzwkSglIJ2eZITqag twi996OzWmb9btARSdp CPxKYfkYWK6R37gw8V8 WDCpANBlGZA3kDA1tO5 hbGlnbjogbGVmdDsgdm EugNpiTOgeKRbfQ475I HRvcDsnPlBhdGllbnQg XRgjOVk2D5HuHlmfmWT +FP72MYSqZK47pQLcsZ Dzv4tvwVl4TxAxHUXmL ZD6gTxeJVrwl6MnKPJk E94rxPJml1P8OYEduYn tiAZdGiWlmDW8fB9rSC fwrwwmf7dmtdtkOnzvu 5hoha51aV97P29lQRwd ZHRoPSIzMCUiIHZhbGl fjx0zzV3yEo7+PGNvbC B0sDL7kK1fNDFcWeR5B GodV102LaLwoVVvBzvh g1lho4auyKc9DlD6RZK vuhWyfUfkVLZ8x7UfQc 18S22nZMqrEKMrWDFoE KPxYYEyfAaivm1doL9q Ii8+NOGlpWY7zZW6vV1 fVtEmMyR2MIehX216Se VilXFvMenuN86fM9Shv XA+ZDRzZmj2PIOmdZvc VL7soWSuKPcdZq9yRQM 9AoRdVmFcOCriM9JoQI PninyhdjpfkKN8CFYgO CCfoL40Ew2xsTkuCWEe bYLNoD7dachxg6vdjba sNdVoWVMnJIc1EWd0ZX WqqAdaOzJsTTK7PhB6F EQ1vXRnhY9zzLnmynyo vR7wF1HpKTGyqhxhZh9 9aJ5pXtYoBfE8LQmlBl c+DbFCLTmnG9fSRZnOK OBDUO40RS32xYMse4B2 gHT4J2OlEXVquadledv slSK8XDMoUKDydU35zT RbXJxzGr3my5P5o531I USmXXAywZ60Qw8bqFvo UNClvEZAoM5iiuqcq9p syxsdXnKvDBCpAJs1VF r5RLIirNcgScNdAKY4D kH0YWN1hTXpkB0kyJrj wgcbrB9fOwk+MTIvMDQ kDFv8FYvekST+PHRkIH U5nKwlOKqbOMWiaA7zE OZsJ5k1WoAuRfW3JRsz X5SqBNLpovbhLg21sB6 zXlPjUxC4POtnE1Pjpo B9ANFtzCLtIMrmRLR7W 80vw4L8XNEePKQyPPI8 uPD8vM7dkMzkcwpsmEA mdDsgdmVydGljYWwtYW qvT778UTCfdXbzXonoV XsrQAGbHK30XI58uYKd z7A9zTR9Y9MkEFHxsdf nsjkzlNH7CRSxKSXxkU 28xMDeDBrnTu8fq4H2r 604HYZsKCTkhB55Gg6j fVvyOMDrqVTLgK7clxs uf4ixnfxvZtLxCVCtUW w3JUg9SPTciNurEqYlS YG9FxV7HGT2dODqjM3x lSocdcdjfM6qFtm+RmV oVZvgFD64JT85uENsu7 A3cZY6Q0HhACBktosfv qjxbPO9LBMdWLMfmF15 xDOpXJvgDm4mg8J5h87 9YYRhUHAggZ18Ba3yoA qvYFNdwSYVbJ4zcinwn 1stjfbtFfKkMPQqLHa7 JQa7DPAloMswPoWpNMF 1OkT4ZNR6zABfjT9eeI eljblvmX9fVjp+T3V0c GO1jCNkkNaboUV+PC90 av93V0WaNtkzSsz3HPP kRCW9eHR4yF2oWGCvAI pzx6Y7qQV3P9XachJoj c6ao4rdPTSqWYogU67h iAOyw1J2ASOmpKC6GDV idQtiXqWimZ37Zsm+PG IggEoqm3GpUkabm4vab 1cqoLe5RrJyHYRrzdCz hRrgWRJ2e8UkPp40A97 sIHdpZHRoPSIzMCUiIH MqqXobeq7hoH8hUe0+P VFrdAI4hOM2hF5aXnJj HeD2UZgzS139YdEhnYZ kAhbjo6tgz0jqtXs9Zn DiWRGesnLjiMupRRZ5a 6TmNo86J2BmaTlwf9Oc Iar8hs90fXUtc9L1xNB 0S4GgAYDdyeleeFMjyE ppTF5mSPQzbodrZSMqg P3dQZMiJ6p0VxPiGoX1 IXbmA3LgjsI8LGHywYT dOCZpxCUDqT5aarjir5 djizcgJuDjEFLpMAx8E Cn9IJCufDdiEnVxIBI3 KnA5FJM6tZXdmU7ugWd ghuujsN4tKkr+UGh5c2 zntETtRA3iiZS8RT24C O30sKItq4X5fPS0U3Qq WNEijmhppcjnbWS0DLC kJZElpD19Dy3jrAhjXa 3lGLSsEKQ0WCBogKFmN 2UvyB7nFxSuXMRzJQJn W9CqmMLqJSjgS477VZj iAqU2MJZolxDsV0OyQH BolNdxArN3o5E1Xw7XQ I39WV31GA02kPFmr8G9 cAB4R8BoFLIevvmnnjh caDW9POYsNXZdcY08Vs 6odYwpNw4fRDKgAZP0L DBnyXAcN8PazW0rHyQl LWXtHAXuT9YwsPCsJAs yV041VAsoVyM3KSYtzb UgT8BvFPYatXhdDkN7l 3Q0Ml0XVh43HC36JZ60 dRFod0B9oAM4T3KqQRI fzabdaqumzDA2MBDyOF BedR01Hy1fcHzzYf0uA WGqVTT5WCHflBXlX1Cv jZ3kZzFmRFRvIOEkS7X hfWEoCXrpO226OUusCp F4DQAafgItN0HfZTLge IndMrT8d7R4Kq3UPFzt wok2I9HjLydnzFN+PC9 3CUBxNM45xDOfmWUfl9 ysmFe0KoDdBGXyYKO7w SgmKYzru6YpTUIcT52f lSKiu3Y5 (more content not included)... Normal [facility] CT Chest, Low Dose Screening on 01-18-2023 CT Chest, Low Dose Screening Exam Date/Time: 01/17/2023 11:27 EDT Reason for Exam: Lung cancer screening, >= 20 pk-yr smoking history;Other (please specify) Report IMPRESSION: Lung RADS 2: BENIGN APPEARANCE OR BEHAVIOR. CONTINUE ANNUAL SCREENING WITH LDCT IN 12 MONTHS EXAM: CT CHEST NON-CONTRAST NODULE PROTOCOL CT Chest, Low Dose Screening DATE: 01/17/2023 11:07 AM CLINICAL INDICATION: Initial Lung nodule screening Lung cancer screening, >= 20 pk-yr smoking history COMPARISON: None TECHNIQUE: Low-dose helical CT was acquired without intravenous contrast from the lung apices to bases at 5 mm slices with axial reconstruction at 2.5 mm and 2 mm reconstruction in the coronal and sagittal plane. 5 x 2 mm MIP coronal were also generated. All CT scans at this facility use dose modulation, iterative reconstruction, and/or weight based dosing when appropriate to reduce radiation dose to as low as reasonably achievable. Based on ACR recommendations only incidental findings that require additional follow-up will be included in this report. (ACR does not recommend reporting of incidental thyroid nodules detected on CT screening if they are less than 15 mm in diameter). Findings: Lung nodule: 4 mm nodule left lower lobe (axial 3-70). There are several benign calcified granulomata in the right lung. Lungs: Minimal scarring/atelectasi s in the left lingula. Moderate centrilobular emphysema Mediastinum: Calcified right hilar nodes consistent with remote granulomatous disease Pleura: No effusions Vascular structures: Thoracic aorta intact Moderate coronary artery calcifications present Axilla: Negative Bones: Old compression deformities involving T7, T8 and T12 again noted similar in appearance to plain film study of the thoracic spine on 04/24/2022. Mild compression of the superior endplate of T4 is unchanged. Upper abdomen: On scans through portion of the upper abdomen there is no left kidney is visualized. Clinical correlation suggested. Report Ordering Provider: Catina Benitez FINAL REPORT Dictated: 01/18/2023 9:34 am Ceferino Loo MD Signed (Electronic Signature): 01/18/2023 9:34 am Signed by: Ceferino Loo MD Transcribed by: MAURO Technologist: COMPA Cheney [facility] Consent for Treatmenton 12-24 Consent for Treatment [id number] AD#1.00CD:127 [facility] Coding Summary.on 12-28-2022 Coding Summary. CD:[id number] bWw+PGhlYWQ+TK6UITO zS06ipENjpT3lD0NPDA lOSywgQVBQTElOSyIgb pTeGR3rzTUzUDSy IC8+BA7cXBFvWrhwjQN au6A8cGV7G46nnn5nKB hbmFL9OMRsVlJgllvmw 8hlkNa1OJiiKqwgBeEr APKbjP84KKG5fQ03Zt4 7mXZlrXSwr7qbfIz5Zo UvLHQgWLE9kKdlDGvjw 8DeHKCoG06wjQXdp3O8 IGNvbGxhcHNlOyBlbXB 5qC1jJWdnxzyvm7xrdq deKtg1ne60vWIlz1Z6q CZ2J9IkwzM1PQEqbPJp IlakqPKWhH9ogcjod8u sdgthPbQtFQOgXMl0XR a3LMGjfFnpZyKqBG81E GE6AORtlaPfH9WeLKLg vUrkCnJ1j1R3Be2NX4E NIyljS2REDTAKWHbfpZ Q+PH03ij67U3WqOdmhD sk6QGPbPKT4pLR4zI6r BRSdDRntz4W3qJX1L2A jnsSdhj8vy6iyFHSuBI njJ49nzDFmt9N7BYBdr GW1QBVnqMugXmEjjA11 Oyc+ECEvrHvdg3YwHum nb8nsw8jgrMt2BsvaXO DsjbRdpCjwHRM6e1MhT t3sXODqvAK0qAV4mF1g AfUdTpO7XEstF854EvD yjNAlYwsqN77qZ4JlgH A+UPPuEwg7LUMcyZtdX G6nJ3UiDKKopolrlRHk lNxsKR8kZOGeupezJVQ sxL0gPDGrT0g2TxWfJy A0HTmbY1CcZIVorbkqE t40rQ6xElJsTwN6VArw Q2ZfxdM0CSGgwNTcIQx rQLW6R34oh6K6UITcIM UyASG5tCM1uS2vcVitn jogbGVmdDsgdmVydGlj AKxvXLwcG552YKIrrLk nPkNvZGluZyBEYXRlOi AgMDQvMDYvMjAyMzwvd GQ+PGPxNMN9fDygMIAx xARbLYebXs3quZfipLc kFM6wMFBauvntDECvbG 3mGLRgiKPrvLxmYE3gA UTxtacpa011JkWdGJM6 ZVCysBHzG3BfsB1uKfB eDEYyZAWuU0SmpUOzTV qeH840KGrlQwA2RWPuw eCcJ5MzIBBetFxxJhL1 d9T4En4Zb6CjzempJ0J pyHMdOiTkTymkNKg5B2 RkPjwvdHI+RW72XUXxQ T61YHk4EJO9aSfcRVze DCYfE1RleC9uWgHkYNX kZGRkOyc+PHRhYmxlIH dpZHRoPScxMDAlJyBzd QkhEV0rNz8lTMCaWJQy iCrviGKdHcDfp7gpWMV pSVzkAB7jeMlkQ4ZbtJ N4SFRbu9c5Kl76B23fE 3JvdXA+EKEzkEZ2lVB6 pZ6aSrExPhY6FNdrM17 8EiWlwNRsIfpmr5qpx9 zgpOj0RfJ9HELdhzNmc OauNWA2a9ZuLj85O82d IHdpZHRoPSIxNSUiIHZ qdIiloc6lxK1lDi9+PG YcfYK3fVG0nB7qGnRyX gG6RSzrI869YqLbaYIj Cjyid6woq8cutQd9AtH aAGOhqpTsdSizGNO3h6 UvGz15P1JtiWiji7MbC hk8fa68zFByf8W3aKC1 R5PuIQTjmbadeUTzcHj eZR6wOLPrpxelISQssT 8fDVBlE1x5ByFsRcW9V HotK7DmocR5ETNkcNGa JFSisQRHmP2ferznx6o ubyweSmWlSNGbGPo6DH i4CHQalJueExQhYVW3T jA8RFE1kSBnrL0ypQzp cdavbX4zDql+WVH7rSJ laFJCJD0fSfhvjXK+PH BsMWH1qIaoFEbiUYRyx V8aSTBdM3t8GpJcNoY3 HAseI6QukuE0DIUhnSA fOWIevQROqR8dzbzbu5 gqcjpeEsYhETPoFGm9R Zv5KPNogXmnJeYnJEM6 JwV6ESP3gCKwbK6mvQj zbkzekU3hFvj+QmlydG rzUFM6VVh3E6PaCuj4T BUlzNkbMY2wyPNwPGbx En4zlYpqdGrbLP4uVAC nirimm447VuXzg7dlBA OghJZnQWevVJG1H44bj 8M3ZCWuKUOmKFO7gSN0 dN4auQqvlfsxiAJtwDh gdmVydGljYWwtYWxpZ2 43SEAciOloPtOxWDk4A 0DuEnl4PGRabQbaOS0j pBHdLLgcVr5xxUqxzQw sOE5cTVKfrferh817Re Kpj6dwXFWgkLMuILvfC JS4R84pf3Z2EZBsLCFk MXI4iPX9uS9shAaicez gbGVmdDsgdmVydGljYW byTZbzE752TMObtJvjO iRdxVv7T5EzQrq6SVAd kGrcUG4udXVnCDllNs8 qsKfznLbsGO5nGMNbpp zkf364MvJto4brOUPmw AGlCSexZYA2L56bq9H7 ESJmZHXpDUE0dAL4mA6 hbGlnbjogbGVmdDsgdm WmeYzsQYvpDCvnG462G HRvcDsnPlBhdGllbnQg LOzsWBo8X9MuBmfcfEI +UO71SBBqPI64uSMqnN Jnu3ztlMc2UkUqSWUiW PW6sQqgROrvw3YtIMVr M50baZLfu0I1GQQlcVd ltQRrGnKswWO8gQ7vMS rdxscin6qnzagcXmwmd 2wram96nT36V66sNRwv ZHRoPSIzMCUiIHZhbGl zcc2rvR8nHt5+PGNvbC P2cFY3eV2pYYNxNaE8L BjnH446KzSqjIVwGtef q7khm1azwKa6RhM1NYK jxiFeeDlrBDU4i2HmOk 16S77nOMtzEWSsGORfQ TYyTSCrmRujto2fwH2n Ii8+QNWgeDH6dAM2oR2 pHkGzGqL0KUumT054Bb DbkDOyKojcO53vS6Adp XA+KBKsQmn7MALrzQkb CD5yaCLaTDjxOf8yMRB 4GoNkNuKjCFqjD3JrSE KbpbvyfxvebUA7QMUvP FFdgD68Hz2saMvuDXLs hHZFmR2qdjgji8vhdsz nTvKoKDAuDPc0PVg2EB MowThyRgHdKRE1MsR5N NS9mHLmjZ7xdCwfnwdk iN4lL9BnXYDirpucJs8 6kY1oHyRgCwD6USnbQj c+OcLZEZciQ4wHDElNL JXWCT25SH67yNMxp4U4 wCX7H1AdRAYgpzilaqx umSD9AXWoMRQawX27jU ZvLZtvTu7hr4S2w746K FKeMWFzdZ20El6jjIww QESraKNDiO3aemccv0r dasznIfOqSZYoSZv3XT q0TDGmbNyrPpKdEZA7N eU0RZD1jXOlaI8itTni nfiocY4jWbl+MTIvMDQ hYXz1ZSxlmBH+PHRkIH P9oUgqLWtqWXUcsZ7nO WGvL5x0ZoJxQuN8THvo G9PfCRQvsnjqTl77eS9 oVtFmMvB4PPruN6Tbdk F0EZXvpPJvPTpvGDS8E 85hk8C5IFFzNCTcUKW9 cCF9fC2vvDaildtifLU mdDsgdmVydGljYWwtYW ntM020BVJpbTumUlxhS JddPZXmPK26MZ80sVJs b4O6bBP8I1HpRFTflxi cbjlrnXF1HNFdXWYnkU 43tVItCOxfBs2jm7C1j 812FJWnIDJpdW31Mz8n dWezYWHuwNAGfY3gmyl da9jqriexKeAjXBJxOW j0WZz8ONHkiZqyKlKvQ VV3KcM4VUL1cJYcfP2f yThsqxuvfG7jNyt+RmV zTVmkJI01GW12vOMjf1 N2gMN8B8FhBLErdvwuy iqulMT3YVUgAMSpqM41 kPDqIJmuOa4vs0R6h96 5YZMtOMEtlB48Jq2ucM dePTFqnGVEyO6aawbhp 0oyzpehQbIiVJBsBMq8 BNy4VQIhzUhxKdQcOGK 4NwV6XHJ3oKQzpV1akA vqcrxgvR0wVut+T3V0c SV2hMOiqJfxxVW+PC90 dx22S7SpUhbzNea1HLO yKBH5hCS1eP8kLJZvBR djy2R6fXQ5E2XuryTet a1nz2ebEWCgSOwkR21d fXJxi4D0MQYboKD5HPD mkCsnIiJkxG41Yxm+PG PkjLpdu1BkNbhlp9cgb 3dbtWy1BwPeYMSyrvGv aImtEXZ2m0QsEj16C86 sIHdpZHRoPSIzMCUiIH AyaRgchz3uqN2hJn8+P MCwlOY1vMB2kG8vCfHf NaE9CFczQ030GgJohFR cTgjpr2yhs6rygXk3Lt BwDGFuceYrrLplLVE1s 4EjYd95P1AbyFdus3Pr Zsv9ri19lUQtq5E2eDN 0D2XfHMOqialbdYDkvQ arUM3pTBFlakptVEAkt M7sZTNgD6l1EnTqXsZ3 KWmiX9NpopN9BBXaxMZ aBXBwkAXUfV8lvqejl2 kevgmmRvAvAKElJCp7I Gr4RJNfoAwyNrRtTZF0 IlL1MEH6cEBdqK4maMx vdrxouA7gFtw+UGh5c2 rhyUUqVH7xxEA7FO34N I09oXRpn1X3hPH0P9Yv PEItkgdgerfvbWM9EOZ rTRYcuM35Ym1skNllHu 8zBOMsCGQ2SVIftLYdJ 0BgcJ7dIpEpYKYgLPPa K8UudBWaKRwuX331MZv iPjR2MNEnjuAgG9OcBF BctWfvSdP4f8U9Ue4BC Y17UJ78MS44jVQvf0Q3 jZV2U3AyUPWzukxfxrn tkVC4TLMiXCLkyY23Oh 7kkUhfRj4fFXVxVFM8Q ODucPTyS1GqvD3eYrPn HICyYFVlT0QodHDwRYt nP832RNlrAwT4RWDzyj HdP4CkTLSuxGnfXbI1w 7Q6Hy7VFj03NB19EH56 iPPgg1W0kSV8A6RpWIQ wnolvnmwbiBP0QWTaOC ElhO24Uu5prXvdYv4rX VBpZHO7MKEamWNgP1Fk fM8jZhXqYUPuTYLeK6G qvPYlVFilO809WDodQc C5FVYegaGdH4LiPOYye JexOgO6d3H4Ef3FTMed slx9N9ZqPunypCT+PC9 1MMRrKR61cCJakFGmn9 notYj6JtGmGRAsTYV0f HbxUVepq7CpVRDxZ67o eUKee8T4 (more content not included)... Normal [facility] Consent for Treatmenton 11-23 Consent for Treatment [id number]#1.00CD:127 Normal [facility] Heart and Vascular Office/Cl inic Noteon 12-13-2022 Heart and Vascular Office/Clinic Note Chief Complaint 6 month f/u History of Present Illness Here for follow up for underlying COPD. She reports that her breathing has been relatively stable since her last visit with dyspnea with mild exertion, nonproductive cough and occasional wheezing. Denies any further weight loss and denies fever, chills or lower extremity edema. She does report intermittent chest pain but does not want to seek medical attention for that. She stopped using her Stiolto (run out of it) and also using Asmanex and also uses albuterol via MDI and DuoNeb's via nebulizers which she feels that they help the most. She cut down on her smoking to 2-3 cif a week from a pack a day a few months ago and has been smoking since she was 16 years old with a 50 pack year history of smoking. 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 Review of Systems PHQ Score Initial Depression Screen Score: 0 Constitutional: no fever, no chills, no sweats Respiratory: as per HPI Cardiovascular: no chest pain, no palpitations, no edema Gastrointestinal: no nausea, no vomiting, no diarrhea, no GI bleeding Genitourinary: no dysuria, no hematuria, no discharge, no pain Musculoskeletal: no back pain, no trauma Neurologic: no headache, no dizziness, no numbness, no weakness Heme/Lymph: no bleeding tendency, no bruising tendency, no petechiae, no swollen nodes Additional ROS info: Except as noted in the above Review of Systems and in the History of Present Illness all other systems have been reviewed and are negative or noncontributory. Physical Exam Vitals & Measurements HR: 78(Peripheral) BP: 114/74 SpO2: 96% HT: 67 in HT: 169 cm WT: 72.2 kg WT: 158.84 lb BMI: 25.28 General: Awake and alert in no acute distress HEENT: NC, AT Neck: Supple no JVD Respiratory: Decreased breath sounds to both lung ortez without wheezing or crackles Cardiovascular: regular rate and rhythm, no murmurs Extremities: No edema. Procedure IMPRESSION: Pulmonary function test results are suggestive of a very severe degree of obstructive lung disease with presence of air trapping and a severe decrease in the diffusion capacity. Six-minute walk test showed evidence of significant oxygen desaturation while ambulating on room air that corrected with 3 L of oxygen supplementation. [1] Assessment/Plan 1. COPD without exacerbation (J44.9: Chronic obstructive pulmonary disease, unspecified) Very severe in nature based on her most recent PFT with evidence of oxygen desaturation while ambulating on room air. The patient continues to struggle caring oxygen tanks due to the weight and would likely benefit from portable oxygen concentrator. We will attempt to arrange for the above. Discussed with the patient importance of compliance with her long-acting bronchodilator therapy with Stiolto. She feels that her Asmanex is helping a lot and wants to stay on it. I will add Stiolto and Asmanex and continue with albuterol MDI as needed and albuterol/ipratropi um via nebulizers on as-needed basis as well. Ordered: albuterol, 2 puff(s), Inhalation, q6hr Shortness of breath or wheezing for 30 day(s), 1 EA, Refill(s) 5, [facility], 169, cm, 12/13/22 11:38:00 EDT, Height/Length Dosing, 72.2, kg, 12/13/22 11:38:00 EDT, Weight Dosing albuterol-ipratropi um, 3 mL, Inhalation, QID for 30 day(s), 360 mL, Refill(s) 5, [facility], 169, cm, 12/13/22 11:38:00 EDT, Height/Length Dosing, 72.2, kg, 12/13/22 11:38:00 EDT, Weight Dosing mometasone, = 2 puff(s), Inhalation, BID, X 30 day(s), # 1 EA, Refills(s) 5, Pharmacy: [facility], 169, cm, 12/13/22 11:38:00 EDT, Height/Length Dosing, 72.2, kg, 12/13/22 11:38:00 EDT, Weight Dosing tiotropium, = 2 puff(s), Inhalation, Daily, X 30 day(s), # 1 EA, Refills(s) 5, Pharmacy: [facility], 169, cm, 12/13/22 11:38:00 EDT, Height/Length Dosing, 72.2, kg, 12/13/22 11:38:00 EDT, Weight Dosing 2. History of tobacco use (Z87.891: Personal history of nicotine dependence) Low-dose CT scan of the chest was ordered previously but per patient it was not covered by her insurance. We have no records of refusal by insurance and I see no reason why. We will reorder her low-dose CT of the chest to screen for lung cancer. The patient was counseled on smoking cessation and the effects of smoking on her underlying lung function and overall health status. Ordered: CT Chest, Low Dose Screening Follow-up With When Contact Information Catina Benitez MD, PUL, NOE Within [address] [place] [address]- Additional Instructions: Problem List/Past Medical History Ongoing Chronic back pain COPD exacerbation Hypertension Long-term current use of opiate analgesic drug Overweight with body mass index (BMI) of 25 to 25.9 in adult Patient had no falls in past year Shortness of breath Smoker Historical (more content not included)... Normal [facility] Comment on above: Result Comment: Elec tronically Signed By: Catina Benitez MD\.br\Date and Time Signed: 12/13/22 12:37 EDT Outside Respiratoryon 2022 Outside Respiratory [id number] 455#1.00CD:127 Normal [facility] Outside Respiratory [id number] 445#1.00CD:127 [facility] Outside Respiratory [id number].. [id number]#1.00CD:127 [facility] Outside Respiratory [id number]. [id number]#1.00CD:127 [facility] Physician Orderon 12-13-2022 Physician Order [id number].. [id number]#1.00CD:127 [facility] Pre-Certification Formon Pre-Certification Form [id number]#1.00CD:127 [facility] Family Medicine Office/Clini c Noteon 10-26-2022 Family Medicine Office/Clinic Note Chief Complaint EST uti HPI Staff 72 year old female presents with UTI symptoms she is on bactrim but she is still hurting to urinate Frequency- always Urgency-always Small volume void- Dysuria- yes Pressure- yes Back pain- yes Nocturia- yes Fever/chills- yes Nausea/vomiting-no UTI or other reason for antbx's last 30 days- yes bactrim History of Present Illness Pt presents today in office with complaints of urinary urgency, dysuria, pressure, back pain, nocturia, chills. Pt reports that she is taking Bactrim for UTI, but reports no relief. of symptoms. Pt has history of frequent UTIs in the past. Denies back pain, fevers, vaginal symptoms. Review of Systems PHQ Score Initial Depression Screen Score: 0 Physical Exam Vitals & Measurements T: 37 ?C(Oral) HR: 82(Peripheral) SpO2: 88% HT: 67 in HT: 170 cm WT: 70 kg WT: 154 lb BMI: 24.22 General: alert and oriented, well nourished, no acute distress Eyes: normal sclera and conjunctivae Face: normal, symmetrical Heart: regular rate and rhythm Chest: normal shape and expansion Lungs: clear to auscultation, no wheezing/rhonchi/ra les, good air movement Respiratory: respirations even and unlabored, able to speak in full sentences and take deep breaths without difficulty, no gasping or shortness of breath noted, no use of accessory muscles noted Neuro: speech clear and coherent Abdomen: soft, non-tender, no guarding or grimacing, bowel sounds normal, -suprapubic tenderness Back: no CVA tenderness Skin: visible skin warm, dry, good skin turgor Extremities: no cyanosis, cap refill brisk Assessment/Plan 1. Acute cystitis with hematuria (N30.01: Acute cystitis with hematuria) Discussed diagnosis and dipstick findings with patient. Will treat patient with different antibiotic since she is not having improvement with Bactrim. Patient reports that no culture was sent at time of appointment with PCP. Reviewed allergies and recent antibiotics with patient. Will send in rx of Cephalexin per patient request. Instructed patient to take antibiotic as prescribed, take with food, complete entire course of therapy even if feeling better. No culture obtained today, as patient is incontinent. Advised that if she is not improving with medication she needs to follow up with PCP or ER for straight cath. Patient instructed to push fluids. Patient symptoms should improve in the next 36-48 hours, if symptoms persist follow up with PCP. Immediate eval by ER if back or flank pain, fever, chills, N/V, or any other concerning symptoms. Patient verbalizes understanding and is agreeable to treatment plan. Ordered: cephalexin, 500 mg = 1 cap(s), Oral, q12hr, X 10 day(s), # 20 cap(s), Refills(s) 0, Pharmacy: [facility], 170, cm, 10/26/22 17:53:00 EST, Height/Length Dosing, 70, kg, 10/26/22 17:53:00 EST, Weight Dosing Follow-up With When Contact Information VICENTE REDDY DO [address] [place] [address]- Additional Instructions: Patient Education Urinary Tract Infection, Adult, [id number] Problem List/Past Medical History Ongoing Chronic back pain COPD exacerbation Hypertension Long-term current use of opiate analgesic drug Overweight with body mass index (BMI) of 25 to 25.9 in adult Patient had no falls in past year Shortness of breath Smoker Historical No qualifying data Procedure/Surgical History Dilation and curettage, Hysterectomy, Nephrectomy, Tonsillectomy. Medications Advair 500 mcg-50 mcg Powder, 1 puff(s), Inhalation, BID albuterol 0.083% Inh Veronica 3 mL, 2.5 mg= 3 mL, NEB, q6hr atenolol 25 mg Tab, 0.5 tablet, Oral, Daily Atrovent HFA 17 mcg/inh inhalation aerosol, 2 puff(s), Inhalation, QID cephalexin 500 mg Cap, 500 mg= 1 cap(s), Oral, q12hr DuoNeb 2.5 mg-0.5 mg/3 mL Soln-Inh, 3 mL, Inhalation, QID, 5 refills gabapentin 300 mg Cap, 600 mg= 2 cap(s), Oral, TID gabapentin 800 mg Tab, 800 mg= 1 tab(s), Oral, TID Spiriva Respimat 60 ACT 2.5 mcg/inh inhalation aerosol, 2 puff(s), Inhalation, Daily Stiolto Respimat 2.5 mcg-2.5 mcg inhalation aerosol, 2 puff(s), Inhalation, q24hr, 5 refills Allergies clindamycin (Rash) levoFLOXacin (SOB - Shortness of breath) Social History Alcohol - No Risk, 08/17/2017 Substance Abuse - No Risk, 08/17/2017 Tobacco - Denies Tobacco Use, 01/19/2022 10 or more cigarettes (1/2 pack or more)/day in last 30 days Tobacco Use:. Never Smokeless Tobacco Use:. Cigarettes, Yes, 10/26/2022 10 or more cigarettes (1/2 pack or more)/day in last 30 days Tobacco Use:. Never Smokeless Tobacco Use:. Cigarettes, 05/01/2022 Former smoker, quit more than 30 days ago Tobacco Use:., 01/19/2022 Former smoker, quit more than 30 days ago Tobacco Use:., 01/19/2022 Family History Family history is negative Normal [facility] Comment on above: Result Comment: Elec tronically Signed By: Danni Arambula\.br\Date and Time Signed: 10/26/22 18:12 EST Patient Educationon 10-26-19 Patient Education Obstetrics and Gynecology Urinary Tract Infection, Adult A urinary tract infection (UTI) is an infection of any part of the urinary tract. The urinary tract includes: ? The kidneys. ? The ureters. ? The bladder. ? The urethra. These organs make, store, and get rid of pee (urine) in the body. What are the causes? This is caused by germs (bacteria) in your genital area. These germs grow and cause swelling (inflammation) of your urinary tract. What increases the risk? You are more likely to develop this condition if: ? You have a small, thin tube (catheter) to drain pee. ? You cannot control when you pee or poop (incontinence). ? You are female, and: ? You use these methods to prevent : ? A medicine that kills sperm (spermicide). ? A device that blocks sperm (diaphragm). ? You have low levels of a female hormone (estrogen). ? You are . ? You have genes that add to your risk. ? You are sexually active. ? You take antibiotic medicines. ? You have trouble peeing because of: ? A prostate that is bigger than normal, if you are male. ? A blockage in the part of your body that drains pee from the bladder (urethra). ? A kidney stone. ? A nerve condition that affects your bladder (neurogenic bladder). ? Not getting enough to drink. ? Not peeing often enough. ? You have other conditions, such as: ? Diabetes. ? A weak disease-fighting system (immune system). ? Sickle cell disease. ? Gout. ? Injury of the spine. What are the signs or symptoms? Symptoms of this condition include: ? Needing to pee right away (urgently). ? Peeing often. ? Peeing small amounts often. ? Pain or burning when peeing. ? Blood in the pee. ? Pee that smells bad or not like normal. ? Trouble peeing. ? Pee that is cloudy. ? Fluid coming from the vagina, if you are female. ? Pain in the belly or lower back. Other symptoms include: ? Throwing up (vomiting). ? No urge to eat. ? Feeling mixed up (confused). ? Being tired and grouchy (irritable). ? A fever. ? Watery poop (diarrhea). How is this treated? This condition may be treated with: ? Antibiotic medicine. ? Other medicines. ? Drinking enough water. Follow these instructions at home: Medicines ? Take blch-uaq-virzpea and prescription medicines only as told by your doctor. ? If you were prescribed an antibiotic medicine, take it as told by your doctor. Do not stop taking it even if you start to feel better. General instructions ? Make sure you: ? Pee until your bladder is empty. ? Do not hold pee for a long time. ? Empty your bladder after sex. ? Wipe from front to back after pooping if you are a female. Use each tissue one time when you wipe. ? Drink enough fluid to keep your pee pale yellow. ? Keep all follow-up visits as told by your doctor. This is important. Contact a doctor if: ? You do not get better after 1?2 days. ? Your symptoms go away and then come back. Get help right away if: ? You have very bad back pain. ? You have very bad pain in your lower belly. ? You have a fever. ? You are sick to your stomach (nauseous). ? You are throwing up. Summary ? A urinary tract infection (UTI) is an infection of any part of the urinary tract. ? This condition is caused by germs in your genital area. ? There are many risk factors for a UTI. These include having a small, thin tube to drain pee and not being able to control when you pee or poop. ? Treatment includes antibiotic medicines for germs. ? Drink enough fluid to keep your pee pale yellow. This information is not intended to replace advice given to you by your health care provider. Make sure you discuss any questions you have with your health care provider. Document Released: 02/26/2009 Document Revised: 08/28/2019 Document Reviewed: 03/20/2019 [employer] Patient Education ? 2019 [employer]. [facility] Coding Summary.on 09-01-2022 Coding Summary. [id number] TTk6tWm+PGhlYWQ+PE1 FBOFuF49tqYRpvX9XZ2 bMDZ3UJMGTNDFKXJ6PI J4fyWA2YNluM1PotxPl KdinkUZyPG31SLq4GVT 4vCwfQNwtzV9uuEHcT1 j2DlAuVJ97cQ63TWodA MOhGhA9AxGltzqqkUQe U5uhMzOpbHTlMuy+PHR hYmxlIHdpZHRoPScxMD AsPzEldJuzQH9sTh6qJ GVyLWNvbGxhcHNlOiBj b8rwSYLxVTnoUO5hoVj gI1BdtFF2IONpd0s7Sr 48dHI+UEVlRNK0jWujT Cnzr402LgFdn9gnGFW8 zLKtCIudWQN4W70ak1E 4XLAvVHAzRIR5nAP4uA 8vdXripipvC2EgiVTvC eK3OTY5oJNewY5htSzc kczevE5zQgm+F94CRV8 WBBHPNC8UDrt6R8EuGe wvdHI+BG67GUWxZW47t WPeiYZnc3lmfUb2SxCk ZLJfISC8tJzyPSvvc8K gDIHwQ19tzMBxe7O4XG EljWwkoNQiOjWfzIE4c G8uHZkthgxhw8adgorl Gclbk3xrnk76sE79R05 cMUhwOMEvUZL4BZFoRX GftOrwvj2iyR8uZe0+I Vrlx0awt3jslEt9GgTf YDInpoChrNyrZLX2d2I zNr40D0QrdSlks8EjHv e5lb49mTRjf8E5pVF1K FjcOTSrxQ3bAKzsJwD7 ERSaByEqmO34oQLzRBk oHo2hyNrbbQzkRU2iBC QruwiyIXKwqO2xOVQnl TIzpHlkEB1lSHDrfnli q878MwZuPMT3JMOcuUR pZ3MzwR1cHhAySGIrRW OlJ6YpvNQlBYyqU757Q OhwGqP6HKElxfCwS6Os BSRmtGyrEwM1k6O7Jz8 Hk6ZzjndvIDH4BXnxQX GvFxS4FgDmHhC5U2YgZ np6NTIonPrdML8uU9Bt DLKnpqpiwfustNR3LUQ oJBXmnQ12hJRqVVwdAe 7jn9F1e082URNlEEOmk E84Tc7ytCjpMOSonLLV uB9vlsxzl0bxsltiQzS kIZRpNMp5NSm9QTLokW doZiJuJSJ7JjS6ASA1l ZXimI5fgXymlbxcpK7z Oyc+H48woK2fNUR7SKJ 0qwpmZAGewkJjEI49EI 23W1XkLrlavKMmcUO+P EDsxzAspLldHK1mMiYi q8iwr4ZrAIpdM7XhCNA eVQwrPmz2UBYnPWU0tY T6tM2tXMJxEVjya3W1f VG1H4UqlwMttk2ka6uq SQIdJTvlC59hsUQqz2I 4QGPqcRD0RTKppFhwMn ZpnR00Nfo+PGNvbGdyb 4XhJklxf0ksr0dweGy2 IjMwJSIgdmFsaWduPSJ 4k0KvJv12B24wIBzqGM RoPSIxNSUiIHZhbGlnb t0fgO8gYz0+PGNvbCB3 gYZ6wC7pXNVbYtT8QFr hU796FyVjcZOzNcxvq9 jkr8booZc5QaJoILDxb oOqpAqwVJN1q4ApKe50 Y15jAJbcOYKvYRWsKXA eJZCcmXzqro8yuK0yVd 8+OD8sq6dzwt74bS23v HI+OIRkNVO8uVnlGGbo YUAcmG7dFRnlRbQ3RKN eMzRjpK08zJHeNBiaQf 0cyJersHoaTX4nUJBig lchr176CjKly1rwCQUg pUDrIPyaFNH8I21vd9A 5STWmOWWePQY6cGP4iV 1hbGlnbjogbGVmdDsgd hLmaZecNFtsIBdhO535 IHRvcDsnPlBhdGllbnQ tJyAeSLl2M7NgPqp9HJ SjjEcmOX2kcJMnUNpsM y9dxPfucQgnGG6tQWCu ftvtb466TzWqn8yfEYI qhQIoYNulLZL3I96ca9 J5FWKkWXTbDIB8lMC6n L7hyQiwfrxadISkiQun mcOhgIagOJncHZffO62 6IHRvcDsnPkJpcnRoIE GseIU5LR94IL17xXBxk 5H0yNO5V9AzPODfwcge wszcpYO1QNTkSFSlhV4 9Qo0fjFfnIw3rRKIjSK W4BDMjeBDdL1IzzO4iZ aBmFJOvPISbD3LkcBDg VScgQ708GWdtQrO2BJA cfcTfW8HaGBBhjDtoAq N2n9H1It7QO7B6IJ98S D19iDPjf0K7rNO8C5Af EACprdemmaykbNT9HOQ xDNKmyG60Bg6niXocTm 9kXJPqHEJ6NVHehSIkW 6IwiK0jMjXfAKAsHIBh A4YpyKTeQAraQ091KNh hCkR0LUWwdcOdK9MpKY PqpKqtMyR4b6H6At2RB Vk5ZN37YI17iUQkj3U4 lJB9C4BdUEBszixcsrj hoOZ1HYXfSLOyyB68Xw 0dnQwkOw1yHAXtQNM9S QWoxFSjY7BvgP5nRiEw JWRdTNRpW3QpeLLgAYb mC621GRpiLrV6QWAphd EkY2GcOVXrdCsoYeR0y 3A1Hj7AGLFmVW18AYZ8 aLK9KG09FW27M0NmImp vdGFibGU+PHRhYmxlIH dpZHRoPScxMDAlJyBzd OiuXI1oEu1oCSUbJJIz xYkloDYaZfWea7dpENQ mJEahGC3etTuwP5IwzX B2RFLaa6m7Wx06L79fP 3JvdXA+BGFhxYA3cVB7 qA9mAbSlKoP3CKfaK82 6VyAbcTOnIjbqo5dka4 hiyUz4WrB3EPMttzSgc ExsASF7z8SuNs65B97a IHdpZHRoPSIxNSUiIHZ bxLylcg9gpS8yGa1+PG DhbAE1bHY0mW7bOmXkZ oR2XDovF168HzIzgFCk Lcfbl3fyz0dfsNs7RiI pOKCqzdKsvWlrDRI1q8 UwGu25Z1ByzGczz3AwT li9mf45lXEjy9V2pFN0 U2YwTSFwqwrvfBZevJq lWE3oVOOgfqxqRWKuuU 8eMUOuV6j8CcLrKwS6Z KqcC8YntsR9KPTpeLIw NEnxHCT3C85tj1J2TCG kUVFkIOI2zOD2fN5idI lnbjogbGVmdDsgdmVyd DinZQnlJVofE029XXTs pVurOCBzpM6mYOYayZA grYzbDQ0jJIYjqggrQh VRI2haSTXWZpENPWYnZ jwvdGQ+PVSdPBW1vIeo HWpdNQQznV6sDWNoG4w 9AoHsFxR7SUnmA6SkTH EmqckaVz62lC1lAsRrO xC2HGwwA0SgyrO2TTUy hZRcDZvcFJA4M60ph0R 7HVGeTICbQXO7pKS5gN 1hbGlnbjogbGVmdDsgd rPdzSqqUQotPCqsX260 VAPslEgwJwElInS1MnM 9VCA5R1JvXpt3WDUzxR wtNQ6vwRLjSObkIg7ci GtzcCpuOK3vMUCgisjm RARroH9jNQUfoRLflHr vDN1jHOGcugxuu958Nl QkMBX4HKKxlAPtB9Yed C9qMlBzXRPhQJZwT5Dh oORqQHftB558SYdbMiO 8FLJzavPgJ3VcMHQskI hlFiP3i7A8Tt89KpFUC WFyczwvdGQ+PHRkIHN0 eYxoFSygFIBjjO7vSRX mV3n9EgYkGwV2NXzbP3 TeIIGlhcpdBx94gD7oY uNcWzA2EZrlZ0BzowL1 AQDruYOfCKreNUC0N79 ah3F2GBOaNBDcKIL8wN Y2pH9btRuyakuwqQSnp DsgdmVydGljYWwtYWxp C474BEGphCyfByVsqKE sZTwvdGQ+HLTgYIK3oM dkRAnoEWUwdS7rJOFwU 7s1CxCdWtP6JCdsV5Pr GZNyhxonGu99yX1hQeD cWzL4RGblA5EbxuJ6OU NzmXHkFZobHIL1E25di 0A1JFNcUFOaGGD8fXY3 hO6ljDhdvvynjLRxkWx gdmVydGljYWwtYWxpZ2 96OAFvsVfdLq97oHQnz AqxwcL8O3SuLbwchDS+ GK89MGWlTN50dNAxvOG gu7iizFx3PzMxCSGtWB U8cPwiAEzet9ZvNMMuT 08zrJSpm1P4RQJggNle dUXbAqYrxYF6vK4gXYz pdczxs8tymnppSknsh4 kgdj46sN97L91hRVcmI HRoPSIzMCUiIHZhbGln im7usZ5zMi3+PGNvbCB 1oMV5lT4bZpAeZhK9NR lhI503McTgaCQyKdqls 4oon4bipZv6IlJfAGGj zyUfcLvyPGC7r8NtIf2 3T90hQCpgGRNmELJyTU OwCDUsoPhjow0uaE4dQ i8+QZ1md4oggu16kS73 dHI+XZZlAHT4vShdCGt uYDDulS0rRMqcXiB0QR OtPdRygR02qGXnDNpbX u2dlUvgpIynAY4uCWLh yijja322QvBid1ijTLC zhLMdRGdbJCL4Y76az7 C5FLVrFSSaXLW5gZJ7z I3peVscgfywjKLmuIze duCvkFaiWTfeMPhcG90 3FYJkbIthPtKnrOCoX2 akxcFIBC8oUxyseEO+P SMaLAC1jMyhWWkpTQAb gI9hUALbE4i9SmQeZvW 9GJjnR7IvbvY1CECxyX XfKGDjlRPBrS3hwfytg 4hqzkalFtXxUGJzLWb5 BGh9UEWflTviXzHeHIE 9YcH1VIC7aWSzlC6tqX qbuolxmG4vHtq+RklOO jwvdGQ+UPCiBJN5uJrm XHsbCQVyeB7qNLHtO0n 8QtAmHyR8TNeoG3Fusi M9MRYlcVJeZDBnrJYPi V6uptxtp3xqokyrRhPi NIDwUMw9VSc8BKFhaGb pZzXxZLK0VhO7DGR9gK WzvL5qxOilqgdvjQ6tV yc+TVJOOjwvdGQ+PHRk KNR8oVwmQCkbBOBmfE0 tGWBuP9j2ZuSpMpL0NF usC7MfltZ6XOUrzNDoL PMaqFAKjQ5tlvtkc8xt mmhfKfRjGDMxMZk8WJk 9IOIwfPbaWeGvPYQ8Np D9YAC1vCAmwG2lfUngo sksqA1xIwz+YKH0BOF5 GM90NR89P3XuIeiqtPH ibGU+PHRhYmxlIHdpZH RoPScxMDAlJyBzdHlsZ T1ePl5aSHVtIKYcyHpp cHNl (more content not included)... Normal [facility] Reference Laboratory Testing Ordered By: Hoa Pitt on 04-13-2022 Test Name toxflex 23 Invalid Interpretation Code [facility] SendOutsSS CHEMISTRYOrdered By: SYSTEM SYSTEM on 01-20-2022 Albumin [Mass/Vol] 3.5 g/dL Normal 3.3 - 5.0 gm/dL [facility] Albumin/Globulin [Mass ratio] 1.2 {ratio} Normal 1.1 - 2.2 [facility] ALP [Catalytic activity/Vol] 107 [iU]/d High 21 - 98 Int._Unit/L [facility] ALT No additional P-5'-P [Catalytic activity/Vol] 7 [iU]/d Normal 6 - 46 Int._Unit/L [facility] Anion gap [Moles/Vol] 14 mmol/L Normal 6 - 16 mEq/L [facility] AST [Catalytic activity/Vol] 14 [iU]/d Normal 5 - 43 Int._Unit/L [facility] Bilirubin [Mass/Vol] 0.7 mg/dL Normal 0.0 - 1 .1 mg/dL [facility] Bilirubin.direct [Mass/Vol] mg/dL Normal 0.1 - 0.4 mg/dL [facility] Bilirubin.indirect [Mass or moles/Vol] Unable to Calculate mg/dL Invalid Interpretation Code 0.1 - 0.9 mg/dL [facility] Calcium [Mass/Vol] 9.2 mg/dL Normal 8.9 - 11. 1 mg/dL [facility] Chloride [Moles/Vol] 94 mmol/L Low 101 - 1 11 mmol/L [facility] CO2 [Moles/Vol] 31 mmol/L Normal 21 - 31 mmol/L [facility] Cobalamin (Vitamin B12) [Mass/Vol] 134 pg/mL Normal 50 - 1500 pg/mL [facility] Creatinine [Mass/Vol] 0.6 mg/dL Normal 0.5 - 1.3 mg/dL [facility] CRP [Mass/Vol] 0.6 mg/dL Normal <=1.9mg/dL [facility] Remis ol GFR/1.73 sq M.predicted among blacks MDRD (S/P/Bld) [Vol rate/Area] mL/min/1.73 m2 Normal >=59mL/min/1 .73 m2 FT Chem S GFR/1.73 sq M.predicted among non-blacks MDRD (S/P/Bld) [Vol rate/Area] mL/min/1.73 m2 Normal >=59mL/min/1 .73 m2 [facility] Chem S Globulin (S) [Mass/Vol] 2.8 g/dL Normal 1.4 - 4.0 gm/dL [facility] Glucose [Mass/Vol] 143 mg/dL Normal 55 - 199 mg/dL [facility] Potassium [Moles/Vol] 4.0 mmol/L Normal 3.5 - 5.3 mmol/L [facility] Prealbumin IA [Mass/Vol] 14 mg/dL Low 17 - 42 mg/dL [facility] Protein [Mass/Vol] 6.3 g/dL Normal 6.0 - 7.8 gm/dL [facility] Sodium [Moles/Vol] 135 mmol/L Normal 135 - 145 mmol/L [facility] TSH Qn 1.12 m[IU]/L Normal 0.34 - 5.60 mcIU/mL [facility] Urea nitrogen [Mass/Vol] 12 mg/dL Normal 5 - 21 mg/dL [facility] Urea nitrogen/Creatinine [Mass ratio] 20 mg/mg Normal 10 - 20 [facility] Amphetamines Screen method >1000 ng/mL Ql (U) Negative (01/20/22 12:32 AM) Normal Negative [facility] Barbiturates Screen Ql (U) Negative (01/20/22 12:32 AM) Normal Negative [facility] Benzodiazepines Ql (U) Negative (01/20/22 12:32 AM) Normal Negative [facility] Cocaine Ql (U) Negative (01/20/22 12:32 AM) Normal Negative [facility] Opiates Screen Ql (U) Negative (01/20/22 12:32 AM) Normal Negative [facility] Phencyclidine Screen method >25 ng/mL Ql (U) Negative (01/20/22 12:32 AM) Normal Negative [facility] Tetrahydrocannabinol Screen method >50 ng/mL Ql (U) Negative (01/20/22 12:32 AM) Normal Negative [facility] COAGULATIONOrdered By: Naveen Delacruz on 01-20-2022 aPTT Coag (PPP) [Time] 30.5 s Normal 25.1 - 36.5 second(s) [facility] Auto Coag INR Coag (PPP) [Relative time] 1.1 {INR} Invalid Interpretation Code [facility] Auto Coag PT Coag (PPP) [Time] 12.6 s Normal 10.2 - 12.9 second(s) [facility] Auto Coag HEMATOLOGYOrdered By: SYSTEM SYSTEM on 01-20-2022 Basophils/100 WBC (Bld) 0.6 % Normal 0.0 - 2.0 % [facility] Basophils/Leukocytes Auto (Bld) [Pure # fraction] 0.0 E9/L Normal 0.0 - 0.2 E9/L [facility] Eosinophils/100 WBC (Bld) 0.0 % Normal 0.0 - 8.0 % [facility] Eosinophils/Leukocytes Auto (Bld) [Pure # fraction] 0.0 E9/L Normal 0.0 - 0.5 E9/L [facility] Lymphocytes/100 WBC (Bld) 19.0 % Normal 14.0 - 50.0 % [facility] Lymphocytes/Leukocytes Auto (Bld) [Pure # fraction] 0.6 E9/L Low 1.0 - 4.0 E9/L [facility] Monocytes/100 WBC (Bld) 4.2 % Normal 4.0 - 14.0 % [facility] Monocytes/Leukocytes Auto (Bld) [Pure # fraction] 0.1 E9/L Low 0.2 - 1.0 E9/L [facility] Neutrophils/100 WBC (Bld) 76.2 % High 36.0 - 75.0 % [facility] Neutrophils/Leukocytes Auto (Bld) [Pure # fraction] 2.4 E9/L Normal 2.0 - 7.5 E9/L [facility] HEMATOLOGYOrdered By: Cherie Tee on 01-20-2022 Erythrocyte distribution width (RBC) [Ratio] 13.8 % Normal 10.9 - 14.2 % [facility] Hematocrit (Bld) [Volume fraction] 32.6 % Low 34.0 - 46.0 % [facility] Hemoglobin (Bld) [Mass/Vol] 10.8 g/dL Low 12.0 - 16.0 gm/dL [facility] MCH (RBC) [Entitic mass] 30.1 pg Normal 27.0 - 34.0 pg [facility] MCHC (RBC) [Mass/Vol] 33.2 g/dL Normal 31.4 - 36.0 gm/dL [facility] MCV (RBC) [Entitic vol] 90.7 fL Normal 80.0 - 100.0 fL [facility] Platelet mean volume (Bld) [Entitic vol] 7.9 fL Normal 6.4 - 10.8 fL [facility] Platelets (Bld) [#/Vol] 208.0 E9/L Normal 150. 0 - 500.0 E9/L [facility] RBC (Bld) [#/Vol] 3.6 E12/L Low 4.3 - 5.9 E12/L [facility] WBC corrected for nucl RBC Auto (Bld) [#/Vol] 3.1 E9/L Low 4.0 - 11.0 E9/L [facility] URINALYSISOrdered By: Odette Watson on 01-20-2022 Bacteria LM Ql (Urine sed) Trace /HPF Normal Trace/HPF [facility]A Auto SS Bilirubin Ql (U) Negative (01/20/22 12:32 AM) Normal Negative [facility] Auto SS Clarity (U) Slightly Cloudy *ABN* (01/20/22 12:32 AM) Invalid Interpretation Code Clear [facility]A Auto SS Color (U) Yellow (01/20/22 12:32 AM) Normal Yellow [facility] Auto SS Epithelial cells.squamous LM.HPF (Urine sed) [#/Area] 0-2 /HPF Normal 0-2/HPF [facility] UA Aut o SS Glucose Test strip (U) [Mass/Vol] Negative (01/20/22 12:32 AM) Normal Negative [facility] UA Auto SS Hemoglobin Ql (U) Negative (01/20/22 12:32 AM) Normal Negative [facility]A Auto SS Ketones (U) [Mass/Vol] 1+ *ABN* (01/20/22 12:32 AM) Invalid Interpretation Code Negative [facility] UA Auto SS [place].plasma/[place]. RBC (Bld) [Mass ratio] 0-3 /HPF Normal 0-3/HPF [facility] UA A uto SS Mucus Ql (Urine sed) Trace (01/20/22 12:32 AM) Normal [facility] UA Auto SS Nitrite Ql (U) Negative (01/20/22 12:32 AM) Normal Negative [facility] UA Auto SS pH (U) 8.5 *NA* (01/20/22 12:32 AM) Invalid Interpretation Code 5.0 - 9.0 [facility] UA Auto SS Phosphate crystals amorphous LM Ql (Urine sed) Present (01/20/22 12:32 AM) Normal [facility] UA Auto SS Protein (U) [Mass/Vol] Negative (01/20/22 12:32 AM) Normal Negative [facility] UA Auto SS Specific gravity (U) [Rel density] 1.015 *NA* (01/20/22 12:32 AM) Invalid Interpretation Code 1.005 - 1.030 [facility] UA Auto SS UA Spec Desc Catheter (01/20/22 12:32 AM) Normal [facility] UA Auto SS Urobilinogen Qn (U) 0.2068724 {Shakira'U}/dL Normal 0.0 - 1.0 EU/dL FT UA Auto SS WBC Auto Ql (U) Negative (01/20/22 12:32 AM) Normal Negative [facility] UA Auto SS WBC LM.HPF (Urine sed) [#/Area] 0-5 /HPF Normal 0-5/HPF [facility] UA Auto SS CHEMISTRYOrdered By: SYSTEM SYSTEM on 01-19-2022 Ammonia (P) [Moles/Vol] 12 umol Normal 11 - 35 mcmol [facility] Ethanol [Mass/Vol] mg/dL Normal <=7mg/dL [facility] emisol Troponin I.cardiac [Mass/Vol] 3.30 pg/mL Low 10.10 - 27.10 pg/mL [facility] Anion gap [Moles/Vol] 13 mmol/L Normal 6 - 16 mEq/L [facility] Calcium [Mass/Vol] 8.9 mg/dL Normal 8.9 - 11. 1 mg/dL [facility] Chloride [Moles/Vol] 95 mmol/L Low 101 - 1 11 mmol/L [facility] CO2 [Moles/Vol] 36 mmol/L High 21 - 31 mmol/L [facility] Creatinine [Mass/Vol] 0.7 mg/dL Normal 0.5 - 1.3 mg/dL [facility] GFR/1.73 sq M.predicted among blacks MDRD (S/P/Bld) [Vol rate/Area] mL/min/1.73 m2 Normal >=59mL/min/1 .73 m2 [facility] Chem S GFR/1.73 sq M.predicted among non-blacks MDRD (S/P/Bld) [Vol rate/Area] mL/min/1.73 m2 Normal >=59mL/min/1 .73 m2 [facility] Chem S Glucose [Mass/Vol] 96 mg/dL Normal 55 - 199 mg/dL [facility] Remisol Potassium [Moles/Vol] 4.2 mmol/L Normal 3.5 - 5.3 mmol/L [facility] Remisol Sodium [Moles/Vol] 140 mmol/L Normal 135 - 145 mmol/L [facility] Remisol Troponin I.cardiac [Mass/Vol] 2.90 pg/mL Low 10.10 - 27.10 pg/mL [facility] Remisol Urea nitrogen [Mass/Vol] 13 mg/dL Normal 5 - 21 mg/dL [facility] Remisol Urea nitrogen/Creatinine [Mass ratio] 19 mg/mg Normal 10 - 20 [facility] Remisol CHEMISTRYOrdered By: Lab ROP User on 01-19-2022 Glucose [Mass/Vol] 154 mg/dL High 55 - 99 mg/dL [facility] POC Subsection POC Device SN [id number] Invalid Interpretation Code [facility] POC Subsection POC User ID [id number] Invalid Interpretation Code [facility] POC Subsection POC Username TYRELL SHAIKH Invalid Interpretation Code [facility] POC Subsection CHEMISTRYOrdered By: Nicole Vicente se on 01-19-2022 Natriuretic peptide B (Bld) [Mass/Vol] 207 pg/mL High 5 - 80 pg/mL [facility] HemeManSS Blood GasesOrdered By: Cinthia Alvarez on 01-19-2022 a/A Ratio Art 45.70 % Normal >=0.80% [facility] Resp A uto SS AaDO2 Art 91.1 mm[Hg] High 5.0 - 15.0 mmHg [facility] Resp Auto SS Allens Test Positive (01/19/22 10:59 PM) Normal [facility] Resp Auto SS Base Excess Arterial 9.9 mmol/L Normal >=2.8mmol/L [facility] C Resp Auto SS cCa2+ Art 4.90 mg/dL Normal 4.40 - 5.30 mg/dL [facility] Resp Auto SS cCl- Art 96.0 mmol/L Low 101.0 - 111.0 mmol/L [facility] Resp Auto SS cGlu Art 154 mg/dL High 55 - 99 mg/dL [facility] Resp Auto SS cK+ Art 4.0 mmol/L Normal 3.5 - 5.3 mmol/L [facility] Resp Auto SS cLac Art 1.0 mmol/L Normal 0.5 - 2.2 mmol/L [facility] Resp Auto SS pediatric rn+ Art 140.0 mmol/L Normal 135.0 - 145.0 mmol/L [facility] Resp Auto SS Drawn by cye Invalid Interpretation Code [facility] Resp Auto SS FCOHb Art 1.0 % Low 1.5 - 4.9 % [facility] Resp Aut o SS FIO2 BG 32 Invalid Interpretation Code [facility] Resp Auto SS FMetHb Art 0.4 % Normal 0.0 - 1.9 % [facility] Resp Aut o SS FO2Hb Art 96.0 % Normal 92.0 - 100.0 % [facility] Resp Auto SS HCO3 (Bld) [Moles/Vol] 33.7 mmol/L High 22.0 - 26.0 mmol/L [facility] Resp Auto SS Hemoglobin (Bld) [Mass/Vol] 10.7 g/dL Low 12.0 - 16.0 gm/dL [facility] Resp Auto SS P CO2 Arterial 50.4 mm[Hg] High 35.0 - 45.0 mmHg [facility] Resp Auto SS P O2 Arterial 76.6 mm[Hg] Low 80.0 - 100.0 mmHg [facility] Resp Auto SS pH Arterial 7.453 High 7.350 - 7.450 [facility] Resp Auto SS Sample Site R Radial (01/19/22 10:59 PM) Normal [facility] Resp Auto SS Sample Type Arterial Draw (01/19/22 10:59 PM) Normal [facility] Resp Auto SS HEMATOLOGYOrdered By: SYSTEM SYSTEM on 01-19-2022 Basophils/100 WBC (Bld) 1.4 % Normal 0.0 - 2.0 % [facility] Heme[facility] Basophils/Leukocytes Auto (Bld) [Pure # fraction] 0.1 E9/L Normal 0.0 - 0.2 E9/L [facility] Eosinophils/100 WBC (Bld) 11.5 % High 0.0 - 8.0 % [facility] Eosinophils/Leukocytes Auto (Bld) [Pure # fraction] 0.6 E9/L High 0.0 - 0.5 E9/L [facility] Lymphocytes/100 WBC (Bld) 22.0 % Normal 14.0 - 50.0 % [facility] Lymphocytes/Leukocytes Auto (Bld) [Pure # fraction] 1.1 E9/L Normal 1.0 - 4.0 E9/L [facility] Monocytes/100 WBC (Bld) 6.1 % Normal 4.0 - 14.0 % [facility] Monocytes/Leukocytes Auto (Bld) [Pure # fraction] 0.3 E9/L Normal 0.2 - 1.0 E9/L [facility] Neutrophils/100 WBC (Bld) 59.0 % Normal 36.0 - 75.0 % [facility] Neutrophils/Leukocytes Auto (Bld) [Pure # fraction] 3.0 E9/L Normal 2.0 - 7.5 E9/L [facility] HEMATOLOGYOrdered By: Nicole knight on 01-19-2022 Erythrocyte distribution width (RBC) [Ratio] 13.6 % Normal 10.9 - 14.2 % [facility] Hematocrit (Bld) [Volume fraction] 33.8 % Low 34.0 - 46.0 % [facility] Hemoglobin (Bld) [Mass/Vol] 10.8 g/dL Low 12.0 - 16.0 gm/dL [facility] MCH (RBC) [Entitic mass] 29.6 pg Normal 27.0 - 34.0 pg [facility] MCHC (RBC) [Mass/Vol] 32.1 g/dL Normal 31.4 - 36.0 gm/dL [facility] MCV (RBC) [Entitic vol] 92.5 fL Normal 80.0 - 100.0 fL [facility] Platelet mean volume (Bld) [Entitic vol] 8.2 fL Normal 6.4 - 10.8 fL [facility] Platelets (Bld) [#/Vol] 203.0 E9/L Normal 150. 0 - 500.0 E9/L [facility] RBC (Bld) [#/Vol] 3.7 E12/L Low 4.3 - 5.9 E12/L [facility] WBC corrected for nucl RBC Auto (Bld) [#/Vol] 5.1 E9/L Normal 4.0 - 11.0 E9/L [facility] Heme[facility] Comment on above: Result Comment: Merlyn do reviewed by sb. Progress Noteson 01-19-2022 Support Merchandiser Authentication Interface Message Text EMERGENCY TRIAGE, TREAT AND TRANSPORT (ET3) DOCUMENTATION OF TELEHEALTH VISIT Date / Time: 01/18/20222214 Name: Stef Bazan : 1950 SSN: [id number] EMS Agency: [facility] [x] Verbal consent obtained [] Implied consent - patient with potential emergency medical condition requiring assessment of capacity to refuse treatment and/or transport VITAL SIGNS: see flowsheet documentation Reason for Telehealth Visit: Shortness of breath History of Present Ilness: 71 year old female with PMH end stage COPD on 3L NC oxygen at baseline, HTN and under palliative care at home who called 911 after getting very SOB at her home. Her sister is present supporting her. Onset of symptoms was just prior to EMS arrival. Pt treated w/ breathing treatment and trial of NRM with improvement in symptoms. She is currently declining EMS with clear goal directed desire and expressed wish to remain in home for her palliative care. She has appt w/ home hospice team tomorrow. Her sister is present and supportive. Plans to stay the night with the patient. Symptoms improved with treatment. Her SOB was worse with exertion. She has declined EKG. Pt has valid DNR- CCA per EMS on scene. Refusing EMS transport. Additional pertinent PMHx, SocHx, FamHx: PMH COPD, Anxiety Meds oxygen Social lives at home with palliative care, pts sister staying with her tonight Review of Systems: Denies the following: CP, abd pain, fever, current SOB/palpitations Exam: General: Awake, no distress Thin, frail and on NC oxygen currently ENT: normocephalic, atraumatic Pulmonary: No respiratory distress, non labored breathing, was wheezing initially, not currently Cardiovascular: Well perfused Neurologic: Oriented to person, place, time and events. Moving all extremities equally. Psychiatric: Appropriate. Good insight and judgement. Medical Decision Makin71 year old with endstage COPD on 3L [place] home O2 who called EMS for feeling SOB. She is under palliative care and has appt w/ home hospice evaluation tomorrow. She was treated by EMS w/ duoneb and D stick confirmed as normal reportedly. Pt declined EKG. She is also declining EMS transport to ED. After treatment and brief period on NRM, her symptoms improved greatly and the EMS crew has successfully titrated down her O2 requirement to 4L NC, close to her baseline requirement with significantly improved symptoms. Patient is alert and oriented with medical decision making capacity expressing clear and goal directed thought process to continue her home care so that she can continue to be at home. I expressed understanding her wish and my concern for the possibility of her symptoms getting acutely worse which she might not be able to control in her home. Her sister is present and expressed understand of this as did the patient. The patient, family, EMS and myself are in agreement that the patient looks much better and in conjunction with her expressed wishes to remain home as well as continue the home hospice assessment process tomorrow, we will allow her to stay home under the care of her sister with her home oxygenconcentrator. The patient is clearly aware of the severity of her symptomsand expressed her desire to continue to treat her terminal COPD symptomsat home with the scheduled home hospice program tomorrow. She is to call 911 back if they need support at all. Disposition Supported by Telehealth Assessment: ET3 transport decisions: Refused transport EMS Disposition Reported: Same ET3 Encounter Completed by: Praveen Jeffrey DO Normal [facility] Vital Signs Date Time Vital Sign Value Performing Clinician Facility 08-10-2023 15:49-0500 Respiratory rate 20 /min [facility] 08-10-2023 15:35-0500 Heart rate 99 /min [facility] 08-10-2023 15:35-0500 Respiratory rate 20 /min [facility] 08-10-2023 15:35-0500 SaO2% (BldA) [Mass fraction] 97 % [facility] 08-10-2023 15:10-0500 Hourly Rounding [facility] 08-10-2023 15:10-0500 Promise to Return [facility] 08-10-2023 14:18-0500 Hourly Rounding [facility] 08-10-2023 14:18-0500 Promise to Return [facility] 08-10-2023 14:00-0500 Hourly Rounding [facility] 08-10-2023 13:18-0500 Promise to Return [facility] 08-10-2023 11:25-0500 Respiratory rate 16 /min [facility] 08-10-2023 11:24-0500 Heart rate 80 /min [facility] 08-10-2023 11:24-0500 SaO2% (BldA) [Mass fraction] 99 % [facility] 08-10-2023 11:23-0500 Body temperature 97.88 [degF] [facility] 08-10-2023 11:23-0500 Diastolic blood pressure 86 mm[Hg] [facility] 08-10-2023 11:23-0500 Mean blood pressure 106 mm[Hg] [facility] 08-10-2023 11:23-0500 Systolic blood pressure 145 mm[Hg] [facility] 08-10-2023 08:07-0500 Heart rate 94 /min [facility] 08-10-2023 08:07-0500 SaO2% (BldA) [Mass fraction] 95 % [facility] 08-10-2023 08:02-0500 Diastolic blood pressure 74 mm[Hg] [facility] 08-10-2023 08:02-0500 Mean blood pressure 91 mm[Hg] [facility] 08-10-2023 08:02-0500 Systolic blood pressure 126 mm[Hg] [facility] 08-10-2023 08:02-0500 Body temperature 98.24 [degF] [facility] 08-09-2023 23:49-0500 Body temperature 98.06 [degF] [facility] 08-09-2023 23:49-0500 Diastolic blood pressure 82 mm[Hg] [facility] 08-09-2023 23:49-0500 Systolic blood pressure 134 mm[Hg] [facility] 08-09-2023 20:05-0500 Mean blood pressure 84 mm[Hg] [facility] 08-09-2023 20:04-0500 Body temperature 98.24 [degF] [facility] 08-07-2023 20:00-0500 Body temperature 98.24 [degF] [facility] 08-07-2023 12:54-0500 Heart rate 81 /min [facility] 08-07-2023 06:14-0500 Blood Pressure Location [facility] 08-07-2023 06:14-0500 Body temperature 97.7 [degF] [facility] 08-07-2023 06:14-0500 Heart rate 99 /min [facility] 08-07-2023 05:04-0500 Mean blood pressure 95 mm[Hg] [facility] 08-07-2023 04:30-0500 Mean blood pressure 84 mm[Hg] [facility] 08-07-2023 04:30-0500 Respiratory rate 16 /min [facility] 08-07-2023 04:00-0500 Mean blood pressure 87 mm[Hg] [facility] 08-07-2023 04:00-0500 Respiratory rate 11 /min [facility] 08-07-2023 03:30-0500 [facility]piratory rate 20 /[facility] 23:29-0500 Heart rate 125 /min [facility] 07-26-2023 02:30-0400 Diastolic blood pressure 76 mm[Hg] Kaylinn Dokken [facility] 07-26-2023 02:30-0400 Heart rate 97 /min Kaylinn Dokken [facility] 07-26-2023 02:30-0400 Mean blood pressure 89 mm[Hg] Kaylinn Dokken [facility] 07-26-2023 02:30-0400 Respiratory rate 14 /min Kaylinn Dokken [facility] 07-26-2023 02:30-0400 SaO2% (BldA) [Mass fraction] 98 % Kaylinn Dokken [facility] 07-26-2023 02:30-0400 Systolic blood pressure 115 mm[Hg] Kaylinn Dokken [facility] 07-26-2023 01:41-0400 Diastolic blood pressure 77 mm[Hg] Kaylinn Dokken [facility] 07-26-2023 01:41-0400 Heart rate 98 /min Kaylinn Dokken [facility] 07-26-2023 01:41-0400 Mean blood pressure 90 mm[Hg] Kaylinn Dokken [facility] 07-26-2023 01:41-0400 Respiratory rate 18 /min Kaylinn Dokken [facility] 07-26-2023 01:41-0400 SaO2% (BldA) [Mass fraction] 99 % Kaylinn Dokken [facility] 07-26-2023 01:41-0400 Systolic blood pressure 116 mm[Hg] Kaylinn Dokken [facility] 07-26-2023 00:58-0400 Diastolic blood pressure 73 mm[Hg] Kaylinn Dokken [facility] 07-26-2023 00:58-0400 Heart rate 100 /min Kaylinn Dokken [facility] 07-26-2023 00:58-0400 Mean blood pressure 93 mm[Hg] Kaylinn Dokken [facility] 07-26-2023 00:58-0400 Respiratory rate 15 /min Kaylinn Dokken [facility] 07-26-2023 00:58-0400 SaO2% (BldA) [Mass fraction] 99 % Kaylinn Dokken [facility] 07-26-2023 00:58-0400 Systolic blood pressure 132 mm[Hg] Kaylinn Dokken [facility] 07-25-2023 22:53-0400 Respiratory rate 16 /min Kaylinn Dokken [facility] 07-25-2023 22:45-0400 Respiratory rate 16 /min Kaylinn Dokken [facility] 07-25-2023 21:49-0400 Body temperature 98.78 [degF] Kaylinn Dokken [facility] 07-25-2023 21:49-0400 Heart rate 109 /min Kaylinn Dokken [facility] 07-25-2023 21:49-0400 Respiratory rate 16 /min Nica Barnes [facility] 07-06-2023 17:10-0400 Diastolic blood pressure 92 mm[Hg] Jostin Duglas [facility] 07-06-2023 17:10-0400 Heart rate 103 /min Jostin Duglas [facility] 07-06-2023 17:10-0400 Mean blood pressure 105 mm[Hg] Jostin Duglas [facility] 07-06-2023 17:10-0400 Respiratory rate 34 /min Jostin Duglas [facility] 07-06-2023 17:10-0400 SaO2% (BldA) [Mass fraction] 94 % Jostin Duglas [facility] 07-06-2023 17:10-0400 Systolic blood pressure 131 mm[Hg] Jostin Duglas [facility] 07-06-2023 16:10-0400 Diastolic blood pressure 82 mm[Hg] Jostin Duglas [facility] 07-06-2023 16:10-0400 Heart rate 105 /min Jostin Duglas [facility] 07-06-2023 16:10-0400 Hourly Rounding Jostin Duglas [facility] 07-06-2023 16:10-0400 Mean blood pressure 105 mm[Hg] Jostin Duglas [facility] 07-06-2023 16:10-0400 Respiratory rate 18 /min Jostin Duglas [facility] 07-06-2023 16:10-0400 SaO2% (BldA) [Mass fraction] 98 % Jostin Duglas [facility] 07-06-2023 16:10-0400 Systolic blood pressure 152 mm[Hg] Jostin Duglas [facility] 07-06-2023 15:10-0400 Diastolic blood pressure 90 mm[Hg] Jostin Duglas [facility] 07-06-2023 15:10-0400 Heart rate 109 /min Jostin Duglas [facility] 07-06-2023 15:10-0400 Hourly Rounding Jostin Duglas [facility] 07-06-2023 15:10-0400 Mean blood pressure 108 mm[Hg] Jostin Duglas [facility] 07-06-2023 15:10-0400 Respiratory rate 15 /min Jostin Duglas [facility] 07-06-2023 15:10-0400 SaO2% (BldA) [Mass fraction] 99 % Jostin Duglas [facility] 07-06-2023 15:10-0400 Systolic blood pressure 145 mm[Hg] Jostin Duglas [facility] 07-06-2023 14:32-0400 Heart rate 112 /min Jostin Duglas [facility] 07-06-2023 14:32-0400 Respiratory rate 26 /min Jostin Duglas [facility] 07-06-2023 14:29-0400 Respiratory rate 28 /min Jostin Duglas [facility] 07-06-2023 14:20-0400 Respiratory rate 26 /min Jostin Duglas [facility] 07-06-2023 14:17-0400 SaO2% (BldA) [Mass fraction] 95.6 % Jostin Ardon [facility] Resp Auto SS 07-06-2023 14:10-0400 Hourly Rounding Jostin Ardon [facility] 07-06-2023 14:10-0400 Promise to Return Jostin Ardon [facility] 07-06-2023 13:12-0400 Body temperature 98.06 [degF] Jostin Ardon [facility] 07-06-2023 13:12-0400 Heart rate 119 /min Jostin Ardon [facility] 12-13-2022 11:36-0400 Blood Pressure Location Basenarda Benitez [facility] 12-13-2022 11:36-0400 Diastolic blood pressure 74 mm[Hg] Basem Benitez [facility] 12-13-2022 11:36-0400 Heart rate 78 /min Bannerm Benitez [facility] 12-13-2022 11:36-0400 SaO2% (BldA) [Mass fraction] 96 % Bannerm Benitez [facility] 12-13-2022 11:36-0400 Systolic blood pressure 114 mm[Hg] Basem Benitez [facility] 10-26-2022 17:49-0500 Body temperature 98.6 [degF] Danni Cha [facility] 10-26-2022 17:49-0500 Heart rate 82 /min Danni Cha [facility] 10-26-2022 17:49-0500 SaO2% (BldA) [Mass fraction] 88 % Danni Cha [facility] 05-10-2022 15:02-0400 Respiratory rate 20 /min Basem Benitez [facility] 05-08-2022 14:50-0400 Blood Pressure Location Basem Benitez [facility] 05-08-2022 14:50-0400 Diastolic blood pressure 67 mm[Hg] Basem Benitez [facility] 05-08-2022 14:50-0400 Heart rate 86 /min Basem Benitez [facility] 05-08-2022 14:50-0400 SaO2% (BldA) [Mass fraction] 99 % Basem Benitez [facility] 05-08-2022 14:50-0400 Systolic blood pressure 98 mm[Hg] Basem Benitez [facility] 05-01-2022 13:45-0400 Blood Pressure Location Lorena OLIVERA [facility] 05-01-2022 13:45-0400 Body temperature 98.6 [degF] Lorena OLIVERA [facility] 05-01-2022 13:45-0400 Diastolic blood pressure 70 mm[Hg] Lorena ORTIZLEY [facility] 05-01-2022 13:45-0400 Heart rate 105 /min Lorena JOSELIN [facility] 05-01-2022 13:45-0400 SaO2% (BldA) [Mass fraction] 99 % Lorena OLIVERA [facility] 05-01-2022 13:45-0400 Systolic blood pressure 130 mm[Hg] Lorena OLIVERA [facility] 01-23-2022 14:00-0400 Hourly Rounding Dav SCOTT [facility] 01-23-2022 14:00-0400 Promise to Return Dav SCOTT [facility] 01-23-2022 12:00-0400 Blood Pressure Location Dav SCOTT [facility] 01-23-2022 12:00-0400 Body temperature 96.8 [degF] Dav SCOTT [facility] 01-23-2022 12:00-0400 BP/Pulse Patient Position Dav SCOTT [facility] 01-23-2022 12:00-0400 Diastolic blood pressure 81 mm[Hg] Dav YEUNGSLIN [facility] 01-23-2022 12:00-0400 Heart rate 88 /min Dav YEUNGSLIN [facility] 01-23-2022 12:00-0400 Mean blood pressure 105 mm[Hg] Davrenzo YEUNGSLIN [facility] 01-23-2022 12:00-0400 SaO2% (BldA) [Mass fraction] 98 % Davrenzo YEUNGSLIN [facility] 01-23-2022 12:00-0400 Systolic blood pressure 153 mm[Hg] Dav YEUNGSLIN [facility] 01-23-2022 11:51-0400 Heart rate 86 /min Dav SCOTT [facility] 01-23-2022 11:51-0400 Respiratory rate 16 /min Dav SCOTT [facility] 01-23-2022 07:51-0400 Heart rate 72 /min Dav SCOTT [facility] 01-23-2022 07:46-0400 SaO2% (BldA) [Mass fraction] 96 % Dav SCOTT [facility] 01-23-2022 07:00-0400 Blood Pressure Location Dav SCOTT [facility] 01-23-2022 07:00-0400 Body temperature 97.88 [degF] Dav SCOTT [facility] 01-23-2022 07:00-0400 BP/Pulse Patient Position Dav SCOTT [facility] 01-23-2022 07:00-0400 Diastolic blood pressure 77 mm[Hg] Dav SCOTT [facility] 01-23-2022 07:00-0400 Mean blood pressure 104 mm[Hg] Dav SCOTT [facility] 01-23-2022 07:00-0400 Systolic blood pressure 157 mm[Hg] Davrenzo SCOTT [facility] 01-23-2022 01:30-0400 Blood Pressure Location Davrenzo SCOTT [facility] 01-23-2022 01:30-0400 Body temperature 98.24 [degF] Dav YEUNGSLIN [facility] 01-23-2022 01:30-0400 BP/Pulse Patient Position Dav MEDRANOLIN [facility] 01-23-2022 01:30-0400 Diastolic blood pressure 68 mm[Hg] Dav TYLER [facility] 01-23-2022 01:30-0400 Mean blood pressure 84 mm[Hg] Dav TYLER [facility] 01-23-2022 01:30-0400 SaO2% (BldA) [Mass fraction] 97 % Dav TYLER [facility] 01-23-2022 01:30-0400 Systolic blood pressure 116 mm[Hg] Dav TYLER [facility] 01-22-2022 19:37-0400 Mean blood pressure 90 mm[Hg] Dav TYLER [facility] 01-22-2022 16:26-0400 Mean blood pressure 88 mm[Hg] Dav TYLER [facility] 01-22-2022 12:00-0400 Mean blood pressure 92 mm[Hg] Dav TYLER [facility] 01-22-2022 09:04-0400 Heart rate 85 /min Dav TYLER [facility] 01-20-2022 14:44-0400 Heart rate 80 /min Dav TYLER [facility] 01-20-2022 04:00-0400 Heart rate 74 /min Dav TYLER [facility] 01-20-2022 03:00-0400 Heart rate 79 /min Dav TYLER [facility] 01-19-2022 22:59-0400 SaO2% (BldA) [Mass fraction] 97.5 % Dav TYLER [facility] Resp Auto 01-19-2022 21:15-0400 Diastolic blood pressure 99 mm[Hg] Et3 [facility] 01-19-2022 21:15-0400 Heart rate 100 /min Et3 [facility] 01-19-2022 21:15-0400 Respiratory rate 20 /min Et3 [facility] 01-19-2022 21:15-0400 SaO2% (BldA) [Mass fraction] 97 % Et3 [facility] 01-19-2022 21:15-0400 Systolic blood pressure 162 mm[Hg] Et3 [facility] 01-19-2022 16:00-0400 Diastolic blood pressure 71 mm[Hg] [facility] 01-19-2022 16:00-0400 Heart rate 82 /min [facility] 01-19-2022 16:00-0400 Mean blood pressure 92 mm[Hg] [facility] 01-19-2022 16:00-0400 Respiratory rate 16 /min [facility] 01-19-2022 16:00-0400 Systolic blood pressure 135 mm[Hg] [facility] 01-19-2022 15:28-0400 Heart rate 80 /min [facility] 01-19-2022 15:28-0400 Respiratory rate 20 /min [facility] 01-19-2022 15:23-0400 Heart rate 75 /min [facility] 01-19-2022 15:23-0400 Respiratory rate 20 /min [facility] 01-19-2022 15:23-0400 SaO2% (BldA) [Mass fraction] 100 % [facility] 01-19-2022 15:00-0400 Diastolic blood pressure 119 mm[Hg] [facility] 01-19-2022 15:00-0400 Mean blood pressure 128 mm[Hg] [facility] 01-19-2022 15:00-0400 Systolic blood pressure 146 mm[Hg] [facility] 01-19-2022 14:00-0400 Diastolic blood pressure 81 mm[Hg] [facility] 01-19-2022 14:00-0400 Mean blood pressure 99 mm[Hg] [facility] 01-19-2022 11:18-0400 Body temperature 98.6 [degF] [facility] 01-19-2022 11:18-0400 Heart rate 83 /min [facility] 01-19-2022 11:18-0400 Respiratory rate 20 /min [facility] Encounters Encounter Date Encounter Type Care Provider Facility Start: 08-07-2023 End: 08-10-2023 [facility]ulatory [facility] Facility:[facility] Start: 08-06-2023 End: 08-10-2023 Observation Giovana Woody [facility] Start: 07-25-2023 End: 07-26-2023 Emergency department patient visit RICK DELANEY Facility:[facility] Start: 07-25-2023 End: 07-26-2023 Emergency department patient visit Nica Carmen Molly [facility] Start: 07-06-2023 End: 07-06-2023 Emergency department patient visit RICK DELANEY Facility:[facility] Start: 07-06-2023 End: 07-06-2023 Emergency department patient visit Jostin Ardon [facility] Start: 05-31-2023 End: 06-01-2023 ambulatory RICK DELANEY Facility:[facility] Start: 05-31-2023 End: 05-31-2023 Patient encounter procedure RICK DELANEY [facility] Start: 05-01-2023 End: 05-02-2023 ambulatory RICK DELANEY Facility:[facility] Start: 01-17-2023 End: 01-18-2023 ambulatory Catina Benitez Facility:[facility] Start: 01-17-2023 End: 01-17-2023 Patient encounter procedure Catina Benitez [facility] Start: 12-13-2022 End: 12-14-2022 ambulatory Catina Benitez Facility:[facility] Start: 12-13-2022 End: 12-13-2022 Patient encounter procedure Catina Benitez [facility] Start: 10-26-2022 End: 10-27-2022 ambulatory Danni Cha Facility:[facility] Start: 10-26-2022 End: 10-26-2022 Patient encounter procedure Danni Cha [facility] Start: 05-10-2022 End: 05-10-2022 Patient encounter procedure Catina Benitez [facility] Start: 05-08-2022 End: 05-08-2022 Patient encounter procedure Catina Benitez [facility] Start: 05-01-2022 End: 05-01-2022 Lab Drop off Lorena OLIVERA [facility] Start: 05-01-2022 End: 05-01-2022 Patient encounter procedure Lorena OLIVERA [facility] Start: 04-24-2022 End: 04-24-2022 Patient encounter procedure Nan Estevez [facility] Start: 04-13-2022 End: 04-13-2022 Patient encounter procedure Jason Castellanos [facility] Start: 04-03-[address] [facility] [facility] [place] : Start: 02-03-2022 Patient encounter procedure Naga Rowe DIRECTOR OF ACQUISITIONS.MOBILE HOME INSTALLER Work Phone: [facility] Start: 02-03-2022 Progress Note Naga BREWSTER RN.MOBILE HOME INSTALLER Work Phone: [facility] Department Start: 01-30-2022 Patient encounter procedure Naga Rowe DIRECTOR OF ACQUISITIONS.MOBILE HOME INSTALLER Work Phone: [facility] Start: 01-30-2022 Progress Note Naga BREWSTER RN.MOBILE HOME INSTALLER Work Phone: [facility] Start: 01-27-2022 Patient encounter procedure Naga Rowe DIRECTOR OF ACQUISITIONS.MOBILE HOME INSTALLER Work Phone: [facility] Start: 01-27-2022 Progress Note Naga BREWSTER RN.MOBILE HOME INSTALLER Work Phone: [facility] Start: 01-24-2022 Patient encounter procedure Elise Olivas Work Phone: [facility] Start: 01-24-2022 Progress Note Elise Morales Brendon Work Phone: [facility] Start: 01-19-2022 End: 01-31-2022 ambulatory UNKNOWN PROVIDER Facility:[facility] Start: 01-19-2022 End: 01-23-2022 Evaluation and management of inpatient Dav SCOTT [facility] Start: 01-19-2022 End: 01-19-2022 Emergency department patient visit Yari Deutsch [facility] Start: 01-18-2022 End: 01-18-2022 ambulatory [facility] Emergenc y Triage, Treat and Transport Start: 01-18-2022 End: 01-18-2022 Emergency department patient visit [facility] Emergency Triage, Treat and Transport Comment on above: Arrived Start: 12-16-2021 End: 12-22-2021 ambulatory UNKNOWN PROVIDER Facility:[facility] Start: 05-12-2020 End: 05-12-2020 Emergency department patient visit Smith Boo Facility:[facility] Start: 02-06-2018 End: 02-07-2018 Ambulatory DEFAULT PHYSICIAN Facility:[facility] Start: 08-02-2017 End: 08-03-2017 Ambulatory PROVIDER NOT IN SYSTEM [facility] Start: 08-02-2017 End: 08-02-2017 Ambulatory Provider Not In [facility] Radiology External Films Procedures Date Procedure Procedure Detail Performing Clinician Dilation and curettage Astri t [place] Hysterectomy Astrit [place] Tonsillectomy Astrit [place] Total nephrectomy Yari ramírez Plan of Treatment Date Care Activity Detail Author Start: 05-25-2022 Influenza vaccination INFLUENZA (Season Ended) [facility] Start: 09-24-2021 ADVANCE DIRECTIVE DISCUSSION ADVANCE DIRECTIVE DISCUSSION [facility] Start: 07-05-2021 COVID-19 Vaccine (3 - Booster for Moderna series) COVID-19 Vaccine (3 - Booster for Moderna series) [facility] Start: 01-22-2021 Welcome to Medicare Visit (G0402) Welcome to Medicare Visit (G0402) [facility] Start: 05-25-2017 Influenza vaccination SEQUENTIAL INFLUENZA VACCINE (#1) [facility] Work Phone: Start: 2015 BONE DENSITY BONE DENSITY [facility] Start: 2015 Pneumococcal vaccination [facility] Start: 2015 PNEUMOVAX AGE 65 AND OVER WITH 5YR LOOKBACK (#1) PNEUMOVAX AGE 65 AND OVER WITH 5YR LOOKBACK (#1) [facility] Start: 2015 Screening for osteoporosis Bone Densitometry [facility] Start: 2010 Zoster vaccine hzv live for subcutaneous use ZOSTER VACCINE [facility] Work Phone: Start: 12-14-2009 DIABETES SCREEN DIABETES SCREEN [facility] Start: 2000 Measurement of occult blood in single stool specimen FIT [facility] Start: 2000 Screening for malignant neoplasm of breast Mammography [facility] Start: 2000 Screening for malignant neoplasm of colon CRC Screening [facility] Start: 2000 Shingles (RZV) Vaccine (1 of 2) Shingles (RZV) Vaccine (1 of 2) [facility] Start: 2000 SHINGRIX VACCINE (1 of 2) SHINGRIX VACCINE (1 of 2) [facility] Start: 1995 Cholesterol [Mass/volume] in Serum or Plasma Cholesterol [facility] Start: 1995 COLOGUARD (FIT-DNA) COLOGUARD (FIT-DNA) [facility] Start: 1995 Colonoscopy COLONOSCOPY [facility] Start: 1995 COLORECTAL CANCER SCREENING COLORECTAL CANCER SCREENING [facility] Start: [address] COLONOGRAPHY [facility] Start: 1995 FECAL OCCULT BLOOD FECAL OCCULT BLOOD [facility] Start: 1995 LIPID SCREEN LIPID SCREEN [facility] Start: 1995 SIGMOIDOSCOPY SIGMOIDOSCOPY [facility] Start: 1990 Mammography MAMMOGRAM [facility] Start: 1969 Urine microalbumin profile DTAP,TDAP,TD (1 - Tdap) [facility] Start: 1968 Hepatitis C screening Hepatitis C Antibody [facility] Start: 1968 HEPATITIS C SCREENING HEPATITIS C SCREENING [facility] Start: 1968 Tetanus + diphtheria + acellular pertussis vaccine (product) Tdap Booster [facility] Start: 1962 Adult depression screening assessment DEPRESSION SCREENING [facility] Start: 1955 COVID-19 VACCINE (#1) COVID-19 VACCINE (#1) [facility] Start: 1955 COVID-19 VACCINE (1) COVID-19 VACCINE (1) [facility] Start: 1950 HEPATITIS C SCREENING HEPATITIS C SCREENING [facility] Work Phone: Start: 1950 Screening colonoscopy COLONOSCOPY [facility] Work Phone: Start: 1950 Screening for malignant neoplasm of colon Colonoscopy [facility] Start: 1950 Screening for osteoporosis DEXA SCAN [facility] Work Phone: Start: 1950 Tetanus vaccination TETANUS EVERY 10 YR [facility] Work Phone: End: 08-02-2017 MM Comparison Import MM Comparison Import Routine Once for 1 Occurrences starting 08/02/2017 until 08/02/2017 [facility] Work Phone: MM Comparison Import MM Comparis on Import Routine 08/02/2017 11:18 AM EST [facility] Work Phone: Immunizations Immunization Date Immunization Notes Care Provider Fa [facility] 08-10-2023 influenza, high-dose , quadrivalent Giovana Woody [facility] Comment on above: Reason for Medicatio n: Other (see comment) Payers Date Payer Category Payer Medicaid [id number] 2021 Medicare [employer] - MEDICARE AARP MEDICARE COMPLETE [id number] 2021-Present [phone] [address] [address] [place] [address] Medicare HMO [id number] 2021 Medicare UHC MEDICARE [facility] DUAL COMPLETE HMO SNP [id number] 2021-Present [phone] [address] [place] [address] Medicare [id number] 2021 Medicare [id number] 2020 Unknown [id number] 1959 Self-pay 1950 Unknown [id number] 1950 Unknown [id number] 1950 Unknown [id number] 1950 Unknown [id number] 1950 Unknown [id number] 1950 Unknown [id number] 1950 Unknown [id number] 1950 Unknown [id number] 1950 Unknown [id number] 1950 Unknown [id number] 1950 Unknown [id number] Unknown Unknown [id number] Social History Date Type Detail Facility [facility]: 08[facility]03[facility] Work Phone: Start: 1950 Sex Assigned At Not on file O [facility] Work Phone: Start: 01-19-2022 Tobacco smoking status Ex-smoker (fi nding) [facility] Sex Assigned At Female [facility] Tobacco smoking stat NHIS Smokes tobacco daily [facility] History of tobacco use Cigarette Smoker C [facility] Start: 12-14-2006 Alcohol intake Current drinke r of alcohol (finding) [facility] Start: 12-14-2006 Alcohol intake [facility] Start: 05-01-2022 End: 10-26-2022 Tobacco smoking status Heavy tobacco smoker (finding) [facility] Tobacco [facility] Functional Status Date Assessment Result Facility 08-07-2023 Functional Status N/A [facility] 08-06-2023 Functional Status [facility] 07-25-2023 Functional Status N/A [facility] 07-06-2023 Functional Status N/A [facility] 12-13-2022 Functional Status No [facility] 10-26-2022 Functional Status N/A [facility] 05-08-2022 Functional Status No [facility] 05-01-2022 Functional Status N/A [facility] Clinical Notes 01-19-2022 to 08-23-2023 Note Date & Type Note Facility 08-23-2023 Note Admission and Discha rge Information Admitting Physician - Giovana Woody MD Admitting Diagnoses: Discharge Diagnoses 1. COPD exacerbation, 08/07/2023 2. Contusion of knee, right, 08/07/2023 3. Chronic hypoxic respiratory failure, 08/07/2023 4. Hypertension, 08/07/2023 5. Chronic back pain, 08/07/2023 Fall, 08/06/2023 Knee pain-swelling, 08/06/2023 Lumbosacral radiculitis, 08/07/2023 Other chronic pain, 08/07/2023 Procedure History Dilation and curettage, Hysterectomy, Nephrectomy, Tonsillectomy. Hospital Course 72-year-old female with known COPD, who wears 3 L of oxygen chronically at home, presented with bilateral knee pain after a fall. She reports a 2-day history of respiratory symptoms. Has been having increasing cough and shortness of breath at home. Today while getting up out of her recliner she felt her left knee go out from underneath her and she went down onto the floor. Fell onto her hands and knees. Came into the ER for evaluation for continues bilateral knee pain (R>L) after the fall. Work-up in the ER revealed negative knee x-rays. Chest x-ray is negative for any acute process. She was found to have acute exacerbation of her COPD. Was given bronchodilator therapy as well as oral prednisone and Zithromax in the ER. They did get her up to ambulate her, and she was able to ambulate, but continued to desat into the upper 80s despite being on her normal 3 L of oxygen. Therefore she was admitted primarily for her breathing issues IMP 1. COPD exacerbation (J44.1: Chronic obstructive pulmonary disease with (acute) exacerbation) Seen and examined Still not feeling well Still c/w SOB and wheezing C/w headache NO fever Covid PRC is negative Respiratory panel are negative Continue albuterol nebulizer every 4 hours Continue Solu-Medrol Continue Mucinex Rocephin IV 1 daily continue azithromycin daily DC to SNF 2. Contusion of knee, right (S80.01XA: Contusion of right knee, initial encounter) XRay negative PT/OT 3. Chronic hypoxic respiratory failure (J96.11: Chronic respiratory failure with hypoxia) Wears 3LPM chronically of O2 at home, currently at baseline with rest. Desats with minimal ambulation 4. Hypertension (I10: Essential (primary) hypertension) Normotensive Home meds: Atenolol 5. Chronic back pain (M54.9: Dorsalgia, unspecified) Home meds: Gabapentin DC SNF Services Consulted Care Rep Consult - Completed -- 08/08/23 9:48:00 EST, Dr Anderson wanted consult for possible home concerns, Other Physical Exam General: alert, no acute distress Skin: warm, dry Head: no trauma, normocephalic Neck: Trachea midline, no adenopathy, no tenderness Eye: normal conjunctiva, sclera clear ENMT: TM's clear, oral mucosa moist, no pharyngeal erythema or exudate Cardiovascular: regular rate and rhythm, normal peripheral perfusion Respiratory: Lungs expiratory wheezes, respirations non labored Chest wall: no deformity. Gastrointestinal: soft, non distended, no tenderness, no guarding. Back: No tenderness, Normal ROM, Normal alignment. Extremities: no deformity, no trauma Neurological: oriented x 4, LOC appropriate for age, CN II-XII intact, motor strength equal & normal bilaterally, sensation equal & normal bilaterally, speech normal Psychiatric: cooperative, affect appropriate for age, normal judgement, normal psychiatric thoughts. Laboratory Results Automated Diff (08/06/2023) Neutro Auto - 70.7 % Lymph Auto - 16.4 % [place] Auto - 9.8 % Eos Auto - 2.1 % Basophil Auto - 1.0 % Neutro Absolute - 5.8 E9/L Lymph Absolute - 1.4 E9/L [place] Absolute - 0.8 E9/L Eos Absolute - 0.2 E9/L Basophil Absolute - 0.1 E9/L [facility] (08/09/2023) Glucose Lvl - 124 mg/dL BUN - 24 mg/dL Creatinine - 0.8 mg/dL BUN/Creat Ratio - 30 Sodium Lvl - 139 mmol/L Potassium Lvl - 4.4 mmol/L Chloride - 94 mmol/L CO2 - 37 mmol/L AGAP - 12 mEq/L Calcium Lvl - 8.8 mg/dL BMP (08/06/2023) Glucose Lvl - 117 mg/dL BUN - 17 mg/dL Creatinine - 0.8 mg/dL BUN/Creat Ratio - 21 Sodium Lvl - 138 mmol/L Potassium Lvl - 5.0 mmol/L Chloride - 93 mmol/L CO2 - 40 mmol/L AGAP - 10 mEq/L Calcium Lvl - 9.1 mg/dL CBC w/ Auto Diff (08/06/2023) WBC - 8.2 E9/L RBC - 3.6 E12/L Hgb - 10.8 gm/dL Hct - 33.7 % MCV - 93.2 fL MCH - 29.8 pg MCHC - 31.9 gm/dL RDW - 13.9 % Platelet - 301.0 E9/L MPV - 7.0 fL COVID Rapid Antigen ([facility]) (08/07/2023) Rapid COVID Ag - Not Detected Rapid COV Int NEG Ctl - Pass Rapid COV Int POS Ctl - Pass COVID-19 ([facility]) (08/08/2023) Specimen Source - Nasal COVID-19 ([facility]) - Not Detected eGFR (08/09/2023) eGFR - 78 mL/min/1.73 m2 Flu A/B (08/07/2023) Influenzae A Ag - NEGATIVE1 Influenzae B Ag - NEGATIVE1 Hepatic Function Panel (08/06/2023) Alk Phos - 94 Int._Unit/L ALT - 14 Int._Unit/L AST - 15 Int._Unit/L Total Protein - 6.6 gm/dL Albumin Lvl - 3.4 gm/dL Globulin - 3.2 gm/dL A/G Ratio - 1.1 Bili Total - 0.7 (more content not included)... [facility] Comment on above: Result Comment: Edna carlin Signed By: Alexandr ANDERSON MD\.br\Date and Time Signed: 08/23/23 14:00 EST 08-10-2023 Hospital Discharg e instructions Patient Education 08/10/2023 09:22:19 Chronic Obstructive Pulmonary Disease, Lzuv-xq-Nyub Chronic Obstructive Pulmonary Disease Chronic obstructive pulmonary disease (COPD) is a long-term (chronic) lung problem. When you have COPD, it is hard for air to get in and out of your lungs. Usually the condition gets worse over time, and your lungs will never return to normal. There are things you can do to keep yourself as healthy as possible. What are the causes? Smoking. This is the most common cause. Certain genes passed from parent to child (inherited). What increases the risk? Being exposed to secondhand smoke from cigarettes, pipes, or cigars. Being exposed to chemicals and other irritants, such as fumes and dust in the work environment. Having chronic lung conditions or infections. What are the signs or symptoms? Shortness of breath, especially during physical activity. A long-term cough with a large amount of thick mucus. Sometimes, the cough may not have any mucus (dry cough). Wheezing. Breathing quickly. Skin that looks yu or blue, especially in the fingers, toes, or lips. Feeling tired (fatigue). Weight loss. Chest tightness. Having infections often. Episodes when breathing symptoms become much worse (exacerbations). At the later stages of this disease, you may have swelling in the ankles, feet, or legs. How is this treated? Taking medicines. Quitting smoking, if you smoke. Rehabilitation. This includes steps to make your body work better. It may involve a team of specialists. Doing exercises. Making changes to your diet. Using oxygen. Lung surgery. Lung transplant. Comfort measures (palliative care). Follow these instructions at home: Medicines Take rrow-hio-noiabxk and prescription medicines only as told by your doctor. Talk to your doctor before taking any cough or allergy medicines. You may need to avoid medicines that cause your lungs to be dry. Lifestyle If you smoke, stop smoking. Smoking makes the problem worse. Do not smoke or use any products that contain nicotine or tobacco. If you need help quitting, ask your doctor. Avoid being around things that make your breathing worse. This may include smoke, chemicals, and fumes. Stay active, but remember to rest as well. Learn and use tips on how to manage stress and control your breathing. Make sure you get enough sleep. Most adults need at least 7 hours of sleep every night. Eat healthy foods. Eat smaller meals more often. Rest before meals. Controlled breathing Learn and use tips on how to control your breathing as told by your doctor. Try: Breathing in (inhaling) through your nose for 1 second. Then, pucker your lips and breath out (exhale) through your lips for 2 seconds. Putting one hand on your belly (abdomen). Breathe in slowly through your nose for 1 second. Your hand on your belly should move out. Pucker your lips and breathe out slowly through your lips. Your hand on your belly should move in as you breathe out. Controlled coughing Learn and use controlled coughing to clear mucus from your lungs. Follow these steps: 1.Lean your head a little forward. 2.Breathe in deeply. 3.Try to hold your breath for 3 seconds. 4.Keep your mouth slightly open while coughing 2 times. 5.Spit any mucus out into a tissue. 6.Rest and do the steps again 1 or 2 times as needed. General instructions Make sure you get all the shots (vaccines) that your doctor recommends. Ask your doctor about a flu shot and a pneumonia shot. Use oxygen therapy and pulmonary rehabilitation if told by your doctor. If you need home oxygen therapy, ask your doctor if you should buy a tool to measure your oxygen level (oximeter). Make a COPD action plan with your doctor. This helps you to know what to do if you feel worse than usual. Manage any other conditions you have as told by your doctor. Avoid going outside when it is very hot, cold, or humid. Avoid people who have a sickness you can catch (contagious). Keep all follow-up visits. Contact a doctor if: You cough up more mucus than usual. There is a change in the color or thickness of the mucus. It is harder to breathe than usual. Your breathing is faster than usual. You have trouble sleeping. You need to use your medicines more often than usual. You have trouble doing your normal activities such as getting dressed or walking around the house. Get help right away if: You have shortness of breath while resting. You have shortness of breath that stops you from: ?Being able to talk. ?Doing normal activities. Your chest hurts for longer than 5 minutes. Your skin color is more blue than usual. Your pulse oximeter shows that you have low oxygen for longer than 5 minutes. You have a fever. You feel too tired to breathe normally. These symptoms may represent a serious problem that is an emergency. Do not wait to see if the symptoms will go away. Get medical help right away. Call your local emergency services (911 in the [place] Do not drive yourself to the hospital. Summary Chronic obstructive pulmonary disease (COPD) is a long-term lung problem. The way your lungs work will never return to normal. Usually the condition gets worse over time. There are things you can do to keep yourself as healthy as possible. Take jkxb-lli-kldxrds and prescription medicines only as told by your doctor. If you smoke, stop. Smoking makes the problem worse. This information is not intended to replace advice given to you by your health care provider. Make sure you discuss any questions you have with your health care provider. Document Revised: 07/19/2021 Document Reviewed: 07/19/2021 [employer] Patient Education 2022 [employer]. Follow Up Care 08/06/2023 23:11:37 With:RICK DELANEY Address: [address] [place] [address] [facility] [place] [address] Business (1) When: Unknown [facility] 08-09-2023 Note PT Evaluation comple elton with an AMPAC score of 17/24. Pt currently able to perform bed mobility with SBA, but is limited by pain in back. Pt was then able to stand with SBA/CGA. Pt is limited in her gait distance due to increased SOB/pain and LE weakness. Pt did need assist with ambulating as pt states she feels her right leg is going to give out . Would recommend SNF at this time. Pt does state she is having difficulties at home as she lives home along and would like reside at [facility] when safe. Will follow daily in acute care [facility] 08-07-2023 Evaluation + Plan note Extrac elton from: Title:Admission H & P Author:Giovana Woody MD Date:08/07/23 1. COPD exacerbation (J44.1: Chronic obstructive pulmonary disease with (acute) exacerbation) CXR negative for acute process Flu, COVID negative Duonebs QID with Albuterol prn. IV Solumedrol. Mucinex. Zmax 2. Contusion of knee, right (S80.01XA: Contusion of right knee, initial encounter) XRay negative PT Eval in AM 3. Chronic hypoxic respiratory failure (J96.11: Chronic respiratory failure with hypoxia) Wears 3LPM chronically of O2 at home, currently at baseline with rest. Desats with minimal ambulation 4. Hypertension (I10: Essential (primary) hypertension) Normotensive Home meds: Atenolol 5. Chronic back pain (M54.9: Dorsalgia, unspecified) Home meds: Gabapentin Extracted from: Title:ED Note Author:Hunter Reis DO Date :08/06/23 Contusion of knee, right (S8 0.01XA: Contusion of right knee, initial encounter) COPD exacerbation (J44.1: Chronic obstructive pulmonary disease with (acute) exacerbation) Orders: albuterol, 2.5 mg, 3 mL, Soln-Inh, NEB, Once, Stop date 08/06/23 23:15:00 EST, STAT, Start date 08/06/23 23:15:00 EST albuterol-ipratropium, 3 mL, Soln-Inh, NEB, Once, Stop date 08/06/23 23:15:00 EST, STAT, Start date 08/06/23 23:15:00 EST azithromycin, 500 mg = 2 tab(s), Tab, Oral, Once, Stop date 08/07/23 0:00:00 EST, STAT, Start date 08/07/23 0:00:00 EST, 08/07/23 0:00:00 EST ketorolac, 15 mg = 1 mL, Injection, IV Push, Once, Stop date 08/07/23 0:01:00 EST, STAT, Start date 08/07/23 0:01:00 EST, 08/07/23 0:01:00 EST lidocaine topical, 1 patch(es), Patch, TransDermal, Once, Stop date 08/07/23 1:02:00 EST, STAT, Start date 08/07/23 1:02:00 EST morphine, 2 mg = 1 mL, Injection, IV Push, Once, Stop date 08/06/23 23:15:00 EST, STAT, Start date 08/06/23 23:15:00 EST, 08/06/23 23:15:00 EST predniSONE, 40 mg = 2 tab(s), Tab, Oral, Once, Stop date 08/07/23 0:00:00 EST, STAT, Start date 08/07/23 0:00:00 EST, 08/07/23 0:00:00 EST Sodium Chloride 0.9% intravenous solution 1,000 mL, 1,000 mL, IV, bolus, STAT, Start date 08/07/23 0:34:00 EST, Total volume (mL): 1,000, Bolus Dose: 1,000 mL, 69.8 kg, 1.82, m2 Automated Diff Basic Metabolic Panel CBC w/ Auto Diff ECG 12 Lead Adult ED Cardiac Monitoring eGFR Extra SST Tube Hepatic Function Panel Influenza A&B Ag Lactic Acid Lipase Level Oxygen Therapy PT & PTT Pulse Oximetry Continuous Rapid COVID Antigen ([facility]) Saline Lock Insert Troponin XR Chest Single View XR Knee Complete 4+ Views Left XR Knee Complete 4+ Views Right [facility]11-14-2023 NoteCRM entered the room to discuss dc planning. DME, PCP and insurance discussed. Patient is alert andinvolved in plan of care. Contact information given and whiteboard updated. Pending PT to see. Pt is wearing 4L, has 3L at home. ANt dc TBD. Pt refused to sign [place] form. [facility]Result Comment: Electronically Signed By: Ana Phelan.lavinia\Date and Time Signed: 08/07/23 10:28 EST 08-07-2023 NoteChief Complaint Patient arrive dby squad reporting fall 5hrs ago, found lying on floor. Pt. reports (R) knee pain, denies head injury and LOC. History of Present Illness 72-year-old female with known COPD, who wears 3 L of oxygen chronically at home, presented with bilateral knee pain after a fall. She reports a 2-day history of respiratory symptoms. Has been having increasing cough and shortness of breath at home. Today while getting up out of her recliner she felt her left knee go out from underneath her and she went down onto the floor. Fell onto her hands andknees. Came into the ER for evaluation for continues bilateral knee pain (R>L) after the fall. Work-up in the ER revealed negative knee x-rays. Chest x-ray is negative for any acute process. Shewas found to have acute exacerbation of her COPD. Was given bronchodilator therapy as well as oral prednisone and Zithromax in the ER. They did get her up to ambulate her, and she was able to ambulate, but continued to desat into the upper 80s despite being on her normal 3 L of oxygen. Therefore she was admitted primarily for her breathing issues. Review of Systems ROS limited as patient sleeping pretty soundly and when awoken falls right back to sleep. Constitutional: no fever, no chills, + fatigue Skin: no rash Respiratory: + shortness of breath, + cough, + wheezing Cardiovascular: no chest pain, no palpitations, no edema Gastrointestinal: no n/v/d, no abdominal pain Musculoskeletal: + knee pain Neurologic: no headache, no dizziness Psych: no depression, no anxiety Scoring Johnson Fall Risk Score: 60 High (08/06/23) Physical Exam Vitals & Measurements T: 37.0 ?C(Oral) TMIN: 37.0 ?C(Oral) TMAX: 37.2 ?C(Oral) HR: 112(Monitored) RR: 20 BP: 128/72 SpO2:92% HT: 170 cm WT: 69.8 kg General: sleeping soundly Skin: warm, dry, no rash Head: AT/NC Neck: Trachea midline, supple Eye: normal conjunctiva, sclera clear Cardiovascular: regular rate and rhythm, S1S2, normal peripheral perfusion Respiratory: Lungs with scattered exp rhonchi bilaterally, respirations non labored, breath sounds equal Chest wall: no deformity Gastrointestinal: soft Extremities: no gross deformity, no edema Neurological:LOC appropriate for age, no focal deficits Psychiatric: calm Lab Results WBC: 8.2 E9/L (08/06/23 23:23:00) RBC: 3.6 E12/L Low (08/06/23 23:23:00) HGB: 10.8 gm/dL Low (08/06/23 23:23:00) Hct: 33.7 % Low (08/06/23:23:00) MCV: 93.2 fL (08/06/23:23:00) MCH: 29.8 pg (08/06/23::00) MCHC: 31.9 gm/dL (08/06/23:23:00) RDW: 13.9 % (08/06/23:23:00) Platelet: 301 E9/L (08/06/23:23:00) MPV: 7 fL (08/06/23:23:00) Neutro Auto: 70.7 % (08/06/23:23:00) Lymph Auto: 16.4 % (08/06/23:23:) [place] Auto: 9.8 % (08/06/23:23:) Eos Auto: 2.1 % (08/06/23:23:) Basophil Auto: 1 % (08/06/23:23:00) Neutro Absolute: 5.8 E9/L (08/06/23:23:00) Lymph Absolute: 1.4 E9/L (08/06/23:23:00) [place] Absolute: 0.8 E9/L (08/06/23:23:00) Eos Absolute: 0.2 E9/L (08/06/23:23:00) Basophil Absolute: 0.1 E9/L (08/06/23:23:00) PT: 11.2 second(s) (08/06/23:23:00) INR: 1 (08/06/23::) PTT: 29.4 second(s) (08/06/23:23:00) Glucose Lvl: 117 mg/dL (08/06/23:23:00) BUN: 17 mg/dL (08/06/23:23:00) Creatinine: 0.8 mg/dL (08/06/23:23:00) eGFR: 78 mL/min/1.73 m2 (08/06/23:23:00) BUN/Creat Ratio: 21 High (08/06/23:23:00) Sodium Lvl: 138 mmol/L (08/06/23:23:00) Potassium Lvl: 5 mmol/L (08/06/23 23:23:00) Chloride: 93 mmol/L Low (08/06/23:23:00) CO2: 40 mmol/L High (08/06/23:23:00) AGAP: 10 mEq/L (08/06/23 23:23:00) Calcium Lvl: 9.1 mg/dL (08/06/23 23:23:00) Alk Phos: 94 Int._Unit/L (08/06/23:23:00) ALT: 14 Int._Unit/L (08/06/23:23:00) AST: 15 Int._Unit/L (08/06/23::) Total Protein: 6.6 gm/dL (08/06/23:23:00) Albumin Lvl: 3.4 gm/dL (08/06/23:23:00) Globulin: 3.2 gm/dL (08/06/23:23:00) A/G Ratio: 1.1 (08/06/23:23:00) Bili Total: 0.7 mg/dL (08/06/23:23:00) Bili Direct: 0.1 mg/dL (08/06/23:23:00) Bili Indirect: 0.6 mg/dL (08/06/23 23:23:00) Lipase Lvl: 31 unit/L (08/06/23:23:00) Lactic Acid Lvl: 0.7 mmol/L (08/06/23:23:00) Troponin: 11 pg/mL (08/06/23 23:23:00) Influenzae A Ag: NEGATIVE1 (08/07/23 00:14:00) Influenzae B Ag: NEGATIVE1 (08/07/23 00:14:00) Rapid COVID Ag: Not Detected (08/07/23 00:14:00) Rapid COV Int NEG Ctl: Pass (08/07/23 00:14:00) Rapid COV Int POS Ctl: Pass (08/07/23 00:14:00) Assessment/Plan 1. COPD exacerbation (J44.1: Chronic obstructive pulmonary disease with (acute) exacerbation) CXR negative for acute process Flu, COVID negative Duonebs QID with Albuterol prn. IV Solumedrol. Mucinex. Zmax 2. Contusion of knee, right (S80.01XA: Contusion of right knee, initial encounter) XRay negative PT Eval in AM 3. Chronic hypoxic respiratory failure (J96.11: Chronic respiratory failure with hypoxia) Wears 3LPM chronically of O (more content not included)...[facility]:Result Comment: Electronically Signed By: Bong COY, Giovana\.lavinia\Date and Time Signed: 08/07/23 04:12 [id number] NoteMicrobiology PROCEDURE: Blood Culture Charcoal [R1] SOURCE: Blood BODY SITE: Arm L COLLECTED DATE/TIME: 07/25/2023 22:45 EDT RECEIVED DATE/TIME: 07/25/2023 23:19 EDT START DATE/TIME: 07/25/2023 23:20 EDT FREE TEXT SOURCE: Nica Barnes DO, DO, Kaylinn A FINAL REPORTS Final Report [] Verified Date/Time: 08/02/2023 07:00 EST No growth at 7 days. Performing Locations R1: This test was performed at: [facility], [address] [place] [address], [address] [place] [address], QhasiwOhio State Health SystemComment on above:Performed By: #### [id number] #### [facility] [address] [place] [address] [id number] NoteMicrobiology PROCEDURE: Blood Culture Charcoal [R1] SOURCE: Blood BODY SITE: Arm R COLLECTED DATE/TIME: 07/25/2023 22:39 EDT RECEIVED DATE/TIME: 07/25/2023 23:19 EDT START DATE/TIME: 07/25/2023 23:19 EDT FREE TEXT SOURCE: IV start Nica Barnes DO, DO, Kaylinn A FINAL REPORTS Final Report [] Verified Date/Time: 08/02/2023 07:00 EST No growth at 7 days. Performing Locations R1: This test was performed at: [facility], [address] [place] [address], [id number] , [place], TpzuemOhio State Health SystemComment on above:Performed By: #### [id number] #### [facility] [address] [place] [address] [id number] Hospital Discharge instructions Patient Education 07/26/2023 02:44:44 Chronic Back Pain, Chem-ti-Pkkx Chronic Back Pain When back pain lasts longer than 3 months, it is called chronic back pain. Pain may get worse at certain times (flare-ups). There are things you can do at home to manage your pain. Follow these instructions at home: Pay attention to any changes in your symptoms. Take these actions to help with your pain: Managing pain and stiffness If told, put ice on the painful area. Your doctor may tell you to use ice for 24 48 hours after theflare-up starts. To do this: ?Put ice in a plastic bag. ?Place a towel between your skin and the bag. ?Leave the ice on for 20 minutes, 2 3 times a day. If told, put heat on the painful area. Do this as often as told by your doctor. Use the heat sourcethat your doctor recommends, such as a moist heat pack or a heating pad. ?Place a towel between your skin and the heat source. ?Leave the heat on for 20 30 minutes. ?Take off the heat if your skin turns bright red. This is especially important if you are unable tofeel pain, heat, or cold. You may have a greater risk of getting burned. Soak in a warm bath. This can help relieve pain. Activity Avoid bending and other activities that make pain worse. When standing: ?Keep your upper back and neck straight. ?Keep your shoulders pulled back. ?Avoid slouching. When sitting: ?Keep your back straight. ?Relax your shoulders. Do not round your shoulders or pull them backward. Do not sit or compliance intern one place for long periods of time. Take short rest breaks during the day. Lying down or standing is usually better than sitting. Resting can help relieve pain. When sitting or lying down for a long time, do some mild activity or stretching. This will help to prevent stiffness and pain. Get regular exercise. Ask your doctor what activities are safe for you. Do not lift anything that is heavier than 10 lb (4.5 kg) or the limit that you are told, until yourdoctor says that it is safe. To prevent injury when you lift things: ?Bend your knees. ?Keep the weight close to your body. ?Avoid twisting. Sleep on a firm mattress. Try lying on your side with your knees slightly bent. If you lie on your back, put a pillow under your knees. Medicines Treatment may include medicines for pain and swelling taken by mouth or put on the skin, prescription pain medicine, or muscle relaxants. Take wlaf-xqy-ioteqmo and prescription medicines only as told by your doctor. Ask your doctor if the medicine prescribed to you: ?Requires you to avoid driving or using machinery. ?Can cause trouble pooping (constipation). You may need to take these actions to prevent or treat trouble pooping: ?Drink enough fluid to keep your pee (urine) pale yellow. ?Take bhqn-lve-oeoqnvb or prescription medicines. ?Eat foods that are high in fiber. These include beans, whole grains, and fresh fruits and vegetables. ?Limit foods that are high in fat and sugars. These include fried or sweet foods. General instructions Do not use any products that contain nicotine or tobacco, such as cigarettes, e- cigarettes, and chewing tobacco. If you need help quitting, ask your doctor. Keep all follow-up visits as told by your doctor. This is important. Contact a doctor if: Your pain does not get better with rest or medicine. Your pain gets worse, or you have new pain. You have a high fever. You lose weight very quickly. You have trouble doing your normal activities. Get help right away if: One or both of your legs or feet feel weak. One or both of your legs or feet lose feeling (have numbness). You have trouble controlling when you poop (have a bowel movement) or pee (urinate). You have bad back pain and: ?You feel like you may vomit (nauseous), or you vomit. ?You have pain in your belly (abdomen). ?You have shortness of breath. ?You faint. Summary When back pain lasts longer than 3 months, it is called chronic back pain. Pain may get worse at certain times (flare-ups). Use ice and heat as told by your doctor. Your doctor may tell you to use ice after flare-ups. This information is not intended to replace advice given to you by your health care provider. Make sure you discuss any questions you have with your health care provider. Document Revised: 10/20/2020 Document Reviewed: 10/20/2020 [employer] Patient Education 2022 [employer]. 07/26/2023 02:44:44 Acute Bronchitis, Adult, Lfnp-kc-Wkcc Acute Bronchitis, Adult Acute bronchitis is when air tubes in the lungs (bronchi) suddenly get swollen. The condition can make it hard for you to breathe. In adults, acute bronchitis usually goes away within 2 weeks. A cough caused by bronchitis may last up to 3 weeks. Smoking, allergies, and asthma can make the conditionworse. What are the causes? Germs that cause cold and flu (viruses). The most common cause of this condition is the virus that causes the common cold. Bacteria. Substances that bother (irritate) the lungs, including: ?Smoke from cigarettes and other types of tobacco. ?Dust and pollen. ?Fumes from chemicals, gases, or burned fuel. ?Indoor or outdoor air pollution. What increases the risk? A weak body's defense system. This is also called the immune system. Any condition that affects your lungs and breathing, such as asthma. What are the signs or symptoms? A cough. Coughing up clear, yellow, or green mucus. Making high-pitched whistling sounds when you breathe, most often when you breathe out (wheezing). Runny or stuffy nose. Having too much mucus in your lungs (chest congestion). Shortness of breath. Body aches. A sore throat. How is this treated? Acute bronchitis may go away over time without treatment. Your doctor may tell you to: Drink more fluids. This will help thin your mucus so it is easier to cough up. Use a device that gets medicine into your lungs (inhaler). Use a vaporizer or a humidifier. These are machines that add water to the air. This helps with coughing and poor breathing. Take a medicine that thins mucus and helps clear it from your lungs. Take a medicine that prevents or stops coughing. It is not common to take an antibiotic medicine for this condition. Follow these instructions at home: Take vwgm-zak-mrrtfjc and prescription medicines only as told by your doctor. Use an inhaler, vaporizer, or humidifier as told by your doctor. Take two teaspoons (10 mL) of honey at bedtime. This helps lessen your coughing at night. Drink enough fluid to keep your pee (urine) pale yellow. Do not smoke or use any products that contain nicotine or tobacco. If you need help quitting, ask your doctor. Get a lot of rest. Return to your normal activities when your doctor says that it is safe. Keep all follow-up visits. How is this prevented? Wash your hands often with soap and water for at least 20 seconds. If you cannot use soap and water, use hand social service assistant. Avoid contact with people who have cold symptoms. Try not to touch your mouth, nose, or eyes with your hands. Avoid breathing in smoke or chemical fumes. Make sure to get the flu shot every year. Contact a doctor if: Your symptoms do not get better in 2 weeks. You have trouble coughing up the mucus. Your cough keeps you awake at night. You have a fever. Get help right away if: You cough up blood. You have chest pain. You have very bad shortness of breath. You faint or keep feeling like you are going to faint. You have a very bad headache. Your fever or chills get worse. These symptoms may be an emergency. Get help right away. Call your local emergency services ([address] [place] Do not wait to see if the symptoms will go away. Do not drive yourself to the hospital. Summary Acute bronchitis is when air tubes in the lungs (bronchi) suddenly get swollen. In adults, acute bronchitis usually goes away within 2 weeks. Drink more fluids. This will help thin your mucus so it is easier to cough up. Take wtos-csg-mbdjoqs and prescription medicines only as told by your doctor. Contact a doctor if your symptoms do not improve after 2 weeks of treatment. This information is not intended to replace advice given to you by your health care provider. Make sure you discuss any questions you have with your health care provider. Document Revised: 01/11/2022 Document Reviewed: 01/11/2022 [employer] Patient Education 2022 [employer]. Follow Up Care 07/25/2023 21:42:57 With:RICK DELANEY Address: [place] [address] Business (1) When:07/29/2023 Comments:Take the antibiotics as prescribed till you have completed the course. You can use the pain medication every 6 hours as needed for pain. Take the steroids once daily until you have completed the course. Please follow-up with your primary care doctor next 2 to 3 days. Please return to the ED for anynew or worsening symptoms. [facility]11-01-2023 Evaluation + Plan noteExtracted from: Title:ED Note Author:Nica Barnes DO Date :07/25/23 Acute bronchitis (J20.9: Acu te bronchitis, unspecified) Acute low back pain (M54.50: Low back pain, unspecified) Orders: albuterol-ipratropium, 3 mL, Soln-Inh, Inhalation, Once, Stop date 07/25/23 22:27:00 EDT, STAT, Start date 07/25/23 22:27:00 EDT azithromycin, 250 mg, Oral, As Directed, # 6 tab(s), Refills(s) 0, Pharmacy: [facility], 169, cm, 07/25/23 21:52:00 EDT, Height/Length Dosing, 71.1, kg, 07/25/23 21:52:00 EDT, Weight Dosing morphine, 2 mg = 1 mL, Injection, IV Push, Once, Stop date 07/25/23 22:24:00 EDT, STAT, Start date 07/25/23 22:24:00 EDT, 07/25/23 22:24:00 EDT predniSONE, 60 mg = 3 tab(s), Tab, Oral, Once, Stop date 07/26/23 1:33:00 EDT, STAT, Start date 07/26/23 1:33:00 EDT, 07/26/23 1:33:00 EDT predniSONE, 50 mg = 1 tab(s), Oral, Daily, X 5 day(s), # 5 tab(s), Refills(s) 0, Pharmacy: [facility], 169, cm, 07/25/23 21:52:00 EDT, Height/Length Dosing, 71.1, kg, 07/25/23 21:52:00 EDT, Weight Dosing Sodium Chloride 0.9% intravenous solution, 1,000 mL, Soln-IV, IV, Once, Stop date 07/25/23 22:24:00 EDT, STAT, Start date 07/25/23 22:24:00 EDT, Infuse over 61, minute(s) Automated Diff Blood Culture Charcoal Blood Culture Charcoal CBC w/ Auto Diff Comprehensive Metabolic Panel Continuous Pulse Oximetry CT Spine Lumbar w/o Contrast CTA Chest ECG 12 Lead Adult ED Cardiac Monitoring eGFR Extra SST Tube Lactic Acid Oxygen Therapy PT & PTT Rapid COVID Antigen ([facility]) Troponin UA With Cult Reflex XR Chest Single View Diagnostic Tests Pending * Blood Culture Charcoal 07/25/23 * Blood Culture Charcoal 07/25/23 Future Scheduled Tests Radiology* CT Chest, Low Dose Screening 07/03/22 [facility]10-20-2023 NoteMicrobiology PROCEDURE: Blood Culture Charcoal [R1] SOURCE: Blood BODY SITE: Arm L COLLECTED DATE/TIME: 07/06/2023 13:41 EDT RECEIVED DATE/TIME: 07/06/2023 13:57 EDT START DATE/TIME: 07/06/2023 13:58 EDT FREE TEXT SOURCE: IV start Raza JONES, Vishal Person PA-C, Vishal Faith FINAL REPORTS Final Report [] Verified Date/Time: 07/13/2023 18:00 EDT No growth at 7 days. Performing Locations R1: This test was performed at: [facility], [address] [place] [address], [id number] , , [facility]Ohio [facility] SystemComment on above:Performed By: #### [id number] #### [facility] [address] [place] [address] [id number] NoteMicrobiology PROCEDURE: Blood Culture [facility] [R1] SOURCE: Blood BODY SITE: Arm R COLLECTED DATE/TIME: 07/06/2023 13:38 EDT RECEIVED DATE/TIME: 07/06/2023 13:58 EDT START DATE/TIME: 07/06/2023 13:58 EDT FREE TEXT SOURCE: Vishal Person PA-C, PA-C, Vishal Faith FINAL REPORTS Final Report [] Verified Date/Time: 07/13/2023 18:00 EDT No growth at 7 days. Performing Locations R1: This test was performed at: [facility], [address] [place] [address], [id number] [place] [address], [facility]wkOhio State Health SystemComment on above:Performed By: #### [id number] #### [facility] [address] [place] [address] [id number] Hospital Discharge instructions Patient Education 07/06/2023 17:01:07 Chronic Obstructive Pulmonary Disease Chronic Obstructive Pulmonary Disease Chronic obstructive pulmonary disease (COPD) is a long-term (chronic) condition that affects the lungs. COPD is a general term that can be used to describe many different lung problems that cause lung inflammation and limit airflow, including chronic bronchitis and emphysema. If you have COPD, your lung function will probably never return to normal. In most cases, it gets worse over time. However, there are steps you can take to slow the progression of the disease and improve your quality of life. What are the causes? This condition may be caused by: Smoking. This is the most common cause. Certain genes passed down through families. What increases the risk? The following factors may make you more likely to develop this condition: Being exposed to secondhand smoke from cigarettes, pipes, or cigars. Being exposed to chemicals and other irritants, such as fumes and dust in the work environment. Having chronic lung conditions or infections. What are the signs or symptoms? Symptoms of this condition include: Shortness of breath, especially during physical activity. Chronic cough with a large amount of thick mucus. Sometimes, the cough may not have any mucus (dry cough). Wheezing and rapid breathing. Yu or bluish discoloration (cyanosis) of the skin, especially in the fingers, toes, or lips. Feeling tired (fatigue). Weight loss. Chest tightness. Frequent infections. Episodes when breathing symptoms become much worse (exacerbations). At the later stages of this disease, you may have swelling in the ankles, feet, or legs. How is this diagnosed? This condition is diagnosed based on: Your medical history. A physical exam. You may also have tests, including: Lung (pulmonary) function tests. This may include a spirometry test, which measures your ability toexhale properly. Chest X-ray. CT scan. Blood tests. How is this treated? This condition may be treated with: Medicines. These may include inhaled rescue medicines to treat acute exacerbations as well as medicines that you take long-term (maintenance medicines) to prevent flare-ups of COPD. ?Bronchodilators help treat COPD by dilating the airways to allow increased airflow and make your breathing more comfortable. ?Steroids can reduce airway inflammation and help prevent exacerbations. Smoking cessation. If you smoke, your health care provider may ask you to quit, and may also recommend therapy or replacement products to help you quit. Pulmonary rehabilitation. This may involve working with a team of health care providers and specialists, such as respiratory, occupational, and physical therapists. Exercise and physical activity. These are beneficial for nearly all people with COPD. Nutrition therapy to gain weight, if you are underweight. Oxygen. Supplemental oxygen therapy is only helpful if you have a low oxygen level in your blood (hypoxemia). Lung surgery or transplant. Palliative care. This is to help people with COPD feel comfortable when treatment is no longer working. Follow these instructions at home: Medicines Take gxkt-uwk-auemqpx and prescription medicines only as told by your health care provider. This includes inhaled medicines and pills. Talk to your health care provider before taking any cough or allergy medicines. You may need to avoid certain medicines that dry out your airways. Lifestyle If you smoke, the most important thing that you can do is to stop smoking. Continuing to smoke willcause the disease to progress faster. Do not use any products that contain nicotine or tobacco. These products include cigarettes, chewing tobacco, and vaping devices, such as e-cigarettes. If you need help quitting, ask your health careprovider. Avoid exposure to things that irritate your lungs, such as smoke, chemicals, and fumes. Stay active, but balance activity with periods of rest. Exercise and physical activity will help you maintain your ability to do things you want to do. Learn and use relaxation techniques to manage stress and to control your breathing. Get the right amount of sleep and get quality sleep. Most adults need 7 or more hours per night. Eat healthy foods. Eating smaller, more frequent meals and resting before meals may help you maintain your strength. Controlled breathing Learn and use controlled breathing techniques as directed by your health care provider. Controlled breathing techniques include: Pursed lip breathing. Start by breathing in (inhaling) through your nose for 1 second. Then, purse your lips as if you were going to whistle and breathe out (exhale) through the pursed lips for 2 seconds. Diaphragmatic breathing. Start by putting one hand on your abdomen just above your waist. Inhale slowly through your nose. The hand on your abdomen should move out. Then purse your lips and exhale slowly. You should be able to feel the hand on your abdomen moving in as you exhale. Controlled coughing Learn and use controlled coughing to clear mucus from your lungs. Controlled coughing is a series of short, progressive coughs. The steps of controlled coughing are: 1.Lean your head slightly forward. 2.Breathe in deeply using diaphragmatic breathing. 3.Try to hold your breath for 3 seconds. 4.Keep your mouth slightly open while coughing twice. 5.Spit any mucus out into a tissue. 6.Rest and repeat the steps once or twice as needed. General instructions Make sure you receive all the vaccines that your health care provider recommends, especially the pneumococcal and influenza vaccines. Preventing infection and hospitalization is very important when you have COPD. Drink enough fluid to keep your urine pale yellow, unless you have a medical condition that requires fluid restriction. Use oxygen therapy and pulmonary rehabilitation if told by your health care provider. If you require home oxygen therapy, ask your health care provider whether you should purchase a pulse oximeter tomeasure your oxygen level at home. Work with your health care provider to develop a COPD action plan. This will help you know what steps to take if your condition gets worse. Keep other chronic health conditions under control as told by your health care provider. Avoid extreme temperature and humidity changes. Avoid contact with people who have an illness that spreads from person to person (is contagious), such as viral infections or pneumonia. Keep all follow-up visits. This is important. Contact a health care provider if: You are coughing up more mucus than usual. There is a change in the color or thickness of your mucus. Your breathing is more labored than usual. Your breathing is faster than usual. You have difficulty sleeping. You need to use your rescue medicines or inhalers more often than expected. You have trouble doing routine activities such as getting dressed or walking around the house. Get help right away if: You have shortness of breath while you are resting. You have shortness of breath that prevents you from: ?Being able to talk. ?Performing your usual physical activities. You have chest pain lasting longer than 5 minutes. Your skin color is more blue (cyanotic) than usual. You measure low oxygen saturations for longer than 5 minutes with a pulse oximeter. You have a fever. You feel too tired to breathe normally. These symptoms may represent a serious problem that is an emergency. Do not wait to see if the symptoms will go away. Get medical help right away. Call your local emergency services (911 in the [place] Do not drive yourself to the hospital. Summary Chronic obstructive pulmonary disease (COPD) is a long-term (chronic) condition that affects the lungs. Your lung function will probably never return to normal. In most cases, it gets worse over time. However, there are steps you can take to slow the progression of the disease and improve your quality of life. Treatment for COPD may include taking medicines, quitting smoking, pulmonary rehabilitation, and changes to diet and exercise. As the disease progresses, you may need oxygen therapy, a lung transplant, or palliative care. To help manage your condition, do not smoke, avoid exposure to things that irritate your lungs, stay up to date on all vaccines, and follow your health care provider's instructions for taking medicines. This information is not intended to replace advice given to you by your health care provider. Make sure you discuss any questions you have with your health care provider. Document Revised: 07/19/2021 Document Reviewed: 07/19/2021 [employer] Patient Education 2022 [employer]. 07/06/2023 17:01:07 Community-Acquired Pneumonia, Adult Community-Acquired Pneumonia, Adult Pneumonia is a lung infection that causes inflammation and the buildup of mucus and fluids in the lungs. This may cause coughing and difficulty breathing. Community-acquired pneumonia is pneumonia that develops in people who are not, and have not recently been, in a hospital or other health care facility. Usually, pneumonia develops as a result of an illness that is caused by a virus, such as the commoncold and the flu (influenza). It can also be caused by bacteria or fungi. While the common cold andinfluenza can pass from person to person (are contagious), pneumonia itself is not considered contagious. What are the causes? This condition may be caused by: Viruses. Bacteria. Fungi, such as molds or mushrooms. What increases the risk? The following factors may make you more likely to develop this condition: Having certain medical conditions, such as: ?A long-term (chronic) disease, which may include chronic obstructive pulmonary disease (COPD), asthma, heart failure, cystic fibrosis, diabetes, kidney disease, sickle cell disease, and human immunodeficiency virus (HIV). ?A condition that increases the risk of breathing in (aspirating) mucus and other fluids from your mouth and nose. ?A weakened body defense system (immune system). Having had your spleen removed (splenectomy). The spleen is the organ that helps fight germs and infections. Not cleaning your teeth and gums well (poor dental hygiene). Using tobacco products. Traveling to places where germs that cause pneumonia are present. Being near certain animals, or animal habitats, that have germs that cause pneumonia. Being older than 65 years of age. What are the signs or symptoms? Symptoms of this condition include: A dry cough or a wet (productive) cough. A fever. Sweating or chills. Chest pain, especially when breathing deeply or coughing. Fast breathing, difficulty breathing, or shortness of breath. Tiredness (fatigue). Muscle aches. How is this diagnosed? This condition may be diagnosed based on your medical history or a physical exam. You may also havetests, including: Chest X-rays. Tests of the level of oxygen and other gases in your blood. Tests of: ?Your blood. ?Mucus from your lungs (sputum). ?Fluid around your lungs (pleural fluid). ?Your urine. If your pneumonia is severe, other tests may be done to learn more about the cause. How is this treated? Treatment for this condition depends on many factors, such as the cause of your pneumonia, your medicines, and other medical conditions that you have. For most adults, pneumonia may be treated at home. In some cases, treatment must happen in a hospital and may include: Medicines that are given by mouth (orally) or through an IV, including: ?Antibiotic medicines, if bacteria caused the pneumonia. ?Medicines that kill viruses (antiviral medicines), if a virus caused the pneumonia. Oxygen therapy. Severe pneumonia, although rare, may require the following treatments: Mechanical ventilation.This procedure uses a machine to help you breathe if you cannot breathe wellon your own or maintain a safe level of blood oxygen. Thoracentesis. This procedure removes any buildup of pleural fluid to help with breathing. Follow these instructions at home: Medicines Take gimp-vak-nxygyrc and prescription medicines only as told by your health care provider. Take cough medicine only if you have trouble sleeping. Cough medicine can prevent your body from removing mucus from your lungs. If you were prescribed an antibiotic medicine, take it as told by your health care provider. Do notstop taking the antibiotic even if you start to feel better. Lifestyle Do not drink alcohol. Do not use any products that contain nicotine or tobacco, such as cigarettes, e- cigarettes, and chewing tobacco. If you need help quitting, ask your health care provider. Eat a healthy diet. This includes plenty of vegetables, fruits, whole grains, low-fat dairy products, and lean protein. General instructions Rest a lot and get at least 8 hours of sleep each night. Sleep in a partly upright position at night. Place a few pillows under your head or sleep in a reclining chair. Return to your normal activities as told by your health care provider. Ask your health care provider what activities are safe for you. Drink enough fluid to keep your urine pale yellow. This helps to thin the mucus in your lungs. If your throat is sore, gargle with a salt water mixture 3 4 times a day or as needed. To make a salt water mixture, completely dissolve 1 tsp (3 6 g) of salt in 1 cup (237 mL) of warm water. Keep all follow-up visits as told by your health care provider. This is important. How is this prevented? You can lower your risk of developing community-acquired pneumonia by: Getting the pneumonia vaccine. There are different types and schedules of pneumonia vaccines. Ask your health care provider which option is best for you. Consider getting the pneumonia vaccine if: ?You are older than 65 years of age. ?You are 19 65 years of age and are receiving cancer treatment, have chronic lung disease, or have other medical conditions that affect your immune system. Ask your health care provider if this applies to you. Getting your influenza vaccine every year. Ask your health care provider which type of vaccine is best for you. Getting regular dental checkups. Washing your hands often with soap and water for at least 20 seconds. If soap and water are not available, use hand social service assistant. Contact a health care provider if you have: A fever. Trouble sleeping because you cannot control your cough with cough medicine. Get help right away if: Your shortness of breath becomes worse. Your chest pain increases. Your sickness becomes worse, especially if you are an older adult or have a weak immune system. You cough up blood. These symptoms may represent a serious problem that is an emergency. Do not wait to see if the symptoms will go away. Get medical help right away. Call your local emergency services (911 in the [place] Do not drive yourself to the hospital. Summary Pneumonia is an infection of the lungs. Community-acquired pneumonia develops in people who have not been in the hospital. It can be causedby bacteria, viruses, or fungi. This condition may be treated with antibiotics or antiviral medicines. Severe pneumonia may require a hospital stay and treatment to help with breathing. This information is not intended to replace advice given to you by your health care provider. Make sure you discuss any questions you have with your health care provider. Document Revised: 06/22/2020 Document Reviewed: 06/22/2020 [employer] Patient Education 2022 [employer]. 07/06/2023 17:01:07 Troponin Test Troponin Test Why am I having this test? The troponin test is used to help determine if you have had a heart attack or other injury to the heart muscle. The heart muscle is also called a cardiac muscle. You may have this test if: You are having chest pain or other symptoms of a heart attack. You have heart disease. You have had heart surgery. You had complications during surgery, such as bleeding or very low blood pressure. You have a critical illness (sepsis). You have severe anemia (low hemoglobin). The test is used along with other tests to diagnose heart damage (ischemia). What is being tested? This test measures the concentration of troponin in your blood. Troponins are proteins that help muscles contract. Cardiac-specific troponins are normally present in very small amounts in the blood. When there is damage to heart muscle cells, troponins are released into the blood. The more damage there is, the greater the concentration of troponins. There is more than one type of troponin protein. Depending on the lab where you have your test done, you may have troponin T, troponin I, or a high-sensitivity troponin (hsT) tested. When a person has damage to the heart cells, levels of troponin can become elevated in the blood within a few hours after the injury and may remain elevated for 7 14 days. What kind of sample is taken? A blood sample is required for this test. It is usually collected by inserting a needle into a blood vessel. Usually, the first blood sample is collected, and then another sample is collected 1 6 hours later.Another sample may be collected after 6 hours if: Your results were normal, but you are at risk for a heart attack. You had a heart attack, and your health care provider wants to monitor your treatment. How do I prepare for this test? There is no preparation required for this test. How are the results reported? Your test results will be reported as values. Your health care provider will compare your results to normal ranges that were established after testing a large group of people (reference ranges). Reference ranges may vary among labs and hospitals. For this test, some examples of common reference ranges are: Cardiac troponin T: less than 0.1 ng/mL. Cardiac troponin I: less than 0.04 ng/mL. hsT: less than 10 ng/L in women and less than 15 ng/L in men. What do the results mean? Troponin values above the reference values may indicate: Heart attack. Heart failure. Other injury to the heart muscle. Inflammation of the heart muscle (myocarditis). A result above the reference range does not always mean that you have heart damage. Test levels canbe falsely elevated in people after dialysis or in people with certain medical conditions. Talk with your health care provider about what your results mean. Questions to ask your health care provider Ask your health care provider, or the department that is doing the test: When will my results be ready? How will I get my results? What are my treatment options? What other tests do I need? What are my next steps? Summary The cardiac-specific troponin test is used to determine if you have had a heart attack or other injury to cardiac muscle. Usually, the first blood sample is collected, and then another blood sample is collected 1 6 hours later, depending on the test performed. Troponin values above the reference values may indicate heart attack or other injury to cardiac muscle. Talk with your health care provider about what your results mean. This information is not intended to replace advice given to you by your health care provider. Make sure you discuss any questions you have with your health care provider. Document Revised: 04/14/2022 Document Reviewed: 04/14/2022 [employer] Patient Education 2022 [employer]. Follow Up Care 07/06/2023 13:08:24 With:RICK DELANEY Address: [address] [place] [address]- Business (1) When:07/09/2023 17:00:52 Comments:Call the office of your primary care doctor to arrange for follow-up within the above-stated timeframe. Follow-up with your primary care doctor about this ED visit. You should review your labs, imaging, and diagnoses from this ED visit with your primary care physician. If you were prescribed medications you should discuss possible side-effects and drug interactions with your pharmacist. Call 911 or go to the nearest Emergency Department if you develop any new or worsening symptoms. [facility]10-13-2023 Evaluation + Plan note Diagnostic Tests Pending * Blood Culture Charcoal 07/06/23 * Blood Culture Charcoal 07/06/23 Future Scheduled Tests Radiology* CT Chest, Low Dose Screening 07/03/22 [facility]02-21-2023 Hospital Discharge instructions Follow Up Care 11/14/2022 14:33:13 With:Eli COY, LYNDA Leo, NOE Address: [address] [place] [address]- When:3 months [facility]02-02-2023 Hospital Discharge instructions Patient Education 10/26/2022 18:11:49 Urinary Tract Infection, Adult, Utam-zk-Obfv Urinary Tract Infection, Adult A urinary tract infection (UTI) is an infection of any part of the urinary tract. The urinary tractincludes: The kidneys. The ureters. The bladder. The urethra. These organs make, store, and get rid of pee (urine) in the body. What are the causes? This is caused by germs (bacteria) in your genital area. These germs grow and cause swelling (inflammation) of your urinary tract. What increases the risk? You are more likely to develop this condition if: You have a small, thin tube (catheter) to drain pee. You cannot control when you pee or poop (incontinence). You are female, and: ?You use these methods to prevent : ?A medicine that kills sperm (spermicide). ?A device that blocks sperm (diaphragm). ?You have low levels of a female hormone (estrogen). ?You are . You have genes that add to your risk. You are sexually active. You take antibiotic medicines. You have trouble peeing because of: ?A prostate that is bigger than normal, if you are male. ?A blockage in the part of your body that drains pee from the bladder (urethra). ?A kidney stone. ?A nerve condition that affects your bladder (neurogenic bladder). ?Not getting enough to drink. ?Not peeing often enough. You have other conditions, such as: ?Diabetes. ?A weak disease-fighting system (immune system). ?Sickle cell disease. ?Gout. ?Injury of the spine. What are the signs or symptoms? Symptoms of this condition include: Needing to pee right away (urgently). Peeing often. Peeing small amounts often. Pain or burning when peeing. Blood in the pee. Pee that smells bad or not like normal. Trouble peeing. Pee that is cloudy. Fluid coming from the vagina, if you are female. Pain in the belly or lower back. Other symptoms include: Throwing up (vomiting). No urge to eat. Feeling mixed up (confused). Being tired and grouchy (irritable). A fever. Watery poop (diarrhea). How is this treated? This condition may be treated with: Antibiotic medicine. Other medicines. Drinking enough water. Follow these instructions at home: Medicines Take pboq-yny-ydzcblb and prescription medicines only as told by your doctor. If you were prescribed an antibiotic medicine, take it as told by your doctor. Do not stop taking it even if you start to feel better. General instructions Make sure you: ?Pee until your bladder is empty. ?Do not hold pee for a long time. ?Empty your bladder after sex. ?Wipe from front to back after pooping if you are a female. Use each tissue one time when you wipe. Drink enough fluid to keep your pee pale yellow. Keep all follow-up visits as told by your doctor. This is important. Contact a doctor if: You do not get better after 1 2 days. Your symptoms go away and then come back. Get help right away if: You have very bad back pain. You have very bad pain in your lower belly. You have a fever. You are sick to your stomach (nauseous). You are throwing up. Summary A urinary tract infection (UTI) is an infection of any part of the urinary tract. This condition is caused by germs in your genital area. There are many risk factors for a UTI. These include having a small, thin tube to drain pee and notbeing able to control when you pee or poop. Treatment includes antibiotic medicines for germs. Drink enough fluid to keep your pee pale yellow. This information is not intended to replace advice given to you by your health care provider. Make sure you discuss any questions you have with your health care provider. Document Released: 02/26/2009 Document Revised: 08/28/2019 Document Reviewed: 03/20/2019 [employer] Patient Education 2020 [employer]. Follow Up Care 10/26/2022 17:15:18 With:VICENTE REDDY DO Address: [address] [facility] [place] [address]- When: Unknown [facility] 10-10-2022 Evaluation + Plan note Future Scheduled Tests Radiology* CT Chest, Low Dose Screening 07/03/22 * CT Chest, Low Dose Screening 06/05/22 [facility] 08-10-2022 Hospital Discharge instructions Follow Up Care 05/03/2022 15:18:48 With:Eli COY, Catina Lemus, PUL, NOE Address: [facility] [place] [address]- When: Unknown Comments:after his testing is completed [facility]08-08-2022 Hospital Discharge instructions Patient Education 05/01/2022 14:57:20 Oral Thrush, Adult, Yorr-zg-Buoc Oral Thrush, Adult Oral thrush is an infection in your mouth and throat. It causes white patches on your tongue and inyour mouth. Follow these instructions at home: Helping with soreness To lessen your pain: ?Drink cold liquids, like water and iced tea. ?Eat frozen ice pops or frozen juices. ?Eat foods that are easy to swallow, like gelatin and ice cream. ?Drink from a straw if the patches in your mouth are painful. General instructions Take or use vibd-bkg-nkmfwjl and prescription medicines only as told by your doctor. Medicine for oral thrush may be something to swallow, or it may be something to put on the infected area. Eat plain yogurt that has live cultures in it. Read the label to make sure. If you wear dentures: ?Take out your dentures before you go to bed. ?[place] them well. ?Soak them in a denture domestic cleaner. Rinse your mouth with warm salt-water many times a day. To make the salt-water mixture, completely dissolve 1/2 1 teaspoon of salt in 1 cup of warm water. Contact a doctor if: Your problems are getting worse. Your problems do not get better in less than 7 days with treatment. Your infection is spreading. This may show as white patches on the skin outside of your mouth. You are nursing your baby and you have redness and pain in the nipples. This information is not intended to replace advice given to you by your health care provider. Make sure you discuss any questions you have with your health care provider. Document Released: 12/05/2010 Document Revised: 12/13/2018 Document Reviewed: 06/04/2017 [employer] Patient Education 2020 [employer] 05/01/2022 14:57:16 Urinary Tract Infection, Adult Urinary Tract Infection, Adult A urinary tract infection (UTI) is an infection of any part of the urinary tract. The urinary tractincludes the kidneys, ureters, bladder, and urethra. These organs make, store, and get rid of urinein the body. Your health care provider may use other names to describe the infection. An upper UTI affects the ureters and kidneys (pyelonephritis). A lower UTI affects the bladder (cystitis) and urethra (urethritis). What are the causes? Most urinary tract infections are caused by bacteria in your genital area, around the entrance to your urinary tract (urethra). These bacteria grow and cause inflammation of your urinary tract. What increases the risk? You are more likely to develop this condition if: You have a urinary catheter that stays in place (indwelling). You are not able to control when you urinate or have a bowel movement (you have incontinence). You are female and you: ?Use a spermicide or diaphragm for control. ?Have low estrogen levels. ?Are . You have certain genes that increase your risk (genetics). You are sexually active. You take antibiotic medicines. You have a condition that causes your flow of urine to slow down, such as: ?An enlarged prostate, if you are male. ?Blockage in your urethra (stricture). ?A kidney stone. ?A nerve condition that affects your bladder control (neurogenic bladder). ?Not getting enough to drink, or not urinating often. You have certain medical conditions, such as: ?Diabetes. ?A weak disease-fighting system (immunesystem). ?Sickle cell disease. ?Gout. ?Spinal cord injury. What are the signs or symptoms? Symptoms of this condition include: Needing to urinate right away (urgently). Frequent urination or passing small amounts of urine frequently. Pain or burning with urination. Blood in the urine. Urine that smells bad or unusual. Trouble urinating. Cloudy urine. Vaginal discharge, if you are female. Pain in the abdomen or the lower back. You may also have: Vomiting or a decreased appetite. Confusion. Irritability or tiredness. A fever. Diarrhea. The first symptom in older adults may be confusion. In some cases, they may not have any symptoms until the infection has worsened. How is this diagnosed? This condition is diagnosed based on your medical history and a physical exam. You may also have other tests, including: Urine tests. Blood tests. Tests for sexually transmitted infections (STIs). If you have had more than one UTI, a cystoscopy or imaging studies may be done to determine the cause of the infections. How is this treated? Treatment for this condition includes: Antibiotic medicine. Gcye-jdo-pobjhlk medicines to treat discomfort. Drinking enough water to stay hydrated. If you have frequent infections or have other conditions such as a kidney stone, you may need to see a health care provider who specializes in the urinary tract (urologist). In rare cases, urinary tract infections can cause sepsis. Sepsis is a life- threatening condition that occurs when the body responds to an infection. Sepsis is treated in the hospital with IV antibiotics, fluids, and other medicines. Follow these instructions at home: Medicines Take xgxk-bxn-yeewbng and prescription medicines only as told by your health care provider. If you were prescribed an antibiotic medicine, take it as told by your health care provider. Do notstop using the antibiotic even if you start to feel better. General instructions Make sure you: ?Empty your bladder often and completely. Do not hold urine for long periods of time. ?Empty your bladder after sex. ?Wipe from front to back after a bowel movement if you are female. Use each tissue one time when you wipe. Drink enough fluid to keep your urine pale yellow. Keep all follow-up visits as told by your health care provider. This is important. Contact a health care provider if: Your symptoms do not get better after 1 2 days. Your symptoms go away and then return. Get help right away if you have: Severe pain in your back or your lower abdomen. A fever. Nausea or vomiting. Summary A urinary tract infection (UTI) is an infection of any part of the urinary tract, which includes the kidneys, ureters, bladder, and urethra. Most urinary tract infections are caused by bacteria in your genital area, around the entrance to your urinary tract (urethra). Treatment for this condition often includes antibiotic medicines. If you were prescribed an antibiotic medicine, take it as told by your health care provider. Do notstop using the antibiotic even if you start to feel better. Keep all follow-up visits as told by your health care provider. This is important. This information is not intended to replace advice given to you by your health care provider. Make sure you discuss any questions you have with your health care provider. Document Released: 06/20/2006 Document Revised: 08/28/2019 Document Reviewed: 03/20/2019 [employer] Patient Education 2020 [employer]. 05/01/2022 14:57:12 Tobacco Use Disorder Tobacco Use Disorder Tobacco use disorder (TUD) occurs when a person craves, seeks, and uses tobacco, regardless of the consequences. This disorder can cause problems with mental and physical health. It can affect your ability to have healthy relationships, and it can keep you from meeting your responsibilities at work, home, or school. Tobacco may be: Smoked as a cigarette or cigar. Inhaled using e-cigarettes. Smoked in a pipe or hookah. Chewed as smokeless tobacco. Inhaled into the nostrils as snuff. Tobacco products contain a dangerous chemical called nicotine, which is very addictive. Nicotine triggers hormones that make the body feel stimulated and works on areas of the brain that make you feel good. These effects can make it hard for people to quit nicotine. Tobacco contains many other unsafe chemicals that can damage almost every organ in the body. Smoking tobacco also puts others in danger due to fire risk and possible health problems caused by breathing in secondhand smoke. What are the signs or symptoms? Symptoms of TUD may include: Being unable to slow down or stop your tobacco use. Spending an abnormal amount of time getting or using tobacco. Craving tobacco. Cravings may last for up to 6 months after quitting. Tobacco use that: ?Interferes with your work, school, or home life. ?Interferes with your personal and social relationships. ?Makes you give up activities that you once enjoyed or found important. Using tobacco even though you know that it is: ?Dangerous or bad for your health or someone else's health. ?Causing problems in your life. Needing more and more of the substance to get the same effect (developing tolerance). Experiencing unpleasant symptoms if you do not use the substance (withdrawal). Withdrawal symptoms may include: ?Depressed, anxious, or irritable mood. ?Difficulty concentrating. ?Increased appetite. ?Restlessness or trouble sleeping. Using the substance to avoid withdrawal. How is this diagnosed? This condition may be diagnosed based on: Your current and past tobacco use. Your health care provider may ask questions about how your tobacco use affects your life. A physical exam. You may be diagnosed with TUD if you have at least two symptoms within a 12- month period. How is this treated? This condition is treated by stopping tobacco use. Many people are unable to quit on their own and need help. Treatment may include: Nicotine replacement therapy (NRT). NRT provides nicotine without the other harmful chemicals in tobacco. NRT gradually lowers the dosage of nicotine in the body and reduces withdrawal symptoms. NRT is available as: ?Lwii-xkn-zxqgppu gums, lozenges, and skin patches. ?Prescription mouth inhalers and nasal sprays. Medicine that acts on the brain to reduce cravings and withdrawal symptoms. A type of talk therapy that examines your triggers for tobacco use, how to avoid them, and how to cope with cravings (behavioral therapy). Hypnosis. This may help with withdrawal symptoms. Joining a support group for others coping with TUD. The best treatment for TUD is usually a combination of medicine, talk therapy, and support groups. Recovery can be a long process. Many people start using tobacco again after stopping (relapse). If you relapse, it does not mean that treatment will not work. Follow these instructions at home: Lifestyle Do not use any products that contain nicotine or tobacco, such as cigarettes and e-cigarettes. Avoid things that trigger tobacco use as much as you can. Triggers include people and situations that usually cause you to use tobacco. Avoid drinks that contain caffeine, including coffee. These may worsen some withdrawal symptoms. Find ways to manage stress. Wanting to smoke may cause stress, and stress can make you want to smoke. Relaxation techniques such as deep breathing, meditation, and yoga may help. Attend support groups as needed. These groups are an important part of long-term recovery for many people. General instructions Take bhlp-buf-hklgnpr and prescription medicines only as told by your health care provider. Check with your health care provider before taking any new prescription or yizi-avx-bpiexoj medicines. Decide on a friend, family member, or smoking quit-line (such as 3-204-VTWI-NOW in the [place] that you can call or text when you feel the urge to smoke or when you need help coping with cravings. Keep all follow-up visits as told by your health care provider and therapist. This is important. Contact a health care provider if: You are not able to take your medicines as prescribed. Your symptoms get worse, even with treatment. Summary Tobacco use disorder (TUD) occurs when a person craves, seeks, and uses tobacco regardless of the consequences. This condition may be diagnosed based on your current and past tobacco use and a physical exam. Many people are unable to quit on their own and need help. Recovery can be a long process. The most effective treatment for TUD is usually a combination of medicine, talk therapy, and support groups. This information is not intended to replace advice given to you by your health care provider. Make sure you discuss any questions you have with your health care provider. Document Released: 05/16/2005 Document Revised: 08/28/2018 Document Reviewed: 08/28/2018 [employer] Patient Education 2020 [employer]. Follow Up Care 05/01/2022 12:57:08 With:Nan Estevez DO, FAM Address: [address] [place] [address] [address], [facility] [address] [place] [address]- When: Unknown [facility] 05-13-2022 NoteHNO ID: [id number] Author: Naga Rowe APRN.[employer] Service: ? Author Type: Nurse Specialist Type: Progress Notes Filed: 02/07/2022 7:48 AM Note Text: [facility] NOTE NAME: LELO BAZAN NO.: [id number] DATE OF SERVICE: 02/03/2022 [facility] DATE OF : 1950 REASON FOR VISIT: The patient is a resident of [facility]. This is a discharge visit for COPD. The patient was admitted to [facility] from [facility] after experiencing hypoxic and hypercapnic event secondary to exacerbation of COPD. The patient's stay did have some events. The patient did have repeat chest x-ray after the patient complained of productive cough, similar to that of pneumonia or experiencing pneumonia in the past and chest x-ray showed no active disease. The patient also had been found to be hypocalcemic, was placed on a 3-day dose of potassium. The patient states she is anxious to go home, states will be going home, where she lives by herself, but does have family members and friends nearby that can assist her in a need. The patient states has no concerns going home. Date of admission January 23, 2022, date of discharge February 03, 2022. HISTORY OF PRESENT ILLNESS: The patient is a 71-year-old female who was admitted to us from [facility] with the diagnosis of acute on chronic hypoxic and hypercapnic respiratory failure secondary to acute exacerbation of chronic obstructive pulmonary disease, altered mental status secondary to metabolic encephalopathy, hypertension, past smoking history, chronic back pain with history of chronic compression fractures, chronic anemia, remote hysterectomy, and generalized weakness. She was initially presented to the hospital after developing increasing shortness of breath. Evaluation in the hospital revealed her to be in acute on chronic hypoxic and hypercapnic respiratory failure secondary to COPD exacerbation. She was started on aggressive bronchopulmonary hygiene, respiratory treatments, supplemental oxygen, as well as IV steroids. She also received antibiotic therapy. While in the emergency room, she also developed episodes of confusion, which resolved, her condition was stabilized and improved and she is now admitted to our facility for continued therapy prior to returning back to her apartment where she lives by herself. DISCHARGE DIAGNOSIS: Chronic obstructive pulmonary disease. MEDICATIONS: 1. Atenolol 25 mg, 0.5 mg daily for hypertension. 2. Spiriva Respimat 2.5 mcg per actuation 2 puffs orally at bedtime for COPD. 3. Advair Diskus aerosol powder 500/50 mcg 1 inhalation 2 times a day for COPD. 4. Gabapentin 300 mg 2 tabs 3 times a day for dorsalgia. 5. DuoNeb 0.5/2.5 mg per 3 mL, 3 mL inhaled 4 times daily for COPD. The patient also has p.r.n. medications, bisacodyl, Fleet enema, milk of magnesia, Percocet 5/325 and albuterol sulfate nebulizing solution 0.083 p.r.n. LAB DATA: Labs reviewed January 26, 2022, basic metabolic panel abnormals potassium 3.3, BUN and creatinine ratio 27, calcium 8.2. All other labs within normal range. CBC with diff abnormals RBC 3.40, hemoglobin 10.3, hematocrit 32.5, neutrophils 83.8, lymphocytes 7.5, and neutrophil absolute 8.60, lymphocyte absolute 0.80. All other labs within normal range. Radiology report, date of service January 27, 2022. Examination chest x-ray 2-view, conclusion, no acute cardiopulmonary disease. CODE STATUS: DNR CC. OARRS REPORT: Reviewed. SUBJECTIVE DATA: Upon entering the room found the patient sitting in chair. Patient is noted to have supplemental oxygen on 3 L. The patient does not appear to be in distress or discomfort and appears to be in good spirits. The patient states she is anxious to go home. She states she was up walking with therapy services and did not get short of breath with therapy. The patient states she has no pain, no cough, no shortness of breath. No fever, chills, or nausea, states she has been eating well and bowels have been moving. States has been drinking fluids. Denies urinary symptoms. The patient does complain of some sinus congestion. OBJECTIVE DATA: Vital Signs: Temp 97.5, blood pressure 128/72, pulse 87, respirations 20, pulse ox 96% on room air, weight 170.4 pounds. Respiratory: Respirations are easy and unlabored with patient at rest. Lung sounds are clear and slightly diminished. Heart: Heart rate and rhythm regular. Abdomen: Soft and nontender with palpation. Bowel sounds present x4. Extremities: Nonedematous. Psych: The patient is calm, alert, and pleasant in conversation. The patient is cooperative for examination. The patient is alert, oriented x3. IMPRESSION AND PLAN: 1. Chronic obstructive pulmonary disease, currently on Spiriva, Advair, ipratropium routine and albuterol nebulizer p.r.n. Patient may have Mucinex 400 mg every 6 hours p.r.n. congestion. The p (more content not included)...[facility]05-13-2022 History of Present illness Narrative* Naga Rowe APRN.[employer] HOME INST[employer]ER - 02/03/2022 12:00 AM EDT [facility] NOTE NAME: LELO BAZAN NO.: [id number] DATE OF SERVICE: 02/03/2022 [facility] DATE OF : 1950 REASON FOR VISIT: The patient is a resident of [facility]. This is a discharge visit for COPD. The patient was admitted to [facility] from [facility] after experiencing hypoxic and hypercapnic event secondary to exacerbation of COPD. The patient's stay did have some events. The patient did have repeat chest x-ray after the patient complained of productive cough, similar to that of pneumonia or experiencing pneumonia in the past and chest x-ray showed no active disease. The patient also had been found to be hypocalcemic, was placed on a 3-day dose of potassium. The patient states she is anxious to go home, states will be going home, where she lives by he rself, but does have family members and friends nearby that can assist her in a need. The patient states has no concerns going home. Date of admission January 23, 2022, date of discharge February 03, 2022. HISTORY OF PRESENT ILLNESS: The patient is a 71-year-old female who was admitted to us from [facility] with the diagnosis of acute on chronic hypoxic and hypercapnic respiratory failure secondary to acute exacerbation of chronic obstructive pulmonary disease, altered mental status secondary to metabolic encephalopathy, hypertension, past smoking history, chronic back pain with history of chronic compression fractures, chronic anemia, remote hysterectomy, and generalized weakness. She was initially presented to the hospital after developing increasing shortness of breath. Evaluation in the hospital revealed her to be in acute on chronic hypoxic and hypercapnic respiratory failure secondary to COPD exacerbation. She was started on aggressive bronchopulmonary hygiene, respiratory treatments, supplemental oxygen, as well as IV steroids. She also received antibiotic therapy.While in the emergency room, she also developed episodes of confusion, which resolved, her condition was stabilized and improved and she is now admitted to our facility for continued therapy prior toreturning back to her apartment where she lives by herself. DISCHARGE DIAGNOSIS: Chronic obstructive pulmonary disease. MEDICATIONS: 1. Atenolol 25 mg, 0.5 mg daily for hypertension. 2. Spiriva Respimat 2.5 mcg per actuation 2 puffsorally at bedtime for COPD. 3. Advair Diskus aerosol powder 500/50 mcg 1 inhalation 2 times a day for COPD. 4. Gabapentin 300 mg 2 tabs 3 times a day for dorsalgia. 5. DuoNeb 0.5/2.5 mg per 3 mL, 3 mL inhaled 4 times daily for COPD. The patient also has p.r.n. medications, bisacodyl, Fleet enema, milk of magnesia, Percocet 5/325 and albuterol sulfate nebulizing solution 0.083 p.r.n. LAB DATA: Labs reviewed January 26, 2022, basic metabolic panel abnormals potassium 3.3, BUN and creatinine ratio 27, calcium 8.2. All other labs within normal range. CBC with diff abnormals RBC 3.40, hemoglobin 10.3, hematocrit 32.5, neutrophils 83.8, lymphocytes 7.5, and neutrophil absolute 8.60, lymphocyte absolute 0.80. All other labs within normal range. Radiology report, date of service January 27, 2022. Examination chest x-ray 2-view, conclusion, no acutecardiopulmonary disease. CODE STATUS: DNR CC. OARRS REPORT: Reviewed. SUBJECTIVE DATA: Upon entering the room found the patient sitting in chair. Patient is noted to have supplemental oxygen on 3 L. The patient does not appear to be in distress or discomfort and appears to be in good spirits. The patient states she is anxious to go home. She states she was up walkingwith therapy services and did not get short of breath with therapy. The patient states she has no pain, no cough, no shortness of breath. No fever, chills, or nausea, states she has been eating well and bowels have been moving. States has been drinking fluids. Denies urinary symptoms. The patient does complain of some sinus congestion. OBJECTIVE DATA: Vital Signs: Temp 97.5, blood pressure 128/72, pulse 87, respirations 20, pulse ox 96% on room air, weight 170.4 pounds. Respiratory: Respirations are easy and unlabored with patient at rest. Lung sounds are clear and slightly diminished. Heart: Heart rate and rhythm regular. Abdomen: Soft and nontender with palpation. Bowel sounds present x4. Extremities: Nonedematous. Psych: Thepatient is calm, alert, and pleasant in conversation. The patient is cooperative for examination. The patient is alert, oriented x3. IMPRESSION AND PLAN: 1. Chronic obstructive pulmonary disease, currently on Spiriva, Advair, ipratropium routine and albuterol nebulizer p.r.n. Patient may have Mucinex 400 mg every 6 hours p.r.n. congestion. The patientdoes take oxygen at home. The patient is on oxygen routinely at home and continues to need it for her chronic obstructive pulmonary disease. The patient is on 3 L as she states and will continue withoxygen at home with [id number] being performed. 2. Hypertension. The patient has good blood pressure control, continue atenolol. 3. Back pain. The patient is finding relief with the current medication regimen. The patient currently takes gabapentin routinely and Percocet as needed every 4 hours. The patient is stable at time of discharge. The patient will return home with current medications, current labs and current treatments. The patient will follow with home health agency for physical and occupational therapy. [id number] has been for performed and patient will continue with supplemental oxygen at 3L at home. The patient will follow up with primary care physician in 7 to 10 days as suggested. The patient will follow with pulmonary services for ongoing evaluation and care of chronic obstructive pulmonary disease. The patient is authorized to be discharged home. Time spent during discharge greater than 31 minutes. DICTATED BY: MYRNA Rodríguez JOB# [id number] cc:[facility] NoteHNO ID: [id number] Author: Naga Rowe APRN.NAVDEEP Service: ? Author Type: Nurse Specialist Type: Progress Notes Filed: 02/01/2022 9:39 AM Note Text: [facility] NOTE NAME: LELO BAZAN NO.: [id number] DATE OF SERVICE: 01/30/2022 [facility] DATE OF : 1950 REASON FOR VISIT: The patient is a resident of [facility]. This is a skilled visit for COPD and other medical concerns. The patient had medications adjusted last Sunday after patient was complaining of cough and continued shortness of breath. The patient did have chest x-ray performed. Chest x-ray was negative for acute processes. Upon entering the room found the patient sleeping in low Allan's position. The patient is noted to have supplemental oxygen on. The patient does not appear to be in distress or discomfort and is easily aroused. The patient states she is feeling much better with the medications adjusted. The patient states is taking Spiriva, but is not taking her Advair. The patient states she has no cough. The patient states has no shortness of breath at rest. The patient states she does not feel fevers or chills. States appetite is good and bowels have been moving. Denies urinary symptoms. MEDICATIONS: Have been reviewed. EXAMINATION: Temperature 96.8, blood pressure 132/71, pulse 94, respirations 18, pulse ox 97% on room air, weight 168 pounds. Respiratory: Respirations are easy and unlabored with patient at rest. Lung sounds are clear and slightly diminished bilaterally. Heart: Heart rate and rhythm regular. Abdomen: Soft, nontender with palpation. Bowel sounds present x4. Extremities: Nonedematous. IMPRESSION AND PLAN: 1. Hypoxia with chronic obstructive pulmonary disease. Patient's pulse ox adequate. The patient does continue with supplemental oxygen. Continue with Advair, Spiriva, ipratropium, and albuterol. The patient will have prednisone, end date February 01, 2022. 2. Hypertension. The patient has good blood pressure control, currently on atenolol. 3. Nonspecific back pain. The patient states she does have pain relief with the current medication regimen. Continue with Percocet and gabapentin. 4. Generalized weakness. The patient states feeling stronger with therapy services, continue with therapy services. DICTATED BY: MYRNA Rodríguez/Ross JOB# [id number] cc:[facility]05-09-2022 History of Present illness Narrative* Naga Rowe APRN.[employer]BILE HOME INSTALLER - 01/30/2022 12:00 AM EDT [facility] NOTE NAME: LELO BAZAN NO.: [id number] DATE OF SERVICE: 01/30/2022 [facility] DATE OF : 1950 REASON FOR VISIT: The patient is a resident of [facility]. This is a skilled visit for COPD and other medical concerns. The patient had medications adjusted last Sunday after patient was complaining of cough and continued shortness of breath. The patient did have chest x-ray performed. Chest x-ray was negative for acute processes. Upon entering the room found the patient sleeping in lowFowler's position. The patient is noted to have supplemental oxygen on. The patient does not appearto be in distress or discomfort and is easily aroused. The patient states she is feeling much better with the medications adjusted. The patient states is taking Spiriva, but is not taking her Advair.The patient states she has no cough. The patient states has no shortness of breath at rest. The patient states she does not feel fevers or chills. States appetite is good and bowels have been moving.Denies urinary symptoms. MEDICATIONS: Have been reviewed. EXAMINATION: Temperature 96.8, blood pressure 132/71, pulse 94, respirations 18, pulse ox 97% on room air, weight 168 pounds. Respiratory: Respirations are easy and unlabored with patient at rest. Lung sounds are clear and slightly diminished bilaterally. Heart: Heart rate and rhythm regular. Abdomen: Soft, nontender with palpation. Bowel sounds present x4. Extremities: Nonedematous. IMPRESSION AND PLAN: 1. Hypoxia with chronic obstructive pulmonary disease. Patient's pulse ox adequate. The patient does continue with supplemental oxygen. Continue with Advair, Spiriva, ipratropium, and albuterol. The patient will have prednisone, end date February 01, 2022. 2. Hypertension. The patient has good blood pressure control, currently on atenolol. 3. Nonspecific back pain. The patient states she does have pain relief with the current medication regimen. Continue with Percocet and gabapentin. 4. Generalized weakness. The patient states feeling stronger with therapy services, continue with therapy services. DICTATED BY: MYRNA Rodríguez/Ross JOB# [id number] cc:[facility] documented in this encounterA[facility]05-[facility]22 NoteHNO ID: [id number] Author: Naga Rowe APRN.[employer] HOME INSTALLER Service: ? Author Type: Nurse Specialist Type: Progress Notes Filed: 01/31/2022 7:09 AM Note Text: [facility] NOTE NAME: LLEO BAZAN NO.: [id number] DATE OF SERVICE: 01/27/2022 [facility] DATE OF : 1950 REASON FOR VISIT: The patient is a resident of [facility]. This is a skilled visit for acute on chronic respiratory failure with COPD. Upon entering the room found the patient sitting in recliner. The patient is noted to have supplemental oxygen on. The patient does converse in complete sentences, but does state she feels more short of breath than when she was in the hospital and wonders about the regimen change in her respiratory treatments. The patient then continues to inform myself that she is not taking her inhaler Spiriva or Advair stating that they cause her to have dry mouth and also states that she would like to have her tramadol discontinued as this is ineffective for her. The patient states she does have a cough, cough is productive of small amount of a yu expectorant and feels rattle in the left upper chest. The patient states no fever, chills, or nausea. The patient states has been eating and drinking well. The patient denies bowel or bladder dysfunction. The patient states she does have her chronic low back pain, but does have some pain to the left upper posterior back or left upper back region, near the scapular region and voices concerns of possible recurrence of pneumonia. The patient has completed her antibiotic therapy. I did educate the patient on the use of the long acting inhalers and instructed the patient to rinse her mouth after using the inhalers to help with the dry mouth, plus they would help decrease the risk of thrush. The patient does understand this and will attempt to use the inhalers again. MEDICATIONS: Have been reviewed. EXAMINATION: Temp 97.7, blood pressure 149/84, pulse 92, respirations 18, pulse ox 99%; on supplemental oxygen, weight 168 pounds. Respiratory: Respirations are easy and unlabored with patient at rest. Lung sounds are slightly diminished with faint expiratory wheezes in the left upper lobe. Heart: Heart rate and rhythm regular. Abdomen: Soft, nontender with palpation. Bowel sounds present x4. Extremities: Nonedematous. IMPRESSION AND PLAN: 1. Respiratory failure with chronic obstructive pulmonary disease, continue to use Advair and Spiriva, I encouraged the patient to rinse mouth after using. Patient has DuoNeb 4 times a day. The patient will have albuterol nebulizer added to the list of medications as needed. Currently on prednisone. 2. Disorientation and confusion. The patient is appropriate with conversation at this time. 3. Hypertension. Currently on atenolol. The patient has fair blood pressure control, we will continue to monitor. 4. Nonspecific back pain. The patient does have chronic low back pain. Tramadol has been discontinued per patient's request. The patient currently takes Percocet. When suggesting lidocaine patch the patient refused, states that her lidocaine patch does nothing for her pain. 5. Generalized weakness. Continue with therapy services. DICTATED BY: MYRNA Rodríguez/Ross JOB# [id number] cc:[facility]05-06-[facility]22 History of Present illness Narrative* Naga Rowe APRN.[employer]BILE HOME INSTALLER - 01/27/2022 12:00 AM EDT [facility] NOTE NAME: LELO BAZAN NO.: [id number] DATE OF SERVICE: 01/27/2022 [facility] DATE OF : 1950 REASON FOR VISIT: The patient is a resident of [facility]. This is a skilled visit for acute on chronic respiratory failure with COPD. Upon entering the room found the patient sitting in recliner. The patient is noted to have supplemental oxygen on. The patient does converse in completesentences, but does state she feels more short of breath than when she was in the hospital and wonders about the regimen change in her respiratory treatments. The patient then continues to inform myself that she is not taking her inhaler Spiriva or Advair stating that they cause her to have dry mouth and also states that she would like to have her tramadol discontinued as this is ineffective for her. The patient states she does have a cough, cough is productive of small amount of a yu expectorant and feels rattle in the left upper chest. The patient states no fever, chills, or nausea. Thepatient states has been eating and drinking well. The patient denies bowel or bladder dysfunction. The patient states she does have her chronic low back pain, but does have some pain to the left upper posterior back or left upper back region, near the scapular region and voices concerns of possiblerecurrence of pneumonia. The patient has completed her antibiotic therapy. I did educate the patient on the use of the long acting inhalers and instructed the patient to rinse her mouth after using the inhalers to help with the dry mouth, plus they would help decrease the risk of thrush. The patient does understand this and will attempt to use the inhalers again. MEDICATIONS: Have been reviewed. EXAMINATION: Temp 97.7, blood pressure 149/84, pulse 92, respirations 18, pulse ox 99%; on supplemental oxygen, weight 168 pounds. Respiratory: Respirations are easy and unlabored with patient at rest. Lung sounds are slightly diminished with faint expiratory wheezes in the left upper lobe. Heart: Heart rate and rhythm regular. Abdomen: Soft, nontender with palpation. Bowel sounds present x4. Extremities: Nonedematous. IMPRESSION AND PLAN: 1. Respiratory failure with chronic obstructive pulmonary disease, continue to use Advair and Spiriva, I encouraged the patient to rinse mouth after using. Patient has DuoNeb 4 times a day. The patient will have albuterol nebulizer added to the list of medications as needed. Currently on prednisone. 2. Disorientation and confusion. The patient is appropriate with conversation at this time. 3. Hypertension. Currently on atenolol. The patient has fair blood pressure control, we will continue to monitor. 4. Nonspecific back pain. The patient does have chronic low back pain. Tramadol has been discontinued per patient's request. The patient currently takes Percocet. When suggesting lidocaine patch the patient refused, states that her lidocaine patch does nothing for her pain. 5. Generalized weakness. Continue with therapy services. DICTATED BY: MYRNA Rodríguez/Ross JOB# [id number] cc:[facility] documented in this encounterA[facility]22 NoteHNO ID: [id number] Author: Elise Olivas Service: ? Author Type: Physician Type: Progress Notes Filed: 01/25/2022 7:19 PM Note Text: [facility] NOTE NAME: LELO BAZAN NO.: [id number] DATE OF SERVICE: 01/24/2022 [facility] DATE OF : 1950 New patient history and physical HISTORY OF PRESENT ILLNESS: The patient is a 71-year-old female who is admitted to us from [facility] with a diagnosis of acute on chronic hypoxic and hypercapnic respiratory failure secondary to acute exacerbation of chronic obstructive pulmonary disease, altered mental status, secondary to metabolic encephalopathy, hypertension, past smoking history, chronic back pain with history of chronic compression fractures, chronic anemia, remote hysterectomy and generalized weakness. She was initially to the hospital after developing increasing shortness of breath. Evaluation in the hospital revealed her to be in acute on chronic hypoxic and hypercapnic respiratory failure secondary to COPD exacerbation. She was started on aggressive bronchopulmonary hygiene, respiratory treatments, supplemental oxygen, as well as IV steroids. She also received antibiotic therapy. While in the emergency room, she also developed episodes of confusion, which resolved. Her condition was stabilized and improved and she is now admitted to our facility for continued therapy prior to returning back to her apartment, where she lives by herself. REVIEW OF SYSTEMS: She is currently sitting up in bed. She is alert and oriented. She does have supplemental oxygen, which she states she uses [id number] at home at 3 L nasal cannula. Her main concern is that she would like to go back on her DuoNeb aerosol treatments that she was receiving in hospital, which is most effective. She has had no change in her vision or hearing or actual syncope. Once again, she was treated for acute on chronic hypoxic and hypercapnic respiratory failure secondary to exacerbation of her severe chronic obstructive pulmonary disease. She denies any recent pneumonias or COVID infections. She has received her initial vaccines, but has not received her booster. She is not aware of any heart problems. No chest pain, angina, palpitations, previous heart surgeries, pacemakers or heart attacks. She does have hypertension. Her appetite has been fair. No bleeding ulcers, hepatitis, or melena. No prior strokes or seizures, diabetes mellitus, bleeding problems or blood clots, though she does have chronic anemia. No thyroid problems. FAMILY HISTORY: Significant for hypertension. SOCIAL/FUNCTIONAL HISTORY: She claims to have stopped smoking at the end of last summer. No history of alcohol abuse. She has been living in the apartment by herself. MEDICATIONS: Advair Diskus 1 puff b.i.d., albuterol aerosol treatments 4 times a day, atenolol 25 mg, half a tablet daily, Atrovent inhaler, 2 puffs 4 times a day. Azithromycin 250 mg 2 tablets daily for 1 more day, gabapentin 600 mg t.i.d., Percocet p.r.n., tapering schedule of prednisone, Spiriva inhaler, 2 puffs at bedtime, and tramadol p.r.n. ALLERGIES: CLINDAMYCIN AND LEVOFLOXACIN. EXAMINATION: She is currently afebrile, vital signs stable, but she is in no distress at this time. She appears chronically ill. She is on supplemental oxygen. HEENT: Extraocular movements intact, sclerae nonicteric. Ears intact. Lungs with mild diffuse expiratory wheeze with fair air movement. Heart is regular. Abdomen is soft, nontender. Extremities: No edema. Her skin is warm and dry. She does have generalized weakness. IMPRESSION: 1. Acute on chronic hypoxic and hypercapnic respiratory failure secondary to chronic obstructive pulmonary disease exacerbation - we will continue to monitor her respiratory status closely. We will maintain current supplemental oxygen, as well as tapering schedule of prednisone. She will complete her oral antibiotic therapy. I will go and switch her current respiratory treatments to DuoNeb aerosol treatments 4 times a day as per her request. 2. Transient episode of confusion - altered mental status mostly secondary to metabolic encephalopathy - resolved. She appears to be back at baseline. Monitor her cognitive status closely. 3. Hypertension - monitor her blood pressures closely and make adjustments as needed. 4. Chronic back pain secondary to history of compression fractures - we will continue with current symptomatic care. She had been receiving tramadol at home. I will discontinue her current Percocet and monitor her symptoms closely. 5. Functional assessment - she does have generalized weakness. She will be receiving rehab services for overall strengthening and conditioning. Overall condition and prognosis is somewhat guarded. We will obtain followup labs including CBC and BMP. She currently has not yet received her 1st booster (more content not included)...[facility]05-03-2022 History of Present illness Narrative* Elise Olivas - 01/24/2022 12:00 AM EDT [facility] NOTE NAME: LELO BAZAN NO.: [id number] DATE OF SERVICE: 01/24/2022 [facility] DATE OF : 1950 New patient history and physical HISTORY OF PRESENT ILLNESS: The patient is a 71-year-old female who is admitted to us from [facility] with a diagnosis of acute on chronic hypoxic and hypercapnic respiratory failuresecondary to acute exacerbation of chronic obstructive pulmonary disease, altered mental status, secondary to metabolic encephalopathy, hypertension, past smoking history, chronic back pain with history of chronic compression fractures, chronic anemia, remote hysterectomy and generalized weakness. She was initially to the hospital after developing increasing shortness of breath. Evaluation in thehospital revealed her to be in acute on chronic hypoxic and hypercapnic respiratory failure secondary to COPD exacerbation. She was started on aggressive bronchopulmonary hygiene, respiratory treatments, supplemental oxygen, as well as IV steroids. She also received antibiotic therapy. While in theemergency room, she also developed episodes of confusion, which resolved. Her condition was stabilized and improved and she is now admitted to our facility for continued therapy prior to returning back to her apartment, where she lives by herself. REVIEW OF SYSTEMS: She is currently sitting up in bed. She is alert and oriented. She does have supplemental oxygen, which she states she uses [id number]-[id number]-zqmpk at home at 3 L nasal cannula. Her main concern is that she would like to go back on her DuoNeb aerosol treatments that she was receiving in hospital, which is most effective. She has had no change in her vision or hearing or actual syncope. Once again, she was treated for acute on chronic hypoxic and hypercapnic respiratory failure secondary to exacerbation of her severe chronic obstructive pulmonary disease. She denies any recent pneumonias or COVID infections. She has received her initial vaccines, but has not received her booster.She is not aware of any heart problems. No chest pain, angina, palpitations, previous heart surgeries, pacemakers or heart attacks. She does have hypertension. Her appetite has been fair. No bleedingulcers, hepatitis, or melena. No prior strokes or seizures, diabetes mellitus, bleeding problems or blood clots, though she does have chronic anemia. No thyroid problems. FAMILY HISTORY: Significant for hypertension. SOCIAL/FUNCTIONAL HISTORY: She claims to have stopped smoking at the end of last summer. No historyof alcohol abuse. She has been living in the apartment by herself. MEDICATIONS: Advair Diskus 1 puff b.i.d., albuterol aerosol treatments 4 times a day, atenolol 25 mg, half a tablet daily, Atrovent inhaler, 2 puffs 4 times a day. Azithromycin 250 mg 2 tablets dailyfor 1 more day, gabapentin 600 mg t.i.d., Percocet p.r.n., tapering schedule of prednisone, Spirivainhaler, 2 puffs at bedtime, and tramadol p.r.n. ALLERGIES: CLINDAMYCIN AND LEVOFLOXACIN. EXAMINATION: She is currently afebrile, vital signs stable, but she is in no distress at this time.She appears chronically ill. She is on supplemental oxygen. HEENT: Extraocular movements intact, sclerae nonicteric. Ears intact. Lungs with mild diffuse expiratory wheeze with fair air movement. Heart is regular. Abdomen is soft, nontender. Extremities: No edema. Her skin is warm and dry. She doeshave generalized weakness. IMPRESSION: 1. Acute on chronic hypoxic and hypercapnic respiratory failure secondary to chronic obstructive pulmonary disease exacerbation - we will continue to monitor her respiratory status closely. We will maintain current supplemental oxygen, as well as tapering schedule of prednisone. She will complete her oral antibiotic therapy. I will go and switch her current respiratory treatments to DuoNeb aerosol treatments 4 times a day as per her request. 2. Transient episode of confusion - altered mental status mostly secondary to metabolic encephalopathy - resolved. She appears to be back at baseline. Monitor her cognitive status closely. 3. Hypertension - monitor her blood pressures closely and make adjustments as needed. 4. Chronic back pain secondary to history of compression fractures - we will continue with current symptomatic care. She had been receiving tramadol at home. I will discontinue her current Percocet and monitor her symptoms closely. 5. Functional assessment - she does have generalized weakness. She will be receiving rehab servicesfor overall strengthening and conditioning. Overall condition and prognosis is somewhat guarded. Wewill obtain followup labs including CBC and BMP. She currently has not yet received her 1st boostervaccine and therefore, will be in a 14-day isolation in her room. The goal is for her to return back to her home situation, where she does live by herself. She is currently DNR, Comfort Care. DICTATED BY: MD FLACO Hatch/Ross JOB# [id number] cc:[facility] + Plan note Extracted from: Title:Discharge Note Author:Jaylen Junior MD Date:01/23/22 1. Chronic respiratory failure with hypoxia (J96.11: Chronic respiratory failure with hypoxia) Ordered: Hospital Discharge Day > 30 Min 18178 2. Acute exacerbation of chronic obstructive pulmonary disease (COPD) (J44.1: Chronic obstructive pulmonary disease with (acute) exacerbation) Ordered: Hospital Discharge Day > 30 Min 85065 3. Transient confusion (R41.0: Disorientation, unspecified) Ordered: Hospital Discharge Day > 30 Min 68190 4. Hypertension (I10: Essential (primary) hypertension) Ordered: Hospital Discharge Day > 30 Min 19550 5. Chronic back pain (M54.9: Dorsalgia, unspecified) Ordered: Hospital Discharge Day > 30 Min 78240 6. No contraindication to deep vein thrombosis (DVT) prophylaxis (Z78.9: Other specified health status) Ordered: Hospital Discharge Day > 30 Min 02414 Other chronic pain (G89.29: Other chronic pain) Orders: azithromycin, 500 mg = 2 tab(s), Oral, Daily, X 1 day(s), # 2 tab(s), Refills(s) 0, Pharmacy: [facility], 170, cm, 01/19/22 21:36:00 EDT, Height/Length Dosing, 76.4, kg, 01/20/22 7:49:00 EDT, Weight Dosing fluticasone-salmeterol, 1 puff(s), Inhalation, BID, 60 blister(s), Refill(s) 0, [facility], 170, cm, 01/19/22 21:36:00 EDT, Height/Length Dosing, 76.4, kg, 01/20/22 7:49:00 EDT, Weight Dosing predniSONE, 10 mg, Oral, As Directed, 4 QDx2 days; 3 QDx2 d; 2 QDx2 d; 1 QDx2 dys; d/c, X 8 day(s), # 20 tab(s), Refills(s) 0, Pharmacy: [facility], 170, cm, 01/19/22 21:36:00 EDT, Height/Length Dosing, 76.4, kg, 01/20/22 7:49:00 EDT, Weight Dosing Discharge Patient Prescriptions Advair 500 mcg-50 mcg Powder, 1 puff(s), Inhalation, BID azithromycin 250 mg Tab, 500 mg= 2 tab(s), Oral, Daily predniSONE 10 mg Tab, 10 mg, Oral, As Directed Home albuterol 0.083% Inh Veronica 3 mL, 2.5 mg= 3 mL, NEB, q6hr atenolol 25 mg Tab, 0.5 tablet, Oral, Daily Atrovent HFA 17 mcg/inh inhalation aerosol, 2 puff(s), Inhalation, QID gabapentin 300 mg Cap, 600 mg= 2 cap(s), Oral, TID Spiriva Respimat 60 ACT 2.5 mcg/inh inhalation aerosol, 2 puff(s), Inhalation, Daily tramadol 50 mg oral tablet, 100 mg= 2 tab(s), Oral, TID, PRN With When Contact Information Eli COY, Catina Lemus, PUL, NOE Within 2 weeks [facility] ([facility] [place] [address]- Additional Instructions: Chronic Obstructive Pulmonary Disease, [id number] Extracted from: Title:APSO Note Author:ABDULLAHI COY, Hasgrisel Date: 2 1. Chronic respiratory failu re with hypoxia (J96.11: Chronic respiratory failure with hypoxia) - at baseline on 3L NC secondary to a history of COPD Ordered: [facility] Care/Day Moderate 25 Minutes 58492 2. Acute exacerbation of chronic obstructive pulmonary disease (COPD) (J44.1: Chronic obstructive pulmonary disease with (acute) exacerbation) - azithromycin, wean solumedrol, duonebs - chronic O2 as above 3. Transient confusion (R41.0: Disorientation, unspecified) - secondary to above, at baseline mentation now 4. Hypertension (I10: Essential (primary) hypertension) - atenolol 5. Chronic back pain (M54.9: Dorsalgia, unspecified) - percocet - gabapentin 6. No contraindication to deep vein thrombosis (DVT) prophylaxis (Z78.9: Other specified health status) - SCDs, heparin subcutaneous CRM assisting with placement at ECF Other chronic pain (G89.29: Other chronic pain) Orders: methylPREDNISolone, 60 mg = 1.5 mL, Injection, IV Push, q12hr, Routine, Start date 01/22/22 10:00:00 EDT, 01/22/22 9:08:00 EDT Occupational Therapy Additional Tx Occupational Therapy Evaluate Patient, Develop a Plan of Care and Implement Plan Extracted from: Title:APSO Note Author:Geraldo FERNANDO MD Date: 1. Chronic respiratory failu re with hypoxia (J96.11: Chronic respiratory failure with hypoxia) - at baseline on 3L NC secondary to a history of COPD 2. Acute exacerbation of chronic obstructive pulmonary disease (COPD) (J44.1: Chronic obstructive pulmonary disease with (acute) exacerbation) - azithromycin, solumedrol, duonebs - chronic O2 as above 3. Transient confusion (R41.0: Disorientation, unspecified) - secondary to above, at baseline mentation now- 4. Hypertension (I10: Essential (primary) hypertension) - atenolol 5. Chronic back pain (M54.9: Dorsalgia, unspecified) - percocet - gabapentin 6. No contraindication to deep vein thrombosis (DVT) prophylaxis (Z78.9: Other specified health status) - SCDs, heparin subcutaneous CRM assisting with placement at ECF Other chronic pain (G89.29: Other chronic pain) Orders: acetaminophen-oxycodone, 1 tab(s), Tab, Oral, q4hr PRN Pain, Stop date 01/25/22 8:20:00 EDT, Routine, Start date 01/21/22 8:40:00 EDT Physical Therapy Additional Tx Physical Therapy Evaluate Patient, Develop a Plan of Care and Implement Plan Referral to Resource Center Extracted from: Title:Admission H & P Author:Dav SCOTT DO Date:01/20/22 1. Acute exacerbation of chr onic obstructive pulmonary disease (COPD) (J44.1: Chronic obstructive pulmonary disease with (acute) exacerbation) We will continue IV steroids, continue albuterol and Atrovent, Mucinex, continue Zithromax. With her advanced lung disease we will consult pulmonary medicine till the decision for below was made Ordered: C-Reactive Protein 2. Episode of confusion (R41.0: Disorientation, unspecified) Noted especially in the emergency department. Extensive work-up was performed including CT of the head without contrast demonstrated no acute pathology. Serum ammonia, lites, creatinine were within normal limits. She was not hypo or hyperglycemic. She was not profoundly hypertensive and she was not hypotensive. Blood gas was appropriately obtained and on 32% FiO2 oxygenation was adequate, PCO2 is elevated but the pH was normal to alkalotic suggesting PCO2 elevation is chronically elevated not contributing. Her white cell count on her first emergency department visit was within normal limits. I question role of steroids though when reviewing prior records there was no report when hospitalized previously her having any adverse mental status issues when receiving steroids. Patient claims she has tolerated steroids well previously. Also noted that she was prescribed Percocet after the first emergency department visit also potentially playing a role. To be complete we will check vitamin B12 if she is anemic, check thyroid function studies and though serum ammonia was within normal limits we will check liver function studies as well. Patient lives alone and she has advanced COPD with exacerbation for these reasons patient was admitted for close observation 3. Chronic respiratory failure with hypoxia and hypercapnia (J96.11: Chronic respiratory failure with hypoxia) Patient does have advanced COPD continue O2 per nasal cannula. 4. History of tobacco abuse (Z87.891: Personal history of nicotine dependence) Patient states she quit tobacco use in June 5. Hypertension (I10: Essential (primary) hypertension) Continue atenolol lower dose would avoid escalating beta-blockade with significant COPD 6. Chronic back pain (M54.9: Dorsalgia, unspecified) Patient states she has compression fractures at L3, T8 and T9 indicating that her posterior thoracic pain is the worst. She states [employer] is no longer working for was requesting the Percocet that she was sent home with for this worked better. However at this time I am hesitant to prescribe Percocet if this is indeed would result in her mental status changes and would treat conservatively though note discussion below the diagnosis anemia. 7. Anemia (D64.9: Anemia, unspecified) Slow decline in patient's hemoglobin, though she is demonstrating no microcytic anemia and denies any blood loss. Will check vitamin B12 with her above mental status issues Ordered: Vitamin B12 Level Orders: acetaminophen, 325 mg = 1 tab(s), Tab, Oral, q4hr PRN Pain, Routine, Start date 01/20/22 6:38:00 EDT, 01/20/22 6:38:00 EDT albuterol, 2.5 mg, 3 mL, Soln-Inh, Inhalation, q2hr PRN Shortness of breath or wheezing, Routine, Start date 01/20/22 6:38:00 EDT albuterol-ipratropium, 3 mL, Soln-Inh, Inhalation, QID, Routine, Start date 01/20/22 8:00:00 EDT azithromycin, 500 mg = 2 tab(s), Tab, Oral, Daily for 5 day(s), Stop date 01/25/22 8:59:00 EDT, Routine, Start date 01/20/22 9:00:00 EDT, 01/20/22 6:38:00 EDT docusate, 100 mg = 1 cap(s), Cap, Oral, Daily PRN Constipation, Routine, Start date 01/20/22 6:38:00 EDT, 01/20/22 6:38:00 EDT guaifenesin, 1,200 mg = 2 tab(s), Tab-ER, Oral, BID, Routine, Start date 01/20/22 9:00:00 EDT, 01/20/22 6:38:00 EDT heparin, 5,000 unit(s) = 1 mL, Injection, SubCutaneous, BID, Routine, Start date 01/20/22 9:00:00 EDT, 01/20/22 6:38:00 EDT methylPREDNISolone, 60 mg = 1.5 mL, Injection, IV Push, q6hrFT, Routine, Start date 01/20/22 6:00:00 EDT, 01/20/22 6:38:00 EDT ondansetron, 4 mg = 2 mL, Injection, IV Push, q6hr PRN Nausea/Vomiting, Routine, Start date 01/20/22 6:38:00 EDT, 01/20/22 6:38:00 EDT polyethylene glycol 3350, 17 gram = 1 EA, Powder-Recon, Oral, Daily PRN Constipation, Routine, Start date 01/20/22 6:38:00 EDT, 01/20/22 6:38:00 EDT Activity As Tolerated Basic Metabolic Panel Cardiac Monitoring CBC w/ Auto Diff Consult to Pulmonology Evaluate For Pulmonary Rehabilitation Hepatic Function Panel Intake and Output [facility]Station Chronic Obstructive Pulmonary Disease COPD (MARCUS:[id number]) Notify Provider Vital Signs Peak Expiratory Flow Place in Status Prealbumin Precautions PT & PTT Pulse Oximetry Regular Diet Resuscitation Status - DNR CC (Comfort Care) Saline Lock Insert Smoking Cessation Instruction Sputum Culture TSH With T4fr Reflex Vital Signs Weight Note patient brought up that she wanted to . She indicated this because of her advanced COPD and she does not wish to continue struggling to breathe. She was quite clear that she desires no chest compressions, defibrillation, intubation and she just wants to be kept comfortable. In fact she expressed anxiety about being moved to the ICU. She was somewhat hesitant at first to allow for administration of steroids explaining to her what the plan treatment was for this evening stating I don't want to get better then get worse . She ultimately agreed to this however. I asked if she has had palliative care and she did stated that she had been receiving palliative care with hospice but indicated there was supposed to meet her but that they did not but they met with her sister then later stated that she was supposed to meet with them today and this history was not quite clear. In light of what was described in the emergency department, prefer to observe her overnight get additional information from family and consult with pulmonary medicine before potentially considering hospice if she is determined to be at her baseline mental status and has expressed these wishes to the family previously Patient is admitted as general inpatient with the anticipation she will require greater than 2 midnight stay pending further evaluation as discussed above Extracted from: Title:ED Note Author:Hunter Reis DO Date :01/19/22 COPD exacerbation (J44.1: Ch ronic obstructive pulmonary disease with (acute) exacerbation) Episode of confusion (R41.0: Disorientation, unspecified) Orders: Ammonia Level Blood Gas Art, with Lytes, Gluc, Lact CT Head or Brain w/o Contrast Drug Screen Urine ED Physician consult Hospitalist for continued care Ethanol Level UA With Cult Reflex Diagnostic Tests Pending * Sputum Culture 01/20/22 Future Scheduled Tests Laboratory* SARS-CoV-2, FATEMEH 06/16/21 [facility]05-02-2022 Hospital Discharge instructions Patient Education 01/23/2022 10:47:09 Chronic Obstructive Pulmonary Disease, Rxhn-fj-Axwy Chronic Obstructive Pulmonary Disease Chronic obstructive pulmonary disease (COPD) is a long-term (chronic) lung problem. When you have COPD, it is hard for air to get in and out of your lungs. Usually the condition gets worse over time,and your lungs will never return to normal. There are things you can do to keep yourself as healthyas possible. Your doctor may treat your condition with: ?Medicines. ?Oxygen. ?Lung surgery. Your doctor may also recommend: ?Rehabilitation. This includes steps to make your body work better. It may involve a team of specialists. ?Quitting smoking, if you smoke. ?Exercise and changes to your diet. ?Comfort measures (palliative care). Follow these instructions at home: Medicines Take qzjw-fjb-iarvexd and prescription medicines only as told by your doctor. Talk to your doctor before taking any cough or allergy medicines. You may need to avoid medicines that cause your lungs to be dry. Lifestyle If you smoke, stop. Smoking makes the problem worse. If you need help quitting, ask your doctor. Avoid being around things that make your breathing worse. This may include smoke, chemicals, and fumes. Stay active, but remember to rest as well. Learn and use tips on how to relax. Make sure you get enough sleep. Most adults need at least 7 hours of sleep every night. Eat healthy foods. Eat smaller meals more often. Rest before meals. Controlled breathing Learn and use tips on how to control your breathing as told by your doctor. Try: Breathing in (inhaling) through your nose for 1 second. Then, pucker your lips and breath out (exhale) through your lips for 2 seconds. Putting one hand on your belly (abdomen). Breathe in slowly through your nose for 1 second. Your hand on your belly should move out. Pucker your lips and breathe out slowly through your lips. Your hand on your belly should move in as you breathe out. Controlled coughing Learn and use controlled coughing to clear mucus from your lungs. Follow these steps: 1.Lean your head a little forward. 2.Breathe in deeply. 3.Try to hold your breath for 3 seconds. 4.Keep your mouth slightly open while coughing 2 times. 5.Spit any mucus out into a tissue. 6.Rest and do the steps again 1 or 2 times as needed. General instructions Make sure you get all the shots (vaccines) that your doctor recommends. Ask your doctor about a flushot and a pneumonia shot. Use oxygen therapy and pulmonary rehabilitation if told by your doctor. If you need home oxygen therapy, ask your doctor if you should buy a tool to measure your oxygen level (oximeter). Make a COPD action plan with your doctor. This helps you to know what to do if you feel worse than usual. Manage any other conditions you have as told by your doctor. Avoid going outside when it is very hot, cold, or humid. Avoid people who have a sickness you can catch (contagious). Keep all follow-up visits as told by your doctor. This is important. Contact a doctor if: You cough up more mucus than usual. There is a change in the color or thickness of the mucus. It is harder to breathe than usual. Your breathing is faster than usual. You have trouble sleeping. You need to use your medicines more often than usual. You have trouble doing your normal activities such as getting dressed or walking around the house. Get help right away if: You have shortness of breath while resting. You have shortness of breath that stops you from: ?Being able to talk. ?Doing normal activities. Your chest hurts for longer than 5 minutes. Your skin color is more blue than usual. Your pulse oximeter shows that you have low oxygen for longer than 5 minutes. You have a fever. You feel too tired to breathe normally. Summary Chronic obstructive pulmonary disease (COPD) is a long-term lung problem. The way your lungs work will never return to normal. Usually the condition gets worse over time. There are things you can do to keep yourself as healthy as possible. Take lecj-raj-chhcilb and prescription medicines only as told by your doctor. If you smoke, stop. Smoking makes the problem worse. This information is not intended to replace advice given to you by your health care provider. Make sure you discuss any questions you have with your health care provider. Document Released: 02/26/2009 Document Revised: 08/23/2018 Document Reviewed: 10/15/2017 [employer] Patient Education 2020 [employer] Follow Up Care 01/19/2022 21:30:39 With:Eli COY, Catina Lemus, PUL, NOE Address: [address] [place] [address] Pulmonary Clinic (Heart & Vascular) [place] [address]- When:2 weeks [facility]04-28-2022 History of Present illness Narrative* Praveen Jeffrey, - 01/19/2022 9:16 PM EDT Images from the original note were not included. EMERGENCY TRIAGE, TREAT AND TRANSPORT (ET3) DOCUMENTATION OF TELEHEALTH VISIT Date / Time: 01/18/2022 / 2214 Name: Stef Bazan : 1950 SSN: [id number] EMS Agency: [facility] [x] Verbal consent obtained [] Implied consent - patient with potential emergency medical condition requiring assessment of capacity to refuse treatment and/or transport VITAL SIGNS: see flowsheet documentation Reason for Telehealth Visit: Shortness of breath History of Present Ilness: 71 year old female with PMH end stage COPD on 3L NC oxygen at baseline, HTN and under palliative care at home who called 911 after getting very SOB at her home. Her sister is present supporting her. Onset of symptoms was just prior to EMS arrival. Pt treated w/ breathing treatment and trial of NRM with improvement in symptoms. She is currently declining EMS with clear goal directed desire and expressed wish to remain in home for her palliative care. She has appt w/ home hospice team tomorrow. Her sister is present and supportive. Plans to stay the night with the patient. Symptoms improved with treatment. Her SOB was worse with exertion. She has declined EKG. Pt has valid DNR- CCA per EMS on scene. Refusing EMS transport. Additional pertinent PMHx, SocHx, FamHx: PMH COPD, Anxiety Meds oxygen Social lives at home with palliative care, pts sister staying with her tonight Review of Systems: Denies the following: CP, abd pain, fever, current SOB/palpitations Exam: General: Awake, no distress Thin, frail and on NC oxygen currently ENT: normocephalic, atraumatic Pulmonary: No respiratory distress, non labored breathing, was wheezing initially, not currently Cardiovascular: Well perfused Neurologic: Oriented to person, place, time and events. Moving all extremities equally. Psychiatric: Appropriate. Good insight and judgement. Medical Decision Makin71 year old with endstage COPD on 3L NC home O2 who called EMS for feeling SOB. She is under palliative care and has appt w/ home hospice evaluation tomorrow. She was treated by EMS w/ duoneb and D stick confirmed as normal reportedly. Pt declined EKG. She is also declining EMS transport to ED. After treatment and brief period on NRM, her symptoms improved greatly and the EMS crew has successfully titrated down her O2 requirement to 4L NC, close to her baseline requirement with significantly improved symptoms. Patient is alert and oriented with medical decision making capacity expressing clear and goal directed thought process to continue her home care so that she can continue to be at home. I expressed understanding her wish and my concern for the possibility of her symptoms getting acutely worse which she might not be able to control in her home. Her sister is present and expressed understand of thisas did the patient. The patient, family, EMS and myself are in agreement that the patient looks much better and in conjunction with her expressed wishes to remain home as well as continue the home hospice assessment process tomorrow, we will allow her to stay home under the care of her sister with her home oxygen concentrator. The patient is clearly aware of the severity of her symptoms and expressed her desire to continue to treat her terminal COPD symptoms at home with the scheduled home hospice program tomorrow. She is to call 911 back if they need support at all. Disposition Supported by Telehealth Assessment: ET3 transport decisions: Refused transport EMS Disposition Reported: Same ET3 Encounter Completed by: Praveen Jeffrey DO documented in this [id number] Hospital Discharge instructions Patient Education 01/19/2022 16:18:45 Chronic Obstructive Pulmonary Disease Exacerbation Chronic Obstructive Pulmonary Disease Exacerbation Chronic obstructive pulmonary disease (COPD) is a long-term (chronic) condition that affects the lungs. COPD is a general term that can be used to describe many different lung problems that cause lung swelling (inflammation) and limit airflow, including chronic bronchitis and emphysema. COPD exacerbations are episodes when breathing symptoms become much worse and require extra treatment. COPD exacerbations are usually caused by infections. Without treatment, COPD exacerbations can be severe and even life threatening. Frequent COPD exacerbations can cause further damage to the lungs. What are the causes? This condition may be caused by: Respiratory infections, including viral and bacterial infections. Exposure to smoke. Exposure to air pollution, chemical fumes, or dust. Things that give you an allergic reaction (allergens). Not taking your usual COPD medicines as directed. Underlying medical problems, such as congestive heart failure or infections not involving the lungs. In many cases, the cause (trigger) of this condition is not known. What increases the risk? The following factors may make you more likely to develop this condition: Smoking cigarettes. Old age. Frequent prior COPD exacerbations. What are the signs or symptoms? Symptoms of this condition include: Increased coughing. Increased production of mucus from your lungs (sputum). Increased wheezing. Increased shortness of breath. Rapid or labored breathing. Chest tightness. Less energy than usual. Sleep disruption from symptoms. Confusion or increased sleepiness. Often these symptoms happen or get worse even with the use of medicines. How is this diagnosed? This condition is diagnosed based on: Your medical history. A physical exam. You may also have tests, including: A chest X-ray. Blood tests. Lung (pulmonary) function tests. How is this treated? Treatment for this condition depends on the severity and cause of the symptoms. You may need to be admitted to a hospital for treatment. Some of the treatments commonly used to treat COPD exacerbations are: Antibiotic medicines. These may be used for severe exacerbations caused by a lung infection, such as pneumonia. Bronchodilators. These are inhaled medicines that expand the air passages and allow increased airflow. Steroid medicines. These act to reduce inflammation in the airways. They may be given with an inhaler, taken by mouth, or given through an IV tube inserted into one of your veins. Supplemental oxygen therapy. Airway clearing techniques, such as noninvasive ventilation (NIV) and positive expiratory pressure (PEP). These provide respiratory support through a mask or other noninvasive device. An example of this would be using a continuous positive airway pressure (CPAP) machine to improve delivery of oxygen into your lungs. Follow these instructions at home: Medicines Take xlbo-oga-nlbugvy and prescription medicines only as told by your health care provider. It is important to use correct technique with inhaled medicines. If you were prescribed an antibiotic medicine or oral steroid, take it as told by your health care provider. Do not stop taking the medicine even if you start to feel better. Lifestyle Eat a healthy diet. Exercise regularly. Get plenty of sleep. Avoid exposure to all substances that irritate the airway, especially to tobacco smoke. Wash your hands often with soap and water to reduce the risk of infection. If soap and water are not available, use hand social service assistant. During flu season, avoid enclosed spaces that are crowded with people. General instructions Drink enough fluid to keep your urine clear or pale yellow (unless you have a medical condition that requires fluid restriction). Use a cool mist vaporizer. This humidifies the air and makes it easier for you to clear your chest when you cough. If you have a home nebulizer and oxygen, continue to use them as told by your health care provider. Keep all follow-up visits as told by your health care provider. This is important. How is this prevented? Stay up-to-date on pneumococcal and influenza (flu) vaccines. A flu shot is recommended every year to help prevent exacerbations. Do not use any products that contain nicotine or tobacco, such as cigarettes and e-cigarettes. Quitting smoking is very important in preventing COPD from getting worse and in preventing exacerbationsfrom happening as often. If you need help quitting, ask your health care provider. Follow all instructions for pulmonary rehabilitation after a recent exacerbation. This can help prevent future exacerbations. Work with your health care provider to develop and follow an action plan. This tells you what stepsto take when you experience certain symptoms. Contact a health care provider if: You have a worsening of your regular COPD symptoms. Get help right away if: You have worsening shortness of breath, even when resting. You have trouble talking. You have severe chest pain. You cough up blood. You have a fever. You have weakness, vomit repeatedly, or faint. You feel confused. You are not able to sleep because of your symptoms. You have trouble doing daily activities. Summary COPD exacerbations are episodes when breathing symptoms become much worse and require extra treatment above your normal treatment. Exacerbations can be severe and even life threatening. Frequent COPD exacerbations can cause further damage to your lungs. COPD exacerbations are usually triggered by infections such as the flu, colds, and even pneumonia. Treatment for this condition depends on the severity and cause of the symptoms. You may need to be admitted to a hospital for treatment. Quitting smoking is very important to prevent COPD from getting worse and to prevent exacerbations from happening as often. This information is not intended to replace advice given to you by your health care provider. Make sure you discuss any questions you have with your health care provider. Document Released: 07/07/2008 Document Revised: 08/23/2018 Document Reviewed: 10/15/2017 [employer] Patient Education 2020 [employer]. Follow Up Care 01/19/2022 11:18:02 With:Nan Estevez Address: [address], [facility] [address] [place] [address]- Business (1) When:01/22/2022 14:53:23 [facility]04-28-2022 Evaluation + Plan noteExtracted from: Title:ED Note Author:Chano JONES, Christopher London te:01/19/22 COPD exacerbation (J44.1: Ch ronic obstructive pulmonary disease with (acute) exacerbation) Orders: acetaminophen-oxycodone, 1 tab(s), Tab, Oral, Once, Stop date 01/19/22 12:21:00 EDT, STAT, Start date 01/19/22 12:21:00 EDT albuterol-ipratropium, 3 mL, Soln-Inh, Inhalation, Once, Stop date 01/19/22 14:29:00 EDT, STAT, Start date 01/19/22 14:29:00 EDT azithromycin, 500 mg = 2 tab(s), Tab, Oral, Once, Stop date 01/19/22 14:29:00 EDT, STAT, Start date 01/19/22 14:29:00 EDT, 01/19/22 14:29:00 EDT azithromycin, = 1 packet(s), Oral, As Directed, as directed on package labeling, X 5 day(s), # 6 tab(s), Refills(s) 0, [facility], [facility], cm, 01/19/22 11:24:00 EDT, Height/Length Dosing, 150, kg, 01/19/22 11:24:00 EDT, Weight Dosing methylPREDNISolone, 125 mg = 2 mL, Injection, IV Push, Once, Stop date 01/19/22 14:29:00 EDT, STAT, Start date 01/19/22 14:29:00 EDT, 01/19/22 14:29:00 EDT predniSONE, 60 mg = 3 tab(s), Oral, Daily, X 7 day(s), # 21 tab(s), Refills(s) 0, Pharmacy: [facility], 170, cm, 01/19/22 11:24:00 EDT, Height/Length Dosing, 150, kg, 01/19/22 11:24:00 EDT, Weight Dosing Sodium Chloride 0.9% intravenous solution 1,000 mL, 1,000 mL, IV, 20 mL/hr, STAT, Start date 01/19/22 11:20:00 EDT, 50 hour(s), Total volume (mL): 1,000 Automated Diff B-Type Natriuretic Peptide Basic Metabolic Panel CBC w/ Auto Diff eGFR Extra Blue Tube Extra SST Tube Troponin 0 Hr. Troponin 3 Hr. Troponin 6 Hr. Troponin 9 Hr. XR Chest Single View Future Scheduled Tests Laboratory* SARS-CoV-2, FATEMEH [facility]16/[facility] Future Appointments Appointment Date:05/22/2022 02:45:00 PM Scheduled Provider:Delphine Johnson PA-C Location:[facility] Appointment Type:Pain Management - Follow Up (FT) Future Scheduled Tests Laboratory* SARS-CoV-2, FATEMEH 06/16/21 [facility] Future Appointments Appointment Date:05/22/2022 02:45:00 PM Scheduled Provider:Delphine Johnson PA-C Location:[facility] Appointment Type:Pain Management - Follow Up (FT) Diagnostic Tests Pending * Urine Culture 05/01/22 Future Scheduled Tests Laboratory* SARS-CoV-2, FATEMEH 06/16/[facility] Future Appointments Appointment Date:05/10/2022 02:30:00 PM Scheduled Provider: Location:FT.[facility] Appointment Type:PUL Pulmonary Function Test (FT) Appointment Date:05/10/2022 03:30:00 PM Scheduled Provider: Location:.[facility] Appointment Type:PUL Six Minute Walk Test (FT) Appointment Date:05/22/2022 02:45:00 PM Scheduled Provider:Delphine Johnson PA-C Location:[facility] Appointment Type:Pain Management - Follow Up (FT) Appointment Date:06/05/2022 01:30:00 PM Scheduled Provider:Catina Benitez MD Location:FT.Pulmonary Clinic Appointment Type:Pulmonary Follow Up (FT) Future Scheduled Tests Laboratory* SARS-CoV-2, FATEMEH 06/16/21 Radiology* CT Chest, Low Dose Screening 06/05/22 [facility] Future Appointments Appointment Date:05/22/2022 02:45:00 PM Scheduled Provider:Delphine Johnson PA-C Location:FT.Pain Mgmt [facility] Appointment Type:Pain Management - Follow Up (FT) Appointment Date:06/05/2022 01:30:00 PM Scheduled Provider:Catina Benitez MD Location:[facility].Pulmonary Clinic Appointment Type:Pulmonary Follow Up (FT) Future Scheduled Tests Laboratory* SARS-CoV-2, FATEMEH 06/16/21 Radiology* CT Chest, Low Dose Screening 06/05/22 [facility] Future Appointments Appointment Date:01/11/2023 01:00:00 PM Scheduled Provider: Location:.[facility] Appointment Type:CT Chest, Low Dose Screening (FT) Appointment Date:03/23/2023 11:00:00 AM Scheduled Provider:Catina Benitez MD Location:FT.Pulmonary Clinic Appointment Type:Pulmonary New Patient (FT) Future Scheduled Tests Radiology* CT Chest, Low Dose Screening 07/03/22 * CT Chest, Low Dose Screening 06/05/22 * CT Chest, Low Dose Screening 01/11/23 [facility] Future Appointments Appointment Date:03/23/2023 11:00:00 AM Scheduled Provider:Catina Benitez MD Location:FT.Pulmonary Clinic Appointment Type:Pulmonary New Patient (FT) Future Scheduled Tests Radiology* CT Chest, Low Dose Screening 07/03/22 * CT Chest, Low Dose Screening 06/05/22 [facility] Diagnosis History of COPD- Primary Personal history of other diseases of respiratory system Shortness of breath History of anxiety [facility] N[facility]ative No data available for this section [facility] No data available for this section [facility] No data available for this section [facility] Summary Purpose Family History No Family History Records FoundNo Family History Records FoundNo Family History Records FoundNo Family History Records FoundNo Family History Records Found No data available for this section No data available for this section No data available for this section No Family History Records FoundNo Family History Records Found Advance Directives No Advanced Directives Records FoundNo Advanced Directives Records FoundNo Advanced Directives Records FoundNo Advanced Directives Records FoundNo Advanced Directives Records FoundNo Advanced Directives Records FoundNo Advanced Directives Records Found Additional Source Comments INFORMATION SOURCE (unrecogn ized section and content) DATE CREATED AUTHOR 03/13/2018 [facility] DATE CREATED AUTHOR AUTHOR'S ORGANIZ ATION 03/22/2018 [facility] DATE CREATED AUTHOR AUTHOR'S ORGANIZ ATION 02/02/2022 [facility] DATE CREATED AUTHOR AUTHOR'S ORGANIZ ATION 02/10/2022 [facility] DATE CREATED AUTHOR AUTHOR'S ORGANIZ ATION 04/14/2022 [facility] DATE CREATED AUTHOR AUTHOR'S ORGANIZ ATION 08/26/2023 [facility] DATE CREATED AUTHOR AUTHOR'S ORGANIZ ATION 12/13/2023 [facility] Reason for Visit (unrecogniz ed section and content) Reason Comments Shortness of breath Source Comments (unrecognize d section and content) In the event this informatio n is protected by the Federal Confidentiality of Alcohol and Drug Abuse Patient Records regulations: The Federal rules restrict any use of the information to criminally investigate or prosecute any alcohol or drug abuse patient.[facility] the event this information is protected by the Federal Confidentiality of Alcohol and Drug Abuse Patient Records regulations: The Federal rules restrict any use of the information to criminally investigate or prosecute any alcohol or drug abuse patient.[facility] the event this information is protected by the Federal Confidentiality of Alcohol and Drug Abuse Patient Records regulations: The Federal rules restrict any use of the information to criminally investigate or prosecute any alcohol or drug abuse patient.[facility] the event this information is protected by the Federal Confidentiality of Alcohol and Drug Abuse Patient Records regulations: The Federal rules restrict any use of the information to criminally investigate or prosecute any alcohol or drug abuse patient.[facility] Care Teams (unrecognized sec tion and content) [employer] Relationship Specialty Start Date End Date Bettie Cai [address] [place] [address] PCP - General 10/05/06 FOR RECORDS PERTAINING TO PATIENTS WHO ARE OR HAVE BEEN ENROLLED IN A CHEMICAL DEPENDENCY/SUBSTANCEABUSE PROGRAM, SOME INFORMATION MAY BE OMITTED. This clinical summary was aggregated from multiple sources. Caution should be exercised in using it in the provision of clinical care. This summary normalizes information from multiple sources, and as a consequence, information in this document may materially change the coding, format and clinical context of patient data. In addition, data may be omitted in some cases. CLINICAL DECISIONS SHOULD BE BASED ON THE PRIMARY CLINICAL RECORDS. [employer] [facility]. provides no warranty or guarantee of the accuracy or completeness of information in this document.
== END 2023-12-24 07:42 | disposition home or self-care (01) ==
LOC: EC 07:41
PROVIDERS: PCP Family Medicine; Visit Provider Orthopaedic Surgery
DX: S72.001D Fracture of unspecified part of neck of right femur, subsequent encounter for closed fracture with routine healing (principal); Z98.890 Other specified postprocedural states
CPT/HCPCS: 73502

== ENCOUNTER 2024-01-28 09:11 | Outpatient (OUT) | payer MEDICARE, MEDICAID, SELFPAY ==
--- NOTE | 2024-01-28 | XR_ITS ---
The [address] [address] Patient Name: STEF BAZAN MRN: [id number] date: 1950 Sex: F Assigned Patient Location: Current Patient Location: Accession/Order Number: [id number] Exam Date: 01/28/2024 09:15 Report Date: 01/28/2024 10:42 At the request of: WYATT DOOLEY Procedure: XR hip RT 2V w/ pelvis PROCEDURE: XR hip RT 2V w/ pelvis COMPARISON: 12/24/2023 HISTORY: RIGHT HIP PAIN FINDINGS: BONES:No acute fracture or dislocation. Remote right femoral neck fracture with internal fixation. Moderate degenerative changes of the spine SOFT TISSUES:Negative. No visible soft tissue swelling. EFFUSION:None visible. OTHER: Moderate amount of stool throughout the colon and rectum XR/XR hip RT 2V w/ pelvis IMPRESSION: Stable remote right hip fracture with internal fixation Moderate amount of stool throughout the colon and rectum Electronically authenticated by: DESIRE CROCKER Date: 01/28/2024 10:42
--- NOTE | 2024-01-28 | XR_ITS ---
The [address] [address] Patient Name: STEF BAZAN MRN: [id number] date: 1950 Sex: F Assigned Patient Location: Current Patient Location: Accession/Order Number: [id number] Exam Date: 01/28/2024 09:15 Report Date: 01/28/2024 10:29 At the request of: WYATT DOOLEY Procedure: XR foot RT min 3V PROCEDURE: XR foot RT min 3V COMPARISON: 11/28/2023 HISTORY: RIGHT FOOT PAIN FINDINGS: BONES:No acute fracture or dislocation. Persistent valgus deformity of the fourth toe. Lytic changes involving the head of the fifth metatarsal, clinically correlate. Progression of permeative pattern of the bones. Enthesopathic spurring of the calcaneus SOFT TISSUES:Negative. No visible soft tissue swelling. EFFUSION:None visible. OTHER: Negative. XR/XR foot RT min 3V IMPRESSION: Progression of lytic change of the fifth metatarsal head this could be related to interval progression of osteopenia Electronically authenticated by: DESIRE CROCKER Date: 01/28/2024 10:29
== END 2024-01-28 09:12 | disposition home or self-care (01) ==
LOC: EC 09:11
PROVIDERS: PCP Family Medicine; Visit Provider Orthopaedic Surgery
DX: M79.671 Pain in right foot (principal); S72.001D Fracture of unspecified part of neck of right femur, subsequent encounter for closed fracture with routine healing
CPT/HCPCS: 73502; 73630

== ENCOUNTER 2024-02-25 11:36 | Outpatient (OUT) | payer MEDICARE, MEDICAID, SELFPAY ==
--- NOTE | 2024-02-25 | XR_ITS ---
The [address] [address] Patient Name: STEF BAZAN MRN: [id number] date: 1950 Sex: F Assigned Patient Location: Current Patient Location: Accession/Order Number: [id number] Exam Date: 02/25/2024 11:37 Report Date: 02/26/2024 11:22 At the request of: WYATT DOOLEY Procedure: XR foot RT min 3V PROCEDURE: XR foot RT min 3V HISTORY: RIGHT FOOT PAIN COMPARISON: XR foot right 01/28/2024 FINDINGS: BONES:Heterogeneous marrow density throughout the foot suggestive of osteopenia. Bone hypertrophy the head of the first metatarsal and joint space narrowing. No fracture, dislocation, or appreciable bone lesion. SOFT TISSUES:No visible soft tissue swelling. EFFUSION:None visible. OTHER: Negative. XR/XR foot RT min 3V IMPRESSION: 1. No appreciable acute bone abnormality or evidence of osteomyelitis. 2. Mild bunion formation and moderate diffuse osteopenia. Electronically authenticated by: WYATT VÁZQUEZ Date: 02/26/2024 11:22
--- NOTE | 2024-02-25 | XR_ITS ---
The [address] [address] Patient Name: STEF BAZAN MRN: [id number] date: 1950 Sex: F Assigned Patient Location: Current Patient Location: Accession/Order Number: [id number] Exam Date: 02/25/2024 11:37 Report Date: 02/26/2024 11:26 At the request of: WYATT DOOLEY Procedure: XR hip RT 2V w/ pelvis PROCEDURE: XR hip RT 2V w/ pelvis HISTORY: RIGHT HIP PAIN COMPARISON: XR hip right 01/28/2024 FINDINGS: BONES:Prior right femoral neck repair. Stable separate small calcifications cephalad to the lesser trochanter of the left hip, likely sequela of remote injury. No acute fracture, dislocation, bone lesion. Mild narrowing of the hip joint spaces bilaterally. SOFT TISSUES:No visible soft tissue swelling. EFFUSION:None visible. OTHER: Neurostimulator electrode overlying the inferior right margin of the sacrum. XR/XR hip RT 2V w/ pelvis IMPRESSION: 1. Stable surgical changes and degenerative changes. Electronically authenticated by: WYATT VÁZQUEZ Date: 02/26/2024 11:26
== END 2024-02-25 11:37 | disposition home or self-care (01) ==
LOC: EC 11:36
PROVIDERS: PCP Family Medicine; Visit Provider Orthopaedic Surgery
DX: S72.001D Fracture of unspecified part of neck of right femur, subsequent encounter for closed fracture with routine healing (principal); M79.671 Pain in right foot; Z98.890 Other specified postprocedural states; M21.611 Bunion of right foot
CPT/HCPCS: 73502; 73630